=== PATIENT | male | born 1940 | race Caucasian/White ===

== ENCOUNTER 2018-01-08 08:02 | Day surgery (SDC) | payer OTHER, SELFPAY ==
[2018-01-08] VITALS (7 sets, daily range): BP systolic 94–168; BP diastolic 67–90; PULSE 39–54; RESP 15–16; TEMP 36–36.3; O2SAT 97–100; BMI 22.4
--- NOTE | 2018-01-08 | PATH_ITS ---
[facility] Accession Number: [id number] . 01 Material submitted: . ASCENDING COLON POLYP . 02 Diagnosis: Ascending Colon Polyp: Tubular adenoma. [facility] [place]10[place]2018 . 02 Electronically signed: . Geoff Noguera MD, PhD, Pathologist NPI- [id number] . 01 Gross description: . ASCENDING COLON POLYP: Received in formalin are multiple fragment(s) of coleman, soft tissue measuring 1.7 x 0.4 x 0.2 cm in aggregate submitted entirely in 1 cassette(s) /TRC /TRC . 02 Pathologist provided ICD-10: D12.2 . 02 CPT . 844403 Performed at: 01 [facility] [address] [facility], [place], [place] [id number] MD Paul Cheung MD Phone: [phone] Performed at: 02 [facility] [address] [place], [place] [id number] MD Howard Quezada MD Phone: [phone]
--- NOTE | 2018-01-08 08:50 | PM.HP.1 ---
History of Present Illness Chief complaint: [id number] Narrative: The patient is a 69-year-old male who was seen in October 2017 at our office for preoperative evaluation prior to colon cancer screening. The patient has history of atrial fibrillation currently on warfarin and a prior colonoscopy in 2007 which was unrevealing. The patient denies any GI symptoms. His father has history of colon cancer diagnosed in his late 70s or early 80s. Exam Vital Signs (past 8 hours): Vital Signs - 8 hr 01/08/ 08:22 Temperature 96.8 F L Pulse Rate 54 L Respiratory Rate 15 Blood Pressure 168/90 H Pulse Oximetry 100 Pulse Oximetry 100 Oxygen Delivery Method Room Air Narrative Exam Narrative: General: Patient is well developed, not in apparent distress Cardiovascular: Irregularly irregular rhythm, normal rate, no murmurs, rubs, or gallops; no evidence of edema; no palpable abdominal aortic aneurysm Gastrointestinal: Normoactive bowel sounds, soft, nontender, nondistended, no rebound tenderness, no hepatosplenomegaly, no evidence of hernia Assessment & Plan Plan: Assessment/Plan Narrative: 69-year-old male with history of atrial fibrillation on warfarin who is here for screening colonoscopy. Warfarin has been held 5 days prior to this procedure. Regarding the procedure(s), the risks and potential complications, benefits, and alternatives (including not doing the procedure) were discussed with the patient. The risks include but are not limited to bleeding, infection, perforation which may require surgical intervention, missed lesions, and adverse reactions to sedative medicines. After a question and answer period, the patient agreed to proceed with the procedure(s).
[2018-01-08] MEDS: SODIUM CHLORIDE 0.9% 1,000 ML 70 ML IV (08:51)
--- NOTE | 2018-01-08 08:53 | P.HP_ITS ---
History of Present Illness Chief complaint: [id number] Narrative: The patient is a 69-year-old male who was seen in October 2017 at our office for preoperative evaluation prior to colon cancer screening. The patient has history of atrial fibrillation currently on warfarin and a prior colonoscopy in 2007 which was unrevealing. The patient denies any GI symptoms. His father has history of colon cancer diagnosed in his late 70s or early 80s. Exam Vital Signs (past 8 hours): Vital Signs - 8 hr 3 01/08/ 08:22 Temperature 96.8 F L Pulse Rate 54 L Respiratory Rate 15 Blood Pressure 168/90 H Pulse Oximetry 100 Pulse Oximetry 100 Oxygen Delivery Method Room Air Narrative Exam Narrative: General: Patient is well developed, not in apparent distress Cardiovascular: Irregularly irregular rhythm, normal rate, no murmurs, rubs, or gallops; no evidence of edema; no palpable abdominal aortic aneurysm Gastrointestinal: Normoactive bowel sounds, soft, nontender, nondistended, no rebound tenderness, no hepatosplenomegaly, no evidence of hernia Assessment & Plan Plan: Assessment/Plan Narrative: 69-year-old male with history of atrial fibrillation on warfarin who is here for screening colonoscopy. Warfarin has been held 5 days prior to this procedure. Regarding the procedure(s), the risks and potential complications, benefits, and alternatives (including not doing the procedure) were discussed with the patient. The risks include but are not limited to bleeding, infection, perforation which may require surgical intervention, missed lesions, and adverse reactions to sedative medicines. After a question and answer period, the patient agreed to proceed with the procedure(s).
[2018-01-08] MEDS: fentaNYL 250 MCG/5 ML INJ IV (10:05)
[2018-01-08] MEDS: MIDAZOLAM 5 MG/5 ML VIAL IV (10:06)
--- NOTE | 2018-01-08 10:57 | P.DS_ITS ---
History of Present Illness Chief complaint: [id number] Narrative: The patient is a 69-year-old male who was seen in October 2017 at our office for preoperative evaluation prior to colon cancer screening. The patient has history of atrial fibrillation currently on warfarin and a prior colonoscopy in 2007 which was unrevealing. The patient denies any GI symptoms. His father has history of colon cancer diagnosed in his late 70s or early 80s. Discharge Providers Primary care physician: David Wyatt MD Discharge provider: Dwayne Lewis MD Exam Vital Signs (past 8 hours): Vital Signs - 8 hr 3 01/08/18 08:22 01/08/18 10:15 01/08/18 10:20 Temperature 96.8 F L 97.4 F L Pulse Rate 54 L 40 L 41 L Respiratory Rate 15 15 16 Blood Pressure 168/90 H 103/71 94/67 Pulse Oximetry 100 97 98 3 01/08/18 10:25 01/08/18 10:40 Temperature Pulse Rate 40 L 39 L Respiratory Rate 16 16 Blood Pressure 100/73 121/74 H Pulse Oximetry 97 98 Pulse Oximetry 98 Oxygen Delivery Method Room Air Narrative Exam Narrative: General: Patient is well developed, not in apparent distress Cardiovascular: Irregularly irregular rhythm, bradycardic, no murmurs, rubs, or gallops; no evidence of edema; no palpable abdominal aortic aneurysm Gastrointestinal: Normoactive bowel sounds, soft, nontender, nondistended, no rebound tenderness, no hepatosplenomegaly, no evidence of hernia Discharge Plan Discharge Plan Patient Disposition: Home, Self-Care Discharge comment: Restart warfarin today Remove IV prior to discharge Discharge to home once criteria are met (positive flatus, stable vital signs, no abdominal pain, tolerating p.o.) Discharge Med Rec/Prescriptions Discharge Orders: Discharge (Order); Ordered 01/08/18 Ordered By: Dwayne Lewis Visit Report/Discharge Packet Stand Alone Forms: Surgery Discharge Discharge Data Primary Care Provider: David Wyatt V Attending Provider: Dwayne Lewis
--- NOTE | 2018-01-08 11:00 | PM.OP.ENDO ---
Operative Date/Time/Diagnoses - Date of procedure: 01/08/18 Procedure Notes Procedure in detail: Surgeon: Dwayne Lewis MD Procedure: Colonoscopy with polypectomy Preoperative diagnosis: Colon cancer screening Postoperative diagnosis: Ascending colon polyp status post polypectomy, grade 1 internal hemorrhoids Medications: Conscious sedation using 4 mg IV of Midazolam and 50 mcg IV of Fentanyl Preanesthesia Assessment An H and P was performed/updated and the Px?s ASA class is 2. The procedure was discussed in detail with the patient. The potential risks and complications including infection, bleeding, missed lesions, perforation, need for surgery in case of perforation, prolonged hospital stay, and were explained. A brief question and answer period was allotted and once all questions were answered, informed consent was obtained. The patient was brought back to the procedure room and placed on standard monitoring. The patient?s vital signs were monitored continuously throughout the entire procedure. Prior to starting, a timeout was performed to confirm the patient?s identity, allergies, medications, and procedure. Procedure in detail The patient was placed in left lateral decubitus position and once adequate sedation was obtained a GAVIN was performed. The digital rectal exam did not reveal any palpable lesions. The tip of the colonoscope was placed in the anal canal and advanced without difficulty all the way to the cecum which was identified by the appendiceal orifice and ileocecal valve. Careful examination of all plasencia of the colon was performed with irrigation of any residual stool. In the ascending colon there is note of a 12 mm sessile polyp. This polyp was removed in its entirety by means of a hot snare with no evidence of any residual bleeding and retrieval was successful. Careful examination of the remainder of the colon revealed no further polyps. Retroflexion was performed in the rectum which revealed grade 1 internal hemorrhoids. The procedure was then terminated The patient tolerated the procedure well and will be brought back to the recovery area to be discharged once criteria are met. The prep was judged to be good/excellent and adequate to identify polyps less than 5 mm. The withdrawal time was 9 min. The total procedure time from initial sedation was 18 min. Complications There were no complications and estimated blood loss was minimal. Recommendations: Resume previous diet Restart warfarin today Continue outPx medications Follow up pathology results Repeat colonoscopy in 3 years can be considered depending on patient's clinical health status at that time An emergency contact number was given to the patient for any complications related to the procedure
== END 2018-01-08 11:45 | disposition home or self-care (01) ==
PROVIDERS: PCP Internal Medicine; Visit Provider Internal Medicine Gastroenterology
PROC: 0DJD8ZZ Inspection of Lower Intestinal Tract, Via Natural or Artificial Opening Endoscopic (ICD-10-PCS; CPT 45378; principal; 2018-01-08 09:30)
DX: Z12.11 Encounter for screening for malignant neoplasm of colon (principal); K64.0 First degree hemorrhoids; I48.91 Unspecified atrial fibrillation; Z79.01 Long term (current) use of anticoagulants; D12.2 Benign neoplasm of ascending colon
CPT/HCPCS: 45385; J2250; J3010

== ENCOUNTER → 2018-03-10 15:09 | Outpatient (CLI) | payer OTHER, SELFPAY ==
--- NOTE | 2018-03-10 15:13 | DI.RAD.S_ITS ---
PROCEDURE: XR LUMBAR SPINE MIN 4V INDICATIONS: LOW BACK PAIN TECHNIQUE: 5 views of the lumbar spine acquired. COMPARISON: [facility], CT, CHEST/ABD/PEL WITH CONTRAST, 07/04/2015, 10:31. FINDINGS: Bones: 5 nonrib-bearing vertebrae are present. Chronic appearing anterior wedge compression deformity involving L3 and L4 vertebral bodies are again seen, unchanged from previous CT study dated 07/04/15. No evidence of acute compression fracture or traumatic spondylolisthesis. Degenerative endplate changes and bilateral facet arthrosis throughout lumbar spine is seen. Soft tissues: Overlying bowel gas pattern is normal. No suspicious soft tissue calcifications. Flexion/extension: There is mildly decreased range of motion, with preserved normal alignment. IMPRESSION: Chronic appearing anterior wedge compression deformity at L3 and L4 levels unchanged from prior study. No acute compression fracture or traumatic spondylolisthesis. Degenerative disc disease throughout lumbar spine. Dictated by: Francisco Candelaria M.D. on 03/10/2018 at 15:58 Approved by: Francisco Candelaria M.D. on 03/10/2018 at 16:07
== END ==
PROVIDERS: PCP Internal Medicine; Visit Provider Internal Medicine
DX: M51.36 Other intervertebral disc degeneration, lumbar region (principal); M54.5 Low back pain
CPT/HCPCS: 72110

== ENCOUNTER 2018-11-22 07:43 | Emergency (ER) | payer OTHER, SELFPAY ==
[2018-11-22 07:45] VITALS: BP 148/100; PULSE 79; RESP 13; TEMP 36.2; O2SAT 98
--- NOTE | 2018-11-22 08:08 | ED_ITS ---
HPI - Male Genitourinary General Chief complaint: Urogenital-Male Stated complaint: States ural lift 2days ago; hard time urinating Time Seen by Provider: 11/22/18 07:55 Source: patient Mode of arrival: ambulatory Limitations: no limitations History of Present Illness HPI Narrative: Patient is a 78-year-old male who had a prostate lift 2 days ago. He has not been able to urinate well really since yesterday. He was sent home with straight catheters. He tried to do a straight catheter yesterday but he just got peer blood out. He since has been dribbling but he has any urinal now is a small amount of dark urine not gross blood. He has abdominal pain. No fever MD Complaint: other Duration: constant Review of Systems Review of Systems GENERAL: Denies chills,fever HEENT: Denies throat pain RESPIRATORY: Denies dyspnea, cough, wheezing CARDIOVASCULAR: Denies chest pain, palpitations : See HPI GASTROINTESTINAL: Denies nausea, vomiting MUSCULOSKELETAL: Denies extremity pain, injury SKIN: No rash, no laceration, no pruritus NEUROLOGIC: Denies weakness, dizziness, headache, numbness 8 point review of systems is negative except for those stated above and HPI PENDING SALE TO [facility] Medical History (Updated 11/22/18 @ 08:36 by Margie Pugh DO) Pulmonary embolism (Acute) Exam Initial Vital Signs Initial Vital Signs: Vital Signs Temperature 97.2 F L 11/22/18 07:45 Pulse Rate 79 11/22/18 07:45 Respiratory Rate 13 11/22/18 07:45 Blood Pressure 148/100 H 11/22/18 07:45 Pulse Oximetry 98 11/22/18 07:45 GENERAL: Alert pleasant elderly male appears in discomfort CARDIOVASCULAR: peripheral pulses in tact, cap refill <2 sec RESPIRATORY: No respiratory distress, speaks in full sentences without difficulty ABDOMEN: Soft, painful suprapubic area mild distension no guarding or rebound EXTREMITIES: Normal range of motion, no clubbing or edema. Neurovascularly intact NEUROLOGICAL: Cranial nerves II through XII grossly intact. Normal gait and speech. SKIN: Warm, dry, no petechiae, no rashes or lesions. Course Orders Ordered: ED Orders 11/22/18 08:10 UA Complete [Urinalysis and Microscopic] Stat Vital Signs - 8 hr 11/22/18 07:45 Temperature 97.2 F L Pulse Rate 79 Respiratory Rate 13 Blood Pressure 148/100 H Pulse Oximetry 98 MDM - Male Genitourinary Lab Data Lab Results 11/22/18 Range/Units 08:10 Urine Color Yellow Urine Appearance Slightly cloudy Urine pH 5.0 (4.5-8.0) Ur Specific [place] 1.020 (1.000-1.035) Urine Protein Negative (Negative) Urine Glucose (UA) Negative (Negative) g/dL Urine Ketones Negative (NEGATIVE) Urine Occult Blood 3+ H (Negative) Urine Nitrate Negative (Negative) Urine Bilirubin Negative (NEGATIVE) Urine Urobilinogen 0.2 (0.2) E.U./dL Ur Leukocyte Esterase Negative (NEGATIVE) Urine RBC 30-100/hpf H (0-5/HPF) Urine WBC 0-1/hpf (0-5/HPF) Ur Squamous Epith Cells 0-1 /hpf (0-5/HPF) Urine Bacteria None seen (None) Ur Culture Indicated? Cult not indicated MDM Narrative Medical decision making narrative: Orlando catheter was placed. About 400 cc of urine return. Not grossly bloody although nursing states that initially when catheter was placed it was gross blood however is once in bladder it was slightly darkened urine. At this time no sign of infection. Recommend he follow up with his urologist in [place] Discharge Plan Departure Patient Disposition: Home Clinical Impression: Acute retention of urine Discharge Date/Time: 11/22/18 09:05 Interventions: ED Discharge Assessment Last Done: 11/22/18 09:04 Instructions: How to Care for Your Orlando Catheter -- Male Activity Restrictions/Additional Instructions: *You have been diagnosed with urinary retention *What to do: Keep Orlando catheter in place. Be sure it is draining clear urine not gross bloody urine *Continue to take medications as directed *Follow up with your primary care provider in 2-3 days, call your urologist on Saturday morning be sure to tell them have a Orlando catheter in place *Return to ER if you should have increased abdominal pain gross blood in ability to see through the tube or any new, worsening or concerning symptoms Referrals: David Wyatt MD [Primary Care Provider] -
[2018-11-22 08:24] LABS: Bacteria Urine None Seen
[2018-11-22 08:25] LABS: Bilirubin Urine UA NEGATIVE (NEGATIVE); Color Urine UA YELLOW; Glucose Urine UA NEGATIVE (Negative); Ketones Urine UA NEGATIVE (NEGATIVE); Leukocyte Esterase Urine UA NEGATIVE (NEGATIVE); Nitrite Urine UA NEGATIVE (Negative); Occult Blood Urine UA 3+ (Negative); Protein Urine UA NEGATIVE (Negative); Urobilinogen Urine UA 0.2 E.U./dL (0.2)
[2018-11-22 08:27] LABS: Appearance Urine UA Slightly Cloudy
[2018-11-22 08:31] LABS: Culture Indicated Urine Cult Not Indicated; RBC Urine 30-100/HPF (0-5/HPF); Squamous Epithelial Cell Urine 0-1 /HPF (0-5/HPF); WBC Urine 0-1/HPF (0-5/HPF)
--- NOTE | 2018-11-22 09:07 | PC.NURSE ---
instructions on leg bag given seems to understand / will call if questions.
== END 2018-11-22 09:05 | disposition home or self-care (01) ==
PROVIDERS: Emergency Provider Emergency Medicine; PCP Internal Medicine
DX: R33.8 Other retention of urine (principal)
CPT/HCPCS: 51701; 51798; 81001; 99283

== ENCOUNTER → 2019-01-07 09:12 | Outpatient (CLI) | payer OTHER, SELFPAY ==
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
--- NOTE | 2019-01-07 | DI.MRI.S_ITS ---
PROCEDURE: MR LUMBAR SPINE WO CON INDICATIONS: LUMBAR SPINE PAIN TECHNIQUE: Noncontrast sagittal T1 spin echo and T2 fast echo, coronal T2, sagittal STIR, axial T1 and T2 fast spin echo through the lumbar spine. COMPARISON: [facility] [place], [place], XR LUMBAR SPINE WITH OLBIQUES PLUS FLEXION EXTENSION, 12/26/2018, 14:08. FINDINGS: Image quality: Excellent. Alignment and Curvature: 5 lumbar type vertebral bodies are present by plain film. There is mild diffuse rightward curvature of the lumbar spine. Bone Marrow: Marrow is of normal overall signal. No acute vertebral body compression fractures. Moderate chronic appearing wedging of L3 and L4. Moderate reactive signal within the endplates adjacent to the L5-S1 intervertebral disc. Mild reactive signal within the endplates adjacent to the L1-L2, L2-L3, L3-L4, and L4-L5 intervertebral discs. Spinal Cord: Conus medullaris terminates at the L2-L3 disc space level. Visualized cord demonstrates normal signal and size. Paraspinous Soft Tissues: No paravertebral masses. Small bilateral renal cysts are present. L1-L2: Mild disc desiccation. Mild diffuse disc bulge. Mild facet and ligament flavum hypertrophy. Mild canal stenosis. No foraminal stenosis. L2-L3: A moderate disc height loss and desiccation. Mild diffuse disc bulge with small superimposed right far lateral protrusion. Mild bilateral facet and ligamentum flavum hypertrophy. Mild canal stenosis. Mild right foraminal stenosis. No left foraminal stenosis. L3-L4: Moderate disc height loss and desiccation. Mild diffuse disc bulge. Mild facet and ligamentum flavum hypertrophy. Mild canal stenosis. Mild bilateral foraminal stenosis. L4-L5: Severe disc height loss and desiccation. Mild diffuse disc bulge/osteophyte. Mild facet hypertrophy bilaterally. Mild canal stenosis. Moderate right and mild left foraminal stenosis. L5-S1: Mild disc height loss and desiccation. Mild diffuse disc bulge. Mild bilateral facet hypertrophy. Mild canal stenosis. Mild bilateral foraminal stenosis. IMPRESSION: 1. Multilevel degenerative disc and facet disease, as well as ligamentum flavum hypertrophy and epidural lipomatosis. 2. Mild multilevel canal stenoses. 3. Multilevel foraminal stenoses, worst on the right at L4-L5 where there is moderate foraminal stenosis. 4. Chronic L2 and L3 compression fractures. No evidence of acute fracture. Dictated by: Miguel Angel Lawrence M.D. on 01/07/2019 at 10:17 Approved by: Miguel Angel Lawrence M.D. on 01/07/2019 at 10:27
== END ==
PROVIDERS: PCP Internal Medicine; Visit Provider Physical Medicine & Rehabilitation
DX: M54.5 Low back pain (principal); M51.36 Other intervertebral disc degeneration, lumbar region; M51.37 Other intervertebral disc degeneration, lumbosacral region; M48.061 Spinal stenosis, lumbar region without neurogenic claudication; M48.07 Spinal stenosis, lumbosacral region; M48.56XA Collapsed vertebra, not elsewhere classified, lumbar region, initial encounter for fracture; E88.2 Lipomatosis, not elsewhere classified
CPT/HCPCS: 72148; 72195

== ENCOUNTER 2019-01-30 14:35 | Inpatient (IN) | payer OTHER, SELFPAY ==
[2019-01-30] VITALS (7 sets, daily range): BP systolic 110–132; BP diastolic 57–84; PULSE 48–61; RESP 12–20; TEMP 36.2–36.6; O2SAT 92–98; BMI 24.6
--- NOTE | 2019-01-30 14:33 | ED.FALL ---
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 dose reduction, the following was used: automated exposure control. COMPARISON: [facility], CT, CHEST/ABD/PEL WITH CONTRAST, 07/04/2015, 10:31. [facility], MR, MR LUMBAR SPINE WO CON, 01/07/2019, 9:40. FINDINGS: Image quality: Excellent. Bones: There is stable and normal bony alignment of the lumbar spine with stable appearance of chronic anterior compression deformities of L3 and L4. Moderate multilevel lumbar spondylitic changes as before. No suspicious osseous lesions. Soft tissues: No retroperitoneal masses or hematomas. Scattered atherosclerotic calcifications in the visualized distal thoracic aorta and abdominal aorta with borderline aneurysmal dilatation of the infrarenal abdominal aorta measuring approximately 3.0 cm in diameter. There is also mild ectasia of the common iliac arteries. No periaortic stranding or fluid. Stable appearance of multiple bilateral renal hypodensities, likely representing cysts. IMPRESSION: 1. CT lumbar spine without acute fracture or dislocation. 2. Stable appearance of chronic anterior compression deformities of L3 and L4. 3. Stable appearance of multilevel lumbar spondylosis. 4. 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 Recommend continued clinical and imaging surveillance. 5. 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 Dictated by: Ajay Hampton M.D. on 01/30/2019 at 16:12 Approved by: Ajay Hampton M.D. on 01/30/2019 at 16:20 ECG Data Attestation: I personally reviewed and interpreted this ECG as follows: (Sinus bradycardia, rate 51, left axis deviation) <Kierra Bergeron DO - Last Filed: 01/31/19 07:29> Lab Data Lab Results 01/30/19 01/30/19 01/30/19 Range/Units 16:06 16:06 16:06 WBC 11.3 H (4.5-11.0) X10^3/uL RBC 4.40 L (4.5-5.9) X10^6/uL Hgb 13.9 (13.5-17.5) g/dL Hct 42.1 (41-53) % MCV 95.6 (80-100) fL MCH 31.5 (26-34) PG MCHC 33.0 (30-36) % RDW 13.5 (11.6-14.8) % Plt Count 184 (150-400) X10^3/uL Neut % (Auto) 83.2 H (50-75) % Lymph % (Auto) 10.9 L (25-40) % Douglas % (Auto) 5.4 (3-14) % Eos % (Auto) 0.2 L (2-4) % Baso % (Auto) 0.3 (0-2) % Neut # (Auto) 9400 H (7090-7030) /uL Lymph # (Auto) 1200 (4242-6038) /uL Douglas # (Auto) 600 (0-900) /uL Eos # (Auto) 0 (0-450) /uL Baso # (Auto) 0 (0-100) /uL PT 30.8 H (10.1-12.7) SECONDS INR 2.6 H (0.9-1.3) APTT 32 (26.4-36.2) SECONDS Sodium 140 (137-145) mmol/L Potassium 5.2 H (3.4-5.1) mmol/L Chloride 107 (98-107) mmol/L Carbon Dioxide 23 (22-32) mmol/L BUN 32 H (9-20) mg/dL Creatinine 1.00 (0.66-1.25) mg/dL Estimated GFR > 60.0 (>60) mL/min BUN/Creatinine Ratio 32.0 H (6-22) Glucose 131 H (80-110) mg/dL Calcium 8.9 (8.4-10.2) mg/dL Total Bilirubin 0.9 (0.2-1.3) mg/dL AST 33 (17-59) IU/L ALT 46 (21-72) IU/L Alkaline Phosphatase 77 (38-126) U/L Total Protein 6.4 (6.3-8.2) g/dL Albumin 3.9 (3.5-5.0) g/dL Globulin 2.5 (1.7-4.1) g/dL Albumin/Globulin Ratio 1.6 (1.0-2.8) Blood Type Antibody Screen 01/30/19 01/31/19 01/31/19 Range/Units 16:06 04:54 04:54 WBC 11.8 H (4.5-11.0) X10^3/uL RBC 3.76 L (4.5-5.9) X10^6/uL Hgb 11.9 L (13.5-17.5) g/dL Hct 36.1 L (41-53) % MCV 95.8 (80-100) fL MCH 31.7 (26-34) PG MCHC 33.1 (30-36) % RDW 13.4 (11.6-14.8) % Plt Count 155 (150-400) X10^3/uL Neut % (Auto) 81.6 H (50-75) % Lymph % (Auto) 11.2 L (25-40) % Douglas % (Auto) 7.1 (3-14) % Eos % (Auto) 0.0 L (2-4) % Baso % (Auto) 0.1 (0-2) % Neut # (Auto) 9700 H (5758-6275) /uL Lymph # (Auto) 1300 (7776-7169) /uL Douglas # (Auto) 800 (0-900) /uL Eos # (Auto) 0 (0-450) /uL Baso # (Auto) 0 (0-100) /uL PT 18.5 H D (10.1-12.7) SECONDS INR 1.6 H (0.9-1.3) APTT (26.4-36.2) SECONDS Sodium (137-145) mmol/L Potassium (3.4-5.1) mmol/L Chloride (98-107) mmol/L Carbon Dioxide (22-32) mmol/L BUN (9-20) mg/dL Creatinine (0.66-1.25) mg/dL Estimated GFR (>60) mL/min BUN/Creatinine Ratio (6-22) Glucose (80-110) mg/dL Calcium (8.4-10.2) mg/dL Total Bilirubin (0.2-1.3) mg/dL AST (17-59) IU/L ALT (21-72) IU/L Alkaline Phosphatase (38-126) U/L Total Protein (6.3-8.2) g/dL Albumin (3.5-5.0) g/dL Globulin (1.7-4.1) g/dL Albumin/Globulin Ratio (1.0-2.8) Blood Type O Positive Antibody Screen Negative 01/31/19 Range/Units 04:54 WBC (4.5-11.0) X10^3/uL RBC (4.5-5.9) X10^6/uL Hgb (13.5-17.5) g/dL Hct (41-53) % MCV (80-100) fL MCH (26-34) PG MCHC (30-36) % RDW (11.6-14.8) % Plt Count (150-400) X10^3/uL Neut % (Auto) (50-75) % Lymph % (Auto) (25-40) % Douglas % (Auto) (3-14) % Eos % (Auto) (2-4) % Baso % (Auto) (0-2) % Neut # (Auto) (9970-5926) /uL Lymph # (Auto) (0608-1752) /uL Douglas # (Auto) (0-900) /uL Eos # (Auto) (0-450) /uL Baso # (Auto) (0-100) /uL PT (10.1-12.7) SECONDS INR (0.9-1.3) APTT (26.4-36.2) SECONDS Sodium 139 (137-145) mmol/L Potassium 4.8 (3.4-5.1) mmol/L Chloride 105 (98-107) mmol/L Carbon Dioxide 28 (22-32) mmol/L BUN 29 H (9-20) mg/dL Creatinine 0.90 (0.66-1.25) mg/dL Estimated GFR > 60.0 (>60) mL/min BUN/Creatinine Ratio 32.2 H (6-22) Glucose 141 H (80-110) mg/dL Calcium 8.7 (8.4-10.2) mg/dL Total Bilirubin (0.2-1.3) mg/dL AST (17-59) IU/L ALT (21-72) IU/L Alkaline Phosphatase (38-126) U/L Total Protein (6.3-8.2) g/dL Albumin (3.5-5.0) g/dL Globulin (1.7-4.1) g/dL Albumin/Globulin Ratio (1.0-2.8) Blood Type Antibody Screen Discharge Plan Departure Patient Disposition: Admitted As Inpatient Clinical Impression: Closed femur fracture Qualifiers: Encounter type: initial encounter Femur location: shaft Fracture morphology: comminuted Fracture alignment: displaced Laterality: left Qualified Code(s): S72.352A - Displaced comminuted fracture of shaft of left femur, initial encounter for closed fracture Discharge Date/Time: 01/30/19 17:55 Interventions: ED Discharge Assessment Last Done: 01/30/19 17:44 Admit Date/Time: 01/30/19 17:02 Admit Provider: Princess Lindo <Kierra Bergeron DO - Last Filed: 01/31/19 07:29> Cosign ED Attending Cosignature Attestation: I was immediately available in the department for consultation. This documentation has been reviewed and I agree with assessment and plan. Supervised by Kierra Bergeron DO
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
[2019-01-30] MEDS: HYDROMORPHONE 1 MG INJ 0.5 MG IV ×2 (14:51→15:23)
--- NOTE | 2019-01-30 15:04 | ED_ITS ---
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 dose reduction, the following was used: automated exposure control. COMPARISON: [facility], CT, CHEST/ABD/PEL WITH CONTRAST, 07/04/2015, 10:31. [facility], MR, MR LUMBAR SPINE WO CON, 01/07/2019, 9:40. FINDINGS: Image quality: Excellent. Bones: There is stable and normal bony alignment of the lumbar spine with stable appearance of chronic anterior compression deformities of L3 and L4. Moderate multilevel lumbar spondylitic changes as before. No suspicious osseous lesions. Soft tissues: No retroperitoneal masses or hematomas. Scattered atherosclerotic calcifications in the visualized distal thoracic aorta and abdominal aorta with borderline aneurysmal dilatation of the infrarenal abdominal aorta measuring approximately 3.0 cm in diameter. There is also mild ectasia of the common iliac arteries. No periaortic stranding or fluid. Stable appearance of multiple bilateral renal hypodensities, likely representing cysts. IMPRESSION: 1. CT lumbar spine without acute fracture or dislocation. 2. Stable appearance of chronic anterior compression deformities of L3 and L4. 3. Stable appearance of multilevel lumbar spondylosis. 4. 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 Recommend continued clinical and imaging surveillance. 5. 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 Dictated by: Ajay Hampton M.D. on 01/30/2019 at 16:12 Approved by: Ajay Hampton M.D. on 01/30/2019 at 16:20 ECG Data Attestation: I personally reviewed and interpreted this ECG as follows: (Sinus bradycardia, rate 51, left axis deviation) <Kierra Bergeron DO - Last Filed: 01/31/19 07:29> Lab Data Lab Results 01/30/19 01/30/19 01/30/19 Range/Units 16:06 16:06 16:06 WBC 11.3 H (4.5-11.0) X10^3/uL RBC 4.40 L (4.5-5.9) X10^6/uL Hgb 13.9 (13.5-17.5) g/dL Hct 42.1 (41-53) % MCV 95.6 (80-100) fL MCH 31.5 (26-34) PG MCHC 33.0 (30-36) % RDW 13.5 (11.6-14.8) % Plt Count 184 (150-400) X10^3/uL Neut % (Auto) 83.2 H (50-75) % Lymph % (Auto) 10.9 L (25-40) % [place] % (Auto) 5.4 (3-14) % Eos % (Auto) 0.2 L (2-4) % Baso % (Auto) 0.3 (0-2) % Neut # (Auto) 9400 H (6397-8442) /uL Lymph # (Auto) 1200 (3130-9760) /uL [place] # (Auto) 600 (0-900) /uL Eos # (Auto) 0 (0-450) /uL Baso # (Auto) 0 (0-100) /uL PT 30.8 H (10.1-12.7) SECONDS INR 2.6 H (0.9-1.3) APTT 32 (26.4-36.2) SECONDS Sodium 140 (137-145) mmol/L Potassium 5.2 H (3.4-5.1) mmol/L Chloride 107 (98-107) mmol/L Carbon Dioxide 23 (22-32) mmol/L BUN 32 H (9-20) mg/dL Creatinine 1.00 (0.66-1.25) mg/dL Estimated GFR > 60.0 (>60) mL/min BUN/Creatinine Ratio 32.0 H (6-22) Glucose 131 H (80-110) mg/dL Calcium 8.9 (8.4-10.2) mg/dL Total Bilirubin 0.9 (0.2-1.3) mg/dL AST 33 (17-59) IU/L ALT 46 (21-72) IU/L Alkaline Phosphatase 77 (38-126) U/L Total Protein 6.4 (6.3-8.2) g/dL Albumin 3.9 (3.5-5.0) g/dL Globulin 2.5 (1.7-4.1) g/dL Albumin/Globulin Ratio 1.6 (1.0-2.8) Blood Type Antibody Screen 01/30/19 01/31/19 01/31/19 Range/Units 16:06 04:54 04:54 WBC 11.8 H (4.5-11.0) X10^3/uL RBC 3.76 L (4.5-5.9) X10^6/uL Hgb 11.9 L (13.5-17.5) g/dL Hct 36.1 L (41-53) % MCV 95.8 (80-100) fL MCH 31.7 (26-34) PG MCHC 33.1 (30-36) % RDW 13.4 (11.6-14.8) % Plt Count 155 (150-400) X10^3/uL Neut % (Auto) 81.6 H (50-75) % Lymph % (Auto) 11.2 L (25-40) % [place] % (Auto) 7.1 (3-14) % Eos % (Auto) 0.0 L (2-4) % Baso % (Auto) 0.1 (0-2) % Neut # (Auto) 9700 H (7439-9926) /uL Lymph # (Auto) 1300 (5168-2494) /uL [place] # (Auto) 800 (0-900) /uL Eos # (Auto) 0 (0-450) /uL Baso # (Auto) 0 (0-100) /uL PT 18.5 H D (10.1-12.7) SECONDS INR 1.6 H (0.9-1.3) APTT (26.4-36.2) SECONDS Sodium (137-145) mmol/L Potassium (3.4-5.1) mmol/L Chloride (98-107) mmol/L Carbon Dioxide (22-32) mmol/L BUN (9-20) mg/dL Creatinine (0.66-1.25) mg/dL Estimated GFR (>60) mL/min BUN/Creatinine Ratio (6-22) Glucose (80-110) mg/dL Calcium (8.4-10.2) mg/dL Total Bilirubin (0.2-1.3) mg/dL AST (17-59) IU/L ALT (21-72) IU/L Alkaline Phosphatase (38-126) U/L Total Protein (6.3-8.2) g/dL Albumin (3.5-5.0) g/dL Globulin (1.7-4.1) g/dL Albumin/Globulin Ratio (1.0-2.8) Blood Type O Positive Antibody Screen Negative 01/31/19 Range/Units 04:54 WBC (4.5-11.0) X10^3/uL RBC (4.5-5.9) X10^6/uL Hgb (13.5-17.5) g/dL Hct (41-53) % MCV (80-100) fL MCH (26-34) PG MCHC (30-36) % RDW (11.6-14.8) % Plt Count (150-400) X10^3/uL Neut % (Auto) (50-75) % Lymph % (Auto) (25-40) % [place] % (Auto) (3-14) % Eos % (Auto) (2-4) % Baso % (Auto) (0-2) % Neut # (Auto) (2555-3767) /uL Lymph # (Auto) (6383-6884) /uL [place] # (Auto) (0-900) /uL Eos # (Auto) (0-450) /uL Baso # (Auto) (0-100) /uL PT (10.1-12.7) SECONDS INR (0.9-1.3) APTT (26.4-36.2) SECONDS Sodium 139 (137-145) mmol/L Potassium 4.8 (3.4-5.1) mmol/L Chloride 105 (98-107) mmol/L Carbon Dioxide 28 (22-32) mmol/L BUN 29 H (9-20) mg/dL Creatinine 0.90 (0.66-1.25) mg/dL Estimated GFR > 60.0 (>60) mL/min BUN/Creatinine Ratio 32.2 H (6-22) Glucose 141 H (80-110) mg/dL Calcium 8.7 (8.4-10.2) mg/dL Total Bilirubin (0.2-1.3) mg/dL AST (17-59) IU/L ALT (21-72) IU/L Alkaline Phosphatase (38-126) U/L Total Protein (6.3-8.2) g/dL Albumin (3.5-5.0) g/dL Globulin (1.7-4.1) g/dL Albumin/Globulin Ratio (1.0-2.8) Blood Type Antibody Screen Discharge Plan Departure Patient Disposition: Admitted As Inpatient Clinical Impression: Closed femur fracture Qualifiers: Encounter type: initial encounter Femur location: shaft Fracture morphology: comminuted Fracture alignment: displaced Laterality: left Qualified Code(s): S72.352A - Displaced comminuted fracture of shaft of left femur, initial encounter for closed fracture Discharge Date/Time: 01/30/19 17:55 Interventions: ED Discharge Assessment Last Done: 01/30/19 17:44 Admit Date/Time: 01/30/19 17:02 Admit Provider: Princess Lindo <Kierra Bergeron DO - Last Filed: 01/31/19 07:29> Cosign ED Attending Cosignature Attestation: I was immediately available in the department for consultation. This documentation has been reviewed and I agree with assessment and plan. Supervised by Kierra Bergeron DO
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
[2019-01-30] MEDS: HYDROMORPHONE 1 MG INJ IV (15:33)
--- NOTE | 2019-01-30 15:45 | PC.NURSE ---
Traction placed on LLE by ACP and RN educator, x3 RN. pt states improved pain greatly after placement.
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
--- NOTE | 2019-01-30 16:11 | PC.NURSE ---
CT scan of head, neck, pelvis with c-collar and cspine precautions as well as hare traction in place.
[2019-01-30 16:14] LABS: Add Manual Diff / Slide Review NO; Basophils Absolute Auto 0 /uL (0-100); Basophils Percent Auto 0.3 % (0-2); Eosinophils Absolute Auto 0 /uL (0-450); Eosinophils Percent Auto 0.2 % (2-4); Hematocrit 42.1 % (41-53); Hemoglobin 13.9 g/dL (13.5-17.5); Lymphocytes Absolute Auto 1200 /uL (1100-4500); Lymphocytes Percent Auto 10.9 % (25-40); Mean Corpuscular Hemoglobin 31.5 PG (26-34); Mean Corpuscular Volume 95.6 fL (80-100); Monocytes Absolute Auto 600 /uL (0-900); Monocytes Percent Auto 5.4 % (3-14); Neutrophils Absolute Auto 9400 /uL (1500-7000); Neutrophils Percent Auto 83.2 % (50-75); Platelet Count 184 X10^3/uL (150-400); Red Cell Distribution Width 13.5 % (11.6-14.8); White Blood Cell Count 11.3 X10^3/uL (4.5-11.0)
[2019-01-30 16:20] LABS: INR 2.6 (0.9-1.3); Prothrombin Time 30.8 SECONDS (10.1-12.7)
[2019-01-30 16:23] LABS: PTT Partial Thromboplastin Tim 32 SECONDS (26.4-36.2)
[2019-01-30 16:25] LABS: Alanine Aminotransferase 46 IU/L (21-72); Albumin 3.9 g/dL (3.5-5.0); Albumin Globulin Ratio 1.6 (1.0-2.8); Alkaline Phosphatase 77 U/L (38-126); Aspartate Aminotransferase 33 IU/L (17-59); Bilirubin Total 0.9 mg/dL (0.2-1.3); Blood Urea Nitrogen 32 mg/dL (9-20); Calcium 8.9 mg/dL (8.4-10.2); Carbon Dioxide 23 mmol/L (22-32); Chloride 107 mmol/L (98-107); Estimated Glomerular Filt Rate > 60.0 mL/min (>60); Globulin 2.5 g/dL (1.7-4.1); Glucose 131 mg/dL (80-110); HEMOLYSIS < 15 (0-50); Potassium 5.2 mmol/L (3.4-5.1); Sodium 140 mmol/L (137-145); Total Protein 6.4 g/dL (6.3-8.2)
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
[2019-01-30] MEDS: HYDROMORPHONE 0.5 MG INJ IV (18:14)
[2019-01-30] MEDS: SODIUM CHLORIDE 0.9% 1,000 ML 100 ML IV (18:15)
[2019-01-30] MEDS: PHYTONADIONE (VIT K1) 5 MG in DEXTROSE 5 % IN WATER 50 ML 101 ML IV (19:49)
[2019-01-30] MEDS: TAMSULOSIN 0.4 MG CAPSULE PO (20:49)
[2019-01-30] MEDS: FISH OIL 1,000 MG CAPSULE 1000 MG PO (20:49)
[2019-01-30] MEDS: HYDROCODONE/ACET 5/325 TABLET 1 TAB PO (20:49)
[2019-01-30] MEDS: ATORVASTATIN 20 MG TABLET 40 MG PO (20:50)
--- NOTE | 2019-01-30 21:43 | RT ---
PT PLACED ON HOSPITAL BIFLEX PER DOCTOR'S ORDER. PT'S HOME CPAP IS NOT HERE. LARGE, FULL-FACE MASK APPEARS TO HAVE A GOOD FIT. O2 SAT ON RA NOTED AT 98%.
--- NOTE | 2019-01-30 22:22 | PC.NURSE ---
Evening Shift Note- Patient arrived to room via stretcher at 1755 from ER. Slider board used to transfer to bed. Admission questions done, home medications reviewed, and physical assessment done.Oriented patient to bed and bed controls, room, bathroom, lights, menu, phone, and call pereira/TV remote. Patient alert and oriented and able to make needs known to staff. Patient pleasent, calm, and cooperative with care. Safety measures in place. call pereira and phone within reach. will continue to monitor.
[2019-01-31] VITALS (16 sets, daily range): BP systolic 97–139; BP diastolic 58–77; PULSE 45–73; RESP 13–18; TEMP 36–36.9; O2SAT 95–99
--- NOTE | 2019-01-31 | DI.RAD.S_ITS ---
PROCEDURE: XR HIP W PEL IF DONE LT 2V INDICATIONS: Femur Roger LT TECHNIQUE: 4 views of the hip were acquired. COMPARISON: [facility], CR, XR FEMUR LT MIN 2V, 01/30/2019, 14:59. [facility], CR, XR PELVIS 1-2V, 01/30/2019, 14:59. FINDINGS: 4 intraoperative fluoroscopic views demonstrate open reduction and internal fixation of the previously described intertrochanteric proximal femoral fracture. There is improved alignment status post placement of an intramedullary roger and a proximal telescoping screw. There is a distal fixation screw demonstrated. IMPRESSION: 1. Intraoperative fluoroscopic images demonstrate improved alignment status post ORIF of left intertrochanteric fracture. Dictated by: Paul Chatman M.D. on 01/31/2019 at 15:06 Approved by: Paul Chatman M.D. on 01/31/2019 at 15:07
--- NOTE | 2019-01-31 05:08 | PC.NURSE ---
patient missed urinal had a wet towel 50 mlin urinal and some on emeka
[2019-01-31 05:09] LABS: Add Manual Diff / Slide Review NO; Basophils Absolute Auto 0 /uL (0-100); Basophils Percent Auto 0.1 % (0-2); Eosinophils Absolute Auto 0 /uL (0-450); Hematocrit 36.1 % (41-53); Hemoglobin 11.9 g/dL (13.5-17.5); Lymphocytes Absolute Auto 1300 /uL (1100-4500); Lymphocytes Percent Auto 11.2 % (25-40); Mean Corpuscular HGB Conc 33.1 % (30-36); Mean Corpuscular Hemoglobin 31.7 PG (26-34); Mean Corpuscular Volume 95.8 fL (80-100); Monocytes Absolute Auto 800 /uL (0-900); Monocytes Percent Auto 7.1 % (3-14); Neutrophils Absolute Auto 9700 /uL (1500-7000); Neutrophils Percent Auto 81.6 % (50-75); Platelet Count 155 X10^3/uL (150-400); Red Blood Cell Count 3.76 X10^6/uL (4.5-5.9); Red Cell Distribution Width 13.4 % (11.6-14.8); White Blood Cell Count 11.8 X10^3/uL (4.5-11.0)
[2019-01-31 05:12] LABS: INR 1.6 (0.9-1.3); Prothrombin Time 18.5 SECONDS (10.1-12.7)
[2019-01-31 05:16] LABS: BUN Creatinine Ratio 32.2 (6-22); Blood Urea Nitrogen 29 mg/dL (9-20); Calcium 8.7 mg/dL (8.4-10.2); Carbon Dioxide 28 mmol/L (22-32); Chloride 105 mmol/L (98-107); Estimated Glomerular Filt Rate > 60.0 mL/min (>60); Glucose 141 mg/dL (80-110); HEMOLYSIS < 15 (0-50); Potassium 4.8 mmol/L (3.4-5.1); Sodium 139 mmol/L (137-145)
[2019-01-31] MEDS: SODIUM CHLORIDE 0.9% 1,000 ML 100 ML IV (05:27)
--- NOTE | 2019-01-31 05:38 | PC.NURSE ---
Pt is A and O x 4, VSS. Pt + CMS of L foot and LE. Thigh is edematous and warm. Pt has declined pain medication for noc shift, stating it only hurts when I move it. Pt able to use a urinal in bed, voiding > 44 mLs/hr as he missed the urinal x 1 and soaked the pad underneath him. Urine is clear and dark yellow, encouraged fluids. Pt was on RA all noc (did not use CPAP) and O2 sat > the 96% all shift. HR regular and slightly adriano.
[2019-01-31] MEDS: PHYTONADIONE (VIT K1) 10 MG/ML AMP 5 MG IM (07:44)
--- NOTE | 2019-01-31 08:50 | P.PN_ITS ---
Subjective Date Patient Seen: 01/31/19 Time Patient Seen: 08:50 Interval history: He is seen today to follow-up the left hip fracture, atrial fibrillation, Coumadin anticoagulation, depression, BPH and hyperlipidemia. He is doing very well, only experiencing pain when he moves. His hemoglobin is stable at 11 0.9. The INR is 1.6 so he will be given an additional vitamin K dose. He is pending surgery later this morning. The glucose is 141 with a normal BMP. Exam Vital Signs (past 8 hours): - 01/31/19 03:00 01/31/19 07:37 01/31/19 07:55 Temperature 97.9 F 97.6 F Pulse Rate 58 L 73 Respiratory Rate 16 16 Blood Pressure 131/58 L 139/76 Pulse Oximetry 99 97 97 Oxygen Delivery Method Room Air Oxygen Flow Rate 0 Narrative Exam Narrative: He is alert and oriented x3, in no apparent distress. Heart is irregularly bradycardic without murmur. Lungs are clear to auscultation bilaterally There is no ankle edema The left upper hip angulation is less prominent, with less swelling than last night. There is a strong dorsalis pedal pulse in the left foot. Objective Labs Result Diagrams: 01/31/19 04:54 01/31/19 04:54 Labs: Laboratory Results - last 24 hr 01/30/19 01/30/19 01/30/19 16:06 16:06 16:06 WBC 11.3 H RBC 4.40 L Hgb 13.9 Hct 42.1 MCV 95.6 MCH 31.5 MCHC 33.0 RDW 13.5 Plt Count 184 Neut % (Auto) 83.2 H Lymph % (Auto) 10.9 L [place] % (Auto) 5.4 Eos % (Auto) 0.2 L Baso % (Auto) 0.3 Neut # (Auto) 9400 H Lymph # (Auto) 1200 [place] # (Auto) 600 Eos # (Auto) 0 Baso # (Auto) 0 PT 30.8 H INR 2.6 H APTT 32 Sodium 140 Potassium 5.2 H Chloride 107 Carbon Dioxide 23 BUN 32 H Creatinine 1.00 Estimated GFR > 60.0 BUN/Creatinine Ratio 32.0 H Glucose 131 H Calcium 8.9 Total Bilirubin 0.9 AST 33 ALT 46 Alkaline Phosphatase 77 Total Protein 6.4 Albumin 3.9 Globulin 2.5 Albumin/Globulin Ratio 1.6 Blood Type Antibody Screen 01/30/19 01/31/19 01/31/19 16:06 04:54 04:54 WBC 11.8 H RBC 3.76 L Hgb 11.9 L Hct 36.1 L MCV 95.8 MCH 31.7 MCHC 33.1 RDW 13.4 Plt Count 155 Neut % (Auto) 81.6 H Lymph % (Auto) 11.2 L [place] % (Auto) 7.1 Eos % (Auto) 0.0 L Baso % (Auto) 0.1 Neut # (Auto) 9700 H Lymph # (Auto) 1300 [place] # (Auto) 800 Eos # (Auto) 0 Baso # (Auto) 0 PT 18.5 H D INR 1.6 H APTT Sodium Potassium Chloride Carbon Dioxide BUN Creatinine Estimated GFR BUN/Creatinine Ratio Glucose Calcium Total Bilirubin AST ALT Alkaline Phosphatase Total Protein Albumin Globulin Albumin/Globulin Ratio Blood Type O Positive Antibody Screen Negative 01/31/19 04:54 WBC RBC Hgb Hct MCV MCH MCHC RDW Plt Count Neut % (Auto) Lymph % (Auto) [place] % (Auto) Eos % (Auto) Baso % (Auto) Neut # (Auto) Lymph # (Auto) [place] # (Auto) Eos # (Auto) Baso # (Auto) PT INR APTT Sodium 139 Potassium 4.8 Chloride 105 Carbon Dioxide 28 BUN 29 H Creatinine 0.90 Estimated GFR > 60.0 BUN/Creatinine Ratio 32.2 H Glucose 141 H Calcium 8.7 Total Bilirubin AST ALT Alkaline Phosphatase Total Protein Albumin Globulin Albumin/Globulin Ratio Blood Type Antibody Screen Assessment & Plan Assessment & Plan narrative: Left femur/hip fracture -Orthopedic surgical repair today - Dr. Rg -oral Vicodin as needed. IV Dilaudid prn. -He denies any syncope or loss of consciousness before the fall. Atrial fibrillation -holding Coumadin and give second dose of IM Vitamin K today. -No rate control needed -continue telemetry Coumadin anticoagulation -reverse with vitamin K and resume postoperative when okay Benign prostatic hypertrophy -the Flomax was stopped due to recent falls. Hyperlipidemia -continue atorvastatin Bilateral arm abrasions -no signs on exam of fracture or malfunction of his joints. -continue wound care dressing changes. Depression -Continue Duloxetine Quality VTE Deep Vein Thrombosis/Pulmonary Embolism Present on Admission: No
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
[2019-01-31] MEDS: LACTATED RINGERS 1,000 ML 42 ML IV (11:00)
--- NOTE | 2019-01-31 11:09 | PC.NURSE ---
Day shift: Pt off unit for surgery at approx 1100. Family aware and will be back around 1300 today.
--- NOTE | 2019-01-31 11:22 | PM.PREOP ---
Pre-operative Note Interval Note History & Physical reviewed/Exam performed by Physician: Yes Changes to H&P: No
[2019-01-31] MEDS: CEFAZOLIN 2 GM/100 ML FROZ.PIGGY IV ×2 (11:25→18:44)
--- NOTE | 2019-01-31 12:20 | SUR.OPER ---
Head on pillow. Supine on fracture table with operative leg secured in traction. Other leg secured in padded stirrup with gel pad and tape. Arms across chest, secured with sheet and tape.
[2019-01-31] MEDS: BUPIVACAINE 0.5% W/ EPI (PF) VIAL 30 ML INJ (12:59)
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
--- NOTE | 2019-01-31 14:02 | PC.NURSE ---
Day shift: Pt back on unit at approx 1345 from PACU. Left hip dressing is CDI. Mcnulty patent and draining clear yellow to gravity. THERAPIST RADIATION said she emptied 275ml from mcnulty bag. Pt had spinal so cont O2 monitor until 0200 tomorrow. Denies any pain or nausea. CMS ok but not 100% yet. PPP. Pt can move toes. Family in room for support. Pt has already been admitted so is familiar with call light. Call light in reach. IV fluids per SEP.
[2019-01-31] MEDS: LACTATED RINGERS 1,000 ML 125 ML IV (14:55)
[2019-01-31] MEDS: OXYCODONE/ACETAMINOPHEN 5/325 TABLET 1 TAB PO ×2 (17:07→21:14)
[2019-01-31] MEDS: DOCUSATE 100 MG CAPSULE PO (21:16)
--- NOTE | 2019-01-31 22:34 | PC.NURSE ---
VSS, afebrile, CMS intact and palpable pulses, BTs present; pain well controlled w/5 mg Percocet, no nausea no emesis. report to noc RN.
[2019-02-01] MEDS: OXYCODONE/ACETAMINOPHEN 5/325 TABLET 1 TAB PO ×3 (02:26→22:18)
[2019-02-01] MEDS: CEFAZOLIN 2 GM/100 ML FROZ.PIGGY IV (02:27)
[2019-02-01 03:00] VITALS: BP 110/56; PULSE 58; RESP 16; TEMP 36.8; O2SAT 97
[2019-02-01 05:34] LABS: Hematocrit 30.2 % (41-53); Hemoglobin 10.2 g/dL (13.5-17.5); Mean Corpuscular HGB Conc 33.6 % (30-36); Mean Corpuscular Volume 95.4 fL (80-100); Platelet Count 121 X10^3/uL (150-400); Red Blood Cell Count 3.17 X10^6/uL (4.5-5.9); Red Cell Distribution Width 13.4 % (11.6-14.8); White Blood Cell Count 10.5 X10^3/uL (4.5-11.0)
[2019-02-01 07:30] VITALS: BP 113/66; PULSE 65; RESP 16; TEMP 36.4; O2SAT 98
[2019-02-01 07:34] VITALS: O2SAT 98
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
--- NOTE | 2019-02-01 09:19 | CM.DPC ---
Addendum entered by Guerline Erickson LPN 02/01/19 15:25: Note now the PT eval of today by PT : this reflects pt stated desire to go home but also notes pt is a 2 person assist. Her recommendation was home with assist and HH or OUPT PT. OT was not available today. Will anticipate that more will be known tomorrow as the PT and OT continues. DCP team will follow: will want to make sure that it a plan is made for home the is capable of assisting pt and it does not appear that she was here during pt's PT session with [facility] today. Original Note: DCP: continued: EMR reviewed and note that pt did have surgery to repair fractured hip as planned. PT is ordered. OT order is now obtained. Will be following to assist with rehab options. Plan to discuss in Team Rounds. If pt does need snf rehab (probable) he is well poised with his Medicare for same.
[2019-02-01] MEDS: WARFARIN 2.5 MG TABLET PO (09:26)
[2019-02-01] MEDS: DOCUSATE 100 MG CAPSULE PO ×2 (09:26→22:19)
[2019-02-01] MEDS: ONDANSETRON 4 MG ODT PO (09:26)
--- NOTE | 2019-02-01 10:16 | PC.NURSE ---
Day shift: Per phone convo w/ Dr Ifrah Orlando taken out.
[2019-02-01 11:00] VITALS: BP 97/62; PULSE 58; RESP 16; TEMP 36.5; O2SAT 99
--- NOTE | 2019-02-01 11:13 | PT.IIE ---
Current Diagnoses Displaced intertrochanteric fracture of right femur, initial encounter for closed fracture (01/30/19) Surgery Performed Operation Date: 01/31/19 09:30 Actual Procedures p ORIF Femur Fracture synthes TFN(Left) - Andrzej Rg MD Surgical History (Last Reviewed 01/30/19 @ 17:03 by Princess Lindo MD) Status post recent transurethral resection of prostate (Resolved) Status post left partial knee replacement (Resolved) Status post circumferential ablation of pulmonary vein (Resolved) Medical History (Last Reviewed 01/30/19 @ 17:03 by Princess Lindo MD) Lumbar compression fracture (Chronic) Pulmonary nodule (Chronic) Peripheral neuropathy (Chronic) Hypothyroidism (Chronic) BPH (benign prostatic hyperplasia) (Chronic) Orthostatic hypotension (Chronic) Hyperlipidemia (Chronic) HTN (hypertension) (Chronic) Episodic atrial fibrillation (Chronic) Physical Therapy Inpatient Evaluation/Re-Eval M1 PT/OT-IP Prior Functional Status Start: 02/01/19 10:53 Freq: NEEDED Status: Active Protocol: Document 02/01/19 10:53 [facility] (Rec: 02/01/19 11:13 [facility] [id number]) Medical Review Prior Functional Status Medical History Reviewed Yes Diet/Fluid Consistency Regular Communication WNL Mobility and Gait Indep Activities of Daily Living and IADL's Indep Prior Functional Level (Other details) very physically active, bike riding Social History Household Members spouse Living Arrangements House Number of Floors (Floors) Two Floors Number of Stairs To Enter/Railing? 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 PT-IP Current Condition Start: 02/01/19 10:53 Freq: NEEDED Status: Active Protocol: Document 02/01/19 10:53 [facility] (Rec: 02/01/19 11:13 [facility] [id number]) Physical Therapy Current Condition Current Condition Evaluation Date 02/01/19 Treatment Diagnosis weakness post-op ORIF Onset Date 01/31/19 Precautions Other Precautions WBAT left LE Weight Bearing Status Weight Bearing Status Weight Bear as Tolerated M3 PT-IP Subjective Start: 02/01/19 10:53 Freq: NEEDED Status: Active Protocol: Document 02/01/19 10:53 [facility] (Rec: 02/01/19 11:13 [facility] [id number]) Subjective Physical Therapy Visit Type Type Initial Evaluation Visit Start Time 10:15 Visit Stop Time 10:45 Total Visit Minutes 30 Number of BRANCH ADMINISTRATOR Visits 0 Physical Therapy Visit Comments Patient Goals Return home Therapy Pain Assessment Pain When Pain Assessed At Rest Location Left Hip Intensity 6 Scale Used Numeric (1 - 10) Description With Movement Pain Behaviors Facial Grimacing Wincing Pain Management Techniques Apply Cold Elevation Re-positioning Timing of Activity with Medications M4 PT-IP Mobility and Gait Start: 02/01/19 10:53 Freq: NEEDED Status: Active Protocol: Document 02/01/19 10:53 [facility] (Rec: 02/01/19 11:13 [facility] [id number]) PT-Bed Mobility Assessment Supine to Sit Supine to Sit Moderate Assistance Head of Bed Elevated Scooting Scooting to Edge of Bed Moderate Assistance PT-Transfer Assessment Sit to and From Stand Sit to and from Stand Moderate Assistance Equipment Transfer Assistive Device Gait Belt Front Wheeled Walker Orthotic/Prosthetic Devices or Brace: No Transfers Transfer Destination Bed Transfer Technique Stand Pivot Transfer Ability Level of Assist Moderate Assistance Comments Mobility Comments left quad weakness Gait Assessment Gait Gait Assistance Required: Moderate Assistance Distance (Feet) 2 Able to Maintain Weight Bearing Status Yes During Gait Assistive Devices Assistive Device Gait Belt Gait Deviations General Gait Pattern Antalgic Factors Limiting Gait Function Factors Limiting Gait Function Decreased Strength Pain Comments Gait Comments difficulty with movement of left LE Stair Climbing Assessment Comments Stair Climbing Comments deferred due to pain and weakness PT-Balance Assessment Sitting Balance and Reactions Static Sitting Balance Ability Good Standing Balance and Reactions Static Standing Balance Ability Good M5 PT-IP Objective Assessments Start: 02/01/19 10:53 Freq: NEEDED Status: Active Protocol: Document 02/01/19 10:53 [facility] (Rec: 02/01/19 11:13 [facility] [id number]) Orientation Orientation/Cognition Level of Alertness Alert Language Function Ability No Deficits Noted Safety Awareness Understands Safety Issues Memory Description No Deficits Noted Gross Range of Motion Upper Extremity ROM Assessment Within Functional Limits Lower Extremity ROM Assessment Left Impaired Impairments mod limitation due to pain s/p ORIF Strength Upper Extremity Strength Assessment Within Functional Limits Lower Extremity Strength Assessment Left Impaired Comments Strength Comments unable to perform heelslide or hip abd/add without mod assist Sensation Assessment Sensation Gross Sensation Right LE Impaired Sensation Description Paresthesia Numbness Muscle Tone Muscle Tone Location Left Lower Extremity Type of Tone Hypotonicity Comments Muscle Tone Comments decreased muscle tone left quads, decreased ability to perform quad set. M6 PT-IP Treatment Start: 02/01/19 10:53 Freq: NEEDED Status: Active Protocol: Document 02/01/19 10:53 [facility] (Rec: 02/01/19 11:13 [facility] [id number]) Physical Therapy Treatment Exercises Exercises Ankle Pumps Gluteal Sets Quad Sets Education Education Provided Weight Bearing Status Other Treatments Other Treatment Performed Discussion of need for railing at stairs from garage to house. M7 PT-IP Assessment and Plan Start: 02/01/19 10:53 Freq: NEEDED Status: Active Protocol: Document 02/01/19 10:53 [facility] (Rec: 02/01/19 11:13 [facility] [id number]) PT Summary Assessment and Plan Potential Rehabilitation Potential Good Status of Condition at Evaluation Evolving Summary Impairments Pain ROM Strength Sensation Bed Mobility Transfers Gait Assessment Summary Patient with moderate deficits in functional mobility as well as left LE strength s/p left ORIF. Will benefit from skilled inpatient physical therapy to help him to improve his mobility and strength to allow him to return safely home with the assist of his to complete his recovery from his hip fracture. Feel he will need PT following his discharge, either home health or outpatient PT depending on how he progresses in the next 24 hrs. Goals Bed Mobility Goal Minimal Assistance Transfer Goal Standby Assistance Gait Goal Standby Assistance Gait Distance 75 Days to Meet Goals 2 Frequency of Treatment Frequency Of Treatment Twice a Day Treatment Plan Physical Therapy Treatment Plan Bed Mobility Training Transfer Training Gait Training Therapeutic Exercise Hot or Cold Pack Neuromuscular Re-ed Recommendations To Nursing Amount of Assist Needed 2 Person Assist Discharge Recommendations PT Discharge Recommendations Home with Assistance Home Health Outpatient PT Other Discharge Recommendations Have railing installed at stairs from garage to house KIZZY Equipment Needed for Home Before FWW Discharge
[2019-02-01 15:43] VITALS: BP 103/56; PULSE 79; RESP 18; TEMP 36.4; O2SAT 97
--- NOTE | 2019-02-01 16:19 | PT.IPTN ---
Current Diagnoses Displaced intertrochanteric fracture of right femur, initial encounter for closed fracture (01/30/19) Surgery Performed Operation Date: 01/31/19 09:30 Actual Procedures p ORIF Femur Fracture synthes TFN(Left) - Andrzej Rg MD Physical Therapy Treatment Note M2 PT-IP Current Condition Start: 02/01/19 10:53 Freq: NEEDED Status: Active Protocol: Document 02/01/19 10:53 SAK (Rec: 02/01/19 11:13 SAK [id number]) Physical Therapy Current Condition Current Condition Evaluation Date 02/01/19 Treatment Diagnosis weakness post-op ORIF Onset Date 01/31/19 Precautions Other Precautions WBAT left LE Weight Bearing Status Weight Bearing Status Weight Bear as Tolerated M3 PT-IP Subjective Start: 02/01/19 10:53 Freq: NEEDED Status: Active Protocol: Document 02/01/19 11:50 SAK (Rec: 02/01/19 16:19 SAK [id number]) Subjective Physical Therapy Visit Type Type Treatment Note Visit Start Time 11:50 Visit Stop Time 12:05 Total Visit Minutes 15 Number of MACHINE CLOTH TRIMMER Visits 0 Physical Therapy Visit Comments Patient Goals Return home M4 PT-IP Mobility and Gait Start: 02/01/19 10:53 Freq: NEEDED Status: Active Protocol: Document 02/01/19 10:53 SAK (Rec: 02/01/19 11:13 SAK [id number]) PT-Bed Mobility Assessment Supine to Sit Supine to Sit Moderate Assistance Head of Bed Elevated Scooting Scooting to Edge of Bed Moderate Assistance PT-Transfer Assessment Sit to and From Stand Sit to and from Stand Moderate Assistance Equipment Transfer Assistive Device Gait Belt Front Wheeled Walker Orthotic/Prosthetic Devices or Brace: No Transfers Transfer Destination Bed Transfer Technique Stand Pivot Transfer Ability Level of Assist Moderate Assistance Comments Mobility Comments left quad weakness Gait Assessment Gait Gait Assistance Required: Moderate Assistance Distance (Feet) 2 Able to Maintain Weight Bearing Status Yes During Gait Assistive Devices Assistive Device Gait Belt Gait Deviations General Gait Pattern Antalgic Factors Limiting Gait Function Factors Limiting Gait Function Decreased Strength Pain Comments Gait Comments difficulty with movement of left LE Stair Climbing Assessment Comments Stair Climbing Comments deferred due to pain and weakness PT-Balance Assessment Sitting Balance and Reactions Static Sitting Balance Ability Good Standing Balance and Reactions Static Standing Balance Ability Good M5 PT-IP Objective Assessments Start: 02/01/19 10:53 Freq: NEEDED Status: Active Protocol: Document 02/01/19 10:53 SAK (Rec: 02/01/19 11:13 SAK [id number]) Orientation Orientation/Cognition Level of Alertness Alert Language Function Ability No Deficits Noted Safety Awareness Understands Safety Issues Memory Description No Deficits Noted Gross Range of Motion Upper Extremity ROM Assessment Within Functional Limits Lower Extremity ROM Assessment Left Impaired Impairments mod limitation due to pain s/p ORIF Strength Upper Extremity Strength Assessment Within Functional Limits Lower Extremity Strength Assessment Left Impaired Comments Strength Comments unable to perform heelslide or hip abd/add without mod assist Sensation Assessment Sensation Gross Sensation Right LE Impaired Sensation Description Paresthesia Numbness Muscle Tone Muscle Tone Location Left Lower Extremity Type of Tone Hypotonicity Comments Muscle Tone Comments decreased muscle tone left quads, decreased ability to perform quad set. M6 PT-IP Treatment Start: 02/01/19 10:53 Freq: NEEDED Status: Active Protocol: Document 02/01/19 11:50 SAK (Rec: 02/01/19 16:19 SAK [id number]) Physical Therapy Treatment Other Treatments Other Treatment Performed Transfer from chair back to bed; mod assist sit to stand, min assist with gait 3 ft chair to bed with verbal cues for sequencing and safety. Mod assist for left LE for sit to supine. Patient settled in bed with LE's elevated, tray table and call light in place. M7 PT-IP Assessment and Plan Start: 02/01/19 10:53 Freq: NEEDED Status: Active Protocol: Document 02/01/19 11:50 SAK (Rec: 02/01/19 16:19 SAK [id number]) PT Summary Assessment and Plan Summary Assessment Summary Patient quad control and LE movement demonstrating some improvement but still weak. Goals Bed Mobility Goal Minimal Assistance Transfer Goal Standby Assistance Gait Goal Standby Assistance Gait Distance 75 Days to Meet Goals 2
--- NOTE | 2019-02-01 16:23 | PT.IPTN ---
Current Diagnoses Displaced intertrochanteric fracture of right femur, initial encounter for closed fracture (01/30/19) Surgery Performed Operation Date: 01/31/19 09:30 Actual Procedures p ORIF Femur Fracture synthes TFN(Left) - Andrzej Rg MD Physical Therapy Treatment Note M2 PT-IP Current Condition Start: 02/01/19 10:53 Freq: NEEDED Status: Active Protocol: Document 02/01/19 10:53 SAK (Rec: 02/01/19 11:13 [facility] [id number]) Physical Therapy Current Condition Current Condition Evaluation Date 02/01/19 Treatment Diagnosis weakness post-op ORIF Onset Date 01/31/19 Precautions Other Precautions WBAT left LE Weight Bearing Status Weight Bearing Status Weight Bear as Tolerated M3 PT-IP Subjective Start: 02/01/19 10:53 Freq: NEEDED Status: Active Protocol: Document 02/01/19 14:30 SAK (Rec: 02/01/19 16:23 SAK [id number]) Subjective Physical Therapy Visit Type Type Treatment Note Visit Start Time 14:30 Visit Stop Time 14:45 Total Visit Minutes 15 Number of CAMPGROUND ATTENDANT Visits 0 Physical Therapy Visit Comments Patient Comments Fatigued but willing to do LE ex in bed. Patient Goals To return home. Therapy Pain Assessment Pain When Pain Assessed During Mobility M4 PT-IP Mobility and Gait Start: 02/01/19 10:53 Freq: NEEDED Status: Active Protocol: Document 02/01/19 10:53 SAK (Rec: 02/01/19 11:13 SAK [id number]) PT-Bed Mobility Assessment Supine to Sit Supine to Sit Moderate Assistance Head of Bed Elevated Scooting Scooting to Edge of Bed Moderate Assistance PT-Transfer Assessment Sit to and From Stand Sit to and from Stand Moderate Assistance Equipment Transfer Assistive Device Gait Belt Front Wheeled Walker Orthotic/Prosthetic Devices or Brace: No Transfers Transfer Destination Bed Transfer Technique Stand Pivot Transfer Ability Level of Assist Moderate Assistance Comments Mobility Comments left quad weakness Gait Assessment Gait Gait Assistance Required: Moderate Assistance Distance (Feet) 2 Able to Maintain Weight Bearing Status Yes During Gait Assistive Devices Assistive Device Gait Belt Gait Deviations General Gait Pattern Antalgic Factors Limiting Gait Function Factors Limiting Gait Function Decreased Strength Pain Comments Gait Comments difficulty with movement of left LE Stair Climbing Assessment Comments Stair Climbing Comments deferred due to pain and weakness PT-Balance Assessment Sitting Balance and Reactions Static Sitting Balance Ability Good Standing Balance and Reactions Static Standing Balance Ability Good M5 PT-IP Objective Assessments Start: 02/01/19 10:53 Freq: NEEDED Status: Active Protocol: Document 02/01/19 10:53 [facility] (Rec: 02/01/19 11:13 [facility] [id number]) Orientation Orientation/Cognition Level of Alertness Alert Language Function Ability No Deficits Noted Safety Awareness Understands Safety Issues Memory Description No Deficits Noted Gross Range of Motion Upper Extremity ROM Assessment Within Functional Limits Lower Extremity ROM Assessment Left Impaired Impairments mod limitation due to pain s/p ORIF Strength Upper Extremity Strength Assessment Within Functional Limits Lower Extremity Strength Assessment Left Impaired Comments Strength Comments unable to perform heelslide or hip abd/add without mod assist Sensation Assessment Sensation Gross Sensation Right LE Impaired Sensation Description Paresthesia Numbness Muscle Tone Muscle Tone Location Left Lower Extremity Type of Tone Hypotonicity Comments Muscle Tone Comments decreased muscle tone left quads, decreased ability to perform quad set. M6 PT-IP Treatment Start: 02/01/19 10:53 Freq: NEEDED Status: Active Protocol: Document 02/01/19 14:30 [facility] (Rec: 02/01/19 16:23 [facility] [id number]) Physical Therapy Treatment Exercises Exercises Ankle Pumps Gluteal Sets Quad Sets Heel Slides Supine Hip Abduction Short Arc Quads M7 PT-IP Assessment and Plan Start: 02/01/19 10:53 Freq: NEEDED Status: Active Protocol: Document 02/01/19 14:30 [facility] (Rec: 02/01/19 16:23 [facility] [id number]) PT Summary Assessment and Plan Summary Assessment Summary Patient able to perform independent SAQ, needs mod assist for heelslide and hip abduction. Gait very limited today, will need to progress tomorrow. Goals Bed Mobility Goal Minimal Assistance Transfer Goal Standby Assistance Gait Goal Standby Assistance Gait Distance 75 Days to Meet Goals 2 Treatment Plan Physical Therapy Treatment Plan Bed Mobility Training Transfer Training Gait Training Therapeutic Exercise Hot or Cold Pack Neuromuscular Re-ed Discharge Recommendations PT Discharge Recommendations Home with Assistance Home Health Outpatient PT Other Discharge Recommendations Have railing installed at stairs from garage to house KIZZ[facility] Equipment Needed for Home Before FWW Discharge
[2019-02-01 19:33] VITALS: BP 100/59; PULSE 82; RESP 16; TEMP 36.6; O2SAT 95
[2019-02-02] VITALS (9 sets, daily range): BP systolic 93–153; BP diastolic 48–115; PULSE 55–76; RESP 16–20; TEMP 36.3–36.6; O2SAT 91–100
[2019-02-02] MEDS: OXYCODONE/ACETAMINOPHEN 5/325 TABLET 1 TAB PO (03:31)
[2019-02-02] MEDS: HYDROMORPHONE 0.5 MG INJ IV (03:37)
--- NOTE | 2019-02-02 04:22 | PC.NURSE ---
Pt attempted to use BSC for BM this shift. He rated his pain 9/10 using FWW. Gave him one Percocet and then 0.5 mg IVP Dilaudid which was helpful. Pt rated his pain 8/10 after medication and with movement. Encouraged patient to pre medicate prior to ambulation and medicate more frequently while his pain levels are this high.
--- NOTE | 2019-02-02 08:38 | PM.PNPO.1 ---
Subjective Date Patient Seen: 02/02/19 Time Patient Seen: 08:38 Interval history: Hospital day 4, postop day 2 following left intertrochanteric fracture ORIF by Dr. Rg. He is weight-bearing as tolerated to the left leg. He states increased pain with any leg movement or weight-bearing. Does well when resting still in bed. He has worked with physical therapy and does need continued his cyst. Patient would like to go home. He does have some steps at home. Patient also has amenable to SNF if needed for further care before going home. He states he has tried to have a bowel movement and not able to go. Exam Vital Signs (past 8 hours): - 02/02/19 01:00 02/02/19 04:01 02/02/19 07:42 Temperature 97.4 F L 97.8 F Pulse Rate 76 60 67 Respiratory Rate 16 18 Blood Pressure 95/48 L 153/115 H Pulse Oximetry 95 91 95 02/02/19 07:57 Temperature 97.8 F Pulse Rate 66 Respiratory Rate 18 Blood Pressure 117/70 Pulse Oximetry 94 Oxygen Delivery Method Room Air Oxygen Flow Rate 0 Narrative Exam Narrative: Alert, oriented no acute distress resting in bed. Legs. Dressing to left lateral thigh area is dry without drainage or inflammation. No calf pain or swelling. Pulses symmetrical. Objective Labs Result Diagrams: 02/01/19 05:14 01/31/19 04:54 Assessment & Plan Post-op Postoperative Procedures Operation Date: 01/31/19 09:30 Actual Procedures Side Surgeon p ORIF Femur Fracture synthes TFN Left Andrzej Rg MD Plan: Patient will work with PT/OT more today. Will add senna and MiraLax to help with bowels. Will also add oxycodone 5 mg as an alternative to 10 mg as needed. Anticipate possible discharge home tomorrow versus SNF depending on how he progresses. office workforce planner will talk with patient. Quality VTE Deep Vein Thrombosis/Pulmonary Embolism Present on Admission: No
--- NOTE | 2019-02-02 08:41 | P.PN_ITS ---
Subjective Date Patient Seen: 02/02/19 Time Patient Seen: 08:38 Interval history: Hospital day 4, postop day 2 following left intertrochanteric fracture ORIF by Dr. Rg. He is weight-bearing as tolerated to the left leg. He states increased pain with any leg movement or weight-bearing. Does well when resting still in bed. He has worked with physical therapy and does need continued his cyst. Patient would like to go home. He does have some steps at home. Patient also has amenable to SNF if needed for further care before going home. He states he has tried to have a bowel movement and not able to go. Exam Vital Signs (past 8 hours): - 02/02/19 01:00 02/02/19 04:01 02/02/19 07:42 Temperature 97.4 F L 97.8 F Pulse Rate 76 60 67 Respiratory Rate 16 18 Blood Pressure 95/48 L 153/115 H Pulse Oximetry 95 91 95 02/02/19 07:57 Temperature 97.8 F Pulse Rate 66 Respiratory Rate 18 Blood Pressure 117/70 Pulse Oximetry 94 Oxygen Delivery Method Room Air Oxygen Flow Rate 0 Narrative Exam Narrative: Alert, oriented no acute distress resting in bed. Legs. Dressi ng to left lateral thigh area is dry without drainage or inflammation. No calf pain or swelling. Pulses symmetrical. Objective Labs Result Diagrams: 02/01/19 05:14 01/31/19 04:54 Assessment & Plan Post-op Postoperative Procedures Operation Date: 01/31/19 09:30 Actual Procedures Side Surgeon p ORIF Femur Fracture synthes TFN Left Andrzej Rg MD Plan: Patient will work with PT/OT more today. Will add senna and MiraLax to help with bowels. Will also add oxycodone 5 mg as an alternative to 10 mg as needed. Anticipate possible discharge home tomorrow versus SNF depending on how he progresses. operations planner will talk with patient. Quality VTE Deep Vein Thrombosis/Pulmonary Embolism Present on Admission: No
[2019-02-02] MEDS: SENNOSIDES 8.6 MG TABLET PO ×2 (09:13→20:12)
[2019-02-02] MEDS: POLYETHYLENE GLYCOL 3350 17 GM POWD.PACK PO (09:13)
[2019-02-02] MEDS: DOCUSATE 100 MG CAPSULE PO ×2 (09:13→20:13)
[2019-02-02] MEDS: OXYCODONE IR 10 MG TABLET PO (09:18)
--- NOTE | 2019-02-02 10:55 | PT.IPTN ---
Current Diagnoses Displaced intertrochanteric fracture of right femur, initial encounter for closed fracture (01/30/19) Surgery Performed Operation Date: 01/31/19 09:30 Actual Procedures p ORIF Femur Fracture synthes TFN(Left) - Andrzej Rg MD Physical Therapy Treatment Note M2 PT-IP Current Condition Start: 02/01/19 10:53 Freq: NEEDED Status: Active Protocol: Document 02/01/19 10:53 SAK (Rec: 02/01/19 11:13 SAK [id number]) Physical Therapy Current Condition Current Condition Evaluation Date 02/01/19 Treatment Diagnosis weakness post-op ORIF Onset Date 01/31/19 Precautions Other Precautions WBAT left LE Weight Bearing Status Weight Bearing Status Weight Bear as Tolerated M3 PT-IP Subjective Start: 02/01/19 10:53 Freq: NEEDED Status: Active Protocol: Document 02/02/19 10:00 [facility] (Rec: 02/02/19 10:53 [facility] [id number]) Subjective Physical Therapy Visit Type Type Treatment Note Visit Start Time 10:05 Visit Stop Time 10:40 Total Visit Minutes 35 Notes Co-treated with OT Number of FRONT DESK WORKER Visits 1 Physical Therapy Visit Comments Patient Comments Pt willing to participate in therapy. Pt and stated they were willing to go to SNF rehab before returning home if needed. Therapy Pain Assessment Pain When Pain Assessed During Mobility Pain Present Pain Present Pain Reported Location Left Hip Intensity 8 Pain Behaviors Calling Out Facial Grimacing Guarding Moaning Wincing Pain Management Techniques Modification of Treatment Timing of Activity with Medications M4 PT-IP Mobility and Gait Start: 02/01/19 10:53 Freq: NEEDED Status: Active Protocol: Document 02/02/19 10:00 [facility] (Rec: 02/02/19 10:53 [facility] [id number]) PT-Bed Mobility Assessment Supine to Sit Supine to Sit Moderate Assistance Head of Bed Elevated Scooting Scooting to Edge of Bed Moderate Assistance PT-Transfer Assessment Sit to and From Stand Sit to and from Stand Minimal Assistance 2 Person Assistance Use of Upper Extremities Equipment Transfer Assistive Device Gait Belt Front Wheeled Walker Orthotic/Prosthetic Devices or Brace: No Transfers Transfer Destination Chair Transfer Technique Stand Pivot Transfer Ability Level of Assist Maximum Assistance 2 Person Assistance Use of Upper Extremities Comments Mobility Comments left quad weakness, unable to advance LLE. Gait Assessment Comments Gait Comments Unable at this time. Stair Climbing Assessment Comments Stair Climbing Comments unable M5 PT-IP Objective Assessments Start: 02/01/19 10:53 Freq: NEEDED Status: Active Protocol: Document 02/01/19 10:53 SAK (Rec: 02/01/19 11:13 SAK [id number]) Orientation Orientation/Cognition Level of Alertness Alert Language Function Ability No Deficits Noted Safety Awareness Understands Safety Issues Memory Description No Deficits Noted Gross Range of Motion Upper Extremity ROM Assessment Within Functional Limits Lower Extremity ROM Assessment Left Impaired Impairments mod limitation due to pain s/p ORIF Strength Upper Extremity Strength Assessment Within Functional Limits Lower Extremity Strength Assessment Left Impaired Comments Strength Comments unable to perform heelslide or hip abd/add without mod assist Sensation Assessment Sensation Gross Sensation Right LE Impaired Sensation Description Paresthesia Numbness Muscle Tone Muscle Tone Location Left Lower Extremity Type of Tone Hypotonicity Comments Muscle Tone Comments decreased muscle tone left quads, decreased ability to perform quad set. M6 PT-IP Treatment Start: 02/01/19 10:53 Freq: NEEDED Status: Active Protocol: Document 02/02/19 10:00 [facility] (Rec: 02/02/19 10:53 [facility] [id number]) Physical Therapy Treatment Exercises Exercises Quad Sets Heel Slides Supine Hip Abduction M7 PT-IP Assessment and Plan Start: 02/01/19 10:53 Freq: NEEDED Status: Active Protocol: Document 02/02/19 10:00 [facility] (Rec: 02/02/19 10:53 [facility] [id number]) PT Summary Assessment and Plan Summary Assessment Summary Pt felt dizzy upon sitting on EOB BP in sitting, 105/66. Pt required Min A and cues to stand, pt c/o dizziness BP in standing 93/53, pt was transferred to chair Max A x2 performing stand pivot with max verbal and assist advancing LLE. BP in sitting after transfer 127/101. Pt will require SNF rehab before returning home as will not be able to assist pt at this level of function. Pt also has 19 steps once in the house. Goals Bed Mobility Goal Minimal Assistance Transfer Goal Standby Assistance Gait Goal Standby Assistance Gait Distance 75 Days to Meet Goals 2 Frequency of Treatment Frequency Of Treatment Twice a Day Treatment Plan Physical Therapy Treatment Plan Bed Mobility Training Transfer Training Gait Training Therapeutic Exercise Hot or Cold Pack Neuromuscular Re-ed Recommendations To Nursing Amount of Assist Needed PT/OT Assist Only Discharge Recommendations PT Discharge Recommendations SNF Rehab
--- NOTE | 2019-02-02 11:12 | PC.NURSE ---
Addendum entered by Selma Reyes R.N. 02/02/19 14:10: PAIN - seated chair, states comfortable now when not mobilizing, does feel a little woozy, discussed medications, timing with pt and phys therapy, PT will be back around 1530 - 1400, will not admin now and will coordinate when ready to ret bed. Original Note: AM NOTE - pt is alert, states pain 3 on scale 0/10 when not moving, hr irreg 68, has mult abraisons and healing bruises, allevyn l elbow with shadow drainage within margins, bulky dsg l hip cdi, superficial abraison l posterior shoulder open air, pt had been up bsc during night w/incr pain, discussed medications with pt and Flori this am and given 10mg oxycodone with breakfast prior to mobilization with phys therapy, later PT and OT in and pt up to dangle position bp 105/66, when stood 93/53, pt has incr pain and difficulty with any wt bear or moving his lle, pain incr to 8 on scale 0/10, did trsf to chair w/bp improv 120's, discussed constipation and laxatives and added miralax to prune juice this am and senna tab.
--- NOTE | 2019-02-02 11:50 | CM.DPC ---
DCP Cont: Discussed patient with physical therapy team, as well as hospitalist, Dr. Huggins. Patient may need jail, for he has stairs in his home. Called [facility] this morning, spoke to Irma in for [facility], who is his case repairer. Asked for P.t. notes. Faxed all notes available with exeption of todays, for not yet available. Confirmed with Irma at [facility], that the two available facilities are [facility], as well as [facility], according to his plan. Discussed with patient and spouse, Sophia. Brought in Medicare Choice List, letting her know which facilities are contracted with [facility]. She stated that she would do some research on these facilities. Stated that she has been to [facility] before, visiting someone, and stated, it looked clean. She will be looking at [facility]. Spoke to Mayra in admissions, who stated that they do have availabilities, and would review. Also, spoke with Carol at [facility], and she stated that they may also have openings, and asked for clinical information to be sent for review. Went ahead and sent information to [facility] as well. P: Will sent updated P.T. notes to [facility], and will follow up at the end of the day regarding authorization. Cinda Banuelos RN/[facility]
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
--- NOTE | 2019-02-02 15:34 | OT.IP.EVAL ---
Current Diagnoses Displaced intertrochanteric fracture of right femur, initial encounter for closed fracture (01/30/19) Surgery Performed Operation Date: 01/31/19 09:30 Actual Procedures p ORIF Femur Fracture synthes TFN(Left) - Andrzej Rg MD Past Medical History (Last Reviewed 01/30/19 @ 17:03 by Princess Lindo MD) Lumbar compression fracture (Chronic) Pulmonary nodule (Chronic) Peripheral neuropathy (Chronic) Hypothyroidism (Chronic) BPH (benign prostatic hyperplasia) (Chronic) Orthostatic hypotension (Chronic) Hyperlipidemia (Chronic) HTN (hypertension) (Chronic) Episodic atrial fibrillation (Chronic) Surgical History (Last Reviewed 01/30/19 @ 17:03 by Princess Lindo MD) Status post recent transurethral resection of prostate (Resolved) Status post left partial knee replacement (Resolved) Status post circumferential ablation of pulmonary vein (Resolved) Occupational Therapy Inpatient Evaluation/Re-Eval M1 PT/OT-IP Prior Functional Status Start: 02/02/19 15:17 Freq: NEEDED Status: Active Protocol: Document 02/02/19 15:17 [facility] (Rec: 02/02/19 15:34 [facility] [id number]) Medical Review Prior Functional Status Medical History Reviewed Yes Diet/Fluid Consistency Regular Communication WNL Mobility and Gait Indep Activities of Daily Living and IADL's Indep Prior Functional Level (Other details) very physically active, bike riding Social History Household Members spouse Living Arrangements House Number of Floors (Floors) Two Floors Number of Stairs To Enter/Railing? 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 OT-IP Current Condition Start: 02/02/19 15:17 Freq: Status: Active Protocol: Document 02/02/19 15:17 [facility] (Rec: 02/02/19 15:34 [facility] [id number]) Occupational Therapy Current Condition Current Condition Evaluation Date 02/02/19 Treatment Diagnosis R ORIF, weakness Diagnosis Onset Date 01/30/19 Weight Bearing Status Weight Bearing Status Weight Bear as Tolerated M3 OT- IP Subjective and Pain Start: 02/02/19 15:17 Freq: Status: Active Protocol: Document 02/02/19 15:17 [facility] (Rec: 02/02/19 15:34 [facility] [id number]) OT- Subjective Occupational Therapy Visit Type Type Initial Evaluation Visit Start Time 10:00 Visit Stop Time 10:55 Total Visit Minutes 55 Occupational Therapy Visit Comments Patient Comments Pt agreeable to get up. Patient/Caregiver Goals Pt and now open to going to skilled rehab, as pt needing extensive assist today for mobility and ADl needs. OT Pain Assessment Pain When Pain Assessed During Mobility Pain Present Pain Present Pain Reported Location Left Hip Intensity 8 Scale Used Numeric (1 - 10) M4 OT- IP ADL's Start: 02/02/19 15:17 Freq: Status: Active Protocol: Document 02/02/19 15:17 [facility] (Rec: 02/02/19 15:34 [facility] [id number]) OT ADL-Grooming General Evaluation Grooming Ability Independent Areas Needing Assistance Retrieving/Set-up of Grooming Items Comments OT Grooming Comments Independent after set-up while sitting in the recliner. OT ADL-Oral Care General Eval Oral Care Ability Independent OT ADL-Dressing General Eval Lower Body Dressing Ability Maximum Assistance Areas Needing Assistance Socks Comments OT Dressing Comments Pt only able to assist to lift up his left foot and needing assist to hold right foot up in order to minh right sock. OT ADL-Toileting General Evaluation Toileting Ability Maximum Assistance Areas Needing Assistance Manage Clothing Perform Perineal Hygiene Devices Toileting Assistive Devices Urinal Comments OT Toileting Comments MAX A X 2 to stand with FWW while LACQUER SPRAY BOOTH OPERATOR held urinal in place . OT ADL-Bathing Bathing Type Bathing Type Sponge Bath General Evaluation Bathing Ability Maximal Assistance Areas Needing Assistance Retrieving/Setting Up Items Wash/Dry Back Wash/Dry Perineal Area Wash/Dry Lower Extremities Comments OT Bathing Comments Sponge bathing while in the recliner and MAX A X 1 with FWW while LAC[employer] SPRAY BOOTH OPERATOR assisted to wash his back side. M5 OT- IP IADL's Start: 02/02/19 15:17 Freq: Status: Active Protocol: Document 02/02/19 15:17 [facility] (Rec: 02/02/19 15:34 [facility] [id number]) OT-Instrumental Activities of Daily Living Home Safety Awareness Home Safety Comments Pt states was completely independent with all IADL needs prior. M6 OT- IP Functional Cognition Start: 02/02/19 15:17 Freq: Status: Active Protocol: Document 02/02/19 15:17 [facility] (Rec: 02/02/19 15:34 [facility] [id number]) Cognitive Factors Limiting Selfcare Function Cognitive Ability Level of Alertness Alert Patient Orientation Name Place Situation Attention Span Ability Capable of Focused Attention Capable of Sustained Attention Ability to Follow Commands Able to Follow Multi-Step Commands Memory Description No Deficits Noted Cognitive Comments Cognitive Assessment Comments During this OT session pt appears not to have any cognitive deficits to further assess. OT- Vision and Hearing OT- Hearing Assessment OT- Hearing Assessment WFL M7 OT- IP Mobility and Balance Start: 02/02/19 15:17 Freq: Status: Active Protocol: Document 02/02/19 15:17 [facility] (Rec: 02/02/19 15:34 [facility] [id number]) OT- Bed Mobility Assessment Supine to Sit Supine to Sit Assist Moderate Assistance Scooting Scooting to Edge of Bed Moderate Assistance 1 Person Assistance Scooting Up and Down in Bed Moderate Assistance 1 Person Assistance OT-Transfer Assessment Sit to and From Stand Sit to and from Stand Minimal Assistance Maximum Assistance 1 Person Assistance 2 Person Assistance Transfers Transfer Ability Maximum Assistance 2 Person Assistance Technique Transfer Destination Bed Chair Transfer Technique Stand Step Pivot Devices Transfer Assistive Devices Gait Belt Front Wheeled Walker Comments Mobility Comments MODA to help move RLE to the edge of the bed and to help scoot forwards to the edge of the bed. Pt has an adjustable bed at home. Pt needing GETACHEW x 2 from high surface to stand with FWW. MAXA x 1 from recliner to stand. Pt having difficulty to move RLE , even with use of BUE on FWW to help unweight RLE to move. At times, therapist having to assist to help with RLE placement, to slide forwards before sitting down. Pt needing MODAx2 to MAXA x 1 help lower to recliner. OT- Gait Assessment Comments Gait Ability Comments Only able to transfer at this time. OT- Balance Assessment Sitting Balance and Reactions Static Sitting Balance Ability Normal Dynamic Sitting Balance Ability Good Standing Balance and Reactions Static Standing Balance Ability Poor Dynamic Standing Balance Ability Poor M8 OT- IP Objective Assessments Start: 02/02/19 15:17 Freq: Status: Active Protocol: Document 02/02/19 15:17 [facility] (Rec: 02/02/19 15:34 [facility] [id number]) OT Gross Range of Motion Upper Extremity Range of Motion Assessment Within Functional Limits OT Strength Upper Extremity Strength Assessment Within Functional Limits OT- Coordination Assessment Upper Extremity Finger to Nose Test Within Functional Limits OT-Muscle Tone Assessment Muscle Tone WNL Yes OT Sensation Assessment Edema Edema Absent M9 OT- IP Assessment and Plan Start: 02/02/19 15:17 Freq: Status: Active Protocol: Document 02/02/19 15:17 [facility] (Rec: 02/02/19 15:34 [facility] [id number]) OT Summary Assessment and Plan Potential Rehabilitation Potential Good Analytic Complexity at Evaluation Low Summary OT Impairments Pain Strength Balance Functional Mobility Grooming Dressing Toileting Bathing Toilet Transfers Shower Transfers Progress Towards Goals Slow Progress due to Pain Slow Progress due to Medical Issues Slow Progress due to Activity Tolerance Assessment Summary Pt low complexity and main barriers are steps, pain, decreased ability to more RLE and now needing 2 person assist for ADl and IADl needs. Pt only able to tolerate transfer at this time and therefore would benefit from skilled rehab prior to going home as currently requiring to great of care for to handle. Goals Grooming Goal Standby Assistance Dressing Goal Minimal Assistance Toileting Goal Minimal Assistance Bathing Goal Moderate Assistance Toilet Transfer Goal Minimal Assistance Shower Transfer Goal Minimal Assistance Patient/Caregiver Education Goal Caregiver Independent Assisting Patient Days to Meet Goals 7 Frequency of Treatment Frequency Of Treatment Once a Day Treatment Plan OT Treatment Plan ADL Training Functional Mobility Patient/Family Education Discharge Planning Other Treatment Recommendations and Next Transfer to [facility] [place] with FWW MODA Treatment Focus X1, LB AED training Discharge Recommendations OT Discharge Recommendations SNF Rehab Home Equipment Needs Tub bench/shower chair,FWW
--- NOTE | 2019-02-02 16:04 | PT.IPTN ---
Current Diagnoses Displaced intertrochanteric fracture of right femur, initial encounter for closed fracture (01/30/19) Surgery Performed Operation Date: 01/31/19 09:30 Actual Procedures p ORIF Femur Fracture synthes TFN(Left) - Andrzej Rg MD Physical Therapy Treatment Note M2 PT-IP Current Condition Start: 02/01/19 10:53 Freq: NEEDED Status: Active Protocol: Document 02/01/19 10:53 [facility] (Rec: 02/01/19 11:13 [facility] [id number]) Physical Therapy Current Condition Current Condition Evaluation Date 02/01/19 Treatment Diagnosis weakness post-op ORIF Onset Date 01/31/19 Precautions Other Precautions WBAT left LE Weight Bearing Status Weight Bearing Status Weight Bear as Tolerated M3 PT-IP Subjective Start: 02/01/19 10:53 Freq: NEEDED Status: Active Protocol: Document 02/02/19 15:58 [facility] (Rec: 02/02/19 16:04 [facility] [id number]) Subjective Physical Therapy Visit Type Type Patient Refusal Notes Pt has had no pain meds and wants to remain in the chair until he has meds. M4 PT-IP Mobility and Gait Start: 02/01/19 10:53 Freq: NEEDED Status: Active Protocol: Document 02/02/19 10:00 [facility] (Rec: 02/02/19 10:53 [facility] [id number]) PT-Bed Mobility Assessment Supine to Sit Supine to Sit Moderate Assistance Head of Bed Elevated Scooting Scooting to Edge of Bed Moderate Assistance PT-Transfer Assessment Sit to and From Stand Sit to and from Stand Minimal Assistance 2 Person Assistance Use of Upper Extremities Equipment Transfer Assistive Device Gait Belt Front Wheeled Walker Orthotic/Prosthetic Devices or Brace: No Transfers Transfer Destination Chair Transfer Technique Stand Pivot Transfer Ability Level of Assist Maximum Assistance 2 Person Assistance Use of Upper Extremities Comments Mobility Comments left quad weakness, unable to advance LLE. Gait Assessment Comments Gait Comments Unable at this time. Stair Climbing Assessment Comments Stair Climbing Comments unable M5 PT-IP Objective Assessments Start: 02/01/19 10:53 Freq: NEEDED Status: Active Protocol: Document 02/01/19 10:53 [facility] (Rec: 02/01/19 11:13 [facility] [id number]) Orientation Orientation/Cognition Level of Alertness Alert Language Function Ability No Deficits Noted Safety Awareness Understands Safety Issues Memory Description No Deficits Noted Gross Range of Motion Upper Extremity ROM Assessment Within Functional Limits Lower Extremity ROM Assessment Left Impaired Impairments mod limitation due to pain s/p ORIF Strength Upper Extremity Strength Assessment Within Functional Limits Lower Extremity Strength Assessment Left Impaired Comments Strength Comments unable to perform heelslide or hip abd/add without mod assist Sensation Assessment Sensation Gross Sensation Right LE Impaired Sensation Description Paresthesia Numbness Muscle Tone Muscle Tone Location Left Lower Extremity Type of Tone Hypotonicity Comments Muscle Tone Comments decreased muscle tone left quads, decreased ability to perform quad set. M6 PT-IP Treatment Start: 02/01/19 10:53 Freq: NEEDED Status: Active Protocol: Document 02/02/19 10:00 [facility] (Rec: 02/02/19 10:53 [facility] [id number]) Physical Therapy Treatment Exercises Exercises Quad Sets Heel Slides Supine Hip Abduction M7 PT-IP Assessment and Plan Start: 02/01/19 10:53 Freq: NEEDED Status: Active Protocol: Document 02/02/19 10:00 [facility] (Rec: 02/02/19 10:53 [facility] [id number]) PT Summary Assessment and Plan Summary Assessment Summary Pt felt dizzy upon sitting on EOB BP in sitting, 105/66. Pt required Min A and cues to stand, pt c/o dizziness BP in standing 93/53, pt was transferred to chair Max A x2 performing stand pivot with max verbal and assist advancing LLE. BP in sitting after transfer 127/101. Pt will require SNF rehab before returning home as will not be able to assist pt at this level of function. Pt also has 19 steps once in the house. Goals Bed Mobility Goal Minimal Assistance Transfer Goal Standby Assistance Gait Goal Standby Assistance Gait Distance 75 Days to Meet Goals 2 Frequency of Treatment Frequency Of Treatment Twice a Day Treatment Plan Physical Therapy Treatment Plan Bed Mobility Training Transfer Training Gait Training Therapeutic Exercise Hot or Cold Pack Neuromuscular Re-ed Recommendations To Nursing Amount of Assist Needed PT/OT Assist Only Discharge Recommendations PT Discharge Recommendations SNF Rehab
[2019-02-02] MEDS: OXYCODONE IR 5 MG TABLET PO (18:36)
[2019-02-02] MEDS: SODIUM CHLORIDE 0.9% 1,000 ML 100 ML IV (20:12)
[2019-02-02] MEDS: WARFARIN 5 MG TABLET PO (20:12)
[2019-02-02] MEDS: ATORVASTATIN 20 MG TABLET 40 MG PO (20:13)
[2019-02-02] MEDS: MAGNESIUM HYDROXIDE 30 ML UDC PO (20:13)
[2019-02-03 00:05] VITALS: BP 123/68; PULSE 71; RESP 18; TEMP 36.9; O2SAT 96
[2019-02-03 05:26] LABS: INR 1.1 (0.9-1.3); Prothrombin Time 12.2 SECONDS (10.1-12.7)
[2019-02-03 05:31] LABS: Alanine Aminotransferase 22 IU/L (21-72); Albumin 3.1 g/dL (3.5-5.0); Albumin Globulin Ratio 1.2 (1.0-2.8); Alkaline Phosphatase 54 U/L (38-126); Aspartate Aminotransferase 22 IU/L (17-59); BUN Creatinine Ratio 23.8 (6-22); Blood Urea Nitrogen 19 mg/dL (9-20); Calcium 8.7 mg/dL (8.4-10.2); Carbon Dioxide 31 mmol/L (22-32); Chloride 101 mmol/L (98-107); Estimated Glomerular Filt Rate > 60.0 mL/min (>60); Globulin 2.6 g/dL (1.7-4.1); Glucose 108 mg/dL (80-110); HEMOLYSIS < 15 (0-50); Magnesium 1.9 mg/dL (1.6-2.3); Potassium 4.2 mmol/L (3.4-5.1); Sodium 137 mmol/L (137-145); Total Protein 5.7 g/dL (6.3-8.2)
[2019-02-03 05:36] LABS: Add Manual Diff / Slide Review NO; Basophils Absolute Auto 0 /uL (0-100); Basophils Percent Auto 0.2 % (0-2); Eosinophils Absolute Auto 100 /uL (0-450); Eosinophils Percent Auto 1.1 % (2-4); Hematocrit 28.8 % (41-53); Hemoglobin 9.6 g/dL (13.5-17.5); Lymphocytes Absolute Auto 1300 /uL (1100-4500); Lymphocytes Percent Auto 18.2 % (25-40); Mean Corpuscular HGB Conc 33.4 % (30-36); Monocytes Absolute Auto 600 /uL (0-900); Monocytes Percent Auto 8.2 % (3-14); Neutrophils Absolute Auto 5100 /uL (1500-7000); Neutrophils Percent Auto 72.3 % (50-75); Platelet Count 142 X10^3/uL (150-400); Red Cell Distribution Width 13.1 % (11.6-14.8)
[2019-02-03 05:45] VITALS: BP 130/67; PULSE 55; RESP 18; TEMP 36.7; O2SAT 96
[2019-02-03 08:00] VITALS: BP 138/63; PULSE 78; RESP 16; TEMP 36.9; O2SAT 94
[2019-02-03] MEDS: MULTIVITAMIN 1 TABLET 1 TAB PO (08:45)
[2019-02-03] MEDS: CALCIUM CARB/VIT D3 500/200 TABLET 1 EACH PO (08:45)
[2019-02-03] MEDS: POLYETHYLENE GLYCOL 3350 17 GM POWD.PACK PO (08:45)
[2019-02-03] MEDS: SENNOSIDES 8.6 MG TABLET PO (08:45)
[2019-02-03] MEDS: DOCUSATE 100 MG CAPSULE PO (08:45)
[2019-02-03] MEDS: OXYCODONE IR 5 MG TABLET PO (08:49)
--- NOTE | 2019-02-03 10:03 | PM.PNPO.1 ---
Subjective Date Patient Seen: 02/03/19 Time Patient Seen: 07:55 Interval history: POD #3 s/p left femur open reduction internal fixation with cephalomedullary device with Dr. Rg. Patient's pain is well controlled today. He is weight-bearing as tolerated to the left leg. He has worked with physical therapy Exam Vital Signs (past 8 hours): - 02/03/19 05:45 02/03/19 08:00 Temperature 98.0 F 98.4 F Pulse Rate 55 L 78 Respiratory Rate 18 16 Blood Pressure 130/67 138/63 Pulse Oximetry 96 94 Oxygen Delivery Method Room Air Oxygen Flow Rate 0 Narrative Exam Narrative: Patients left leg dressing in place. Calves are soft, compressible, and nontender bilaterally. SILT throughout BLEs. Pulses symmetrical. Objective Labs Result Diagrams: 02/03/19 05:09 02/03/19 05:09 Labs: Laboratory Results - last 24 hr 02/03/19 02/03/19 02/03/19 05:09 05:09 05:09 WBC 7.0 RBC 3.00 L Hgb 9.6 L Hct 28.8 L MCV 96.0 MCH 32.0 MCHC 33.4 RDW 13.1 Plt Count 142 L Neut % (Auto) 72.3 Lymph % (Auto) 18.2 L [place] % (Auto) 8.2 Eos % (Auto) 1.1 L Baso % (Auto) 0.2 Neut # (Auto) 5100 Lymph # (Auto) 1300 [place] # (Auto) 600 Eos # (Auto) 100 Baso # (Auto) 0 PT 12.2 D INR 1.1 Sodium 137 Potassium 4.2 Chloride 101 Carbon Dioxide 31 BUN 19 Creatinine 0.80 Estimated GFR > 60.0 BUN/Creatinine Ratio 23.8 H Glucose 108 Calcium 8.7 Magnesium 1.9 Total Bilirubin 1.0 AST 22 ALT 22 Alkaline Phosphatase 54 Total Protein 5.7 L Albumin 3.1 L Globulin 2.6 Albumin/Globulin Ratio 1.2 Assessment & Plan Post-op (1) Closed femur fracture: Postoperative Procedures Operation Date: 01/31/19 09:30 Actual Procedures Side Surgeon p ORIF Femur Fracture synthes TFN Left Andrzej Rg MD Patient will continue to work with PT/OT more today. Anticipate possible to SNF today depending on how he progresses. Quality VTE Deep Vein Thrombosis/Pulmonary Embolism Present on Admission: No
--- NOTE | 2019-02-03 10:05 | CM.DPC ---
DCP Cont: Patient is to be discharged today. 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 Updated patient, family and nurse, Joesph. Spoke to Carol at [facility], they will pick him up, pending orders. As soon as received, will fax PASSR, med list, and discharge summary to [facility]. P: Patient is to be discharged to [facility] today. Cinda Banuelos RN/Fish Dressing Machine Feeder
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
[2019-02-03] MEDS: BISACODYL 10 MG SUPP PR (11:00)
--- NOTE | 2019-02-03 12:23 | OT.IP.TRT ---
Current Diagnoses Displaced intertrochanteric fracture of right femur, initial encounter for closed fracture (01/30/19) Surgery Performed Operation Date: 01/31/19 09:30 Actual Procedures p ORIF Femur Fracture synthes TFN(Left) - Andrzej Rg MD Occupational Therapy Treatment Note M2 OT-IP Current Condition Start: 02/02/19 15:17 Freq: Status: Active Protocol: Document 02/02/19 15:17 [facility] (Rec: 02/02/19 15:34 [facility] [id number]) Occupational Therapy Current Condition Current Condition Evaluation Date 02/02/19 Treatment Diagnosis R ORIF, weakness Diagnosis Onset Date 01/30/19 Weight Bearing Status Weight Bearing Status Weight Bear as Tolerated M3 OT- IP Subjective and Pain Start: 02/02/19 15:17 Freq: Status: Active Protocol: Document 02/03/19 12:13 [facility] (Rec: 02/03/19 12:22 [facility] [id number]) OT- Subjective Occupational Therapy Visit Type Type Treatment Note Visit Start Time 11:05 Visit Stop Time 12:00 Total Visit Minutes 55 Occupational Therapy Visit Comments Patient Comments Pt wanting to use the BSC and agreeable to get washed up and dressed. OT Pain Assessment Pain When Pain Assessed During Mobility Pain Present Pain Present Pain Reported Location Left Hip Intensity 6 Scale Used Numeric (1 - 10) Management Techniques Re-positioning M4 OT- IP ADL's Start: 02/02/19 15:17 Freq: Status: Active Protocol: Document 02/03/19 12:13 [facility] (Rec: 02/03/19 12:22 [facility] [id number]) OT ADL-Grooming General Evaluation Grooming Ability Standby Assistance Areas Needing Assistance Retrieving/Set-up of Grooming Items OT ADL-Oral Care General Eval Oral Care Ability Independent OT ADL-Dressing General Eval Lower Body Dressing Ability Maximum Assistance Areas Needing Assistance Underpants/Brief Pants/Shorts Socks Comments OT Dressing Comments Education to minh RLE first , pt needing assist to thread right foot into brief and pants. MAX A to stand with FWW and another person to assist to pull up clothing over his hips. OT ADL-Toileting General Evaluation Toileting Ability Maximum Assistance Areas Needing Assistance Manage Clothing Perform Perineal Hygiene Devices Toileting Assistive Devices Commode Comments OT Toileting Comments MAX A x1 while pt leaning forwards with BUE in the BSC while aid able to help with hygiene and then MAXA x2 to stand to FWW so BSC could be switched out with recliner. OT ADL-Bathing Bathing Type Bathing Type Sponge Bath General Evaluation Bathing Ability Maximal Assistance Areas Needing Assistance Retrieving/Setting Up Items Wash/Dry Back Wash/Dry Perineal Area Wash/Dry Lower Extremities Comments OT Bathing Comments MAXA for sponge bating in BSC. M5 OT- IP IADL's Start: 02/02/19 15:17 Freq: Status: Active Protocol: Document 02/02/19 15:17 [facility] (Rec: 02/02/19 15:34 [facility] [id number]) OT-Instrumental Activities of Daily Living Home Safety Awareness Home Safety Comments Pt states was completely independent with all IADL needs. M6 OT- IP Functional Cognition Start: 02/02/19 15:17 Freq: Status: Active Protocol: Document 02/03/19 12:13 [facility] (Rec: 02/03/19 12:22 [facility] [id number]) Cognitive Factors Limiting Selfcare Function Cognitive Comments Cognitive Assessment Comments No deficits noted. M7 OT- IP Mobility and Balance Start: 02/02/19 15:17 Freq: Status: Active Protocol: Document 02/03/19 12:13 [facility] (Rec: 02/03/19 12:22 [facility] [id number]) OT- Bed Mobility Assessment Scooting Scooting to Edge of Bed Moderate Assistance 1 Person Assistance Scooting Up and Down in Bed Moderate Assistance 1 Person Assistance OT-Transfer Assessment Sit to and From Stand Sit to and from Stand Moderate Assistance 2 Person Assistance Transfers Transfer Ability Moderate Assistance 2 Person Assistance Technique Transfer Destination Bed Bedside Commode Chair Transfer Technique Stand Step Pivot Devices Transfer Assistive Devices Gait Belt Front Wheeled Walker Comments Mobility Comments Pt able to intiate to move RLE while transferring with FWW and MODA x 2, pt mainly able to move LLE side to side to help get to the recliner. Pt urgency to use BSC therefore stood pt up with FWW MODAX2 and while aid switched out to BSC. OT- Balance Assessment Sitting Balance and Reactions Static Sitting Balance Ability Normal Dynamic Sitting Balance Ability Good Standing Balance and Reactions Static Standing Balance Ability Poor Dynamic Standing Balance Ability Poor M8 OT- IP Objective Assessments Start: 02/02/19 15:17 Freq: Status: Active Protocol: Document 02/02/19 15:17 [facility] (Rec: 02/02/19 15:34 [facility] [id number]) OT Gross Range of Motion Upper Extremity Range of Motion Assessment Within Functional Limits OT Strength Upper Extremity Strength Assessment Within Functional Limits OT- Coordination Assessment Upper Extremity Finger to Nose Test Within Functional Limits OT-Muscle Tone Assessment Muscle Tone WNL Yes OT Sensation Assessment Edema Edema Absent M9 OT- IP Assessment and Plan Start: 02/02/19 15:17 Freq: Status: Active Protocol: Document 02/03/19 12:22 [facility] (Rec: 02/03/19 12:23 [facility] [id number]) OT Summary Assessment and Plan Potential Rehabilitation Potential Good Analytic Complexity at Evaluation Low Summary Progress Towards Goals Progressing Toward Goals Assessment Summary Pt being discharged to skilled rehab today and very motivated to get better. Discharge Recommendations OT Discharge Recommendations SNF Rehab Home Equipment Needs Tub bench/shower chair,FWW
--- NOTE | 2019-02-03 12:36 | PT.IPTN ---
Current Diagnoses Displaced intertrochanteric fracture of right femur, initial encounter for closed fracture (01/30/19) Surgery Performed Operation Date: 01/31/19 09:30 Actual Procedures p ORIF Femur Fracture synthes TFN(Left) - Andrzej Rg MD Physical Therapy Treatment Note M2 PT-IP Current Condition Start: 02/01/19 10:53 Freq: NEEDED Status: Active Protocol: Document 02/01/19 10:53 [facility] (Rec: 02/01/19 11:13 [facility]AK [id number]) Physical Therapy Current Condition Current Condition Evaluation Date 02/01/19 Treatment Diagnosis weakness post-op ORIF Onset Date 01/31/19 Precautions Other Precautions WBAT left LE Weight Bearing Status Weight Bearing Status Weight Bear as Tolerated M3 PT-IP Subjective Start: 02/01/19 10:53 Freq: NEEDED Status: Active Protocol: Document 02/03/19 11:00 [facility] (Rec: 02/03/19 12:36 [facility] [id number]) Subjective Physical Therapy Visit Type Type Treatment Note Visit Start Time 11:00 Visit Stop Time 11:40 Total Visit Minutes 40 Notes Co-treated with OT Number of [employer]URAL [employer]THROPOLOG[employer] PROFESSOR Visits 2 Physical Therapy Visit Comments Patient Comments Pt agreeable to do therapy. Pt needing to use BSC. Therapy Pain Assessment Pain When Pain Assessed During Mobility Pain Present Pain Present Pain Reported Location Left Hip Intensity 6 Pain Behaviors Facial Grimacing Guarding Pain Management Techniques Modification of Treatment Timing of Activity with Medications M4 PT-IP Mobility and Gait Start: 02/01/19 10:53 Freq: NEEDED Status: Active Protocol: Document 02/03/19 11:00 [facility] (Rec: 02/03/19 12:36 [facility] [id number]) PT-Bed Mobility Assessment Supine to Sit Supine to Sit Minimal Assistance Head of Bed Elevated Bedrails Scooting Scooting to Edge of Bed Moderate Assistance PT-Transfer Assessment Sit to and From Stand Sit to and from Stand Moderate Assistance 2 Person Assistance Use of Upper Extremities Equipment Transfer Assistive Device Gait Belt Front Wheeled Walker Orthotic/Prosthetic Devices or Brace: No Transfers Transfer Destination Chair Bedside Commode Transfer Technique Stand Step Pivot Transfer Ability Level of Assist Moderate Assistance 2 Person Assistance Use of Upper Extremities Comments Mobility Comments Pt improved with supine to sit needing Min A of LLE then Mod A with use of draw sheet to scoot to EOB. Pt with improvement with transfer and was able to advance LLE during step pivot transfer. Gait Assessment Comments Gait Comments Unable at this time. Stair Climbing Assessment Comments Stair Climbing Comments unable M5 PT-IP Objective Assessments Start: 02/01/19 10:53 Freq: NEEDED Status: Active Protocol: Document 02/01/19 10:53 [facility] (Rec: 02/01/19 11:13 SAK [id number]) Orientation Orientation/Cognition Level of Alertness Alert Language Function Ability No Deficits Noted Safety Awareness Understands Safety Issues Memory Description No Deficits Noted Gross Range of Motion Upper Extremity ROM Assessment Within Functional Limits Lower Extremity ROM Assessment Left Impaired Impairments mod limitation due to pain s/p ORIF Strength Upper Extremity Strength Assessment Within Functional Limits Lower Extremity Strength Assessment Left Impaired Comments Strength Comments unable to perform heelslide or hip abd/add without mod assist Sensation Assessment Sensation Gross Sensation Right LE Impaired Sensation Description Paresthesia Numbness Muscle Tone Muscle Tone Location Left Lower Extremity Type of Tone Hypotonicity Comments Muscle Tone Comments decreased muscle tone left quads, decreased ability to perform quad set. M6 PT-IP Treatment Start: 02/01/19 10:53 Freq: NEEDED Status: Active Protocol: Document 02/03/19 11:00 [facility] (Rec: 02/03/19 12:36 [facility] [id number]) Physical Therapy Treatment Exercises Exercises Ankle Pumps Gluteal Sets Quad Sets Heel Slides Supine Hip Abduction M7 PT-IP Assessment and Plan Start: 02/01/19 10:53 Freq: NEEDED Status: Active Protocol: Document 02/03/19 11:00 [facility] (Rec: 02/03/19 12:36 [facility] [id number]) PT Summary Assessment and Plan Summary Assessment Summary Pt improving with supine to sit but continues to need assist scooting to EOB. Pt was able to advance LLE while using RLE shuffle to pivot towards chair. Pt does not bear weight through LLE due to fear of pain. Pt required Mod A to stand<>sit in/out of chair and BSC. Goals Bed Mobility Goal Minimal Assistance Transfer Goal Standby Assistance Gait Goal Standby Assistance Gait Distance 75 Days to Meet Goals 2 Frequency of Treatment Frequency Of Treatment Twice a Day Treatment Plan Physical Therapy Treatment Plan Bed Mobility Training Transfer Training Gait Training Therapeutic Exercise Hot or Cold Pack Neuromuscular Re-ed Recommendations To Nursing Amount of Assist Needed 2 Person Assist Discharge Recommendations PT Discharge Recommendations SNF Rehab
--- NOTE | 2019-02-03 13:20 | PC.NURSE ---
Day shift: Pt left unit at approx 1315. Going to [facility] in [place]. Family aware and will fallow his there. Pt has all personal belongings and MD scrips. Paperwork is in [facility] packet. Pt did have BM today. MD orders to Hold Flomax for now. Will tell this to SNF in report.
== END 2019-02-03 13:25 | DRG 481 ==
LOC: ED 14:48 → AC 17:03
PROVIDERS: Internal Medicine; Orthopaedic Surgery Orthopaedic Surgery of the Spine; Admitting Provider Family Medicine; Emergency Provider Internal Medicine; PCP Internal Medicine; Visit Provider Family Medicine
PROC: 0QS706Z Reposition Left Upper Femur with Intramedullary Internal Fixation Device, Open Approach (ICD-10-PCS; principal; 2019-01-31 09:30)
DX: S72.142A Displaced intertrochanteric fracture of left femur, initial encounter for closed fracture (principal); D62 Acute posthemorrhagic anemia; Z79.01 Long term (current) use of anticoagulants; I48.0 Paroxysmal atrial fibrillation; V17.0XXA Pedal cycle driver injured in collision with fixed or stationary object in nontraffic accident, initial encounter; Y92.410 Unspecified street and highway as the place of occurrence of the external cause; N40.0 Benign prostatic hyperplasia without lower urinary tract symptoms; E78.5 Hyperlipidemia, unspecified; F32.9 Major depressive disorder, single episode, unspecified; S40.812A Abrasion of left upper arm, initial encounter; S40.811A Abrasion of right upper arm, initial encounter
CPT/HCPCS: 36415; 70450; 71045; 72125; 72131; 72170; 72192; 73502; 73552; 76000; 80048; 80053; 83735; 85025; 85027; 85610; 85730; 86850; 86900; 86901; 93005; 94660; 94760; 94762; 96374; 96376; 97110; 97162; 97165; 97530; 97535; 99284; 99285; A9270; J0690; J1170; J2250; J2274; J2704; J3010; J3430

== ENCOUNTER → 2019-05-12 13:01 | Outpatient (CLI) | payer OTHER, SELFPAY ==
[2019-01-30 18:10] VITALS: BMI 24.6
--- NOTE | 2019-05-12 | DI.RAD.S_ITS ---
PROCEDURE: XR LUMBAR SPINE 2-3V INDICATIONS: LOW BACK PAIN TECHNIQUE: 2 views of the lumbar spine were acquired. COMPARISON: [facility], CR, XR LUMBAR SPINE WITH OLBIQUES PLUS FLEXION EXTENSION, 12/26/2018, 14:08. [facility], CR, XR LUMBAR SPINE MIN 4V, 03/10/2018, 14:56. FINDINGS: Bones: L3 compression fracture without definite height loss progression since 12/26/18. There is also mild L4 compression fracture also unchanged. Dextro curvature of the lumbar spine. Multilevel spondylosis and diffuse facet arthropathy, grossly unchanged Soft tissues: Overlying bowel gas pattern is normal. No suspicious soft tissue calcifications. Scattered vascular calcifications seen in the aorta. IMPRESSION: Unchanged examination since 12/26/18. Redemonstration of L3 and L4 compression fractures. Dictated by: Miko Lou M.D. on 05/12/2019 at 17:07 Approved by: Miko Lou M.D. on 05/12/2019 at 17:09
== END ==
PROVIDERS: PCP Internal Medicine; Visit Provider Internal Medicine
DX: M54.5 Low back pain (principal); M48.56XA Collapsed vertebra, not elsewhere classified, lumbar region, initial encounter for fracture
CPT/HCPCS: 72100

== ENCOUNTER → 2019-09-16 11:40 | Outpatient (CLI) | payer OTHER, SELFPAY ==
[2019-01-30 18:10] VITALS: BMI 24.6
--- NOTE | 2019-09-16 | DI.MRI.S_ITS ---
PROCEDURE: MR LUMBAR SPINE WO CON INDICATIONS: Low back pain TECHNIQUE: Noncontrast sagittal T1 spin echo and T2 fast echo, sagittal STIR, axial T1 and T2 fast spin echo through the lumbar spine. In cases with scoliosis, additional coronal T2 fast spin echo may be performed. COMPARISON: [facility], MR, MR LUMBAR SPINE WO CON, 01/07/2019, 9:40. FINDINGS: Image quality: Excellent. Alignment and Curvature: Minimal rightward curvature. Bone Marrow: Marrow is of normal overall signal. No acute vertebral body compression fractures. Unchanged chronic compressions of L3 and L4. Spinal Cord: Conus medullaris terminates at the inferior aspect of L2 level. Visualized cord demonstrates normal signal and size. Paraspinous Soft Tissues: No paravertebral masses. T12-L1: No canal stenosis or foraminal stenosis. L1-L2: Unchanged. Mild disc bulge. Mild facet hypertrophy. Mild canal stenosis. No foraminal stenosis. L2-L3: Unchanged. Moderate disc loss. Mild disc bulge. Facet and ligament hypertrophy. Mild canal stenosis. Mild left foraminal stenosis. L3-L4: Unchanged. Mild disc height loss. Diffuse disc bulge. Facet and ligament hypertrophy. Mild to moderate canal stenosis. Mild bilateral foraminal stenosis. L4-L5: Severe disc height loss. Diffuse posterior disc bulge osteophyte. Facet and ligament hypertrophy. Mild canal stenosis. Mild right and moderate left foraminal narrowing. L5-S1: Mild disc bulge. Facet and ligament hypertrophy. Mild canal stenosis. Mild bilateral foraminal stenosis. IMPRESSION: 1. No significant interval change. 2. Multilevel canal stenosis as described above. Stenosis is mild to moderate at L3-4 and mild at the other lumbar levels. 3. Chronic L3 and L4 compressions. No acute compression fractures Dictated by: Xander Aragon M.D. on 09/16/2019 at 12:56 Approved by: Xander Aragon M.D. on 09/16/2019 at 13:07
== END ==
PROVIDERS: PCP Internal Medicine; Referring Provider Internal Medicine; Visit Provider Internal Medicine
DX: M51.26 Other intervertebral disc displacement, lumbar region (principal); M51.27 Other intervertebral disc displacement, lumbosacral region; M48.061 Spinal stenosis, lumbar region without neurogenic claudication; M48.07 Spinal stenosis, lumbosacral region
CPT/HCPCS: 72148

== ENCOUNTER 2020-06-07 05:33 | Observation (INO) | payer OTHER, SELFPAY ==
[2019-01-30 18:10] VITALS: BMI 24.6
[2020-06-07] VITALS (18 sets, daily range): BP systolic 108–188; BP diastolic 71–110; PULSE 45–67; RESP 14–24; TEMP 36.1–36.6; O2SAT 96–100; BMI 22.5
--- NOTE | 2020-06-07 05:50 | ED_ITS ---
HPI - General Adult General Chief complaint: Dizziness Stated complaint: dizzy when he got up Time Seen by Provider: 06/07/20 05:38 Source: patient Mode of arrival: Ambulatory Limitations: no limitations History of Present Illness HPI narrative: Patient is an 80-year-old male. History of atrial fibrillation. Also has had a history of a stroke. Is on Coumadin. Here for evaluation dizziness. Patient states that he woke up this morning to to use the restroom when he became dizzy. Does not specifically described as a room spinning sensation. He did not fall. He states he had to crawl back to his bed. He s tated that he had use a cane which she had in his home because of when he is feeling. The time of his presentation here he reports that he is feeling better than what he did when he woke up however not completely back to normal. Denies any other associated symptoms. Had no residual symptoms from his prior stroke. Related Data Home Medications Medication Instructions Recorded Confirmed Calcium with Vitamin D 1 tab PO DAILY 01/30/19 01/30/19 Magnesium Cr 2,000 mg PO DAILY 01/30/19 01/30/19 acetaminophen 1,000 mg PO Q12H PRN 01/30/19 01/30/19 atorvastatin 40 mg PO QPM 01/30/19 01/30/19 cetirizine 10 mg PO DAILY 01/30/19 01/30/19 multivitamin 1 tab PO DAILY 01/30/19 01/30/19 omega 2-oyc-kgl-fish oil [Fish Oil] 1 cap PO BID 01/30/19 01/30/19 warfarin [Jantoven] 2.5 mg PO SUTUWETHFRSA 01/30/19 01/30/19 warfarin [Jantoven] 5 mg PO MO 01/30/19 01/30/19 Previous Rx's Medication Instructions Recorded docusate sodium [DOK] 100 mg PO BID #60 cap 02/03/19 oxycodone 5 - 7.5 mg PO .[id number] PRN #20 tab 02/03/19 polyethylene glycol 3350 17 gm PO DAILY #1 pkg 02/03/19 sennosides [senna] 8.6 mg PO DAILY #30 tab 02/03/19 Allergies Allergy/AdvReac Type Severity Reaction Status Date / Time amiodarone Allergy Verified 01/30/19 18:18 Review of Systems Constitutional Constitutional: Denies chills, Denies fatigue, Denies fever(s), Denies headache(s) and Denies weakness Eyes Eyes: Denies change in vision ENT Ears, Nose, Mouth, and Throat: Denies vertigo, Reports dizziness, Denies headache(s), Reports disequilibrium and Denies tinnitus Cardiovascular Cardiovascular: Denies chest pain, Denies syncope and Denies rapid heart rate Respiratory Respiratory: Denies cough Gastrointestinal Gastrointestinal: Denies abdominal pain, Denies change in bowel habits, Denies nausea and Denies vomiting Genitourinary Genitourinary: Denies dysuria Genitourinary: Denies dysuria Musculoskeletal Musculoskeletal: Denies arthralgias, Denies myalgias and Denies tingling Integumentary/Breasts Skin/Breast: Denies lesions and Denies rash Neurologic Neurologic: Denies abnormal speech, Denies confusion, Denies vertigo, Reports dizziness, Denies syncope, Denies headache(s), Reports lack of coordination, D enies localized weakness, Denies tingling, Reports disequilibrium and Denies weakness Psychiatric Psychiatric: Denies confusion Endocrine Endocrine: Denies fatigue Hematologic/Lymphatic Comments: On Coumadin Allergic/Immunologic Allergic/Immunologic: Denies urticaria Patient History Medical History (Updated 06/07/20 @ 07:01 by Andi Clark DO) BPH (benign prostatic hyperplasia) Episodic atrial fibrillation HTN (hypertension) Hyperlipidemia Hypothyroidism Lumbar compression fracture Orthostatic hypotension Peripheral neuropathy Pulmonary nodule Surgical History Status post circumferential ablation of pulmonary vein Status post left partial knee replacement Status post recent transurethral resection of prostate Social History household members: spouse Smoking Status: Never smoker Smoking Status: Never smoker alcohol intake frequency: holidays/special occasions only Substance Use Type: does not use Exam Initial Vital Signs Initial Vital Signs: Vital Signs Temperature 97.5 F L 06/07/20 05:33 Pulse Rate 52 L 06/07/20 05:33 Respiratory Rate 16 06/07/20 05:33 Blood Pressure 188/86 H 06/07/20 05:33 Pulse Oximetry 97 06/07/20 05:33 Const General: cooperative, healthy appearing and comfortable Limitations: mental status not altered [facility] Head: normal to inspection and normocephalic Eyes Pupils: PERRL EOM: EOM intact bilaterally Resp Effort & Inspection: normal respiratory effort Auscultation: clear to auscultation bilaterally Cardio Rate: bradycardic Rhythm: regular rhythm GI Inspection: non-distended Palpation: soft and No tender Skin Lesions: no lesions Rashes: no rashes Neuro General: patient alert, patient awake and patient oriented x3 Cranial Nerves: CN's II-XI intact bilaterally Cognition: normal cognition Speech: speech normal Gait: ataxic Motor: muscle tone normal throughout Sensory Exam: no sensory deficits noted Coordination: [id number]-dl-atbm test normal Extrem General: normal to inspection and capillary refill normal Psych Appearance: grossly normal and well kempt Scores GCS Martin coma scale eye opening: Spontaneous [place] coma scale verbal response: Orientated [place] coma scale motor response: Obey commands Martin coma scale total score: 15 NIH Stroke Scale Level of Conciousness: Alert, keenly responsive Ask month/age: Answers both questions correctly. Open/close eyes, close hand: Performs both tasks correctly Best gaze horizontal: Normal Visual mcpherson: No visual loss Facial palsy: Normal symetrical movement Left arm drift: No drift for full 10 sec Right arm drift: No drift for full 10 sec Left leg drift: No drift for full 5 sec Right leg drift: No drift for full 5 sec Limb ataxia: Absent Sensory on face/arms/legs: Normal, no sensory loss Best language: No aphasia, normal Dysarthria: Normal Extinction or inattention: No abnormality Total NIH Stroke scale score: 0 Course Orders Ordered: ED Orders 06/07/20 05:45 EKG-12 Lead Stat 06/07/20 06:00 CT head/brain wo con Stat Complete Blood Count AUTO DIFF Stat Comprehensive Metabolic Panel Stat Lipase Stat Prothrombin Time INR Stat Troponin & CK Cardiac Panel Stat Meclizine HCl (Meclizine Hcl 12.5 Mg Tablet) 25 mg PO Q6HR PRN PRN Reason: Vertigo Ondansetron HCl (Ondansetron 4 Mg Odt) 4 mg SL Q4HR PRN PRN Reason: Nausea Discontinued Medications Meclizine HCl (Meclizine Hcl 12.5 Mg Tablet) 25 mg PO NOW ONE Stop: 06/07/20 06:02 Last Admin: 06/07/20 06:07 Dose: 25 mg Documented by: ANJANA Vital Signs Vital signs: Vital Signs - 8 hr 06/07/20 05:33 Temperature 97.5 F L Pulse Rate 52 L Respiratory Rate 16 Blood Pressure 188/86 H Pulse Oximetry 97 Medical Decision Making Medical Records Medical records reviewed: Yes I reviewed the patient's medical records. Lab Data Lab results reviewed: Yes I reviewed the patient's lab results. Result diagrams: 06/07/20 06:00 06/07/20 06:00 Labs: Lab Results 06/07/20 06/07/20 06/07/20 Range/Units 06:00 06:00 06:00 WBC 4.8 (4.5-11.0) X10^3/uL RBC 4.71 (4.5-5.9) X10^6/uL Hgb 14.8 (13.5-17.5) g/dL Hct 45.4 (41-53) % MCV 96.4 (80-100) fL MCH 31.4 (26-34) PG MCHC 32.6 (30-36) % RDW 13.8 (11.6-14.8) % Plt Count 165 (150-400) X10^3/uL Neut % (Auto) 41.9 L (50-75) % Lymph % (Auto) 44.0 H (25-40) % [place] % (Auto) 10.0 (3-14) % Eos % (Auto) 3.4 (2-4) % Baso % (Auto) 0.7 (0-2) % Neut # (Auto) 2000 (3383-1643) /uL Lymph # (Auto) 2100 (7749-1993) /uL [place] # (Auto) 500 (0-900) /uL Eos # (Auto) 200 (0-450) /uL Baso # (Auto) 0 (0-100) /uL PT 23.6 H (10.1-12.7) SECONDS INR 2.1 H (0.9-1.3) Sodium 140 (137-145) mmol/L Potassium 4.2 (3.4-5.1) mmol/L Chloride 108 H (98-107) mmol/L Carbon Dioxide 29 (22-32) mmol/L BUN 34 H (9-20) mg/dL Creatinine 0.98 (0.66-1.25) mg/dL Estimated GFR > 60.0 (>60) mL/min BUN/Creatinine Ratio 34.7 H (6-22) Glucose 88 (80-110) mg/dL Calcium 9.6 (8.4-10.2) mg/dL Total Bilirubin 0.8 (0.2-1.3) mg/dL AST 32 (17-59) IU/L ALT 29 (<50) IU/L Alkaline Phosphatase 81 (38-126) U/L Total Creatine Kinase 97 (55-170) U/L CK-MB (CK-2) TNP CK-MB (CK-2) Rel Index TNP Troponin I < 0.012 (0.01-0.034) ng/mL Total Protein 7.0 (6.3-8.2) g/dL Albumin 4.2 (3.5-5.0) g/dL Globulin 2.8 (1.7-4.1) g/dL Albumin/Globulin Ratio 1.5 (1.0-2.8) Lipase 48 (23-300) U/L Imaging Data CT scan - head: Radiologist's Impression: No acute intracranial abnormality ECG Data Attestation: I personally reviewed and interpreted this ECG as follows: Prior ECG tracings: not available for review Interpretation: Sinus bradycardia Ventricular rate of 52 Frequent PACs LVH No ST T wave changes MDM Narrative Medical decision making narrative: Patient is dizziness that he describes his non vertigo. It is not reproducible on my exam with a [place]-Hallpike maneuver. Upon standing patient does seem to have quite a bit of difficulty with balance. Seems to fall back to the right into the back. His NIH score is 0. His head CT is unremarkable. He does have a history of atrial fibrillation. Is not currently in atrial fibrillation however somewhat bradycardic with frequent PACs. He reported that his INR couple days ago was 1.7. It is 2.1 today. Given his history of atrial fibrillation the fact that he has been subtherapeutic there is increased concerned about CVA. Patient not a candidate for tPA given his current medical condition and the fact that he is on Coumadin. I feel patient does need admitted to the hospital for further evaluation of potential posterior stroke. Discussed the case with SHELBY navarrete the night hospitalist who will admit for further evaluation and treatment. Discussed the admission with the patient. He expressed understanding and agreement. Discharge Plan Departure Patient Disposition: Admitted as Observation Clinical Impression: Ataxia, Hypertension, Dizziness Admit Date/Time: 06/07/20 06:53 Admit Provider: Alexy Navarrete
--- NOTE | 2020-06-07 06:00 | DI.CT.S_ITS ---
PROCEDURE: CT HEAD/BRAIN WO CON INDICATIONS: Dizziness TECHNIQUE: Noncontrast 4.5 mm thick angled axial sections acquired from the foramen magnum to the vertex, with coronal and sagittal reformats. For radiation dose reduction, the following was used: automated exposure control, adjustment of mA and/or kV according to patient size. COMPARISON: [facility], MR, MR BRAIN WITHOUT CONTRAST, 02/05/2020, 18:21. [facility], CT, CT ANGIO HEAD AND NECK, 02/05/2020, 10:13. [facility], CT, CT HEAD TPA, 02/05/2020, 9:07. FINDINGS: Image quality: Excellent. CSF spaces: Basal cisterns are patent. No extra-axial fluid collections. The ventricles are symmetric in size and shape. Brain: No intracranial bleeds or masses. There is cerebral volume loss for age, with resultant ventricular and sulcal prominence. There are periventricular and deep white matter chronic small vessel ischemic changes. There is intracranial internal carotid artery and vertebral artery atherosclerosis. Skull and face: Calvarium and visualized facial bones appear intact, without suspicious lesions. Sinuses: Visualized sinuses and mastoids are clear. IMPRESSION: No acute intracranial disease process. Dictated by: Alida Ann MD, PhD on 06/07/2020 at 7:19 Approved by: Alida Ann MD, PhD on 06/07/2020 at 7:21
[2020-06-07] MEDS: MECLIZINE HCL 12.5 MG TABLET 25 MG PO (06:07)
[2020-06-07 06:13] LABS: Add Manual Diff / Slide Review NO; Basophils Absolute Auto 0 /uL (0-100); Basophils Percent Auto 0.7 % (0-2); Eosinophils Absolute Auto 200 /uL (0-450); Eosinophils Percent Auto 3.4 % (2-4); Hematocrit 45.4 % (41-53); Hemoglobin 14.8 g/dL (13.5-17.5); Lymphocytes Absolute Auto 2100 /uL (1100-4500); Mean Corpuscular HGB Conc 32.6 % (30-36); Mean Corpuscular Hemoglobin 31.4 PG (26-34); Mean Corpuscular Volume 96.4 fL (80-100); Monocytes Absolute Auto 500 /uL (0-900); Neutrophils Absolute Auto 2000 /uL (1500-7000); Neutrophils Percent Auto 41.9 % (50-75); Platelet Count 165 X10^3/uL (150-400); Red Blood Cell Count 4.71 X10^6/uL (4.5-5.9); Red Cell Distribution Width 13.8 % (11.6-14.8); White Blood Cell Count 4.8 X10^3/uL (4.5-11.0)
[2020-06-07 06:16] LABS: HEMOLYSIS < 15 (0-50); INR 2.1 (0.9-1.3); Prothrombin Time 23.6 SECONDS (10.1-12.7)
[2020-06-07 06:21] LABS: Alanine Aminotransferase 29 IU/L (<50); Albumin 4.2 g/dL (3.5-5.0); Albumin Globulin Ratio 1.5 (1.0-2.8); Alkaline Phosphatase 81 U/L (38-126); Aspartate Aminotransferase 32 IU/L (17-59); BUN Creatinine Ratio 34.7 (6-22); Bilirubin Total 0.8 mg/dL (0.2-1.3); Blood Urea Nitrogen 34 mg/dL (9-20); Calcium 9.6 mg/dL (8.4-10.2); Carbon Dioxide 29 mmol/L (22-32); Chloride 108 mmol/L (98-107); Creatine Kinase 97 U/L (55-170); Estimated Glomerular Filt Rate > 60.0 mL/min (>60); Globulin 2.8 g/dL (1.7-4.1); Glucose 88 mg/dL (80-110); Lipase 48 U/L (23-300); Potassium 4.2 mmol/L (3.4-5.1); Sodium 140 mmol/L (137-145)
[2020-06-07 06:35] LABS: Troponin I < 0.012 ng/mL (0.01-0.034)
--- NOTE | 2020-06-07 07:26 | DI.MRI.S_ITS ---
PROCEDURE: MR STROKE Pre- and post-contrast brain MRI, non-contrast brain MR angiogram, pre- and postcontrast neck MR angiogram INDICATIONS: dizziness, afib, eval for posterior CVA TECHNIQUE: Brain: Noncontrast axial T1 spin echo, axial T2 fast spin echo, sagittal and axial FLAIR, coronal T2 fast spin echo, axial gradient echo, axial diffusion and ADC through the brain. After the administration of contrast, axial 3D VIBE of the cranial vasculature and brain. Brain MRA: Non-contrast 3-D time of flight MR angiogram, with multiple mutwipj-yfzswavlr-ytpfdocuxk (MIP) reformats performed. Neck MRA: Axial and sagittal TruFISP through the neck. Coronal dynamic MR angiogram during administration of contrast in the arterial and venous phases, with 3-dimenstional gfgvmxs-lxvbpmbqg-cscgsyvhxb (MIP) reformats constructed from subtraction images. COMPARISON: [facility], MR, MR STROKE PROTOCOL, 12/16/2018, 11:49. [facility], MR, MR BRAIN WITHOUT CONTRAST, 02/05/2020, 18:21. [facility], CT, CT HEAD TPA, 02/05/2020, 9:07. [facility], CT, CT HEAD/BRAIN WO CON, 06/07/2020, 6:05. FINDINGS: Image quality: Excellent. BRAIN: CSF spaces: Ventricles are normal in size and shape. Basal cisterns are patent. No extra-axial fluid collections. Brain: No intracranial mass effects. A focus of hemosiderin deposition is again seen involving the left superior parietal region. Monte-white matter interface is normal. Diffusion weighted images show no acute ischemic insults. Brain parenchymal volume loss is seen. Chronic small vessel ischemic changes are seen. Brainstem appears normal. Normal intravascular flow voids are present. No abnormal intracranial enhancement. Skull and face: Calvarial marrow signal is normal. Orbits appear normal. Note is made of bilateral lens replacements. Sinuses: Sinuses and mastoids are clear. BRAIN MR ANGIOGRAM: Anterior circulation: Intracranial internal carotid arteries are normal in size and enhancement. The flow within the paired anterior cerebral arteries is normal and symmetric. The flow within the middle cerebral arteries is normal and symmetric. The anterior communicating artery is seen. No stenoses, occlusions, or aneurysms. Posterior circulation: There is focal narrowing of the distal most right V4 segment, which is not significantly changed compared to the prior study dated 12/16/2018. The left V4 segment is unremarkable. There is a normal appearing basilar artery. There is a prominent left posterior communicating artery seen, with an accompanying diminutive left P1 segment. This is attributed to a type origin of the left posterior cerebral artery, which is considered to be a normal developmental variant of typically no clinical consequence. The flow within the posterior cerebral arteries is normal and symmetric. No stenoses, occlusions, or aneurysms. NECK MR ANGIOGRAM: Carotids: Great vessels demonstrate a conventional anatomy as they arise from the aortic arch. The origins of the common carotid arteries appear patent. The calibers and courses of both common carotid arteries are normal. The bifurcation regions appear normal bilaterally. The internal carotid arteries demonstrate normal course and caliber. Posterior circulation: There is a greater than 50% stenosis seen involving the origin of the right vertebral artery. The origin of the left vertebral artery is normal. More superior portions of both vertebral arteries demonstrate normal course and caliber. Miscellaneous: Subclavian arteries appear patent. Pre-contrast images through the neck show no soft tissue abnormalities. IMPRESSION: BRAIN MRI: No findings of acute or subacute infarction can be seen, including within the posterior fossa. Note is made of age-appropriate brain parenchymal volume loss and chronic small vessel ischemic changes. Stable hemosiderin deposition seen involving the left parietal region. BRAIN MR ANGIOGRAM: There is focal narrowing of the distal right V4 segment. NECK MR ANGIOGRAM: Greater than 50% stenosis seen involving the right vertebral artery origin. No carotid stenosis. Dictated by: Kalen Gardner M.D. on 06/07/2020 at 9:04 Approved by: Kalen Gardner M.D. on 06/07/2020 at 9:10
[2020-06-07 07:36] LABS: COVID19 -Nasal RAPID Negative (Negative)
--- NOTE | 2020-06-07 08:07 | PC.NURSE ---
Day shift: Pt on AC unit at approx 0805 from ED. He is A&Ox3. Spouse in room for support. States he is feeling better. Will be getting an MRI in the next 30 minutes. Oriented to room and call light. Agrees to not get OOB w/o help from staff.
--- NOTE | 2020-06-07 08:26 | PC.NURSE ---
Day shift: Pt off unit for MRI at approx 0815.
--- NOTE | 2020-06-07 09:44 | PC.NURSE ---
Day shift: Pt back on AC unit at approx 0930.
--- NOTE | 2020-06-07 11:10 | P.HP_ITS ---
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 Patient states that he noticed some imbalance and discoordination starting approximately 4 days ago but had generally been walking okay. This morning he got up to use the restroom but felt extremely uncoordinated and like he was going to fall. He denies any symptoms while resting, it is slightly worse when sitting and turning his head to the left more so than the right, but severe when standing causing him the inability to walk.He denies any nausea or sensation of dizziness, lightheadedness, diaphoresis, chest pain, palpitations. He denies any recent fevers, chills, neck pain. He had an MRI in January which did show a small stroke at [facility]. He had been off of warfarin up until his stroke, and he was restarted on it in January. He notes that his INR was 1.7 last week and his dose was increased slightly. He states his heart rate has been slow for years. In the emergency room, patient was hypertensive with a systolic blood pressure in the 180s, but slightly bradycardic as well. Initial laboratory evaluation showed an unremarkable CBC, INR of 2.1 indicating adequate anticoagulation on warfarin, and unremarkable chemistries. His troponin was negative. EKG showed a sinus bradycardia with a left-sided fascicular block and frequent PVCs. Head CT was negative. MRI was performed before arrival to the floor and was negative for acute CVA and was similar in appearance to MRI from [facility] in 01/2020. Patient had positive orthostatics, with SBP going from 147>146>108 but no change in HR (47-51). Patient admitted for further evaluation of orthostatic hypotension, PT. Patient History Medical History (Updated 06/07/20 @ 07:01 by Andi Clark DO) BPH (benign prostatic hyperplasia) Episodic atrial fibrillation HTN (hypertension) Hyperlipidemia Hypothyroidism Lumbar compression fracture Orthostatic hypotension Peripheral neuropathy Pulmonary nodule Surgical History Status post circumferential ablation of pulmonary vein Status post left partial knee replacement Status post recent transurethral resection of prostate Family & Social History Social History: household members spouse Safety & Behavioral: Feels Safe in Current Yes Environment Been Physically Hurt or No Threatened By a Person Tobacco & Substance use: Smoking Status Never smoker alcohol intake frequency holiday/special occasion Substance Use Type does not use Meds Home Medications and Allergies Home Medications Medication Instructions Recorded Confirmed Type Calcium with Vitamin D 1 tab PO DAILY 01/30/19 06/07/20 History Magnesium Cr 2,000 mg PO DAILY 01/30/19 06/07/20 History acetaminophen 1,000 mg PO Q12H PRN 01/30/19 06/07/20 History atorvastatin 40 mg PO QPM 01/30/19 06/07/20 History cetirizine 10 mg PO DAILY 01/30/19 06/07/20 History multivitamin 1 tab PO DAILY 01/30/19 06/07/20 History omega [id number]-fish oil [Fish Oil] 1 cap PO BID 01/30/19 06/07/20 History warfarin [Jantoven] 2.5 mg PO DAILY 01/30/19 06/07/20 History tamsulosin [Flomax] 0.4 mg PO DAILY 06/07/20 06/07/20 History Allergies Allergy/AdvReac Type Severity Reaction Status Date / Time amiodarone Allergy Verified 01/30/19 18:18 Review of Systems Review of Systems Narrative: All other systems reviewed with the patient and are negative unless o therwise stated. Exam Vital Signs (past 8 hours): - 06/07/20 05:33 06/07/20 05:50 06/07/20 06:00 Temperature 97.5 F L Pulse Rate 52 L 55 L 59 L Respiratory Rate 16 24 24 Blood Pressure 188/86 H Pulse Oximetry 97 99 97 06/07/20 06:01 06/07/20 06:30 06/07/20 06:31 Temperature Pulse Rate 60 54 L 58 L Respiratory Rate 14 19 20 Blood Pressure 147/104 H 164/74 H Pulse Oximetry 99 98 98 06/07/20 07:00 06/07/20 07:35 Temperature Pulse Rate 54 L 59 L Respiratory Rate 21 15 Blood Pressure 160/85 H 181/86 H Pulse Oximetry 96 99 Oxygen Delivery Method Room Air Narrative Exam Narrative: GENERAL APPEARANCE: Well developed, well nourished, in no acute distress. SKIN: Inspection of the skin reveals no rashes, ulcerations or petechiae. HEENT: Normocephalic atraumatic, extraocular muscles are intact, oropharynx is clear and mucous membranes are moist, neck is supple without adenopathy NECK: Supple and symmetric. There was no thyroid enlargement, and no tenderness, or masses were felt. CHEST: Normal AP diameter and normal contour without any kyphoscoliosis. LUNGS: Auscultation of the lungs revealed no wheezes, rhonchi, or rales. CARDIOVASCULAR: bradycardic rate, regular rhythm without any murmurs, gallops, rubs. Peripheral pulses were 2+ and symmetric. ABDOMEN: Soft and nontender with normal bowel sounds. No ascites was noted. MUSCULOSKELETAL: There was no tenderness or effusions noted. Muscle strength and tone were normal. EXTREMITIES: No cyanosis, clubbing or edema. NEUROLOGIC: Alert and oriented x 3. Normal affect. No dysmetria bilaterall. Heel to mckeon normal. Slight dizziness when turning head to left when sitting, mild horizontal nystagmus. Unstable with standing, immediately falling backwards when asked to close his eyes. Strength is +5/5 in the Upper Extremities and Lower Extremities Bilaterally. Sensation to touch was normal. Objective ECG Impression: Sinus bradycardia with frequent PVCs and a left anterior fascicular block. Imaging MRI - head: Radiologist's impression: BRAIN MRI: No findings of acute or subacute infarction can be seen, including within the posterior fossa. Note is made of age-appropriate brain parenchymal volume loss and chronic small vessel ischemic changes. Stable hemosiderin deposition seen involving the left parietal region. BRAIN MR ANGIOGRAM: There is focal narrowing of the distal right V4 segment. NECK MR ANGIOGRAM: Greater than 50% stenosis seen involving the right vertebral artery origin. No carotid stenosis. Labs Result Diagrams: 06/07/20 06:00 06/07/20 06:00 Labs: Laboratory Results - last 24 hr 06/07/20 06/07/20 06/07/20 06:00 06:00 06:00 WBC 4.8 RBC 4.71 Hgb 14.8 Hct 45.4 MCV 96.4 MCH 31.4 MCHC 32.6 RDW 13.8 Plt Count 165 Neut % (Auto) 41.9 L Lymph % (Auto) 44.0 H Roane % (Auto) 10.0 Eos % (Auto) 3.4 Baso % (Auto) 0.7 Neut # (Auto) 2000 Lymph # (Auto) 2100 Roane # (Auto) 500 Eos # (Auto) 200 Baso # (Auto) 0 PT 23.6 H INR 2.1 H Sodium 140 Potassium 4.2 Chloride 108 H Carbon Dioxide 29 BUN 34 H Creatinine 0.98 Estimated GFR > 60.0 BUN/Creatinine Ratio 34.7 H Glucose 88 Calcium 9.6 Total Bilirubin 0.8 AST 32 ALT 29 Alkaline Phosphatase 81 Total Creatine Kinase 97 CK-MB (CK-2) TNP CK-MB (CK-2) Rel Index TNP Troponin I < 0.012 Total Protein 7.0 Albumin 4.2 Globulin 2.8 Albumin/Globulin Ratio 1.5 Lipase 48 COVID-19 PCR 06/07/20 07:00 WBC RBC Hgb Hct MCV MCH MCHC RDW Plt Count Neut % (Auto) Lymph % (Auto) Roane % (Auto) Eos % (Auto) Baso % (Auto) Neut # (Auto) Lymph # (Auto) Roane # (Auto) Eos # (Auto) Baso # (Auto) PT INR Sodium Potassium Chloride Carbon Dioxide BUN Creatinine Estimated GFR BUN/Creatinine Ratio Glucose Calcium Total Bilirubin AST ALT Alkaline Phosphatase Total Creatine Kinase CK-MB (CK-2) CK-MB (CK-2) Rel Index Troponin I Total Protein Albumin Globulin Albumin/Globulin Ratio Lipase COVID-19 PCR Negative Assessment & Plan Assessment & Plan narrative: Wicho Cao Is an 80-year-old male with a past medical history of paroxysmal atrial fibrillation status post ablations, 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 MRI was negative for acute CVA but orthostatics were positive. He is very unsteady when he walks. Will continue physical therapy and attempt to medically manage his orthostatic hypotension. 1. orthostatic hypotension, acute, present on admission - d/c flomax and cetirizime, give 1L bolus - ? symptomatic bradycardia, consider cardiology consultation if persistent. Further differential for his symptoms includes a L sided BPPV given exam findings. - MRI and CT negative for acute posterior circulation CVA. - continue telemetry - troponin negative, no ischemic factors on EKG other than ? new LAFB, further no chest pain. Will repeat troponin at 8 hours to r/o unlikely ACS. - PT/OT evaluation. 2. paroxysmal atrial fibrillation, present on admission - bradycardic rate on tele as low as the 40s. Chronic per patient. Appears to go in and out of afib on the monitor currently. - continue tele and warfarin. 3. history of recent CVA - continue lipitor, warfarin. 4. HTN, chronic 5. BPH Code: Full as discussed with the patient. Surrogate decision maker he states is his . Diet; Heart healthy Dispo: admit under observation pending above evaluation. COVID-19 COVID-19 status: Negative
[2020-06-07] MEDS: SODIUM CHLORIDE 0.9% 1,000 ML 500 ML IV (12:36)
--- NOTE | 2020-06-07 13:00 | PT.IIE ---
Surgical History (Last Reviewed 01/30/19 @ 17:03 by Princess Lindo MD) Status post circumferential ablation of pulmonary vein Status post left partial knee replacement Status post recent transurethral resection of prostate Medical History (Last Reviewed 06/07/20 @ 06:05 by Andi Clark DO) BPH (benign prostatic hyperplasia) Episodic atrial fibrillation HTN (hypertension) Hyperlipidemia Hypothyroidism Lumbar compression fracture Orthostatic hypotension Peripheral neuropathy Pulmonary nodule Physical Therapy Inpatient Evaluation/Re-Eval M1 PT/OT-IP Prior Functional Status Start: 06/07/20 14:45 Freq: NEEDED Status: Active Protocol: Document 06/07/20 13:00 AB (Rec: 06/07/20 15:15 [email or web address]) Medical Review Prior Functional Status Medical History Reviewed Yes Communication able to make needs known Mobility and Gait pt stated that he is independent with all mobilities and ambulation without AD. stated that he has been very active doing his exercises at home. Social History Household Members spouse Living Arrangements House Number of Floors (Floors) 3 or More Floors Number of Stairs To Enter/Railing? 2 steps to enter the house from the garage with R rail ascending has 5 steps to main level of the house with L rail from the garage area has 8 more steps from the main living area to bedroom level with R rail ascending Home Environment High Toilet,Walk in Shower Home Equipment Straight Cane,Grab Bars In Shower Additional Social History Comment pt has an adjustable bed at home M2 PT-IP Current Condition Start: 06/07/20 14:45 Freq: NEEDED Status: Active Protocol: Document 06/07/20 13:00 AB (Rec: 06/07/20 15:15 [email or web address]) Physical Therapy Current Condition Current Condition Evaluation Date 06/07/20 Treatment Diagnosis dizziness; a-fib; difficulty in walking Onset Date 06/07/20 Precautions Other Precautions falls M3 PT-IP Subjective Start: 06/07/20 14:45 Freq: NEEDED Status: Active Protocol: Document 06/07/20 13:00 AB (Rec: 06/07/20 15:15 [email or web address]) Subjective Physical Therapy Visit Type Type Initial Evaluation Visit Start Time 13:00 Visit Stop Time 13:48 Total Visit Minutes 48 Number of CHILD CAREGIVER Visits 0 Physical Therapy Visit Comments Patient Comments pt is agreeable to do PT M4 PT-IP Mobility and Gait Start: 06/07/20 14:45 Freq: NEEDED Status: Active Protocol: Document 06/07/20 13:00 AB (Rec: 06/07/20 15:15 AB [email or web address]) PT-Bed Mobility Assessment Supine to Sit Supine to Sit Standby Assistance Sit to Supine Sit to Supine Standby Assistance Scooting Scooting to Edge of Bed Standby Assistance PT-Transfer Assessment Sit to and From Stand Sit to and from Stand Contact Guard Assistance,1 Person Assistance,Use of Upper Extremities Equipment Transfer Assistive Device Gait Belt,Front Wheeled Walker Orthotic/Prosthetic Devices or Brace: No Transfers Transfer Destination Chair,Toilet Transfer Technique ambulated using FWW Transfer Ability Level of Assist Contact Guard Assistance,1 Person Assistance,Use of Upper Extremities Comments Mobility Comments pt stated that he is feeling oozy/lightheaded when he gets more but not dizzy. BP monitored. BP supine: 129/47. IN : 70 completed supine to sit SBA. able to sit on EOB SBA. c/o light headedness. BP checked: 130/51. IN 50 Pt was able to sit on EOB for ~ 2 more mins and still c/o light headedness . BP checked again: 159/103. IN 48 checked again to confirm: 161/104 IN 55. pt stated that he has to use the toilet and completed sit to stand cGA and ambulated towards the toilet using FWW CGA. pt was able to maintain standing using FWW for support while using the toilet. stated that he feels fine. ambulated out of the toilet using FWW CGA towards the sink and was able to maintain standing CGA while completing hand washing. pt agreed to sit up on chair. positioned on chair and BP after ambulation: 156/100 IN 56. call light and table placed within reach. informed nurse regarding BP. IN varies from 46-78 bpm throughout PT session. Gait Assessment Gait Gait Assistance Required: Contact Guard Assist Distance (Feet) 20 Able to Maintain Weight Bearing Status Yes During Gait Assistive Devices Assistive Device Gait Belt,Front Wheeled Walker Orthotic/Prosthetic Devices or Brace: No Gait Deviations General Gait Pattern Flexed Trunk Factors Limiting Gait Function Factors Limiting Gait Function Decreased Activity Tolerance PT-Balance Assessment Sitting Balance and Reactions Static Sitting Balance Ability Good Dynamic Sitting Balance Ability Good Standing Balance and Reactions Static Standing Balance Ability Good Dynamic Standing Balance Ability Fair Device Used FWW M5 PT-IP Objective Assessments Start: 06/07/20 14:45 Freq: NEEDED Status: Active Protocol: Document 06/07/20 13:00 AB (Rec: 06/07/20 15:15 AB [email or web address]) Orientation Orientation/Cognition Level of Alertness Alert Orientation Name,Age,Birthday,Month,Date, Year,Day of Week,Place, Situation Language Function Ability No Deficits Noted Safety Awareness Understands Safety Issues Memory Description No Deficits Noted Gross Range of Motion Lower Extremity ROM Assessment Within Functional Limits Strength Lower Extremity Strength Assessment Within Functional Limits Coordination Assessment Gross Coordination Gross Coordination WNL Sensation Assessment Sensation Gross Sensation WNL Muscle Tone Muscle Tone WNL Yes M6 PT-IP Treatment Start: 06/07/20 14:45 Freq: NEEDED Status: Active Protocol: Document 06/07/20 13:00 AB (Rec: 06/07/20 15:15 AB [email or web address]) Physical Therapy Treatment Education Education Provided Safety M7 PT-IP Assessment and Plan Start: 06/07/20 14:45 Freq: NEEDED Status: Active Protocol: Document 06/07/20 13:00 AB (Rec: 06/07/20 15:15 AB [email or web address]) PT Summary Assessment and Plan Potential Rehabilitation Potential Good Status of Condition at Evaluation Evolving Summary Impairments Pain,ROM,Strength,Balance,Bed Mobility,Transfers,Gait, Activity Tolerance Assessment Summary pt requiring CGA for mobility using FWW for safety. pt with c/o lightheadedness with sitting and standing . presents with high BP but IN varies from low 46 to 78 bpm. pt plans to go home with spouse to assist him. will continue to assess progress. will conduct stair climbing training prior to d/c. Goals Bed Mobility Goal Independent Transfer Goal Independent,Front Wheeled Walker Gait Goal Independent,Front Wheel Walker Gait Distance 200 Other Goals ambulation without AD/SPC 250 ft SBA up/down 8 steps R rail; 5 steps L rail SBA Days to Meet Goals 5 Frequency of Treatment Frequency Of Treatment Once a Day Treatment Plan Physical Therapy Treatment Plan Bed Mobility Training,Transfer Training,Gait Training, Therapeutic Exercise,Balance Retraining,Discharge Planning, Neuromuscular Re-ed, Coordination Retraining Recommendations To Nursing Amount of Assist Needed 1 Person Assist Discharge Recommendations PT Discharge Recommendations Home with Assistance Equipment Needed for Home Before FWW if not safe with SPC/ Discharge without AD Transportation Needs at Discharge Private Vehicle
--- NOTE | 2020-06-07 13:33 | PC.NURSE ---
Day shift: BP 161/101 when Pt OOB w/ PT at approx 1300. Dr Schulte informed. No c/o chest pain, ROMO, or discomfort. Will continue to monitor. Pt is on Tele.
--- NOTE | 2020-06-07 14:56 | OT.IP.EVAL ---
Past Medical History (Last Reviewed 06/07/20 @ 06:05 by Andi Clark DO) BPH (benign prostatic hyperplasia) Episodic atrial fibrillation HTN (hypertension) Hyperlipidemia Hypothyroidism Lumbar compression fracture Orthostatic hypotension Peripheral neuropathy Pulmonary nodule Surgical History (Last Reviewed 01/30/19 @ 17:03 by Princess Lindo MD) Status post circumferential ablation of pulmonary vein Status post left partial knee replacement Status post recent transurethral resection of prostate Occupational Therapy Inpatient Evaluation/Re-Eval M1 PT/OT-IP Prior Functional Status Start: 06/07/20 14:45 Freq: NEEDED Status: Active Protocol: Document 06/07/20 18:03 CGR (Rec: 06/07/20 18:11 CGR [email or web address]) Medical Review Prior Functional Status Medical History Reviewed Yes Communication able to make needs known Mobility and Gait pt stated that he is independent with all mobilities and ambulation without AD. stated that he has been very active doing his exercises at home. Activities of Daily Living and IADL's Pt was Ind for all ADLs. Social History Household Members spouse Living Arrangements House Number of Floors (Floors) 3 or More Floors Number of Stairs To Enter/Railing? 2 steps to enter the house from the garage with R rail ascending has 5 steps to main level of the house with L rail from the garage area has 8 more steps from the main living area to bedroom level with R rail ascending Home Environment High Toilet,Walk in Shower Home Equipment Straight Cane,Bedside Commode, Grab Bars In Shower Employment Status Retired Additional Social History Comment pt has an adjustable bed at home M2 OT-IP Current Condition Start: 06/07/20 18:03 Freq: Status: Active Protocol: Document 06/07/20 18:03 CGR (Rec: 06/07/20 18:11 CGR [email or web address]) Occupational Therapy Current Condition Current Condition Evaluation Date 06/07/20 Treatment Diagnosis Orthostatic Diagnosis Onset Date 06/07/20 M3 OT- IP Subjective and Pain Start: 06/07/20 18:03 Freq: Status: Active Protocol: Document 06/07/20 18:03 CGR (Rec: 06/07/20 18:11 CGR [email or web address]) OT- Subjective Occupational Therapy Visit Type Type Initial Evaluation Visit Start Time 14:10 Visit Stop Time 14:56 Total Visit Minutes 46 Notes Pt's present throughout OT Pain Assessment Pain When Pain Assessed At Rest Pain Present Pain Present Denied Pain M4 OT- IP ADL's Start: 06/07/20 18:03 Freq: Status: Active Protocol: Document 06/07/20 18:03 CGR (Rec: 06/07/20 18:11 CGR [email or web address]) OT [id number] Comments OT Self-Feeding Comments Not meal time OT ADL-Grooming General Evaluation Grooming Ability Independent OT ADL-Oral Care General Eval Oral Care Ability Independent OT ADL-Dressing General Eval Upper Body Dressing Ability Independent Lower Body Dressing Ability Independent Areas Needing Assistance Socks OT ADL-Toileting General Evaluation Toileting Ability Independent Comments OT Toileting Comments standing for urination OT ADL-Bathing Comments OT Bathing Comments Not performed M5 OT- IP IADL's Start: 06/07/20 18:03 Freq: Status: Active Protocol: Document 06/07/20 18:03 CGR (Rec: 06/07/20 18:11 CGR [email or web address]) OT-Instrumental Activities of Daily Living Deficits IADL Deficits Identified No Deficits Home Safety Awareness Awareness of Need for Assistance at Home Good Awareness Ability to Problem Solve Emergency Able to Problem Solve Situations Medication Management Medication Management No Deficits Identified Money Management Money Management No Deficits Identified Meal Preparation Meal Preparation No Deficits Identified Audio Installer Audio Installer No Deficits Identified Driving Driving Comments Pt understands he shouldn't drive if feeling dizzy M6 OT- IP Functional Cognition Start: 06/07/20 18:03 Freq: Status: Active Protocol: Document 06/07/20 18:03 CGR (Rec: 06/07/20 18:11 CGR [email or web address]) Cognitive Factors Limiting Selfcare Function Cognitive Ability Level of Alertness Alert Patient Orientation Name,Age,Birthday,Month,Date, Year,Day of Week,Place, Situation Attention Span Ability Capable of Focused Attention, Capable of Sustained Attention Ability to Follow Commands Able to Follow Multi-Step Commands Memory Description No Deficits Noted Safety Awareness No Deficits Noted Problem Solving Ability No deficits Noted OT- Vision and Hearing OT- Hearing Assessment OT- Hearing Assessment Hearing Impaired,Use of Hearing Aids OT- Vision Assessment Visual Acuity WFL Visual Attentiveness WFL Occular Pursuits WFL Visual Convergence WFL M7 OT- IP Mobility and Balance Start: 06/07/20 18:03 Freq: Status: Active Protocol: Document 06/07/20 18:03 CGR (Rec: 06/07/20 18:11 CGR [email or web address]) OT-Transfer Assessment Sit to and From Stand Sit to and from Stand Independent Transfers Transfer Ability Contact Guard Assistance Technique Transfer Destination Chair,Toilet Transfer Technique Stand Step Pivot Devices Transfer Assistive Devices Gait Belt OT- Gait Assessment Gait Gait Assistance Required: Contact Guard Assist Assistive Devices Assistive Device Gait Belt OT- Balance Assessment Sitting Balance and Reactions Static Sitting Balance Ability Normal Dynamic Sitting Balance Ability Good M8 OT- IP Objective Assessments Start: 06/07/20 18:03 Freq: Status: Active Protocol: Document 06/07/20 18:03 CGR (Rec: 06/07/20 18:11 CGR [email or web address]) OT Gross Range of Motion Upper Extremity Range of Motion Assessment Within Functional Limits OT Strength Upper Extremity Strength Assessment Within Functional Limits Comments Strength Comments grossly 5/5 OT- Coordination Assessment Upper Extremity Finger to Nose Test Within Functional Limits Finger Tapping Test Within Functional Limits OT-Muscle Tone Assessment Muscle Tone WNL Yes OT Sensation Assessment Edema Edema Absent M9 OT- IP Assessment and Plan Start: 06/07/20 18:03 Freq: Status: Active Protocol: Document 06/07/20 18:03 CGR (Rec: 06/07/20 18:11 CGR [email or web address]) OT Summary Assessment and Plan Potential Rehabilitation Potential Excellent Analytic Complexity at Evaluation Low Summary OT Impairments Balance,Functional Mobility Progress Towards Goals Goals Met Assessment Summary Pt presents as a low complexity evalution s/p admit for dizziness. BP indicates orthostatic hypotention. Pt educated on orthostatic hypotension, and home safety. Pt is at his baseline for ADLs but presents with some deficits to functional mobility. Will defer functional mobility to P.T. and discharge from OT services . No further OT needs at this time. Frequency of Treatment Frequency Of Treatment Discharge Discharge Recommendations Other Discharge Recommendations Defer to P.T. Transportation Needs at Discharge Private Vehicle
[2020-06-07 15:09] LABS: Troponin I < 0.012 ng/mL (0.01-0.034)
[2020-06-07] MEDS: WARFARIN 5 MG TABLET 2.5 MG PO (16:53)
[2020-06-07] MEDS: ATORVASTATIN 20 MG TABLET 40 MG PO (16:53)
[2020-06-07] MEDS: FISH OIL 1,000 MG CAPSULE 1000 MG PO (20:38)
[2020-06-07] MEDS: SODIUM CHLORIDE 0.9% FLUSH 10 ML IV (21:00)
[2020-06-07 21:01] LABS: Magnesium 1.9 mg/dL (1.6-2.3)
--- NOTE | 2020-06-08 02:16 | PC.NURSE ---
Patient seen/assessed at 0117. Is alert and oriented. Denies dizziness when in bed but reports still lightheaded when getting up but much better than on admit. Denies any sense of vertigo. Breath sounds CTA with RA sat of 97%. HR irregular sounding and telemetry reading was SA; does have heart rate in 40's which he states is normal for him. Denies SOB, chest pain or tightness at present time. Denies nausea. BT present. Voiding per urinal; denies dysuria or frequency but states he has chronic urgency related to BPH. Is able to move himself in bed. Resistant to use of alarm so verbalized he would sit on edge of bed prior to standing and if any dizziness occurs he will call for assistance. Also verbalized he will only be standing at side of bed to urinate and will not attempt to walk in room without calling for assistance. Reports he sometimes uses a walker for distance; gait not assessed at this time. Denies pain. Fall risk score is moderate. SCD's not ordered.
[2020-06-08 04:35] VITALS: O2SAT 96
[2020-06-08 04:45] VITALS: BP 139/89; PULSE 89; RESP 16; TEMP 36.5; O2SAT 99
[2020-06-08 06:17] LABS: Add Manual Diff / Slide Review NO; Basophils Absolute Auto 0 /uL (0-100); Basophils Percent Auto 0.7 % (0-2); Eosinophils Absolute Auto 100 /uL (0-450); Eosinophils Percent Auto 2.6 % (2-4); Hematocrit 46.1 % (41-53); Lymphocytes Absolute Auto 2000 /uL (1100-4500); Mean Corpuscular HGB Conc 32.5 % (30-36); Mean Corpuscular Hemoglobin 31.3 PG (26-34); Mean Corpuscular Volume 96.4 fL (80-100); Monocytes Absolute Auto 500 /uL (0-900); Monocytes Percent Auto 9.2 % (3-14); Neutrophils Absolute Auto 2500 /uL (1500-7000); Neutrophils Percent Auto 48.5 % (50-75); Platelet Count 164 X10^3/uL (150-400); Red Blood Cell Count 4.78 X10^6/uL (4.5-5.9); Red Cell Distribution Width 13.8 % (11.6-14.8); White Blood Cell Count 5.1 X10^3/uL (4.5-11.0)
[2020-06-08 06:20] LABS: INR 2.1 (0.9-1.3); Prothrombin Time 23.6 SECONDS (10.1-12.7)
[2020-06-08 06:30] LABS: Blood Urea Nitrogen 25 mg/dL (9-20); Calcium 9.4 mg/dL (8.4-10.2); Carbon Dioxide 30 mmol/L (22-32); Chloride 106 mmol/L (98-107); Estimated Glomerular Filt Rate > 60.0 mL/min (>60); Glucose 89 mg/dL (80-110); HEMOLYSIS < 15 (0-50); Potassium 4.3 mmol/L (3.4-5.1); Sodium 141 mmol/L (137-145)
[2020-06-08 06:59] LABS: TSH w/ Reflex to FT4 5.84 uIU/mL (0.47-4.68)
[2020-06-08 07:28] LABS: Free T4, Direct Thyroxine 1.12 ng/dL (0.78-2.19)
[2020-06-08 07:40] VITALS: O2SAT 98
[2020-06-08] MEDS: MULTIVITAMIN 1 TABLET 1 TAB PO (08:47)
[2020-06-08] MEDS: FISH OIL 1,000 MG CAPSULE 1000 MG PO (08:47)
[2020-06-08 09:30] VITALS: BP 129/62; PULSE 50; RESP 18; TEMP 36.1; O2SAT 97
--- NOTE | 2020-06-08 09:42 | PM.DS.1 ---
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 Patient states that he noticed some imbalance and discoordination starting approximately 4 days ago but had generally been walking okay. This morning he got up to use the restroom but felt extremely uncoordinated and like he was going to fall. He denies any symptoms while resting, it is slightly worse when sitting and turning his head to the left more so than the right, but severe when standing causing him the inability to walk.He denies any nausea or sensation of dizziness, lightheadedness, diaphoresis, chest pain, palpitations. He denies any recent fevers, chills, neck pain. He had an MRI in January which did show a small stroke at [facility]. He had been off of warfarin up until his stroke, and he was restarted on it in January. He notes that his INR was 1.7 last week and his dose was increased slightly. He states his heart rate has been slow for years. In the emergency room, patient was hypertensive with a systolic blood pressure in the 180s, but slightly bradycardic as well. Initial laboratory evaluation showed an unremarkable CBC, INR of 2.1 indicating adequate anticoagulation on warfarin, and unremarkable chemistries. His troponin was negative. EKG showed a sinus bradycardia with a left-sided fascicular block and frequent PVCs. Head CT was negative. MRI was performed before arrival to the floor and was negative for acute CVA and was similar in appearance to MRI from [facility] in 01/2020. Patient had positive orthostatics, with SBP going from 147>146>108 but no change in HR (47-51). Patient admitted for further evaluation of orthostatic hypotension, PT. Discharge Providers Provider Date of admission: 06/07/20 06:53 Discharge Date: 06/08/20 Primary care physician: David Wyatt MD Consults: 06/07/20 11:08 Consult to Physical Therapy Evaluate & Treat Comment: Physician Instructions: Evaluate and Treat 06/07/20 11:09 Consult to Occupational Therapy Evaluate & Treat Comment: Physician Instructions: Evaluate and treat Discharge provider: Alexy Schulte DO Summary Hospital Course Discharge Diagnosis: 1. orthostatic hypotension, acute, present on admission 2. paroxysmal atrial fibrillation, present on admission 3. history of recent CVA 4. HTN, chronic 5. BPH, chronic Hospital Course: Wicho Cao Is an 80-year-old male with a past medical history of paroxysmal atrial fibrillation status post ablations, recent CVA with no residual deficits from January of this year, hypertension, hyperlipidemia, and BPH who presented with onset of dizziness over the past couple days but worsened The morning of admission. MRI was negative for acute CVA. Orthostatics were positive On admission but improved fairly quickly after a 1 L bolus. His symptoms slowly improved, although he was still slightly unsteady with physical therapy but stable with a walker and cleared for discharge home. Etiology is not entirely clear given negative MRI, but further differential includes BPPV although there is no further evidence on exam for this on the day of discharge. Cardiac etiologies are seemingly unlikely given patient has a prior history of bradycardia and there were no significant arrhythmia is other than slow atrial fibrillation and sinus bradycardia on telemetry. I do recommend discontinuing his Flomax as this may cause orthostatic hypotension, and this medication was held while he was here. Patient was discharged home with plan for PCP follow-up if symptoms continue. Exam Vital Signs (past 8 hours): - 06/08/20 04:35 06/08/20 04:45 Temperature 97.7 F Pulse Rate 89 Respiratory Rate 16 Blood Pressure 139/89 Pulse Oximetry 96 99 Oxygen Delivery Method Room Air Oxygen Flow Rate 0 Narrative Exam Narrative: GENERAL APPEARANCE: Well developed, well nourished, in no acute distress. SKIN: Inspection of the skin reveals no rashes, ulcerations or petechiae. HEENT: Normocephalic atraumatic, extraocular muscles are intact, oropharynx is clear and mucous membranes are moist, neck is supple without adenopathy NECK: Supple and symmetric. There was no thyroid enlargement, and no tenderness, or masses were felt. CHEST: Normal AP diameter and normal contour without any kyphoscoliosis. LUNGS: Auscultation of the lungs revealed no wheezes, rhonchi, or rales. CARDIOVASCULAR: bradycardic rate, regular rhythm without any murmurs, gallops, rubs. Peripheral pulses were 2+ and symmetric. ABDOMEN: Soft and nontender with normal bowel sounds. No ascites was noted. MUSCULOSKELETAL: There was no tenderness or effusions noted. Muscle strength and tone were normal. EXTREMITIES: No cyanosis, clubbing or edema. NEUROLOGIC: Alert and oriented x 3. Normal affect. No dysmetria bilaterally. Improved stability today. Strength is +5/5 in the Upper Extremities and Lower Extremities Bilaterally. Sensation to touch was normal. Objective Labs Result Diagrams: 06/08/20 05:39 06/08/20 05:39 Labs: Laboratory Results - last 24 hr 06/07/20 06/07/20 06/08/20 14:40 14:40 05:39 WBC 5.1 RBC 4.78 Hgb 15.0 Hct 46.1 MCV 96.4 MCH 31.3 MCHC 32.5 RDW 13.8 Plt Count 164 Neut % (Auto) 48.5 L Lymph % (Auto) 39.0 [place] % (Auto) 9.2 Eos % (Auto) 2.6 Baso % (Auto) 0.7 Neut # (Auto) 2500 Lymph # (Auto) 2000 [place] # (Auto) 500 Eos # (Auto) 100 Baso # (Auto) 0 PT INR Sodium Potassium Chloride Carbon Dioxide BUN Creatinine Estimated GFR BUN/Creatinine Ratio Glucose Calcium Magnesium 1.9 Troponin I < 0.012 TSH Free T4 06/08/20 06/08/20 06/08/20 05:39 05:39 05:39 WBC RBC Hgb Hct MCV MCH MCHC RDW Plt Count Neut % (Auto) Lymph % (Auto) [place] % (Auto) Eos % (Auto) Baso % (Auto) Neut # (Auto) Lymph # (Auto) [place] # (Auto) Eos # (Auto) Baso # (Auto) PT 23.6 H INR 2.1 H Sodium 141 Potassium 4.3 Chloride 106 Carbon Dioxide 30 BUN 25 H Creatinine 0.96 Estimated GFR > 60.0 BUN/Creatinine Ratio 26.0 H Glucose 89 Calcium 9.4 Magnesium 2.0 Troponin I TSH 5.84 H Free T4 1.12 Discharge Plan Discharge Plan Patient Disposition: Home Provider Discharge Comment: You were admitted to the hospital with imbalance. You improved with a fluid bolus. MRI was negative for a stroke. Please follow up with your primary care provider. Discharge orders & Medications Prescriptions: New meclizine 12.5 mg Tablet 12.5 mg PO Q6HR PRN (Reason: Vertigo) 30 Days Qty: 30 RF: 0 Continued atorvastatin 40 mg Tablet 40 mg PO QPM RF: 0 acetaminophen 500 mg Tablet 1,000 mg PO Q12H PRN (Reason: pain) RF: 0 Calcium with Vitamin D 1 tab PO DAILY RF: 0 multivitamin Tablet 1 tab PO DAILY RF: 0 cetirizine 10 mg Tablet 10 mg PO DAILY RF: 0 warfarin [Jantoven] 5 mg Tablet 2.5 mg PO DAILY RF: 0 omega 5-rzn-hei-fish oil [Fish Oil] 1,000 mg (120 mg-180 mg) Capsule 1 cap PO BID RF: 0 Magnesium Cr 2,000 mg 2,000 mg PO DAILY RF: 0 Discontinued tamsulosin [Flomax] 0.4 mg Capsule 0.4 mg PO DAILY RF: 0 Follow up/Referrals: David Wyatt MD [Primary Care Provider] - Diet/Activity/Treatments Diet: Diet as Tolerated Activity: As tolerated Visit Report/Discharge Packet Instructions: How to Prevent Falls, DI for Dizziness-Nonvertigo Discharge Data Primary Care Provider: David Wyatt V Attending Provider: Alexy Navarrete VTE Deep Vein Thrombosis/Pulmonary Embolism Present on Admission: No
--- NOTE | 2020-06-08 10:00 | PT.IPTN ---
Physical Therapy Treatment Note M2 PT-IP Current Condition Start: 06/07/20 14:45 Freq: NEEDED Status: Active Protocol: Document 06/07/20 13:00 AB (Rec: 06/07/20 15:15 AB [email or web address]) Physical Therapy Current Condition Current Condition Evaluation Date 06/07/20 Treatment Diagnosis dizziness; a-fib; difficulty in walking Onset Date 06/07/20 Precautions Other Precautions falls M3 PT-IP Subjective Start: 06/07/20 14:45 Freq: NEEDED Status: Active Protocol: Document 06/08/20 10:00 AB (Rec: 06/08/20 11:58 AB [email or web address]) Subjective Physical Therapy Visit Type Type Treatment Note Visit Start Time 10:00 Visit Stop Time 10:40 Total Visit Minutes 40 Number of MEDICAL GENETICIST Visits 0 Physical Therapy Visit Comments Patient Comments pt is agreeable to do PT; stated that he is feeling better today M4 PT-IP Mobility and Gait Start: 06/07/20 14:45 Freq: NEEDED Status: Active Protocol: Document 06/08/20 10:00 AB (Rec: 06/08/20 11:58 AB [email or web address]) PT-Bed Mobility Assessment Supine to Sit Supine to Sit Independent Sit to Supine Sit to Supine Independent PT-Transfer Assessment Sit to and From Stand Sit to and from Stand Standby Assistance Equipment Transfer Assistive Device None,Gait Belt Orthotic/Prosthetic Devices or Brace: No Comments Mobility Comments BP monitored. BP in supine with HOB elevted: 124/80. pt completed supine to sit mod I. BP checked: 130/83. pt with c/o slight lightheadedness but stated that he is still feeling ok. BP checked again after 2 min: 137/62. completed sit to stand SBA and was able to maintain standing SBA to CGA. BP checked: 110/ 61 and after ~ 2 min of standin/90. pt without any complaints and agreed to ambulate in room and completed without AD CGA to min A and cues for safety. pt with unsteady gait and pt can be impulsive. educated pt on safety. agreed to use his hiking pole for stability and completed ambulation in the hallway using hiking pole ~ 75 ft requiring SBA to CGA. pt completed up/down steps using L rail initially and hiking pole SBA to CGA and then again with use of R rail and hiking pole SBA to CGA. pt educated on safety; slow down and to activate LE for steadiness in every step. pt agreed. pt ambulated back to his room. BP checked again after ambulation: 153/111. pt rested. informed spouse on recommendation of using hiking pole for ambulation and to f/ u with PCP and professor of chemistry. BP checked again: 158/67. pt lay back in bed. call light and table placed within reach. informed nurse regarding BP. CA varies from 53-64 bpm during tx session. Gait Assessment Gait Gait Assistance Required: Standby Assistance,Contact Guard Assist Distance (Feet) 75 Able to Maintain Weight Bearing Status Yes During Gait Assistive Devices Assistive Device Gait Belt,Straight Cane Orthotic/Prosthetic Devices or Brace: No Gait Deviations General Gait Pattern Antalgic,Decreased Stride Length,Decreased Feet Clearance Factors Limiting Gait Function Factors Limiting Gait Function Decreased Strength,Poor Balance,Poor Safety Awareness Comments Gait Comments pt used hiking pole. pls refer to mobility section for details Stair Climbing Assessment Evaluation Level of Assist On Stairs Standby Assistance,Contact Guard Assistance,1 Person Assistance Devices Stair Climbing Assistive Devices Straight Cane,Left Railing, Right Railing Technique/Endurance Stair Climbing Direction Ascend and Descend Stair Climbing Technique Step Over Step Number of Steps Climbed 3 Stair Climbing Set # Repetitions (reps) 2 M5 PT-IP Objective Assessments Start: 06/07/20 14:45 Freq: NEEDED Status: Active Protocol: Document 06/07/20 13:00 AB (Rec: 06/07/20 15:15 AB [email or web address]) Orientation Orientation/Cognition Level of Alertness Alert Orientation Name,Age,Birthday,Month,Date, Year,Day of Week,Place, Situation Language Function Ability No Deficits Noted Safety Awareness Understands Safety Issues Memory Description No Deficits Noted Gross Range of Motion Lower Extremity ROM Assessment Within Functional Limits Strength Lower Extremity Strength Assessment Within Functional Limits Coordination Assessment Gross Coordination Gross Coordination WNL Sensation Assessment Sensation Gross Sensation WNL Muscle Tone Muscle Tone WNL Yes M6 PT-IP Treatment Start: 06/07/20 14:45 Freq: NEEDED Status: Active Protocol: Document 06/08/20 10:00 AB (Rec: 06/08/20 11:58 AB [email or web address]) Physical Therapy Treatment Education Education Provided Safety M7 PT-IP Assessment and Plan Start: 06/07/20 14:45 Freq: NEEDED Status: Active Protocol: Document 06/08/20 10:00 AB (Rec: 06/08/20 11:58 AB [id number]) PT Summary Assessment and Plan Potential Rehabilitation Potential Good Summary Impairments Pain,ROM,Strength,Balance, Coordination,Sensation,Tone, Cognition,Bed Mobility, Transfers,Gait,Activity Tolerance Progress Towards Goals Slow Progress due to Medical Issues,Slow Progress due to Activity Tolerance Assessment Summary pt requiring SBA to CGA with mobility and recommending use of hiking pole for ambulation at this time. spouse will be able to assist pt at home. pt will also benefit from outpt PT for balance and increase activity tolerance. Goals Bed Mobility Goal Independent Transfer Goal Independent,Front Wheeled Walker Gait Goal Independent,Front Wheel Walker Gait Distance 200 Other Goals ambulation without AD/SPC 250 ft SBA up/down 8 steps R rail; 5 steps L rail SBA Days to Meet Goals 5 Frequency of Treatment Frequency Of Treatment Once a Day Treatment Plan Physical Therapy Treatment Plan Bed Mobility Training,Transfer Training,Gait Training, Therapeutic Exercise,Balance Retraining,Discharge Planning, Neuromuscular Re-ed, Coordination Retraining Recommendations To Nursing Amount of Assist Needed 1 Person Assist Discharge Recommendations PT Discharge Recommendations Home with Assistance Transportation Needs at Discharge Private Vehicle
--- NOTE | 2020-06-08 11:14 | CM.DANOTE ---
Patient is an 80 year old male who was admitted on 06/07/20 for Dizziness. Pt has [facility] for insurance and his PCP is Dr. tulio Wyatt. EMR was reviewed. Per MD, pt with a recent CVA in January 2020 this year and has had no residual effects but having similar symptoms. CT and MRI were negative for CVA. Per PT/OT, pt resides at home with spouse and is independent with ADL's at baseline and active and does not use equipment to ambulate and recommending home with spouse assist and will complete stairs with pt today. Per MD, pt is medically stable to d/c home today and pt is agreeable. SW met briefly bedside and pt confirms he is agreeable with home and has no d/c concerns at this time and spouse can transport home. Pt denies any hx of SNF and confirms spouse is his DPOA. Plan: Patient to d/c home today via spouse POV and no SW needs at this time. SAMMY Felix Discharge Planning/Care Management Advanced directive, confirm from FAMILY Start: 06/07/20 11:35 Freq: Q24H Status: Active Protocol: Document 06/07/20 11:57 YAD (Rec: 06/07/20 11:57 YAD [id number]) Advance Directive, confirm on record Time 11:57 Person contacted patient Copy received No CM Discharge Assessment Start: 06/08/20 11:10 Freq: Status: Active Protocol: Document 06/08/20 11:10 BF (Rec: 06/08/20 11:14 BF [id number]) Discharge Planning Assessment Assigned Polisher Sand SAMMY Becker DPOA/Assigned Designee Name spouse Melissa Contact Information [phone] Advance Directives? Yes History Provided By Patient,Medical Record Has Patient been admitted in last 30 No days? Prior Living Arrangements House Household Members spouse Type of transporation used prior to Drives own vehicle admit Independent with ADL's Yes Is patient alert and oriented? Yes Caregiver for Another No Patient/Family Preference OP PT Therapy Barriers to Discharge No Discharge Plan Home Community Services Physical Therapy Transportation Arrangement Spouse available to provide transport Referrals Initiated None needed Whiteboard Updated in Patient Room with Yes name and ext. # of Polisher Sand Review Status In Process Please Provide Date Initial DC 06/08/20 Assessment Was Performed Next Review Type Continued Stay Review
--- NOTE | 2020-06-08 13:50 | PC.NURSE ---
Discharge: Feels ready to d/c home today. Dizziness is gone, not dizzy when up. MD here and gave d/c instructions. Family here at time of teaching. he will follow up with pcp as outpt. Reviewed d/c packet, rx has been esent. Questions answered. Pt d/c home via auto with family.
== END 2020-06-08 13:10 | disposition home or self-care (01) ==
LOC: ED 05:39 → AC 06:54
PROVIDERS: Internal Medicine; Admitting Provider Nurse Practitioner Adult Health; Emergency Provider Emergency Medicine; PCP Internal Medicine; Referring Provider Emergency Medicine; Visit Provider Nurse Practitioner Adult Health
DX: I95.1 Orthostatic hypotension (principal); R42 Dizziness and giddiness; Z86.73 Personal history of transient ischemic attack (TIA), and cerebral infarction without residual deficits; I48.0 Paroxysmal atrial fibrillation; N40.0 Benign prostatic hyperplasia without lower urinary tract symptoms; E78.5 Hyperlipidemia, unspecified; I10 Essential (primary) hypertension; Z79.01 Long term (current) use of anticoagulants; Z11.59 Encounter for screening for other viral diseases
CPT/HCPCS: 36415; 70450; 70548; 70553; 80048; 80053; 82550; 83690; 83735; 84439; 84443; 84484; 85025; 85610; 87635; 93005; 97116; 97162; 97165; 97530; 97535; 99284; G0378; A9270

== ENCOUNTER → 2020-07-13 14:35 | Outpatient (CLI) | payer OTHER, SELFPAY ==
[2020-06-07 11:03] VITALS: BMI 22.5
--- NOTE | 2020-07-13 | DI.RAD.S_ITS ---
PROCEDURE: XR FOOT LT MIN 3V INDICATIONS: LEFT FOOT PAIN TECHNIQUE: 3 views of the foot were acquired. COMPARISON: None. FINDINGS: Bones: No fractures or dislocations. No suspicious bony lesions. Soft tissues: No tibiotalar joint effusion. Achilles tendon appears normal. IMPRESSION: No acute radiographic findings. If there is continued pain, followup exam or additional imaging such as MRI or CT could be performed for further assessment. Dictated by: Shy Bermudez M.D. on 07/13/2020 at 16:05 Approved by: Shy Bermudez M.D. on 07/13/2020 at 16:08
== END ==
PROVIDERS: PCP Internal Medicine; Referring Provider Internal Medicine; Visit Provider Internal Medicine
DX: M79.672 Pain in left foot (principal)
CPT/HCPCS: 73630

== ENCOUNTER → 2020-10-03 13:11 | Outpatient (CLI) | payer OTHER, SELFPAY ==
[2020-06-07 11:03] VITALS: BMI 22.5
[2020-10-03 15:16] LABS: COVID19 -Nasal RAPID Negative (Negative)
== END ==
PROVIDERS: PCP Internal Medicine; Visit Provider Physician Assistant
DX: Z20.822 Contact with and (suspected) exposure to COVID-19 (principal)
CPT/HCPCS: 87635

== ENCOUNTER → 2020-10-04 09:34 | Outpatient (CLI) | payer OTHER, SELFPAY ==
[2020-06-07 11:03] VITALS: BMI 22.5
--- NOTE | 2020-10-06 14:36 | DI.NM.S_ITS ---
DATE OF SERVICE: PROCEDURE: Exercise perfusion study. DATE OF STUDY: 10/04/2020. INDICATIONS: Dilated cardiomyopathy, paroxysmal atrial flutter, ventricular tachycardia. RADIOPHARMACEUTICAL: 25.8 millicurie technetium-99m Myoview IV was injected at stress and 12.5 millicurie technetium-99m Myoview IV was injected at rest. CARDIAC STRESS: The patient underwent exercise perfusion study under the supervision of an attending staff. The patient walked on [place] protocol for 4 minutes 10 seconds, achieved 83 percent of target heart rate and normal blood pressure response. The patient's baseline blood pressure was 138/82 and peak blood pressure 150/88. Peak heart rate reported to be 115 beats per minute. Baseline EKG revealed sinus rhythm with mild sinus bradycardia and intermittent isolated PVCs with QRS complexes in the inferior leads with possibility of inferior wall myocardial infarction. During exercise, the patient continues to have frequent PVCs. However, no ventricular tachycardia seen. The patient did not have any chest pain. The patient achieved JOSE of +25%, 7 METS of workload. RAW DATA: Revealed increased subdiaphragmatic activity. GATED STUDY: Resting LV ejection fraction of 47% and stress LV ejection fraction 51% with mild global hypokinesis. Resting end-diastolic volume 193 mL, suggestive of dilated LV. TID ratio 0.95, which is within normal limits. Lung/heart ratio 0.35, which is within normal limits. MYOCARDIAL PERFUSION SCAN: Stress supine and resting supine images revealed a small to moderate size, mildly decreased perfusion of inferior wall extending into the basal inferolateral wall and inferior apex which got resolved during prone images suggestive of diaphragmatic tissue attenuation artifact. No convincing ischemia or infarction pattern seen. CONCLUSION: I will call this study likely a normal myocardial perfusion study with evidence of diaphragmatic tissue attenuation artifact which got improved during prone images. The patient has a dilated left ventricle. Resting end- diastolic volume 193 mL. Resting left ventricular ejection fraction 47% and stress left ventricular ejection fraction 51% with global hypokinesis. Baseline frequent PVCs which persisted during stress without any ventricular tachycardia. Diminished exercise tolerance. Target heart rate achieved 83% with normal blood pressure response. Wicho Cao - AMPARO/trice/bari doc#: [id number]/job#: [id number] dd: 10/04/2020 17:22:00 dt: 10/04/2020 18:37:00 DICTATING MD/COPIES TO: Alen Almeida MD COPIES MNE: UDAY;
== END ==
PROVIDERS: PCP Internal Medicine; Referring Provider Specialist; Visit Provider Specialist
DX: I47.2 Ventricular tachycardia (principal); I42.0 Dilated cardiomyopathy; I48.92 Unspecified atrial flutter
CPT/HCPCS: 78452; 93017; A9502

== ENCOUNTER → 2021-03-22 15:48 | Outpatient (CLI) | payer OTHER, SELFPAY ==
[2020-06-07 11:03] VITALS: BMI 22.5
--- NOTE | 2021-03-22 15:50 | DI.ECHO.S_ITS ---
[facility]---------+ [facility] +---------+ : : [address] : : : : [id number] : : : : Phone: [phone]+ Echocardiogram Report + + :Name: KALANI MENSAH Study Date: 03/22/2021 Height: 72 in : :[facility] ReadingLocation: Weight: 167 lb : : Gender: Male BSA: 2.0 m2 : :: 1940 Age: 81 yrs BP: 125/79 mmHg: :Reason For Study: CARDIOMYOPATHY : :Ordering Physician: Luis Fernando RUIZformed By: Tracee Vallejo : :Referring: EDGAR RUIZ : + + Interpretation Summary Left ventricular size is at the upper limits of normal. The ejection fraction is estimated to be 40-45%. There is mild to moderate global hypokinesis of the left ventricle. Patient is in A. fib with controlled ventricular rate. LV EF has decreased from the previous study. The IVC is of normal diameter and collapses greater than 50% with a sniff. This suggests a low right atrial pressure of 3 mm Hg. Procedure: A two-dimensional transthoracic echocardiogram with color flow and Doppler was performed in limited views only to assess ejection fraction and wall motion.. The study quality was technically adequate. Comparison is made with the echocardiogram of 02/05/2020. The patient was in atrial fibrillation with heart rates between 54-65 bpm during the exam. Left Ventricle: Left ventricular size is at the upper limits of normal. A false chord is noted (normal variant). The ejection fraction is estimated to be 40-45%. There is mild to moderate global hypokinesis of the left ventricle. Diastolic function could not be accurately assessed due to atrial fibrillation. Right Ventricle: Borderline right ventricular enlargement. The right ventricular systolic function is normal. Atria: The left atrium is mildly dilated. The right atrium is severely dilated. Great Vessels: The IVC is of normal diameter and collapses greater than 50% with a sniff. This suggests a low right atrial pressure of 3 mm Hg. Pericardium/ Pleura There is no pericardial effusion. There is no pleural effusion. MMode/2D Measurements & Calculations LVIDd: 5.6 cm LA A2 area: 21.8 cm2 LVIDs: 3.7 cm LA A4 area: 24.2 cm2 FS: 33.9 % LA length (vol): 5.5 cm IVSd: 1.00 cm LA vol: 81.2 ml LVPWd: 0.84 cm LA vol index: 41.2 ml/m2 LV baker. diameter/BSA (cm/m^2): 2.8 LV sys. diameter/BSA (cm/m^2): 1.9 RA long axis: 6.4 cm RVD1 (basal): 4.1 cm RA area: 27.8 cm2 TAPSE: 1.7 cm RA vol: 102.6 ml RA : 52.0 ml/m2 IVC diam: 1.7 cm Reading Physician:06:46 PM
== END ==
PROVIDERS: PCP Internal Medicine; Referring Provider Internal Medicine Cardiovascular Disease; Visit Provider Internal Medicine Cardiovascular Disease
DX: I42.8 Other cardiomyopathies (principal)
CPT/HCPCS: 93307

== ENCOUNTER → 2021-11-02 14:37 | Outpatient (CLI) | payer OTHER, SELFPAY ==
[2020-06-07 11:03] VITALS: BMI 22.5
--- NOTE | 2021-11-02 14:41 | DI.ECHO.S_ITS ---
[facility] +---------+ : : [address] : [address] : : : : [id number] : : : : Phone: [phone]+ Echocardiogram Report + + :Name: KALANI MENSAH Study Date: 11/02/2021 Height: 72 in : :[facility] ReadingLocation: Weight: 170 lb : : Gender: Male BSA: 2.0 m2 : :: 1940 Age: 81 yrs BP: 152/107 mmHg: :Reason For Study: Cardiomyopathy, Dilated : :Ordering Physician: Ata : :Gamaliel Zheng Performed By: Tima Albarran : :Referring: ATA ZHENG : + + Interpretation Summary Left ventricular systolic function is moderately reduced with an estimated ejection fraction of 30 to 35% with moderate global hypokinesis and a significant dyssynchronous contraction pattern but no focal wall motion abnormality. Left ventricular contractility appears less dynamic compared to the previous exam. There continues to be borderline left ventricular enlargement that remains unchanged and normal wall thickness. Diastolic function cannot be adequately assessed. The right ventricle appears normal in size with borderline reduced systolic function but unchanged from the previous study. Right ventricular systolic pressure is estimated at 61 mmHg with a CVP of 3 mmHg. This was unable to be assessed on the previous echocardiogram. Left atrial size is normal while right atrial size is mildly enlarged but both are smaller compared to the previous study. There is mild mitral and mild to moderate tricuspid regurgitation, both likely more prominent compared to the study from 2017. There is mild aortic valve sclerosis without stenosis and mild aortic regurgitation that appears unchanged. The ascending aorta is mildly enlarged. Procedure: A two-dimensional transthoracic echocardiogram with color flow and Doppler was performed. The study quality was technically adequate. Comparison is made with the echocardiogram of 03/22/2021. Left Ventricle: The left ventricle is borderline dilated. This is unchanged compared to the previous study. The estimated left ventricular end diastolic volume is 108 ml. There is normal left ventricular wall thickness. Left ventricular systolic function is moderately reduced. The ejection fraction is estimated to be 30-35%. There is moderate global hypokinesis of the left ventricle. There is a moderate dyssynchronous contraction pattern due to the paced rhythm. This is less dynamic compared to the previous study. Diastolic function could not be accurately assessed due to unobtainable data. Right Ventricle: The right ventricle is normal size. There is a pacemaker lead in the right ventricle. Right ventricular systolic function is borderline reduced. This is unchanged compared to the previous study. Atria: The left atrial size is normal. Both atria have significantly decreased in size since the prior echo exam. The right atrium is mildly dilated. The interatrial septum grossly appears intact with no obvious evidence for an atrial septal defect. Mitral Valve: The mitral valve leaflets appear mildly thickened, but open well. There is a flat closure plane of the the mitral valve leaflets. There is mild mitral regurgitation. Aortic Valve: The aortic valve is trileaflet. There is mild aortic valve sclerosis. The aortic valve is mildly calcified. The aortic valve opens well. There is mild aortic regurgitation. Tricuspid Valve: The tricuspid valve is normal in structure and function. There is mild to moderate tricuspid regurgitation. The right ventricular systolic pressure is estimated to be at least 61 mmHg based on an estimated right atrial pressure of 3 mm Hg. Pulmonic Valve: The pulmonic valve is normal in structure and function. There is trace pulmonic regurgitation. Great Vessels: The aortic root is normal size. The ascending aorta is mildly enlarged. The IVC is of normal diameter and collapses greater than 50% with a sniff. This suggests a low right atrial pressure of 3 mm Hg. Pericardium/ Pleura There is no pericardial effusion. There is no pleural effusion. MMode/2D Measurements & Calculations LVIDd: 5.5 cm LVOT diam: 2.3 cm LVIDs: 4.7 cm Ao root diam: 3.5 cm FS: 14.9 % asc Aorta Diam: 4.0 cm IVSd: 1.1 cm LVPWd: 1.1 cm LV baker. diameter/BSA (cm/m^2): 2.8 LV sys. diameter/BSA (cm/m^2): 2.4 LA dimension: 3.4 cm RA long axis: 6.2 cm LA A2 area: 17.8 cm2 RA area: 23.1 cm2 LA A4 area: 20.0 cm2 RA vol: 73.3 ml LA length (vol): 5.5 cm RA : 36.8 ml/m2 LA vol: 55.1 ml LA vol index: 27.7 ml/m2 LVLs ap4: 8.2 cm LVLd ap2: 7.9 cm LVLs ap2: 7.5 cm TAPSE_phl: 1.9 cm Doppler Measurements & Calculations Ao V2 max: 142.0 cm/sec LVOT Max Chintan: 77.7 cm/sec Ao V2 mean: 97.8 cm/sec LV V1 max P.4 mmHg Ao max P.0 mmHg LV V1 VTI: 15.7 cm Ao mean P.0 mmHg URBAN(I,D): 2.2 cm2 Ao V2 VTI: 29.4 cm URBAN(V,D): 2.3 cm2 sev ratio: 0.53 RUBAN indexed to BSA (cm^2/m^2): 1.1 TR max chintan: 382.0 cm/sec SV(LVOT): 65.2 ml TR max P.4 mmHg AV VR_phl: 0.55 URBAN(VTI)/BSA_phl: 1.1 Reading Physician:10:25 AM
[2021-11-02 18:50] LABS: Add Manual Diff / Slide Review NO; Basophils Absolute Auto 0 /uL (0-100); Basophils Percent Auto 0.7 % (0-2); Eosinophils Absolute Auto 200 /uL (0-450); Hematocrit 43.4 % (41-53); Hemoglobin 14.7 g/dL (13.5-17.5); Lymphocytes Absolute Auto 1300 /uL (1100-4500); Lymphocytes Percent Auto 22.2 % (25-40); Mean Corpuscular HGB Conc 33.9 % (30-36); Mean Corpuscular Hemoglobin 31.7 PG (26-34); Mean Corpuscular Volume 93.7 fL (80-100); Monocytes Absolute Auto 500 /uL (0-900); Monocytes Percent Auto 8.1 % (3-14); Neutrophils Absolute Auto 3700 /uL (1500-7000); Platelet Count 186 X10^3/uL (150-400); Red Blood Cell Count 4.63 X10^6/uL (4.5-5.9); Red Cell Distribution Width 13.3 % (11.6-14.8); White Blood Cell Count 5.7 X10^3/uL (4.5-11.0)
[2021-11-02 18:55] LABS: Magnesium 2.1 mg/dL (1.6-2.3)
[2021-11-02 18:57] LABS: Alanine Aminotransferase 28 IU/L (<50); Albumin 4.2 g/dL (3.5-5.0); Albumin Globulin Ratio 1.6 (1.0-2.8); Alkaline Phosphatase 94 U/L (38-126); Aspartate Aminotransferase 32 IU/L (17-59); BUN Creatinine Ratio 32.7 (6-22); Bilirubin Total 0.8 mg/dL (0.2-1.3); Blood Urea Nitrogen 35 mg/dL (9-20); Calcium 9.1 mg/dL (8.4-10.2); Carbon Dioxide 28 mmol/L (22-32); Chloride 105 mmol/L (98-107); Cholesterol 141 mg/dL (140-199); Estimated Glomerular Filt Rate > 60 mL/min (>60); Globulin 2.7 g/dL (1.7-4.1); Glucose 85 mg/dL (80-110); HDL Cholesterol 60 mg/dL (40-60); HEMOLYSIS < 15 (0-50); LDL Cholesterol Calculated 49 mg/dL (<100); Potassium 5.1 mmol/L (3.4-5.1); Sodium 139 mmol/L (137-145); Total Protein 6.9 g/dL (6.3-8.2); Triglycerides 161 mg/dL (35-150)
[2021-11-02 19:25] LABS: TSH w/ Reflex to FT4 2.95 uIU/mL (0.47-4.68)
[2021-11-04 17:07] LABS: Cholesterol, Total 148 mg/dL (100-199); HDL-Cholesterol 56 mg/dL (>39); HDL-Particle (Total) 31.5 umol/L (>=30.5); LDL Particle 809 nmol/L (<1000); LDL Size 20.9 nm (>20.5); LDL-Cholsterol 64 mg/dL (0-99); LP-IR Score <25 (<=45); Small LDL- Particle 253 nmol/L (<=527); Triglycerides 169 mg/dL (0-149)
== END ==
PROVIDERS: PCP Internal Medicine; Referring Provider Specialist; Visit Provider Specialist
DX: I65.23 Occlusion and stenosis of bilateral carotid arteries; I42.9 Cardiomyopathy, unspecified; I48.0 Paroxysmal atrial fibrillation; E78.2 Mixed hyperlipidemia; I77.89 Other specified disorders of arteries and arterioles
CPT/HCPCS: 36415; 80053; 80061; 83704; 83735; 84443; 85025; 93306

== ENCOUNTER → 2021-11-21 13:06 | Outpatient (CLI) | payer OTHER, SELFPAY ==
[2020-06-07 11:03] VITALS: BMI 22.5
--- NOTE | 2021-11-21 13:08 | DI.RAD.S_ITS ---
PROCEDURE: XR KNEE LT 3V INDICATIONS: Knee pain TECHNIQUE: 3 views of the knee were acquired. COMPARISON: None. FINDINGS: Bones: Lateral compartment arthroplasty without evidence of perihardware lucency. No fractures or dislocations. No suspicious bony lesions. Medial and patellofemoral compartment osteophytosis. Soft tissues: Small joint effusion. No suspicious soft tissue calcifications. IMPRESSION: Small joint effusion. Dictated by: Nirav Lim M.D. on 11/21/2021 at 14:52 Approved by: Nirav Lim M.D. on 11/21/2021 at 14:53
--- NOTE | 2021-11-21 13:08 | DI.RAD.S_ITS ---
PROCEDURE: XR HIP W PEL IF DONE LT 2V INDICATIONS: Hip pain TECHNIQUE: AP pelvis with lateral view(s) of the left hip(s). COMPARISON: [facility], , XR HIP W PEL IF DONE LT 2V, 01/31/2019, 12:42. FINDINGS: Bones: No fractures or dislocations. Pelvic ring appears intact. No suspicious bony lesions. ORIF of the left femoral neck and shaft has been performed. Hardware is intact. Moderate right hip joint space narrowing and periarticular osteophyte formation. Soft tissues: The visualized bowel gas pattern is normal. No suspicious soft tissue calcifications. IMPRESSION: 1. Postsurgical sequelae. 2. Right hip osteoarthritis. Dictated by: Miguel Angel Lawrence M.D. on 11/21/2021 at 15:23 Approved by: Miguel Angel Lawrence M.D. on 11/21/2021 at 15:24
--- NOTE | 2021-11-21 13:08 | DI.RAD.S_ITS ---
PROCEDURE: XR LUMBAR SPINE 2-3V INDICATIONS: Low back pain TECHNIQUE: 2 views of the lumbar spine were acquired. COMPARISON: [facility], CT, CT LUMBAR SPINE WO CON, 01/30/2019, 15:10. [facility], CR, XR LUMBAR SPINE WITH OLBIQUES PLUS FLEXION EXTENSION, 12/26/2018, 14:08. [facility], CR, XR LUMBAR SPINE 2-3V, 05/12/2019, 13:08. FINDINGS: Bones: 5 [id number] vertebrae are present. There is normal bony alignment. Moderate vertebral body compression fracture of L3 mild compression fracture of L4. Compared to the spine radiograph dated 05/12/2019, there is no significant change. No suspicious bony lesions. Osteopenia. Soft tissues: Overlying bowel gas pattern is normal. There are moderate atherosclerotic calcifications. IMPRESSION: 1. Moderate L3 and mild L4 compression fractures, stable since 05/12/2019. 2. Osteopenia. 3. Atherosclerosis. Dictated by: Jaylin Frost M.D. on 11/21/2021 at 17:16 Approved by: Jaylin Frost M.D. on 11/21/2021 at 17:32
== END ==
PROVIDERS: PCP Internal Medicine; Referring Provider Internal Medicine; Visit Provider Internal Medicine
DX: M85.88 Other specified disorders of bone density and structure, other site (principal); M25.462 Effusion, left knee; M48.56XS Collapsed vertebra, not elsewhere classified, lumbar region, sequela of fracture; M54.50 Low back pain, unspecified; M16.11 Unilateral primary osteoarthritis, right hip; M25.562 Pain in left knee; M25.559 Pain in unspecified hip; I70.90 Unspecified atherosclerosis; G89.29 Other chronic pain
CPT/HCPCS: 72100; 73502; 73562

== ENCOUNTER → 2022-02-02 07:51 | Outpatient (CLI) | payer OTHER, SELFPAY ==
[2020-06-07 11:03] VITALS: BMI 22.5
[2022-02-02 09:44] LABS: Blood Urea Nitrogen 30 mg/dL (9-20); Calcium 9.3 mg/dL (8.4-10.2); Carbon Dioxide 29 mmol/L (22-32); Chloride 107 mmol/L (98-107); Estimated Glomerular Filt Rate > 60 mL/min (>60); Glucose 96 mg/dL (80-110); HEMOLYSIS < 15 (0-50); Magnesium 2.1 mg/dL (1.6-2.3); Potassium 4.7 mmol/L (3.4-5.1); Sodium 141 mmol/L (137-145)
== END ==
PROVIDERS: PCP Internal Medicine; Referring Provider Specialist; Visit Provider Specialist
DX: I48.0 Paroxysmal atrial fibrillation (principal); I11.0 Hypertensive heart disease with heart failure; I50.22 Chronic systolic (congestive) heart failure
CPT/HCPCS: 36415; 80048; 83735

== ENCOUNTER → 2022-04-06 11:22 | Outpatient (CLI) | payer OTHER, SELFPAY ==
[2020-06-07 11:03] VITALS: BMI 22.5
--- NOTE | 2022-04-06 11:24 | DI.CT.S_ITS ---
PROCEDURE: CT CHEST WO CON INDICATIONS: pulmonary nodule seen on [address] CT TECHNIQUE: Noncontrast 2.0-2.5 mm thick sections acquired from the pulmonary apices to the posterior costophrenic angles. 7 mm thick axial MIP and 5 mm coronal and sagittal reformats were then acquired. A low radiation dose technique was utilized. COMPARISON: [facility], CR, XR CHEST 2 VIEWS, 05/05/2021, 16:14. [facility], CT, CT CHEST ABDOMEN PELVIS WITH CONTRAST, 05/01/2018, 18:10. FINDINGS: Image quality: Diagnostic, given the low radiation dose technique. Mild respiratory motion. Lungs and pleura: Mild emphysematous change. Right upper lobe nodular opacity or pulmonary nodule measuring 2.2 x 1.3 cm, (3/116). Left upper lobe curvilinear opacity or pulmonary nodule measuring 1 x 0.9 cm, (3/208). These are not seen on the CT from 2018. Airways are clear. No pleural effusion. No pneumothorax. Mediastinum: Left pacemaker with right atrial and right ventricular leads. Moderate coronary artery calcifications. Heart size is normal. No pericardial effusion. No mediastinal adenopathy by size criteria. Ascending aorta measures 3.9 cm, (4/21). Esophagus is normal in caliber. No hiatal hernia. Bones and chest wall: No suspicious bony lesions. No vertebral body compression fractures. No axillary or supraclavicular adenopathy by size criteria. Thyroid gland is unremarkable. Abdomen: Visualized upper abdomen solid organs and bowel loops appear normal in the absence of contrast. IMPRESSION: 1. Right upper lobe nodular opacity measuring mean diameter 1.8 cm. 2. Left upper lobe curvilinear nodular opacity measuring 1 cm. 3. Mild emphysematous change. 4. 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 Consider PET/CT for further evaluation. Recommend CT chest in 3 months. Fleischner Society criteria for SOLID lung nodule followup. Nodule size (mm)Low-risk patientHigh-risk patient<6 (single or multiple)No routine followup.Optional CT at 12 months. 6-8 (single or multiple)CT at 6-12 months, then optional CT at 18-24 mo.CT at 6-12 months, then CT at 18-24 months. >8 (single)CT at 3 months, PET-CT, or biopsy. Same as for low-risk pts. >8 (multiple)CT at 3-6 months, then optional CT at 18-24 mo.CT at 3-6 months, then CT at 18-24 months. Fleischner Society criteria for SUB-SOLID lung nodule followup. Solitary pure ground-glass nodules<6 mm (ground glass or part solid)No followup needed. 6 mm or larger (ground glass)CT at 6-12 months to confirm persistence, then CT every 2 years until 5 years.6 mm or larger (part solid)CT at 3-6 months to confirm persistence, then annual CT until 5 years if unchanged and solid component remains <6 mm. Multiple sub-solid nodules<6 mmCT at 3-6 months, then CT consider at 2 & 4 years for high risk patients. [address] at 3-6 months. Subsequent management based on most suspicious lesions. Recommendations do not apply to lung cancer screening, patients with immunosuppression, or patients with known primary cancer. Dictated by: Rodrigue Lainez M.D. on 04/06/2022 at 14:03 Approved by: Rodrigue Lainez M.D. on 04/06/2022 at 14:20
== END ==
PROVIDERS: PCP Internal Medicine; Referring Provider Internal Medicine; Visit Provider Internal Medicine
DX: R91.1 Solitary pulmonary nodule (principal); G47.33 Obstructive sleep apnea (adult) (pediatric); G47.01 Insomnia due to medical condition; Z68.23 Body mass index [BMI] 23.0-23.9, adult
CPT/HCPCS: 71250; 99213

== ENCOUNTER → 2022-09-21 11:29 | Outpatient (CLI) | payer OTHER, SELFPAY ==
[2020-06-07 11:03] VITALS: BMI 22.5
[2022-09-21 12:32] LABS: Hematocrit 42.9 % (41-53); Hemoglobin 14.3 g/dL (13.5-17.5); Mean Corpuscular HGB Conc 33.4 % (30-36); Mean Corpuscular Hemoglobin 31.4 PG (26-34); Mean Corpuscular Volume 93.8 fL (80-100); Platelet Count 163 X10^3/uL (150-400); Red Blood Cell Count 4.57 X10^6/uL (4.5-5.9); Red Cell Distribution Width 13.5 % (11.6-14.8); White Blood Cell Count 6.3 X10^3/uL (4.5-11.0)
[2022-09-21 12:49] LABS: C-Reactive Protein Quant 1.2 mg/dL (<1.0); Creatine Kinase 71 U/L (55-170)
[2022-09-21 12:53] LABS: Erythrocyte Sedimentation Rate 7 MM/HR (0-15)
== END ==
PROVIDERS: PCP Internal Medicine; Referring Provider Internal Medicine; Visit Provider Internal Medicine
DX: M35.3 Polymyalgia rheumatica (principal); M60.9 Myositis, unspecified
CPT/HCPCS: 36415; 82550; 85027; 85651; 86140

== ENCOUNTER → 2022-12-05 13:42 | Outpatient (CLI) | payer OTHER, SELFPAY ==
[2020-06-07 11:03] VITALS: BMI 22.5
--- NOTE | 2022-12-05 13:43 | DI.CT.S_ITS ---
PROCEDURE: CT CHEST WO CON INDICATIONS: followup pulmonary nodule TECHNIQUE: Noncontrast 2.0-2.5 mm thick sections acquired from the pulmonary apices to the posterior costophrenic angles. 7 mm thick axial MIP and 5 mm coronal and sagittal reformats were then acquired. A low radiation dose technique was utilized. COMPARISON: [facility], CT, CT CHEST WO CON, 04/06/2022, 11:36. FINDINGS: Image quality: Diagnostic, given the low radiation dose technique. Lungs and pleura: The right upper lobe subpleural nodularity measures 1.5 x 1.1 cm, previously 2.2 x 1.3 cm. Decrease nodularity of the pleural parenchymal band in the lingula, measuring 0.9 x 0.6 cm, previously 1.0 x 0.7 cm. Mediastinum: Heart size is normal. No pericardial effusion. No mediastinal adenopathy by size criteria. Thoracic aorta and central pulmonary arteries are normal in size. Esophagus is normal in caliber. No hiatal hernia. Three-vessel coronary calcifications. Intravenous leads within the right atrium and right ventricle. Bones and chest wall: No suspicious bony lesions. No vertebral body compression fractures. No axillary or supraclavicular adenopathy by size criteria. Thyroid gland is unremarkable . Abdomen: Visualized upper abdomen solid organs and bowel loops appear normal in the absence of contrast. IMPRESSION: Decreased size of the pulmonary nodules, consistent with a benign process. Fleischner Society criteria for SOLID lung nodule followup. Nodule size (mm)Low-risk patientHigh-risk patient<6 (single or multiple)No routine followup.Optional CT at 12 months. 6-8 (single or multiple)CT at 6-12 months, then optional CT at 18-24 mo.CT at 6-12 months, then CT at 18-24 months. >8 (single)CT at 3 months, PET-CT, or biopsy. Same as for low-risk pts. >8 (multiple)CT at 3-6 months, then optional CT at 18-24 mo.CT at 3-6 months, then CT at 18-24 months. Fleischner Society criteria for SUB-SOLID lung nodule followup. Solitary pure ground-glass nodules<6 mm (ground glass or part solid)No followup needed. 6 mm or larger (ground glass)CT at 6-12 months to confirm persistence, then CT every 2 years until 5 years.6 mm or larger (part solid)CT at 3-6 months to confirm persistence, then annual CT until 5 years if unchanged and solid component remains <6 mm. Multiple sub-solid nodules<6 mmCT at 3-6 months, then CT consider at 2 & 4 years for high risk patients. [address] at 3-6 months. Subsequent management based on most suspicious lesions. Recommendations do not apply to lung cancer screening, patients with immunosuppression, or patients with known primary cancer. Dictated by: Julio Delgado M.D. on 12/05/2022 at 14:30 Approved by: Julio Delgado M.D. on 12/05/2022 at 14:37
== END ==
PROVIDERS: PCP Internal Medicine; Referring Provider Internal Medicine; Visit Provider Internal Medicine
DX: R91.1 Solitary pulmonary nodule (principal)
CPT/HCPCS: 71250

== ENCOUNTER 2023-04-03 07:59 | Emergency (ER) | payer OTHER, SELFPAY ==
[2020-06-07 11:03] VITALS: BMI 22.5
[2023-04-03] VITALS (9 sets, daily range): BP systolic 144–189; BP diastolic 80–87; PULSE 57–62; RESP 16; TEMP 36.6; O2SAT 94–100; BMI 23.0
--- NOTE | 2023-04-03 09:36 | DI.CT.S_ITS ---
PROCEDURE: CT ABDOMEN PELVIS W CON INDICATIONS: IV contrast only/left lower quadrant pain TECHNIQUE: After the administration of oral and IV contrast, axial sections were acquired from the lung bases to the pubic symphysis. Coronal and sagittal reformats were performed. For radiation dose reduction, the following was used: automated exposure control, adjustment of mA and/or kV according to patient size. COMPARISON: None. FINDINGS: Image quality: Excellent. Lung bases: Clear lung bases. Heart: Pacemaker leads. Mildly enlarged heart. ABDOMEN: Liver: No enhancing mass. Gallbladder: Normal. Biliary ducts: Nondilated. Pancreas: Normal. Spleen: Normal. Adrenal Glands: Mild diffuse left adrenal thickening. No nodules. Kidneys and Ureters: Symmetric enhancement. No nephrolithiasis or hydronephrosis. No hydroureter. Numerous tiny bilateral cortical cysts. Stomach and Bowel: Moderate quantity of colonic stool diffusely. No pericolonic inflammation or diverticulitis. Normal appendix. Fluid-filled small-bowel loops of normal caliber. Peritoneum: No abnormal intraperitoneal fluid. No free air. Ventral Wall: No hernia. Abdominal Nodes: No retroperitoneal or mesenteric adenopathy by size criteria. Vessels: Aorta and inferior vena cava are normal in size. Tortuous aortic course. Moderate abdominal aortic atherosclerotic calcification. PELVIS: Pelvic Organs: Surgical clips in the pelvis. Possible prostatectomy. Bladder: Normal. No stones. Distal ureters are nondilated. Pelvic Nodes: No enlarged lymph nodes. Miscellaneous: No inguinal hernias are seen. Bones: Left hip arthroplasty. No unexpected fractures. Left-sided L3 compression fracture appears chronic. There is a slight angulation of the S3 vertebral body which is of uncertain chronicity, but unlikely to be acute due to lack of history or surrounding inflammation. IMPRESSION: 1. No acute intraperitoneal process. 2. Mildly increased stool burden. Dictated by: Daniela Helm M.D. on 04/03/2023 at 10:57 Approved by: Daniela Helm M.D. on 04/03/2023 at 11:12
--- NOTE | 2023-04-03 09:37 | ED.ABDPAIN ---
HPI - Abdominal Pain General Chief Complaint: Abdominal Pain Stated Complaint: bowel obstruction Time Seen by Provider: 04/03/23 09:28 Source: patient Mode of arrival: Ambulatory History of Present Illness HPI narrative: Patient states he is had problems with constipation for a long time. However he is had left lower quadrant pain since yesterday. He states he has oral/skin surgery this past summer, early February and had to change his diet due to chewing ability. This has caused him to be more constipated. He is required suppositories for bowel movements. Usually takes a suppository when he has the left lower quadrant pain and able have a bowel movement and it resolves. However yesterday he did have a bowel movement with suppository but the pain persisted. It does not radiate. No black or bloody stools. Patient is on Pradaxa for atrial fibrillation. He just saw his lumber checker March 28, 2023, 6 days ago and had a good checkup. No changes. Denies any chest pain or dyspnea. No urinary complaints. Patient complains of mild pain. No back pain. No groin pain Related Data Home Medications Medication Instructions Recorded Confirmed Magnesium Cr 2,000 mg PO DAILY 01/30/19 01/09/23 atorvastatin 40 mg tablet 40 mg PO QPM 01/30/19 01/09/23 cetirizine 10 mg tablet 10 mg PO DAILY 01/30/19 01/09/23 cholecalciferol (vitamin D3) 25 25 mcg PO DAILY 10/30/21 01/09/23 mcg (1,000 unit) capsule multivitamin 1 tab PO DAILY 10/30/21 01/09/23 dabigatran etexilate 150 mg 150 mg PO BID 01/05/22 01/09/23 capsule (Pradaxa) losartan 25 mg tablet 25 mg PO DAILY 01/05/22 01/09/23 furosemide 20 mg tablet 10 mg PO DAILY 04/04/22 01/09/23 carvedilol 12.5 mg tablet 12.5 mg PO DAILY 09/21/22 01/09/23 Previous Rx's Medication Instructions Recorded Parking Permit... #1 ea 04/04/22 tramadol 50 mg tablet 50 mg PO Q6H PRN pain #60 tabs 01/09/23 Allergies Allergy/AdvReac Type Severity Reaction Status Date / Time amiodarone Allergy Verified 04/03/23 08:44 Review of Systems Review of Systems Narrative: GENERAL: negative chills, fatigue, malaise, fever, sweats. HEENT: negative sinus pain, ear pain, sore throat RESPIRATORY: negative dyspnea, cough CARDIOVASCULAR: negative chest pain, palpitations GASTROINTESTINAL: negative nausea, vomiting, positive abdominal pain : negative dysuria, frequency, hematuria MUSCULOSKELETAL: negative muscle or bony pain SKIN: negative rash, skin lesions NEUROLOGIC: negative weakness, numbness Patient History Medical History Anemia (~1974) BPH w urinary obs/LUTS Chicken pox (~1948) Chronic anticoagulation Chronic low back pain without sciatica Coronary artery disease Essential hypertension Fractures (~2019) Hearing loss History of TIA (transient ischemic attack) (~2018) Idiopathic peripheral neuropathy Lumbar compression fracture Measles (~1952) Mixed hyperlipidemia Obstructive sleep apnea Orthostatic hypotension Paroxysmal atrial fibrillation Primary osteoarthritis involving multiple joints Pulmonary nodule Systolic CHF, chronic Venous (peripheral) insufficiency Surgical History Anesthesia Status post cardiac pacemaker procedure (~03/2021) Status post circumferential ablation of pulmonary vein Status post left partial knee replacement Status post recent transurethral resection of prostate Family History Father Kidney failure Mother Congestive heart failure Brother Stroke Sister Cancer Social History household members: spouse Smoking Status: Former smoker Smoking Status: Former smoker alcohol intake frequency: holidays/special occasions only Substance Use Type: does not use Exam Narrative Exam Narrative: GENERAL: in no distress, not toxic not dyspneic HEAD: Normocephalic. EYES: Pupils equal round ENT: Mucous membranes moist. NECK: Trachea midline. CARDIOVASCULAR: Regular rate and rhythm RESPIRATORY: Clear to auscultation. Breath sounds equal bilaterally. No wheezes, rales, or rhonchi. GASTROINTESTINAL: Abdomen soft, there is mild left lower quadrant tenderness. No pain out of proportion to exam. No CVA tenderness. Bowel sounds are present. EXTREMITIES: No gross deformities. BACK: No flank tenderness. NEURO: AOx4. SKIN: Warm and dry PSYCH: Not anxious, is cooperative Initial Vital Signs Initial Vital Signs: Vital Signs Temperature 97.8 F 04/03/23 08:32 Pulse Rate 62 04/03/23 08:32 Respiratory Rate 16 04/03/23 08:32 Blood Pressure 174/85 H 04/03/23 08:32 Pulse Oximetry 97 04/03/23 08:32 Oxygen Delivery Method Room Air 04/03/23 08:32 Course Orders Ordered: Discontinued Medications Sodium Chloride (Normal Saline 0.9%) 1,000 mls @ 1,000 mls/hr IV BOLUS ONE Stop: 04/03/23 10:35 Last Infusion: 04/03/23 11:25 Dose: 0 mls/hr Documented By: Admin: 04/03/23 10:28 Dose: 1,000 mls/hr Documented By: LEIF Ondansetron HCl (Ondansetron 4 Mg Odt) 4 mg PO NOW PRN PRN Reason: Nausea And Vomiting Ondansetron HCl (Ondansetron 4 Mg/2 Ml Inj) 4 mg IV NOW PRN PRN Reason: Nausea And Vomiting Vital Signs Vital signs: Vital Signs - 8 hr 04/03/23 08:32 04/03/23 09:17 04/03/23 09:30 Temperature 97.8 F Pulse Rate 62 60 62 Respiratory Rate 16 Blood Pressure 174/85 H Pulse Oximetry 97 98 100 Oxygen Delivery Method Room Air 04/03/23 09:47 04/03/23 09:47 04/03/23 10:00 Temperature Pulse Rate 61 60 Respiratory Rate Blood Pressure 173/86 H Pulse Oximetry 98 94 Oxygen Delivery Method 04/03/23 10:16 04/03/23 10:16 Temperature Pulse Rate 57 L Respiratory Rate Blood Pressure 189/87 H Pulse Oximetry 96 Oxygen Delivery Method MDM - Abdominal Pain Lab Data 04/03/23 09:35 04/03/23 09:35 Labs: Lab Results 04/03/23 04/03/23 Range/Units 09:35 09:35 WBC 5.9 (4.5-11.0) X10^3/uL RBC 4.31 L (4.5-5.9) X10^6/uL Hgb 13.7 (13.5-17.5) g/dL Hct 40.5 L (41-53) % MCV 94.1 (80-100) fL MCH 31.7 (26-34) PG MCHC 33.7 (30-36) % RDW 13.5 (11.6-14.8) % Plt Count 144 L (150-400) X10^3/uL Neut % (Auto) 62.1 (50-75) % Lymph % (Auto) 25.7 (25-40) % Toole % (Auto) 8.5 (3-14) % Eos % (Auto) 3.1 (2-4) % Baso % (Auto) 0.6 (0-2) % Neut # (Auto) 3600 (1420-6439) /uL Lymph # (Auto) 1500 (2664-9783) /uL Toole # (Auto) 500 (0-900) /uL Eos # (Auto) 200 (0-450) /uL Baso # (Auto) 0 (0-100) /uL Sodium 139 (137-145) mmol/L Potassium 4.7 (3.4-5.1) mmol/L Chloride 106 (98-107) mmol/L Carbon Dioxide 27 (22-32) mmol/L BUN 28 H (9-20) mg/dL Creatinine 1.05 (0.66-1.25) mg/dL Estimated GFR > 60 (>60) mL/min BUN/Creatinine Ratio 26.7 H (6-22) Glucose 89 (80-110) mg/dL Calcium 9.2 (8.4-10.2) mg/dL Total Bilirubin 0.8 (0.2-1.3) mg/dL AST 32 (17-59) IU/L ALT 26 (<50) IU/L Alkaline Phosphatase 73 (38-126) U/L Total Protein 6.5 (6.3-8.2) g/dL Albumin 3.8 (3.5-5.0) g/dL Globulin 2.7 (1.7-4.1) g/dL Albumin/Globulin Ratio 1.4 (1.0-2.8) Lipase 34 (23-300) U/L Point of care testing: Urine Dip Bedside Urine Glucose Negative Bedside Urine Bilirubin - Negative Bedside Urine Ketone - Negative Urine Specific Craig 1.020 Bedside Urine Occult Blood - Negative Bedside Urine pH 6.0 Bedside Urine Protein - Negative Bedside Urine Urobilinogen - Negative Bedside Urine Nitrite - Negative Bedside Urine Leukocytes - Negative Esterase Imaging Data CT scan - abdomen/pelvis: Radiologist's Impression: [address] [address] [address] Scan Report Signed Patient: Wicho Cao MR#: [id number] : 1940 Acct:[id number] Age/Sex: 83 / M Date of Service: 04/03/23 Loc: ED Accession Number: [id number] ?? Procedure: CT abdomen pelvis w con Ordering Provider: Sahil العراقي MD PROCEDURE:? CT ABDOMEN PELVIS W CON ? INDICATIONS:? IV contrast only/left lower quadrant pain ? TECHNIQUE:? After the administration of oral and IV contrast, axial sections were acquired from the lung bases to the pubic symphysis.? Coronal and sagittal reformats were performed.? For radiation dose reduction, the following was used:? automated exposure control, adjustment of mA and/or kV according to patient size. ? COMPARISON:? None. ? FINDINGS:? Image quality:? Excellent.? ? Lung bases:? Clear lung bases. Heart:? Pacemaker leads.? Mildly enlarged heart. ? ? ABDOMEN: Liver:? No enhancing mass. Gallbladder:? Normal. Biliary ducts:? Nondilated. Pancreas:? Normal. Spleen:? Normal. Adrenal Glands: Mild diffuse left adrenal thickening.? No nodules. Kidneys and Ureters: Symmetric enhancement.? No nephrolithiasis or hydronephrosis.? No hydroureter.? Numerous tiny bilateral cortical cysts. ? Stomach and Bowel:? Moderate quantity of colonic stool diffusely.? No pericolonic inflammation or diverticulitis.? Normal appendix.? Fluid-filled small-bowel loops of normal caliber. Peritoneum:? No abnormal intraperitoneal fluid.? No free air.? ? Ventral Wall: ? No hernia.? Abdominal Nodes:? No retroperitoneal or mesenteric adenopathy by size criteria.? Vessels:? Aorta and inferior vena cava are normal in size.? Tortuous aortic course.? Moderate abdominal aortic atherosclerotic calcification.? ? PELVIS: Pelvic Organs:? Surgical clips in the pelvis.? Possible prostatectomy. Bladder:? Normal.? No stones.? Distal ureters are nondilated. Pelvic Nodes: No enlarged lymph nodes.? Miscellaneous: No inguinal hernias are seen. ? ? ? Bones:? Left hip arthroplasty.? No unexpected fractures.? Left-sided L3 compression fracture appears chronic.? There is a slight angulation of the S3 vertebral body which is of uncertain chronicity, but unlikely to be acute due to lack of history or surrounding inflammation. ? ? IMPRESSION:? ? 1. No acute intraperitoneal process.? ? 2. Mildly increased stool burden.? ? ? Dictated by: Daniela Helm M.D. on 04/03/2023 at 10:57 ? ? Approved by: Daniela Helm M.D. on 04/03/2023 at 11:12 ? [facility] Narrative Medical decision making narrative: Patient states he is had problems with constipation for a long time. However he is had left lower quadrant pain since yesterday. He states he has oral/skin surgery this past summer, early February and had to change his diet due to chewing ability. This has caused him to be more constipated. He is required suppositories for bowel movements. Usually takes a suppository when he has the left lower quadrant pain and able have a bowel movement and it resolves. However yesterday he did have a bowel movement with suppository but the pain persisted. It does not radiate. No black or bloody stools. Patient is on Pradaxa for atrial fibrillation. He just saw his lumber checker March 28, 2023, 6 days ago and had a good checkup. No changes. Denies any chest pain or dyspnea. No urinary complaints. Patient complains of mild pain. No back pain. No groin pain After history and exam CBC CMP urinalysis CT abdomen pelvis normal saline, no CT or cardiac enzymes indicated this time. Patient has reproducible left lower quadrant tenderness [facility] CC: Left lower quadrant pain Complicating co-morbidities: Atrial fibrillation on Pradaxa Data collected from: Patient Medical records reviewed: Office cardiology visit March 28, [address] Rodriguez Differential considered: Includes but not limited to bowel obstruction colitis diverticulitis bowel perforation ischemic bowel Exam documented above, pertinent findings include: Mild left lower quadrant tenderness Lab Test results independently reviewed as above. Pertinent findings: WBC 5.9 hemoglobin 13.7 sodium 139 potassium 4.7 AST 32 ALT 26 Imaging studies independently reviewed: CT abdomen pelvis mild increased stool burden Treatments: Normal saline Re-evaluations: 11:24 a.m.. Reviewed results with patient. They are reassuring at this time. Patient dietary changes last month likely change to his bowel habits. No pain at time of discharge. Recommended magnesium citrate today to promote more bowel movement. He is on MiraLax at home. He desires discharge home Discussion: Appropriate for discharge home. Not toxic at discharge. Return precautions reviewed with patient. Exam and laboratory studies and imaging are reassuring. Patient's recent dietary changes likely interrupted his bowel habits which he usually has problems with before. Not toxic at discharge. Patient desires discharge home. Referral for General surgery/colonoscopy provided. Diagnosis: Slow transit constipation Discharge Plan Departure Patient Disposition: Home Clinical Impression: Slow transit constipation Instructions: DI for Constipation Activity Restrictions/Additional Instructions: Please see your family doctor next week for re-evaluation. You may need to schedule colonoscopy, please call provided general surgery Dr. Chamorro to schedule one. Continue home MiraLax. Please do try [id number] magnesium citrate today to promote more bowel movement. CT scan imaging today does show some constipation. Return if worse if any questions or concerns Prescriptions: No Action cholecalciferol (vitamin D3) 25 mcg (1,000 unit) capsule 25 mcg PO DAILY multivitamin Tablet 1 tab PO DAILY furosemide 20 mg tablet 10 mg PO DAILY (DME) Parking Permit... See Rx Instructions .Route .MEDSUPPLY Qty: 1 0RF Rx Instructions: As directed losartan 25 mg tablet 25 mg PO DAILY Pradaxa 150 mg capsule 150 mg PO BID carvedilol 12.5 mg tablet 12.5 mg PO DAILY tramadol 50 mg tablet 50 mg PO Q6H PRN (Reason: pain) Qty: 60 5RF atorvastatin 40 mg Tablet 40 mg PO QPM cetirizine 10 mg Tablet 10 mg PO DAILY Magnesium Cr 2,000 mg 2,000 mg PO DAILY Referrals: David Wyatt MD [Primary Care Provider] - James Chamorro MD [Physician] - Stand Alone Forms: Patient Portal/API
[2023-04-03 09:50] LABS: Add Manual Diff / Slide Review NO; Basophils Absolute Auto 0 /uL (0-100); Basophils Percent Auto 0.6 % (0-2); Eosinophils Absolute Auto 200 /uL (0-450); Eosinophils Percent Auto 3.1 % (2-4); Hematocrit 40.5 % (41-53); Hemoglobin 13.7 g/dL (13.5-17.5); Lymphocytes Absolute Auto 1500 /uL (1100-4500); Lymphocytes Percent Auto 25.7 % (25-40); Mean Corpuscular HGB Conc 33.7 % (30-36); Mean Corpuscular Hemoglobin 31.7 PG (26-34); Mean Corpuscular Volume 94.1 fL (80-100); Monocytes Absolute Auto 500 /uL (0-900); Monocytes Percent Auto 8.5 % (3-14); Neutrophils Absolute Auto 3600 /uL (1500-7000); Neutrophils Percent Auto 62.1 % (50-75); Platelet Count 144 X10^3/uL (150-400); Red Blood Cell Count 4.31 X10^6/uL (4.5-5.9); Red Cell Distribution Width 13.5 % (11.6-14.8); White Blood Cell Count 5.9 X10^3/uL (4.5-11.0)
[2023-04-03 10:01] LABS: Alanine Aminotransferase 26 IU/L (<50); Albumin 3.8 g/dL (3.5-5.0); Albumin Globulin Ratio 1.4 (1.0-2.8); Alkaline Phosphatase 73 U/L (38-126); Aspartate Aminotransferase 32 IU/L (17-59); BUN Creatinine Ratio 26.7 (6-22); Bilirubin Total 0.8 mg/dL (0.2-1.3); Blood Urea Nitrogen 28 mg/dL (9-20); Calcium 9.2 mg/dL (8.4-10.2); Carbon Dioxide 27 mmol/L (22-32); Chloride 106 mmol/L (98-107); Estimated Glomerular Filt Rate > 60 mL/min (>60); Globulin 2.7 g/dL (1.7-4.1); Glucose 89 mg/dL (80-110); HEMOLYSIS < 15 (0-50); Lipase 34 U/L (23-300); Potassium 4.7 mmol/L (3.4-5.1); Sodium 139 mmol/L (137-145); Total Protein 6.5 g/dL (6.3-8.2)
[2023-04-03] MEDS: SODIUM CHLORIDE 0.9% 1,000 ML 1000 ML IV (10:28)
== END 2023-04-03 11:33 | disposition home or self-care (01) ==
PROVIDERS: Emergency Provider Emergency Medicine; PCP Internal Medicine
DX: K59.01 Slow transit constipation (principal)
CPT/HCPCS: 36415; 74177; 80053; 81003; 83690; 85025; 99284; Q9967

== ENCOUNTER → 2024-04-20 10:46 | Outpatient (CLI) | payer OTHER, SELFPAY ==
[2024-04-02 09:39] VITALS: BMI 22.5
[2024-04-20 12:08] LABS: Hematocrit 42.8 % (41-53); Hemoglobin 14.3 g/dL (13.5-17.5); Mean Corpuscular HGB Conc 33.4 % (30-36); Mean Corpuscular Hemoglobin 31.1 PG (26-34); Mean Corpuscular Volume 93.3 fL (80-100); Platelet Count 208 X10^3/uL (150-400); Red Blood Cell Count 4.59 X10^6/uL (4.5-5.9); Red Cell Distribution Width 13.5 % (11.6-14.8); White Blood Cell Count 6.3 X10^3/uL (4.5-11.0)
[2024-04-20 12:54] LABS: Alanine Aminotransferase 17 IU/L (<50); Albumin Globulin Ratio 1.7 (1.0-2.8); Alkaline Phosphatase 72 U/L (38-126); Aspartate Aminotransferase 27 IU/L (17-59); BUN Creatinine Ratio 26.7 (6-22); Bilirubin Total 0.8 mg/dL (0.2-1.3); Blood Urea Nitrogen 31 mg/dL (9-20); Calcium 9.3 mg/dL (8.4-10.2); Carbon Dioxide 25 mmol/L (22-32); Cholesterol 129 mg/dL (140-199); Estimated Glomerular Filt Rate > 60 mL/min (>60); Globulin 2.4 g/dL (1.7-4.1); Glucose 94 mg/dL (80-110); HDL Cholesterol 52 mg/dL (40-60); LDL Cholesterol Calculated 60 mg/dL (<100); Potassium 4.8 mmol/L (3.4-5.1); Sodium 138 mmol/L (137-145); Total Protein 6.4 g/dL (6.3-8.2); Triglycerides 86 mg/dL (35-150)
[2024-04-20 12:59] LABS: Chloride 106 mmol/L (98-107); HEMOLYSIS 16 (0-50)
== END ==
PROVIDERS: PCP Internal Medicine; Referring Provider Internal Medicine; Visit Provider Internal Medicine
DX: I50.22 Chronic systolic (congestive) heart failure (principal); M48.062 Spinal stenosis, lumbar region with neurogenic claudication; E78.2 Mixed hyperlipidemia
CPT/HCPCS: 36415; 80053; 80061; 85027

== ENCOUNTER 2024-05-12 14:22 | Outpatient (CLI) | payer OTHER, SELFPAY ==
[2024-04-02 09:39] VITALS: BMI 22.5
[2024-05-12] VITALS (9 sets, daily range): BP systolic 137–168; BP diastolic 75–94; PULSE 58–63; RESP 13–19; TEMP 36.3; O2SAT 96–100
--- NOTE | 2024-05-12 15:00 | DI.RAD.S_ITS ---
PROCEDURE: PAIN L/S TRANSFORAM INJECT SELINA COMPARISON: None. INDICATIONS: Bilateral L4-5 transforaminal MATTHEW FINDINGS/IMPRESSION: Fluoroscopic guidance utilized for an epidural steroid injection. Dictated by: Julio Delgado M.D. on 05/12/2024 at 17:35 Approved by: Julio Delgado M.D. on 05/12/2024 at 17:37
[2024-05-12] MEDS: MIDAZOLAM 2 MG/2 ML VIAL 1 MG IV (15:52)
[2024-05-12] MEDS: DEXAMETHASONE 10 MG/ML VIAL 20 MG INJ (15:54)
[2024-05-12] MEDS: BETAMETHASONE 30 MG/5 ML MDV 12 MG INJ (15:55)
[2024-05-12] MEDS: BUPIVACAINE 0.25% (PF) VIAL 2 ML INJ (15:55)
[2024-05-12] MEDS: iopamidoL 15 ML VIAL 3 ML INJ (15:55)
--- NOTE | 2024-05-12 16:10 | PM.PROC.IR.1 ---
Date/Time/Diagnoses Date of procedure: 05/12/24 Time of procedure: 16:10 Pre-procedure diagnosis: 1. FORAMINAL STENOSIS WITH LE SYMPTOMS Procedure Notes Procedure: 1. FLUOROSCOPICALLY GUIDED CONTRAST CONTROLLED TRANSFORAMINAL EPIDURAL STEROID INJECTION - BILATERAL L4/5 TFESI Indications: Doris is referred by Dr. Wyatt for treatment of Foraminal Stenosis with bilateral LE Symptoms Physician: Rickey Herndon Total Fluoroscopy time (seconds): 14 Total sedation minutes: 14 Complications: none Procedure in detail & Post-procedure care: FINDINGS Foraminal Nerve Root Compression secondary to disc disease and facet hypertrophy DESCRIPTION OF PROCEDURE Following review of allergy and review of potential side effects and complications, including, but not necessarily limited to, infection, allergic reaction, local tissue breakdown, stroke, temporary or permanent nerve injury, paralysis, and possible , the patient indicated that the patient understood and agreed to proceed. An informed consent document was signed by the patient, witnessed by a nurse, and placed in the patient's chart. Additionally, other treatment options including medications, modalities, and physical therapy were reviewed with the patient. After review of previous anaesthesic history and IV conscious sedation the patient was deemed safe to proceed with today?s procedure with IV conscious sedation as ASA class II designation. Safety time-out was performed to confirm patient ID, procedure to be performed and site of procedure. IV sedation was accomplished with a combination of 1mg of Versed was administered by the RN after DO order, titrated to patient comfort during the course of the procedure while the patient remained responsive to all verbal commands In the prone position following sterile prep and drape of the lumbar region, the right L4/5 posterior neuroforamen was identified fluoroscopically. The skin was anesthetized via a 25-gauge 1.5-inch needle with 1% lidocaine solution. At this point, a 25-gauge 3.5-inch spinal needle was atraumatically introduced and advanced under fluoroscopic guidance through the posterior right L4/5 neuroforamen to approximately the anterior aspect of the canal. Depth was confirmed on lateral view. Following negative aspiration, injection of approximately 1.5cc of Isovue 200 under live fluoroscopy in the AP view confirmed excellent flow along the nerve root, into the epidural space without vascular or intrathecal uptake observed Radiological data, including multiple fluoroscopic views of the lumbosacral spine, reveal a spinal needle at the right L4/5 posterior neuroforamen. Subsequent views show flow of contrast material flowing superiorly and inferiorly along the nerve root confirming epidural flow. Subsequently, a test dose of 1.5cc of 1% lidocaine solution was administered and patient was observed for two minutes for signs or symptoms of complications, including abdominal pain, shortness of breath, bilateral upper or lower extremity weakness, nausea and vomiting, prior to steroid injection. At this point, a total of 2cc or 10mg of dexamethasone and 6mg betamethasone was injected without incident. Attention was then refocused to the left L4/5 level where the identical procedure was replicated. The procedure tolerated the procedure well without signs or symptoms of complications prior to transfer to the recovery area continued monitoring without incident. The patient was then transferred to the recovery area where they were observed for an appropriate time after the injection. The patient reported a VAS score of 7 prior to the procedure and a post-procedure VAS of 0. POST OP INSTRUCTIONS The patient was provided a Pain Log to continue to record their response to the target-specific procedure prior to follow-up visit with their referring physician. Additionally, specific post-injection care instructions and a contact number to our office were provided if concerns arise regarding possible complications associated with the procedure are suspected.
== END 2024-05-12 16:39 | disposition home or self-care (01) ==
LOC: RAD 14:22
PROVIDERS: PCP Internal Medicine; Referring Provider Physical Medicine & Rehabilitation; Visit Provider Physical Medicine & Rehabilitation
DX: M48.061 Spinal stenosis, lumbar region without neurogenic claudication (principal); M51.16 Intervertebral disc disorders with radiculopathy, lumbar region; M47.26 Other spondylosis with radiculopathy, lumbar region
CPT/HCPCS: 64483; 99152; J0702; J1100; J2250; J3490

== ENCOUNTER 2024-08-13 10:26 | Outpatient (CLI) | payer OTHER, SELFPAY ==
[2024-04-02 09:39] VITALS: BMI 22.5
[2024-08-13] VITALS (10 sets, daily range): BP systolic 124–163; BP diastolic 69–98; PULSE 59–80; RESP 12–21; TEMP 37.3; O2SAT 92–100
--- NOTE | 2024-08-13 10:27 | DI.RAD.S_ITS ---
PROCEDURE: PAIN L INTERLAMINAR/CAUDAL INJ INDICATIONS: L3/4 TL MATTHEW para left COMPARISON: None. FINDINGS/IMPRESSION: Fluoroscopic spot filming was performed to verify placement of spinal needles at the L3-4 level(s), as labeled on the films. Appropriate location(s) of the needle tip(s) was confirmed by injection of iodinated contrast. Dictated by: Julio Delgado M.D. on 08/13/2024 at 14:40 Approved by: Julio Delgado M.D. on 08/13/2024 at 14:40
[2024-08-13 11:42] LABS: Hematocrit 44.3 % (41-53); Hemoglobin 14.6 g/dL (13.5-17.5); Mean Corpuscular Hemoglobin 30.7 PG (26-34); Mean Corpuscular Volume 93.2 fL (80-100); Platelet Count 152 X10^3/uL (150-400); Red Blood Cell Count 4.76 X10^6/uL (4.5-5.9); Red Cell Distribution Width 13.6 % (11.6-14.8); White Blood Cell Count 8.7 X10^3/uL (4.5-11.0)
[2024-08-13] MEDS: MIDAZOLAM 2 MG/2 ML VIAL 1 MG IV (11:56)
[2024-08-13 11:59] LABS: Alanine Aminotransferase 19 IU/L (<50); Albumin 4.5 g/dL (3.5-5.0); Albumin Globulin Ratio 1.9 (1.0-2.8); Alkaline Phosphatase 67 U/L (38-126); Aspartate Aminotransferase 28 IU/L (17-59); BUN Creatinine Ratio 22.8 (6-22); Bilirubin Total 1.2 mg/dL (0.2-1.3); Blood Urea Nitrogen 29 mg/dL (9-20); Calcium 9.8 mg/dL (8.4-10.2); Carbon Dioxide 25 mmol/L (22-32); Chloride 108 mmol/L (98-107); Estimated Glomerular Filt Rate 55 mL/min (>60); Globulin 2.4 g/dL (1.7-4.1); Glucose 99 mg/dL (80-110); HEMOLYSIS < 15 (0-50); Sodium 141 mmol/L (137-145); Total Protein 6.9 g/dL (6.3-8.2)
[2024-08-13] MEDS: BETAMETHASONE 30 MG/5 ML MDV 12 MG INJ (12:02)
[2024-08-13] MEDS: iopamidoL 15 ML VIAL 3 ML INJ (12:02)
[2024-08-13] MEDS: DEXAMETHASONE 10 MG/ML VIAL INJ (12:03)
[2024-08-13] MEDS: BUPIVACAINE 0.25% (PF) VIAL 2 ML INJ (12:03)
--- NOTE | 2024-08-13 12:26 | P.PCN_ITS ---
Date/Time/Diagnoses Date of procedure: 08/13/24 Time of procedure: 12:33 Pre-procedure diagnosis: 1. HNP WITH RADICULAR FEATURES, 2. MULTILEVEL CENTRAL STENOSIS, Post-procedure diagnosis: same Procedure Notes Procedure: 1. FLUOROSCOPICALLY GUIDED CONTRAST CONTROLLED INTERLAMINAR EPIDURAL STEROID INJECTION - L3/4 Indications: Doris is referred by Dr. Wyatt for treatment of Bilateral Foraminal Stenosis L>R LE symptoms. Physician: Rickey Herndon Total Fluoroscopy time (seconds): 15 Total sedation minutes: 18 Complications: none Procedure in detail & Post-procedure care: FINDINGS Multilevel Central Spinal Stenosis with Nerve Root Compression DESCRIPTION OF PROCEDURE Fluoroscopically guided, contrast-controlled L3/4 translaminar epidural steroid injection. Following review of allergy and review of potential side effects and complications, including, but not necessarily limited to, infection, allergic reaction, local tissue breakdown, temporary as well as permanent nerve injury, paralysis, stroke and possible , the patient indicated that the patient understood and agreed to proceed. An informed consent document was signed by the patient, witnessed by a nurse, and placed in the patient's chart. Additionally, other treatment options including modalities, medications, and physical therapy were reviewed with the patient. After review of previous anaesthesic history and IV conscious sedation the patient was deemed safe to proceed with today?s procedure with IV conscious sedation as ASA class II designation. Safety time-out was performed to confirm p atient ID, procedure to be performed and site of procedure. IV sedation was accomplished with a combination of 2mg of Versed was administered by the RN after DO order, titrated to patient comfort during the course of the procedure while the patient remained responsive to all verbal commands. In the prone position, following sterile prep and drape of the lumbar region, the L3/4 translaminar space was identified fluoroscopically. The skin was anesthetized via a 25-gauge, 1.5-inch needle with 1% lidocaine solution. At this point, a 22-gauge short bevel spinal needle was atraumatically introduced and advanced under fluoroscopic guidance into the region of the L3/4 translaminar space. Depth was confirmed on lateral view. Radiological data, including multiple fluoroscopic views of the lumbar spine, reveal a spinal needle at the L3/4 translaminar space. Lateral views then show placement of the needle in the epidural space. Subsequent views show contrast material flowing superiorly and inferiorly in the epidural space. No vascular or intrathecal uptake is observed. At this point, using loss of resistance technique with saline and air, the epidural space was entered. This was confirmed following negative aspiration with injection of approximately 1.5 cc of Isovue 200, showing excellent epidural flow without vascular or intrathecal uptake. At this point, 1cc of 1% lidocaine solution combined with 2cc or 10mg of dexamethasone and 6mg of betamethasone was injected without incident. The patient tolerated the procedure well without signs or symptoms of complications prior to transfer to the recovery area continued monitoring without incident. The patient was then transferred to the recovery area where they were observed for an appropriate period of time after the injection. The patient reported a VAS score of 7 prior to the procedure and a post- procedure VAS of 1. POST OP INSTRUCTIONS The patient was provided a Pain Log to continue to record their response to the target-specific procedure prior to follow-up visit with their referring physician. Additionally, specific post-injection care instructions and a contact number to our office were provided if concerns arise regarding possible complications associated with the procedure are suspected.
== END 2024-08-13 12:41 | disposition home or self-care (01) ==
PROVIDERS: PCP Internal Medicine; Referring Provider Physical Medicine & Rehabilitation; Visit Provider Physical Medicine & Rehabilitation
DX: M51.16 Intervertebral disc disorders with radiculopathy, lumbar region (principal); M48.061 Spinal stenosis, lumbar region without neurogenic claudication; I50.22 Chronic systolic (congestive) heart failure
CPT/HCPCS: 62323; 80053; 84443; 85027; 99152; J0702; J1100; J2250; J3490

== ENCOUNTER 2024-08-28 13:20 | Emergency (ER) | payer OTHER, SELFPAY ==
[2024-04-02 09:39] VITALS: BMI 22.5
[2024-08-28] VITALS (27 sets, daily range): BP systolic 102–150; BP diastolic 58–88; PULSE 60–185; RESP 12–24; TEMP 36.6–37; O2SAT 92–100; BMI 23.3
--- NOTE | 2024-08-28 13:55 | EKG_ITS ---
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
--- NOTE | 2024-08-28 13:56 | ED_ITS ---
HPI - Neuro Symptoms/Deficit General Chief Complaint: Weakness Stated Complaint: sent by Dr. Wyatt Time Seen by Provider: 08/28/24 13:56 Source: patient, RN notes reviewed and old records reviewed Mode of arrival: Wheelchair Limitations: no limitations History of Present Illness HPI Narrative: 84-year-old male history of atrial flutter and atrial fibrillation with a multiple catheter ablation Pradaxa, dilated cardiomyopathy most recent echo reported to be 35-45% in 2023 with moderate global hypokinesia, dyslipidemia, hypertension, pulmonary hypertension with a obstructive sleep apnea uses CPAP, pacemaker, history of stroke, lung nodules, hypothyroidism patient presents with complaint of feeling generally weak and unwell. No fevers or chills, no cold cough or congestion. Denies any chest pain. Does feel little short of breath. Notes recent swelling was started on a diuretic about 2 weeks ago swelling has not improved. Denies any nausea or vomiting. No abdominal pain. Patient has had some constipation last bowel movement was several days ago. Has a regular flatus. Patient states he used to feel in his heart rate was fast but no longer does. Has not had any other recent medication changes. Patient's home medications include carvedilol, cetirizine, Pradaxa, magnesium, rosuvastatin and new diuretic they are unsure of the name. Reports allergy to amiodarone. Former smoker, occasional alcohol, no recreational drugs. Dr. Wyatt, is her primary care physician. Dr. Rodriguez is his court bailiff. On Anticoagulants: Yes Related Data Home Medications Medication Instructions Recorded Confirmed cetirizine 10 mg tablet 10 mg PO DAILY 01/30/19 08/28/24 cholecalciferol (vitamin D3) 25 25 mcg PO DAILY 10/30/21 08/28/24 mcg (1,000 unit) capsule rosuvastatin 40 mg tablet 40 mg PO DAILY 04/18/23 08/28/24 carvedilol 12.5 mg tablet 18.75 mg PO BID 04/20/24 08/28/24 Previous Rx's Medication Instructions Recorded Parking Permit... #1 ea 04/04/22 tramadol 50 mg tablet 50 mg PO BID PRN pain #42 tabs 07/08/24 dabigatran etexilate 150 mg 150 mg PO BID #180 caps 07/23/24 capsule (Pradaxa) furosemide 20 mg tablet 20 mg PO QAM #90 tabs 08/13/24 Allergies Allergy/AdvReac Type Severity Reaction Status Date / Time amiodarone Allergy Verified 08/28/24 14:34 Review of Systems Review of Systems ROS Unobtainable: All systems reviewed & are unremarkable except as noted in HPI and below Hematologic/Lymphatic On Anticoagulants: Yes Patient History Medical History Lumbar stenosis with neurogenic claudication Facet arthropathy, lumbar Compression fracture of L4 vertebra Compression fracture of L3 lumbar vertebra Actinic keratosis Primary osteoarthritis involving multiple joints Coronary artery disease Venous (peripheral) insufficiency Systolic CHF, chronic Obstructive sleep apnea Hearing loss Fractures (~2019) Measles (~1952) Chicken pox (~194) Anemia (~1974) Chronic anticoagulation History of TIA (transient ischemic attack) (~2018) Chronic low back pain without sciatica Idiopathic peripheral neuropathy BPH w urinary obs/LUTS Mixed hyperlipidemia Essential hypertension Paroxysmal atrial fibrillation Lumbar compression fracture Pulmonary nodule Orthostatic hypotension Surgical History Anesthesia Status post cardiac pacemaker procedure (~03/2021) Status post recent transurethral resection of prostate Status post left partial knee replacement Status post circumferential ablation of pulmonary vein Family History Father Kidney failure Mother Congestive heart failure Brother Stroke Sister Cancer Social History household members: spouse Smoking Status: Former smoker Smoking Status: Former smoker alcohol intake frequency: holidays/special occasions only Exam Narrative Exam Narrative: GENERAL: Alert and oriented x three, male in mild distress HEENT: Head normocephalic, atraumatic, EOMI, pupils reactive, face symmetric, moist mucous membranes, no facial droop NECK: Supple, full range of motion CARDIOVASCULAR: Tachycardic, regular rate and rhythm without murmurs, rubs or gallops. Mild JVD RESPIRATORY: Breath sounds equal bilaterally, no wheezes rales or rhonchi. No tachypnea or accessory muscle use. Patient's speaks in full sentences. ABDOMEN: Soft, nontender. Normoactive bowel sounds all 4 quadrants. No guarding or rebound, rigidity, no mass : No CVA tenderness EXTREMITIES: Normal range of motion, no clubbing or edema. Neurovascularly intact NEUROLOGICAL: Cranial nerves II through XII grossly intact. Moving all extremities SKIN: Warm, dry, no petechiae, no rashes or lesions. Initial Vital Signs Initial Vital Signs: Vital Signs Temperature 98 F 08/28/24 13:35 Pulse Rate 185 H 08/28/24 13:35 Respiratory Rate 20 08/28/24 13:35 Blood Pressure 139/65 08/28/24 13:35 Pulse Oximetry 100 08/28/24 13:35 Oxygen Delivery Method Room Air 08/28/24 13:35 Procedures Cardioversion Indication: Atrial fibrillation rapid ventricular response Stability: Stable Number of attempts (shocks): 1 Joules used: 120 Cardiac rhythm post-cardioversion: Atrial paced rhythm with premature complexes. Rate in the 60s Procedural Sedation Consent signed: Yes Time out performed: Yes Indication: cardioversion ASA Class: II Mallampati Airway Classification: Class III Time of Last PO Intake: 20:00 (08/27/2024, solids, H20 noon) IV Propofol dose (mg): 40 ED Sedation Level: Moderate (Concious) Patient Tolerated Procedure: Well Complications: hypoventilation Interventions: Airway repositioned Course Orders Ordered: ED Orders 08/28/24 13:55 Complete Blood Count AUTO DIFF Stat Comprehensive Metabolic Panel Stat Covid-19 + FLU A/B + RSV - PCR Stat Lipase Stat NT-proBNP (BNP-Adult 18+) Stat PTT Partial Thromboplastin Edwin Stat Prothrombin Time INR Stat Troponin & CK Cardiac Panel Stat 08/28/24 13:59 XR chest 1V Stat 08/28/24 15:33 EKG-12 Lead Stat EKG-12 Lead Stat 08/28/24 17:05 EKG-12 Lead Stat Sodium Chloride (Normal Saline 0.9%) 1,000 mls @ 1,000 mls/hr IV BOLUS PRN PRN Reason: Fluid replacement Last Infusion: 08/28/24 15:09 Dose: Infused Documented By: Admin: 08/28/24 14:07 Dose: 1,000 mls/hr Documented By: JAE Discontinued Medications Diltiazem HCl (Diltiazem 25 Mg/5 Ml Sdv) 10 mg IV NOW ONE Stop: 08/28/24 14:00 Last Admin: 08/28/24 14:08 Dose: 10 mg Documented By: JAE Diltiazem HCl (Diltiazem 25 Mg/5 Ml Sdv) 10 mg IV NOW ONE Stop: 08/28/24 15:08 Last Admin: 08/28/24 15:09 Dose: 10 mg Documented By: JAE Propofol (Propofol 200 Mg/20 Ml Vial) 80 mg 1 mg/kg (80 mg) IV NOW ONE Stop: 08/28/24 16:40 Last Admin: 08/28/24 17:03 Dose: 40 mg Documented By: JAE Vital Signs Vital signs: Vital Signs - 8 hr 08/28/24 13:35 08/28/24 13:47 08/28/24 13:48 Temperature 98 F 98.6 F Pulse Rate 185 H 122 H 184 H Respiratory Rate 20 20 Blood Pressure 139/65 124/81 Pulse Oximetry 100 97 97 Oxygen Delivery Method Room Air Room Air Oxygen Flow Rate 08/28/24 13:48 08/28/24 13:48 08/28/24 13:59 Temperature Pulse Rate 130 H Respiratory Rate Blood Pressure 124/81 111/69 Pulse Oximetry 97 Oxygen Delivery Method Oxygen Flow Rate 08/28/24 13:59 08/28/24 14:00 08/28/24 14:00 Temperature Pulse Rate 179 H 180 H Respiratory Rate 13 21 Blood Pressure 102/58 L Pulse Oximetry 97 96 Oxygen Delivery Method Oxygen Flow Rate 08/28/24 14:06 08/28/24 14:06 08/28/24 14:12 Temperature Pulse Rate 174 H Respiratory Rate 17 Blood Pressure 118/78 116/82 Pulse Oximetry 96 Oxygen Delivery Method Oxygen Flow Rate 08/28/24 14:12 08/28/24 14:30 08/28/24 14:30 Temperature Pulse Rate 102 H 101 H Respiratory Rate 20 13 Blood Pressure 121/76 Pulse Oximetry 95 95 Oxygen Delivery Method Oxygen Flow Rate 08/28/24 15:00 08/28/24 15:00 08/28/24 15:08 Temperature Pulse Rate 95 H 126 H Respiratory Rate 12 18 Blood Pressure 118/74 Pulse Oximetry 97 98 Oxygen Delivery Method Oxygen Flow Rate 08/28/24 15:08 08/28/24 15:09 08/28/24 15:13 Temperature Pulse Rate 150 H 150 H Respiratory Rate Blood Pressure 125/73 125/73 130/71 Pulse Oximetry Oxygen Delivery Method Oxygen Flow Rate 08/28/24 15:13 08/28/24 15:30 02/07/25 15:30 Temperature Pulse Rate 95 H 96 H Respiratory Rate 17 12 Blood Pressure 128/86 Pulse Oximetry 97 95 Oxygen Delivery Method Oxygen Flow Rate 08/28/24 15:56 08/28/24 15:56 08/28/24 16:00 Temperature Pulse Rate 144 H 115 H Respiratory Rate 18 16 Blood Pressure 129/75 Pulse Oximetry 92 97 Oxygen Delivery Method Oxygen Flow Rate 08/28/24 16:00 08/28/24 16:30 08/28/24 16:30 Temperature Pulse Rate 99 H Respiratory Rate 16 Blood Pressure 138/81 126/88 Pulse Oximetry 96 Oxygen Delivery Method Oxygen Flow Rate 08/28/24 16:46 08/28/24 16:46 08/28/24 16:46 Temperature Pulse Rate 60 127 H Respiratory Rate 16 16 Blood Pressure 138/81 Pulse Oximetry 98 Oxygen Delivery Method Oxygen Flow Rate 08/28/24 16:50 08/28/24 16:50 08/28/24 16:50 Temperature 98 F Pulse Rate 122 H 126 H Respiratory Rate 19 18 Blood Pressure 133/79 133/79 Pulse Oximetry 97 98 Oxygen Delivery Method Oxygen Flow Rate 0 08/28/24 16:55 08/28/24 16:55 08/28/24 16:55 Temperature Pulse Rate 75 64 Respiratory Rate 21 22 Blood Pressure 139/77 139/77 Pulse Oximetry 97 97 Oxygen Delivery Method Oxygen Flow Rate 0 08/28/24 17:00 08/28/24 17:00 08/28/24 17:00 Temperature Pulse Rate 60 62 Respiratory Rate 14 24 Blood Pressure 130/62 130/62 Pulse Oximetry 96 97 Oxygen Delivery Method Oxygen Flow Rate 0 08/28/24 17:05 08/28/24 17:05 08/28/24 17:05 Temperature Pulse Rate 60 70 Respiratory Rate 19 18 Blood Pressure 137/68 137/68 Pulse Oximetry 98 98 Oxygen Delivery Method Oxygen Flow Rate 0 08/28/24 17:10 08/28/24 17:10 08/28/24 17:10 Temperature Pulse Rate 60 60 Respiratory Rate 17 15 Blood Pressure 139/70 139/70 Pulse Oximetry 98 98 Oxygen Delivery Method Oxygen Flow Rate 0 08/28/24 17:15 08/28/24 17:15 08/28/24 17:15 Temperature Pulse Rate 60 60 Respiratory Rate 15 16 Blood Pressure 137/67 137/67 Pulse Oximetry 97 97 Oxygen Delivery Method Oxygen Flow Rate 0 08/28/24 17:20 08/28/24 17:20 08/28/24 17:20 Temperature Pulse Rate 61 60 Respiratory Rate 18 17 Blood Pressure 142/71 H 142/71 H Pulse Oximetry 97 99 Oxygen Delivery Method Oxygen Flow Rate 0 08/28/24 17:25 08/28/24 17:25 08/28/24 17:30 Temperature Pulse Rate 60 60 Respiratory Rate 15 21 Blood Pressure 150/74 H Pulse Oximetry 99 98 Oxygen Delivery Method Oxygen Flow Rate 08/28/24 17:30 08/28/24 17:35 08/28/24 17:35 Temperature Pulse Rate 60 Respiratory Rate 16 Blood Pressure 141/74 H 141/77 H Pulse Oximetry 98 Oxygen Delivery Method Oxygen Flow Rate MDM - Neuro Symptoms/Deficit Lab Data 08/28/24 13:55 08/28/24 13:55 Labs: Lab Results 08/28/24 Range/Units 13:55 WBC 9.5 (4.5-11.0) X10^3/uL RBC 4.84 (4.5-5.9) X10^6/uL Hgb 14.7 (13.5-17.5) g/dL Hct 44.8 (41-53) % MCV 92.6 (80-100) fL MCH 30.4 (26-34) PG MCHC 32.8 (30-36) % RDW 13.5 (11.6-14.8) % Plt Count 219 (150-400) X10^3/uL Neut % (Auto) 75.9 H (50-75) % Lymph % (Auto) 15.7 L (25-40) % [place] % (Auto) 7.2 (3-14) % Eos % (Auto) 0.8 L (2-4) % Baso % (Auto) 0.4 (0-2) % Neut # (Auto) 7200 H (0336-8675) /uL Lymph # (Auto) 1500 (9199-1297) /uL [place] # (Auto) 700 (0-900) /uL Eos # (Auto) 100 (0-450) /uL Baso # (Auto) 0 (0-100) /uL PT 13.0 H (9.4-12.5) SECONDS INR 1.1 (0.9-1.3) APTT 51 H (25.1-36.5) SECONDS Sodium 136 L (137-145) mmol/L Potassium 4.8 (3.4-5.1) mmol/L Chloride 104 (98-107) mmol/L Carbon Dioxide 23 (22-32) mmol/L BUN 36 H (9-20) mg/dL Creatinine 1.60 H (0.66-1.25) mg/dL Estimated GFR 42 L (>60) mL/min BUN/Creatinine Ratio 22.5 H (6-22) Glucose 124 H (80-110) mg/dL Calcium 9.2 (8.4-10.2) mg/dL Total Bilirubin 1.2 (0.2-1.3) mg/dL AST 37 (17-59) IU/L ALT 32 (<50) IU/L Alkaline Phosphatase 78 (38-126) U/L Total Creatine Kinase 57 (55-170) U/L Troponin I 0.024 (0.01-0.034) ng/mL NT-Pro-B Natriuret Pep 3240 H (<450) pg/mL Total Protein 7.2 (6.3-8.2) g/dL Albumin 4.2 (3.5-5.0) g/dL Globulin 3.0 (1.7-4.1) g/dL Albumin/Globulin Ratio 1.4 (1.0-2.8) Lipase 40 (23-300) U/L SARS-CoV-2 (PCR) Negative (Negative) Influenza A (RT-PCR) Flu a negative (NEGATIVE) Influenza B (RT-PCR) Flu b negative (NEGATIVE) RSV (PCR) Negative (Negative) Point of Care Testing Glucose POC 104 ECG Data Attestation: I personally reviewed and interpreted this ECG as follows: Prior ECG tracings: available for review Interpretation: Supraventricular tachycardia, incomplete right bundle, left anterior fascicular block, rate of 186 QRS of 104 QTC of 496 patient has prior EKG from 06/07/2020 which shows sinus bradycardia with PVCs. Repeat EKG shows AFib RVR rate of 103 [place] 98 QRS of 482, no acute ST elevation has some depression in V1 through V3.m 1 and aVL has inverted T-wave. EKG 3. As patient appears very regular unclear if there was P waves on his telemetry or not. EKG 4. Atrial paced rhythm premature complexes left axis deviation rate of 71 [place] 204 QRS 84 QTC of 465. MDM Narrative Medical decision making narrative: 84-year-old male with known cardiac history with known arrhythmias anticoagulated on Pradaxa presents with complaint of feeling weak heart rate is in the 180s pretty consistently in regular suspect might be having some underlying atrial flutter. Does have a known history with the an ejection fraction in 2023 35-40% and moderate global hypokinesis. Patient no longer feels when he was tachycardic. Patient follows with Cardiology with Dr. Rodriguez Labs labs show white count of 9.5 hemoglobin of 14 platelets of 219, INR is 1.1 sodium is 136 potassium 4.8 Mag is Creatinine is 1.6 was 1.27 on August 13 with a BUN of 36 glucose of 124 LFTs are otherwise negative troponin is 0.024 with a BNP of 3240. Priors for comparison. EKG shows supraventricular tachycardia, incomplete right bundle, left anterior fascicular. Bradycardic on priors. Repeat EKG does show atrial fibrillation after rates little bit slowed no flutter. Chest x-ray no acute change Patient given 10 mg of diltiazem with a 500 mL bolus of normal saline On re-evaluation patient had significant improvement in rate down into the 90s slowly trending upwards. Patient does feel improved afterwards. Discussed cardioversion patient's seems to be likely candidate we will touch base with his Cardiology as he is unsure if he has permanent versus paroxysmal atrial fibrillation. 1520 Dr. Almeida, A paced complex 04/09, device was checked fairly recently looks like he has a small amount of time that he was in atrial fibrillation but feels he would be appropriate if he was anticoagulated regularly for cardioversion. After further discussion patient is agreeable with cardioversion, patient has had prior had 1 that was unsuccessful but most has been successful. Patient tolerated fairly well has a little bit of apnea had jaw thrust for proximally minute with no hypoxia. Did not require any oxygen. Patient's rhythm heart rates been in the 60s which is much more his normal speed but appears to be intermittently paced. Discharge Plan Departure Patient Disposition: Home Clinical Impression: Atrial fibrillation with rapid ventricular response Activity Restrictions/Additional Instructions: You did have a cardioversion today you were in atrial fibrillation with rapid ventricular response. Continue your home medications but please call Cardiology to set up follow up they may adjust your medication as needed. I did speak with Dr. Almeida today from your cardiology team. Please return for recurrent symptoms, new chest pain, shortness of breath, lightheadedness or passing out, elevated heart rate, nausea or vomiting, new swelling of your extremities or other new or concerning changes. Prescriptions: No Action dabigatran etexilate [Pradaxa] 150 mg capsule 150 mg PO BID Qty: 180 3RF cholecalciferol (vitamin D3) 25 mcg (1,000 unit) capsule 25 mcg PO DAILY (DME) Parking Permit... See Rx Instructions .Route .MEDSUPPLY Qty: 1 0RF Rx Instructions: As directed furosemide 20 mg tablet 20 mg PO QAM Qty: 90 3RF rosuvastatin 40 mg tablet 40 mg PO DAILY carvedilol 12.5 mg tablet 18.75 mg PO BID Rx Instructions: must administer with a meal/food cetirizine 10 mg Tablet 10 mg PO DAILY tramadol 50 mg tablet 50 mg PO BID PRN (Reason: pain) Qty: 42 1RF Referrals: David Wyatt MD [Primary Care Provider] - Rickey Rodriguez MD [Physician] - Stand Alone Forms: Patient Portal/API/Survey
--- NOTE | 2024-08-28 13:59 | DI.RAD.S_ITS ---
PROCEDURE: XR CHEST 1V INDICATIONS: cardiac arrythmia TECHNIQUE: One view of the chest was acquired. COMPARISON: [facility], CR, XR CHEST 1V, 01/30/2019, 14:59. FINDINGS: Surgical changes and devices: Pacemaker. Lungs and pleura: Lungs are clear. No pleural effusions or pneumothorax. Mediastinum: Mediastinal contours appear normal. Heart size is mildly prominent. Bones and chest wall: No suspicious bony lesions. Overlying soft tissues appear unremarkable. IMPRESSION: No acute pulmonary process. Dictated by: Sosa Mcneill M.D. on 08/28/2024 at 14:41 Approved by: Sosa Mcneill M.D. on 08/28/2024 at 14:42
[2024-08-28 14:05] LABS: Add Manual Diff / Slide Review NO; Basophils Absolute Auto 0 /uL (0-100); Basophils Percent Auto 0.4 % (0-2); Eosinophils Absolute Auto 100 /uL (0-450); Eosinophils Percent Auto 0.8 % (2-4); Hematocrit 44.8 % (41-53); Hemoglobin 14.7 g/dL (13.5-17.5); Lymphocytes Absolute Auto 1500 /uL (1100-4500); Lymphocytes Percent Auto 15.7 % (25-40); Mean Corpuscular HGB Conc 32.8 % (30-36); Mean Corpuscular Hemoglobin 30.4 PG (26-34); Mean Corpuscular Volume 92.6 fL (80-100); Monocytes Absolute Auto 700 /uL (0-900); Monocytes Percent Auto 7.2 % (3-14); Neutrophils Absolute Auto 7200 /uL (1500-7000); Neutrophils Percent Auto 75.9 % (50-75); Platelet Count 219 X10^3/uL (150-400); Red Blood Cell Count 4.84 X10^6/uL (4.5-5.9); Red Cell Distribution Width 13.5 % (11.6-14.8); White Blood Cell Count 9.5 X10^3/uL (4.5-11.0)
[2024-08-28] MEDS: SODIUM CHLORIDE 0.9% 1,000 ML 1000 ML IV (14:07)
[2024-08-28] MEDS: dilTIAZem 25 MG/5 ML SDV 10 MG IV ×2 (14:08→15:09)
[2024-08-28 14:12] LABS: INR 1.1 (0.9-1.3)
--- NOTE | 2024-08-28 14:13 | EKG_ITS ---
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
[2024-08-28 14:14] LABS: PTT Partial Thromboplastin Tim 51 SECONDS (25.1-36.5)
[2024-08-28 14:17] LABS: Alanine Aminotransferase 32 IU/L (<50); Albumin 4.2 g/dL (3.5-5.0); Albumin Globulin Ratio 1.4 (1.0-2.8); Alkaline Phosphatase 78 U/L (38-126); Aspartate Aminotransferase 37 IU/L (17-59); BUN Creatinine Ratio 22.5 (6-22); Bilirubin Total 1.2 mg/dL (0.2-1.3); Blood Urea Nitrogen 36 mg/dL (9-20); Calcium 9.2 mg/dL (8.4-10.2); Carbon Dioxide 23 mmol/L (22-32); Chloride 104 mmol/L (98-107); Creatine Kinase 57 U/L (55-170); Estimated Glomerular Filt Rate 42 mL/min (>60); Glucose 124 mg/dL (80-110); HEMOLYSIS < 15 (0-50); Lipase 40 U/L (23-300); Potassium 4.8 mmol/L (3.4-5.1); Sodium 136 mmol/L (137-145); Total Protein 7.2 g/dL (6.3-8.2)
[2024-08-28 14:29] LABS: NT-proBNP (BNP-Adult 18+) 3240 pg/mL (<450); Troponin I 0.024 ng/mL (0.01-0.034)
[2024-08-28 15:00] LABS: COVID-19 CEPHEID 4-PLEX PCR Negative (Negative); Influenza A - CEPHEID Flu A NEGATIVE (NEGATIVE); Influenza B - CEPHEID Flu B NEGATIVE (NEGATIVE); Respiratory Syncytial Virus Negative (Negative)
--- NOTE | 2024-08-28 16:57 | EKG_ITS ---
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
[2024-08-28] MEDS: propofoL 200 MG/20 ML VIAL 80 MG IV (17:03)
--- NOTE | 2024-08-28 17:05 | EKG_ITS ---
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
--- NOTE | 2024-08-28 18:00 | PC.NURSE ---
Patient ambulated to bathroom with cane with steady gait and no assistance.
== END 2024-08-28 18:25 | disposition home or self-care (01) ==
PROVIDERS: Emergency Provider Emergency Medicine; PCP Internal Medicine
DX: I48.91 Unspecified atrial fibrillation (principal); I47.10 Supraventricular tachycardia, unspecified; I45.10 Unspecified right bundle-branch block; Z79.01 Long term (current) use of anticoagulants; Z86.73 Personal history of transient ischemic attack (TIA), and cerebral infarction without residual deficits; Z95.0 Presence of cardiac pacemaker; E78.5 Hyperlipidemia, unspecified; I10 Essential (primary) hypertension; Z87.891 Personal history of nicotine dependence
CPT/HCPCS: 0241U; 36415; 71045; 80053; 82550; 82962; 83690; 83880; 84484; 85025; 85610; 85730; 92960; 93005; 96361; 96374; 96376; 99152; 99153; 99285; J2704

== ENCOUNTER → 2024-09-07 09:02 | Outpatient (CLI) | payer OTHER, SELFPAY ==
[2024-04-02 09:39] VITALS: BMI 22.5
[2024-09-07 10:56] LABS: BUN Creatinine Ratio 24.6 (6-22); Blood Urea Nitrogen 43 mg/dL (9-20); Calcium 9.3 mg/dL (8.4-10.2); Carbon Dioxide 29 mmol/L (22-32); Chloride 100 mmol/L (98-107); Estimated Glomerular Filt Rate 38 mL/min (>60); Glucose 109 mg/dL (80-110); HEMOLYSIS 20 (0-50); Potassium 4.4 mmol/L (3.4-5.1); Sodium 138 mmol/L (137-145)
== END ==
PROVIDERS: PCP Internal Medicine; Referring Provider Internal Medicine; Visit Provider Internal Medicine
DX: I10 Essential (primary) hypertension (principal)
CPT/HCPCS: 36415; 80048

== ENCOUNTER → 2024-09-24 08:51 | Outpatient (CLI) | payer OTHER, SELFPAY ==
[2024-04-02 09:39] VITALS: BMI 22.5
[2024-09-24 10:15] LABS: BUN Creatinine Ratio 22.4 (6-22); Blood Urea Nitrogen 35 mg/dL (9-20); Calcium 9.4 mg/dL (8.4-10.2); Carbon Dioxide 26 mmol/L (22-32); Chloride 105 mmol/L (98-107); Estimated Glomerular Filt Rate 43 mL/min (>60); Glucose 105 mg/dL (80-110); HEMOLYSIS < 15 (0-50); Potassium 4.9 mmol/L (3.4-5.1); Sodium 140 mmol/L (137-145)
== END ==
LOC: LAB 08:52
PROVIDERS: PCP Internal Medicine; Referring Provider Internal Medicine; Visit Provider Internal Medicine
DX: I10 Essential (primary) hypertension (principal)
CPT/HCPCS: 36415; 80048

== ENCOUNTER 2024-12-25 15:19 | Observation (INO) | payer OTHER, SELFPAY ==
[2024-04-02 09:39] VITALS: BMI 22.5
[2024-12-25] VITALS (12 sets, daily range): BP systolic 121–155; BP diastolic 86–107; PULSE 93–132; RESP 13–22; TEMP 36.3–37.2; O2SAT 96–100; BMI 23.0; BMI 24.2
--- NOTE | 2024-12-25 15:38 | EKG_ITS ---
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
--- NOTE | 2024-12-25 15:38 | DI.RAD.S_ITS ---
PROCEDURE: XR CHEST 1V INDICATIONS: Chest Pain TECHNIQUE: One view of the chest was acquired. COMPARISON: [facility], CR, XR CHEST 1V, 08/28/2024, 14:08. FINDINGS: Surgical changes and devices: Left chest wall pacemaker leads are in the region of right atrium and right ventricle. Lungs and pleura: Small infiltrate/atelectasis at left lower lung field is seen. Right lung is clear. No pleural effusions or pneumothorax. Mediastinum: Mediastinal contours appear normal. Heart size is normal. Bones and chest wall: No suspicious bony lesions. Overlying soft tissues appear unremarkable. IMPRESSION: Small infiltrate versus atelectasis in left lung base more prominent compared to previous study. No pleural effusion or pneumothorax. Hyperinflation. Dictated by: Francisco Candelaria M.D. on 12/25/2024 at 16:28 Approved by: Francisco Candelaria M.D. on 12/25/2024 at 16:28
--- NOTE | 2024-12-25 15:41 | ED.ARRPALP ---
HPI - Arrhythmia/Palpitations General Chief Complaint: Arrhythmia/Palpitations Stated Complaint: fluttering since yesterday, weakness Time Seen by Provider: 12/25/24 15:40 Mode of arrival: Wheelchair History of Present Illness HPI narrative: 84-year-old history of paroxysmal atrial fibrillation and atrial flutter on pradaxa with multiple catheter abalation, status post dual chamber pacemaker, pulmonary hypertension, ascending aortic aneurysm, dilated cardiomyopathy, htn, hld, ejection fraction, around 35-40% per most recent cardiology appointment note from October 21, 2024 from cards MD Carrillo presents today for evaluation of atrial fibrillation, atrial flutter, as the patient states that for the past 1-2 days his heart rate has gone up to 150s and at rest it is around 90-100 which is not normal for him at this time associated with heart palpitations and shortness of breath at this time. He has also noticed gradually that his energy level isn't what it used to be and that he gets more short of breath more easily than before. He denies active chest pain at this time, fever, chills, or any radiating symptoms. Other than what is stated 14 point review of system is negative. Related Data Home Medications ?Medication ?Instructions ?Recorded ?Confirmed cetirizine 10 mg tablet 10 mg PO DAILY 01/30/19 10/26/24 cholecalciferol (vitamin D3) 25 25 mcg PO DAILY 10/30/21 10/26/24 mcg (1,000 unit) capsule rosuvastatin 40 mg tablet 40 mg PO DAILY 04/18/23 10/26/24 Previous Rx's ?Medication ?Instructions ?Recorded Parking Permit... #1 ea 04/04/22 dabigatran etexilate 150 mg 150 mg PO BID #180 caps 07/23/24 capsule (Pradaxa) carvedilol 12.5 mg tablet 12.5 mg PO BID #180 tabs 09/07/24 Allergies Allergy/AdvReac Type Severity Reaction Status Date / Time amiodarone Allergy Verified 10/26/24 10:54 furosemide AdvReac Severe Confusion Verified 10/26/24 10:54 Review of Systems Review of Systems ROS Unobtainable: All systems reviewed & are unremarkable except as noted in HPI and below Patient History Medical History Actinic keratosis Anemia (~1974) BPH w urinary obs/LUTS Chicken pox (~1948) Chronic anticoagulation Chronic low back pain without sciatica Compression fracture of L3 lumbar vertebra Compression fracture of L4 vertebra Coronary artery disease Deficient knowledge of open reduction and internal (ORIF) fixation of hip Essential hypertension Facet arthropathy, lumbar Fractures (~2019) GERD without esophagitis Hammertoe of left foot Hearing loss History of TIA (transient ischemic attack) (~2018) Idiopathic peripheral neuropathy Lumbar compression fracture Lumbar stenosis with neurogenic claudication Measles (~1952) Mixed hyperlipidemia Obstructive sleep apnea Orthostatic hypotension Paroxysmal atrial fibrillation Primary osteoarthritis involving multiple joints Pulmonary nodule Slow transit constipation Systolic CHF, chronic Venous (peripheral) insufficiency Surgical History Anesthesia Status post cardiac pacemaker procedure (~03/2021) Status post circumferential ablation of pulmonary vein Status post left partial knee replacement Status post recent transurethral resection of prostate Family History Father Kidney failure Mother Congestive heart failure Brother Stroke Sister Cancer Social History household members: spouse Smoking Status: Former smoker Smoking Status: Former smoker alcohol intake frequency: holidays/special occasions only Exam Narrative Exam Narrative: GENERAL: [84] year old patient appears stated age. Well-developed patient, in mild distress. HEAD: Atraumatic. Normocephalic. EYES: Pupils equal round and reactive. Extraocular motions intact. No scleral icterus. No injection or drainage. NECK: Trachea midline. Non tender CARDIOVASCULAR: Regular rate and rhythm without murmurs, gallops, or rubs. RESPIRATORY: Clear to auscultation. Breath sounds equal bilaterally. No wheezes, rales, or rhonchi. GASTROINTESTINAL: Abdomen soft, non-tender, nondistended. EXTREMITIES: No edema or joint tenderness. BACK: Nontender without deformity or crepitance. No flank tenderness. NEURO: AOx3. SKIN: No rash or erythema of visible areas Initial Vital Signs Initial Vital Signs: Vital Signs Temperature 98.9 F 12/25/24 15:26 Pulse Rate 99 H 12/25/24 15:26 Respiratory Rate 18 12/25/24 15:26 Blood Pressure 121/87 12/25/24 15:26 Pulse Oximetry 96 12/25/24 15:26 Oxygen Delivery Method Room Air 12/25/24 15:26 Course Orders Ordered: ED Orders 12/25/24 15:38 XR chest 1V Stat Complete Blood Count AUTO DIFF Stat Comprehensive Metabolic Panel Stat Lipase Stat NT-proBNP (BNP-Adult 18+) Stat PTT Partial Thromboplastin Edwin Stat Prothrombin Time INR Stat Troponin & CK Cardiac Panel Stat EKG-12 Lead Stat Discontinued Medications Aspirin (Aspirin 81 Mg Chew Tab) 324 mg PO NOW ONE Stop: 12/25/24 15:38 Vital Signs Vital signs: Vital Signs - 8 hr 12/25/24 15:26 Temperature 98.9 F Pulse Rate 99 H Respiratory Rate 18 Blood Pressure 121/87 Pulse Oximetry 96 Oxygen Delivery Method Room Air MDM - Arrhythmia/Palpitations Imaging Data Chest x-ray: Radiologist's Impresson: [address] [address] XRay Report Signed Patient: Wicho Cao MR#: [id number] : 1940 Acct:[id number] Age/Sex: 84 / M Date of Service: 12/25/24 Loc: ED Accession Number: [id number] Procedure: XR chest 1V Ordering Provider: Austin Giordano D.O. PROCEDURE: XR CHEST 1V INDICATIONS: Chest Pain TECHNIQUE: One view of the chest was acquired. COMPARISON: Located Within [facility], , XR CHEST 1V, 08/28/2024, 14:08. FINDINGS: Surgical changes and devices: Left chest wall pacemaker leads are in the region of right atrium and right ventricle. Lungs and pleura: Small infiltrate/atelectasis at left lower lung field is seen. Right lung is clear. No pleural effusions or pneumothorax. Mediastinum: Mediastinal contours appear normal. Heart size is normal. Bones and chest wall: No suspicious bony lesions. Overlying soft tissues appear unremarkable. IMPRESSION: Small infiltrate versus atelectasis in left lung base more prominent compared to previous study. No pleural effusion or pneumothorax. Hyperinflation. ECG Data Interpretation: Sinus Rhythm with occasional PVC LAD IRBBB HR 98 NJ 140 QRS 96 QT 380 Unchanged from 08/28/24 MDM Narrative Medical decision making narrative: All lab work, vital signs, nurse triage note, medication list, previous ER visits, and all imaging studies reviewed. Chest x-ray showed no acute process pacemaker interrogation shows normal function but has developed a flutter 2:1 since 5:00 a.m. that is new and longer on the strip since the previous interrogation per [facility] call. First set troponin is less than 0.012 and BNP is 4610. BUN 38 creatinine 1.41 Patient was given Lopressor 5 mg IV x1 here whereby initially on arrival and here in the ER heart rate is in the 90s but when he ambulates and had to urinate the heart rate went up to the 120s. Case discussed with Dr. Lee who has graciously accepted the patient for inpatient admission observation status. Differential diagnosis AFib, Aflutter, STEMI, NSTEMI, electrolyte derangement, pacemaker malfunction. Discharge Plan Departure Patient Disposition: Admitted as Observation Clinical Impression: Atrial flutter Qualifiers: Atrial flutter type: atypical Qualified Code(s): I48.4 - Atypical atrial flutter Admit Date/Time: 12/25/24 18:09 Admit Provider: Alphonse Lee
[2024-12-25] MEDS: ASPIRIN 81 MG CHEW TAB 324 MG PO (16:53)
[2024-12-25 17:16] LABS: Add Manual Diff / Slide Review NO; Basophils Absolute Auto 0 /uL (0-100); Basophils Percent Auto 0.7 % (0-2); Eosinophils Absolute Auto 100 /uL (0-450); Eosinophils Percent Auto 2.1 % (2-4); Hemoglobin 13.8 g/dL (13.5-17.5); Lymphocytes Absolute Auto 1800 /uL (1100-4500); Lymphocytes Percent Auto 28.3 % (25-40); Mean Corpuscular HGB Conc 32.9 % (30-36); Mean Corpuscular Hemoglobin 30.6 PG (26-34); Monocytes Absolute Auto 600 /uL (0-900); Monocytes Percent Auto 9.2 % (3-14); Neutrophils Absolute Auto 3800 /uL (1500-7000); Neutrophils Percent Auto 59.7 % (50-75); Platelet Count 168 X10^3/uL (150-400); Red Blood Cell Count 4.51 X10^6/uL (4.5-5.9); Red Cell Distribution Width 13.9 % (11.6-14.8); White Blood Cell Count 6.3 X10^3/uL (4.5-11.0)
[2024-12-25 17:22] LABS: INR 1.2 (0.9-1.3); Prothrombin Time 13.8 SECONDS (9.4-12.5)
[2024-12-25 17:25] LABS: PTT Partial Thromboplastin Tim 59 SECONDS (25.1-36.5)
[2024-12-25 17:29] LABS: Alanine Aminotransferase 18 IU/L (<50); Albumin 3.8 g/dL (3.5-5.0); Albumin Globulin Ratio 1.5 (1.0-2.8); Alkaline Phosphatase 64 U/L (38-126); Aspartate Aminotransferase 27 IU/L (17-59); Bilirubin Total 0.9 mg/dL (0.2-1.3); Blood Urea Nitrogen 38 mg/dL (9-20); Carbon Dioxide 25 mmol/L (22-32); Chloride 104 mmol/L (98-107); Creatine Kinase 82 U/L (55-170); Estimated Glomerular Filt Rate 49 mL/min (>60); Globulin 2.6 g/dL (1.7-4.1); Glucose 95 mg/dL (70-99); HEMOLYSIS < 15 (0-50); Lipase 48 U/L (23-300); Potassium 5.1 mmol/L (3.4-5.1); Sodium 138 mmol/L (137-145); Total Protein 6.4 g/dL (6.3-8.2)
[2024-12-25 17:40] LABS: NT-proBNP (BNP-Adult 18+) 4610 pg/mL (<450); Troponin I < 0.012 ng/mL (0.01-0.034)
[2024-12-25] MEDS: METOPROLOL TARTRATE 5 MG/5 ML INJ IV (17:50)
[2024-12-25 18:06] LABS: Thyroid Stimulating Hormone 2.77 uIU/mL (0.47-4.68)
--- NOTE | 2024-12-25 18:27 | PM.HP.1 ---
History of Present Illness History of Present Illness Date Patient Seen: 12/25/24 Time Patient Seen: 18:27 Chief complaint: fluttering since yesterday, weakness Narrative: The patient was an 84-year-old male with a history of PAF, multiple ablations, multiple cardioversions, and a pacemaker. He presents with weakness and dyspnea with exertion as well as tachycardia for a day and a half. He was followed by Dr. Rodriguez and Dr. Tirado of [facility]. He denies any chest pain at rest or with exertion. He was had some increased edema recently and does wear compression stockings. His right leg is more swollen than the left. He was on chronic dabigatran. In the ED he was in a flutter fib rhythm with a rate of 80-90, this would increase to 130 with exertion. A pacemaker interrogation indicated possible a flutter with a 2-1 block. His last ablation was many years ago in his last cardioversion was likely at least a half year ago. [facility] Medical History Deficient knowledge of open reduction and internal (ORIF) fixation of hip GERD without esophagitis Hammertoe of left foot Slow transit constipation Lumbar stenosis with neurogenic claudication Facet arthropathy, lumbar Compression fracture of L4 vertebra Compression fracture of L3 lumbar vertebra Actinic keratosis Primary osteoarthritis involving multiple joints Coronary artery disease Venous (peripheral) insufficiency Systolic CHF, chronic Obstructive sleep apnea Hearing loss Fractures (~2019) Measles (~1953) Chicken pox (~1949) Anemia (~1975) Chronic anticoagulation History of TIA (transient ischemic attack) (~2018) Chronic low back pain without sciatica Idiopathic peripheral neuropathy BPH w urinary obs/LUTS Mixed hyperlipidemia Essential hypertension Paroxysmal atrial fibrillation Lumbar compression fracture Pulmonary nodule Orthostatic hypotension Surgical History Anesthesia Status post cardiac pacemaker procedure (~03/2021) Status post recent transurethral resection of prostate Status post left partial knee replacement Status post circumferential ablation of pulmonary vein Family History Father Kidney failure Mother Congestive heart failure Brother Stroke Sister Cancer Social History household members: spouse Smoking Status: Former smoker Meds Home Medications and Allergies Home Medications ?Medication ?Instructions ?Recorded ?Confirmed ?Type cetirizine 10 mg tablet 10 mg PO DAILY 01/30/19 10/26/24 History cholecalciferol (vitamin D3) 25 25 mcg PO DAILY 10/30/21 10/26/24 History mcg (1,000 unit) capsule Parking Permit... #1 ea 04/04/22 10/26/24 Rx rosuvastatin 40 mg tablet 40 mg PO DAILY 04/18/23 10/26/24 History dabigatran etexilate 150 mg 150 mg PO BID #180 caps 07/23/24 10/26/24 Rx capsule (Pradaxa) carvedilol 12.5 mg tablet 12.5 mg PO BID #180 tabs 09/07/24 10/26/24 Rx Allergies Allergy/AdvReac Type Severity Reaction Status Date / Time amiodarone Allergy Verified 10/26/24 10:54 furosemide AdvReac Severe Confusion Verified 10/26/24 10:54 Review of Systems Review of Systems Narrative: All else reviewed and otherwise unremarkable except as noted in the history and physical. Exam Vital Signs (past 8 hours): - 12/25/24 15:26 12/25/24 16:30 12/25/24 16:57 Temperature 98.9 F 98.5 F Pulse Rate 99 H 95 H 96 H Respiratory Rate 18 18 18 Blood Pressure 121/87 126/91 H Pulse Oximetry 96 98 98 Oxygen Delivery Method Room Air 12/25/24 17:00 12/25/24 17:00 12/25/24 17:30 Temperature Pulse Rate 95 H 95 H Respiratory Rate 19 22 Blood Pressure 128/91 H Pulse Oximetry 98 98 Oxygen Delivery Method 12/25/24 17:30 Temperature Pulse Rate Respiratory Rate Blood Pressure 133/96 H Pulse Oximetry Oxygen Delivery Method Oxygen Delivery Method Room Air Narrative Exam Narrative: NAD, alert and oriented, fluent speech, calm. Normocephalic skull, EOMI, anicteric sclera, symmetric pupils. Oropharynx unremarkable, no droop. Neck supple, midline trachea, no adenopathy. Lungs clear, normal rate and effort. Heart regular, no murmur gallop or rub. Abdomen is soft, non distended and non tender. Extremities are free of edema. Skin is free of rash or lesions. Joints are not swollen or deformed. Judgment appears to be normal. Objective ECG Impression: Intervals [place] Rate: 98 P: 39 [place]: 140 QRS: -63 QRSD: 96 T: 50 QT: 380 QTc: 485 Interpretive Statements Sinus rhythm with occasional premature ventricular complexes Left axis deviation Incomplete right bundle branch block Prolonged QT Imaging Chest x-ray: Radiologist's impression: Small infiltrate versus atelectasis in left lung base more prominent compared to previous study. No pleural effusion or pneumothorax. Hyperinflation. Labs 12/25/24 17:00 12/25/24 17:00 Labs: Laboratory Results - last 24 hr 12/25/24 17:00 WBC 6.3 RBC 4.51 Hgb 13.8 Hct 42.0 MCV 93.0 MCH 30.6 MCHC 32.9 RDW 13.9 Plt Count 168 Neut % (Auto) 59.7 Lymph % (Auto) 28.3 [place] % (Auto) 9.2 Eos % (Auto) 2.1 Baso % (Auto) 0.7 Neut # (Auto) 3800 Lymph # (Auto) 1800 [place] # (Auto) 600 Eos # (Auto) 100 Baso # (Auto) 0 PT 13.8 H INR 1.2 APTT 59 H Sodium 138 Potassium 5.1 Chloride 104 Carbon Dioxide 25 BUN 38 H Creatinine 1.41 H Estimated GFR 49 L BUN/Creatinine Ratio 27.0 H Glucose 95 Calcium 9.0 Total Bilirubin 0.9 AST 27 ALT 18 Alkaline Phosphatase 64 Total Creatine Kinase 82 Troponin I < 0.012 NT-Pro-B Natriuret Pep 4610 H Total Protein 6.4 Albumin 3.8 Globulin 2.6 Albumin/Globulin Ratio 1.5 Lipase 48 TSH 2.77 Assessment & Plan Assessment & Plan narrative: 1. PAF with RVR, present on admission and active. Plan: -increased chronic carvedilol from 6.125-12.5 b.i.d., metoprolol IV as needed for rate control. Continue dabigatran. -communicate with Cardiology tomorrow about his plan for next week outpatient. Anticipate discharge tomorrow if he was rate controlled. Chronic stable medical problems: Anemia TIA Hypertension GERD Idiopathic neuropathy NAIDA Pulmonary nodule Anticipate 1 midnight in the hospital, supports observation status. Full resuscitation, is proxy decision maker. He is and lives in [place]. Time-Based Coding :: 35 min spent with patient and on the chart (including review of chart, obtaining history, exam, reviewing outside data, placing orders, documenting exam and treatment plan, and counseling patient) on 12/25/2024. Quality MIPS - Admit I confirm the patient?s Advance Care Plan is present, Code status is documented, Surrogate decision maker is in patient?s record [If Yes, STOP here]: Yes MIPS - Meds 'Current medications' to include all prescriptions, [id number] products, herbals, cannabis/cannabidiol products, and vitamin/mineral/dietary (nutritional) supplements. I have utilized all available resources to obtain, update, or review the patient?s current medications. [If Yes, STOP here]: Yes
[2024-12-25] MEDS: DABIGATRAN 75 MG CAPSULE 150 MG PO (20:26)
[2024-12-25] MEDS: carvediloL 12.5 MG TABLET PO (20:27)
[2024-12-26] VITALS (7 sets, daily range): BP systolic 117–145; BP diastolic 82–110; PULSE 73–99; RESP 17–20; TEMP 35.9–36.6; O2SAT 96–99
[2024-12-26] MEDS: carvediloL 12.5 MG TABLET 25 MG PO (09:07)
[2024-12-26] MEDS: CHOLECALCIFEROL (VITAMIN D3) 1,000 UNIT TABLET 1000 UNIT PO (09:07)
[2024-12-26] MEDS: ATORVASTATIN 20 MG TABLET 80 MG PO (09:07)
[2024-12-26] MEDS: DABIGATRAN 75 MG CAPSULE 150 MG PO (09:07)
[2024-12-26] MEDS: LORATADINE 10 MG TABLET PO (09:07)
--- NOTE | 2024-12-26 11:00 | PM.PN.1 ---
Subjective Subjective Interval history: S: Overall, improved. Less tachycardia with movement. He was moved fairly minimally though. No dyspnea or chest pain. Exam Vital Signs (past 8 hours): - 12/26/24 04:00 12/26/24 08:00 12/26/24 08:53 Temperature 96.7 F L 97.5 F L Pulse Rate 97 H 99 H Respiratory Rate 18 17 Blood Pressure 145/108 H 141/110 H 140/96 H Pulse Oximetry 98 97 Oxygen Flow Rate 0 0 12/26/24 09:07 Temperature Pulse Rate 81 Respiratory Rate Blood Pressure 140/96 H Pulse Oximetry Oxygen Flow Rate Oxygen Delivery Method Room Air Oxygen Flow Rate 0 Narrative Exam Narrative: NAD, alert and oriented. Fluent speech. Lungs are clear, normal rate and effort. Heart is irregular, no murmur gallop or rub. Abdomen is soft, non distended. Extremities are free of edema. Objective Labs 12/25/24 17:00 12/25/24 17:00 Labs: Laboratory Results - last 24 hr 12/25/24 17:00 WBC 6.3 RBC 4.51 Hgb 13.8 Hct 42.0 MCV 93.0 MCH 30.6 MCHC 32.9 RDW 13.9 Plt Count 168 Neut % (Auto) 59.7 Lymph % (Auto) 28.3 [place] % (Auto) 9.2 Eos % (Auto) 2.1 Baso % (Auto) 0.7 Neut # (Auto) 3800 Lymph # (Auto) 1800 [place] # (Auto) 600 Eos # (Auto) 100 Baso # (Auto) 0 PT 13.8 H INR 1.2 APTT 59 H Sodium 138 Potassium 5.1 Chloride 104 Carbon Dioxide 25 BUN 38 H Creatinine 1.41 H Estimated GFR 49 L BUN/Creatinine Ratio 27.0 H Glucose 95 Calcium 9.0 Total Bilirubin 0.9 AST 27 ALT 18 Alkaline Phosphatase 64 Total Creatine Kinase 82 Troponin I < 0.012 NT-Pro-B Natriuret Pep 4610 H Total Protein 6.4 Albumin 3.8 Globulin 2.6 Albumin/Globulin Ratio 1.5 Lipase 48 TSH 2.77 PFSH Medical History Deficient knowledge of open reduction and internal (ORIF) fixation of hip GERD without esophagitis Hammertoe of left foot Slow transit constipation Lumbar stenosis with neurogenic claudication Facet arthropathy, lumbar Compression fracture of L4 vertebra Compression fracture of L3 lumbar vertebra Actinic keratosis Primary osteoarthritis involving multiple joints Coronary artery disease Venous (peripheral) insufficiency Systolic CHF, chronic Obstructive sleep apnea Hearing loss Fractures (~2019) Measles (~1953) Chicken pox (~1949) Anemia (~1975) Chronic anticoagulation History of TIA (transient ischemic attack) (~2018) Chronic low back pain without sciatica Idiopathic peripheral neuropathy BPH w urinary obs/LUTS Mixed hyperlipidemia Essential hypertension Paroxysmal atrial fibrillation Lumbar compression fracture Pulmonary nodule Orthostatic hypotension Surgical History Anesthesia Status post cardiac pacemaker procedure (~03/2021) Status post recent transurethral resection of prostate Status post left partial knee replacement Status post circumferential ablation of pulmonary vein Family History Father Kidney failure Mother Congestive heart failure Brother Stroke Sister Cancer Social History household members: spouse Smoking Status: Former smoker Assessment & Plan Assessment & Plan narrative: 1. PAF with RVR, present on admission and active. Plan: -increased carvedilol to 25 b.i.d. for rate control. Continue dabigatran. -communicate with Cardiology today. -PT and monitor HR to see if rate control is improved. Chronic stable medical problems: Anemia TIA Hypertension GERD Idiopathic neuropathy NAIDA Pulmonary nodule Full resuscitation, is proxy decision maker. He is and lives in [place]. Time-Based Coding :: [TOTAL MINUTES] spent with patient and on the chart (including review of chart, obtaining history, exam, reviewing outside data, placing orders, documenting exam and treatment plan, and counseling patient) on [DATE].
--- NOTE | 2024-12-26 13:20 | PT.IIE ---
Surgical History (Last Reviewed 12/25/24 @ 18:28 by Alphonse Lee MD) Anesthesia Status post cardiac pacemaker procedure (~03/2021) Status post circumferential ablation of pulmonary vein Status post left partial knee replacement Status post recent transurethral resection of prostate Medical History (Last Reviewed 12/25/24 @ 18:28 by Alphonse Lee MD) Actinic keratosis Anemia (~1974) BPH w urinary obs/LUTS Chicken pox (~194) Chronic anticoagulation Chronic low back pain without sciatica Compression fracture of L3 lumbar vertebra Compression fracture of L4 vertebra Coronary artery disease Deficient knowledge of open reduction and internal (ORIF) fixation of hip Essential hypertension Facet arthropathy, lumbar Fractures (~2019) GERD without esophagitis Hammertoe of left foot Hearing loss History of TIA (transient ischemic attack) (~2018) Idiopathic peripheral neuropathy Lumbar compression fracture Lumbar stenosis with neurogenic claudication Measles (~1952) Mixed hyperlipidemia Obstructive sleep apnea Orthostatic hypotension Paroxysmal atrial fibrillation Primary osteoarthritis involving multiple joints Pulmonary nodule Slow transit constipation Systolic CHF, chronic Venous (peripheral) insufficiency Physical Therapy Inpatient Evaluation/Re-Eval M1 PT/OT-IP Prior Functional Status Start: 12/26/24 15:40 Freq: NEEDED Status: Active Protocol: Document 12/26/24 13:20 AB (Rec: 12/26/24 15:59 AB Desktop) Medical Review Prior Functional Status Medical History Yes Reviewed Communication able to make needs known Mobility and Gait pt stated that he was modified independent with all mobilities and ambulation using a SPC but occasionally walks without AD; pt stated that he is very active and has been working out for 30 years Social History Household Members spouse Living Arrangements House Number of Floors ( Two Floors Floors) Number of Stairs To has 2 steps R rail to enter the house Enter/Railing? has 4 steps L rail + 9 steps R rail to get to living room area from the bedroom Home Environment High Toilet,Walk in Shower Home Equipment Front Wheel Walker,Four Wheel Walker,Straight Cane, Shower Seat without Backrest,Hand Held Shower,Grab Bars In Shower Additional Social pt has an adjustable bed History Comment M2 PT-IP Current Condition Start: 12/26/24 15:40 Freq: NEEDED Status: Active Protocol: Document 12/26/24 13:20 AB (Rec: 12/26/24 15:59 AB Desktop) Physical Therapy Current Condition Current Condition Evaluation Date 12/26/24 Treatment Diagnosis A-fib; generalized weakness Onset Date 12/25/24 M3 PT-IP Subjective Start: 12/26/24 15:40 Freq: NEEDED Status: Active Protocol: Document 12/26/24 13:20 AB (Rec: 12/26/24 15:59 AB Desktop) Subjective Physical Therapy Visit Type Type Initial Evaluation Visit Start Time 13:20 Visit Stop Time 14:15 Number of OFFICE AUTOMATION CLERK Visits 0 Physical Therapy Visit Comments Patient Comments agreeable to do PT M4 PT-IP Mobility and Gait Start: 12/26/24 15:40 Freq: NEEDED Status: Active Protocol: Document 12/26/24 13:20 AB (Rec: 12/26/24 15:59 AB Desktop) PT-Bed Mobility Assessment Supine to Sit Supine to Sit Standby Assistance PT-Transfer Assessment Sit to and From Stand Sit to and from Contact Guard Assistance,1 Person Assistance,2 Person Stand Assistance Equipment Transfer Assistive None,Gait Belt,Front Wheeled Walker Device Orthotic/Prosthetic No Devices or Brace: Transfers Transfer Destination Chair Transfer Technique ambulated Transfer Ability Level of Assist Contact Guard Assistance,1 Person Assistance,Use of Upper Extremities Comments Mobility Comments pt in bed and agreed to do PT. obtained PLOf and home set up. BP: 120/93, O2 sat: 98% and PA: 96. pt completed supine to sit SBA. able to sit on EOB SBA. c/o slight dizziness. BP checked: 133/102 PA: 96%. pt sat on EOB for a few minutes. BP rechecked: 130/97 PA 95-96%. sit to stand CGA and pt ambulated in room without AD min A and cues. presents with unsteady guarded antalgic gait. pt sat on the chair. BP checked 115/89. pt rested again. sit to stand from chair cGA and ambulated in the hallway using FWW ~ 125 ft CGA and cues. pt completed up/down steps: using B rails SBA, using 1 rail CGA pt completed 3 sets. pt ambulated back to his room using FWW CGA. pt sat on the chair. BP checked: 130/105. PA: 56-98 O2 sat 100. nurse aware of BP and PA. positioned pt on the chair. call light and table placed within reach. informed pt regarding use of FWW at this time for safety. pt understood. Gait Assessment Gait Gait Assistance Contact Guard Assist,Minimum Assistance Required: Distance (Feet) 125 Able to Maintain Yes Weight Bearing Status During Gait Assistive Devices Assistive Device None,Gait Belt,Front Wheeled Walker Orthotic/Prosthetic No Devices or Brace: Gait Deviations General Gait Pattern Antalgic,Decreased Stride Length,Decreased Feet Clearance Factors Limiting Gait Function Factors Limiting Decreased Activity Tolerance,Decreased Strength,Poor Gait Function Balance,Poor Safety Awareness Stair Climbing Assessment Evaluation Level of Assist On Standby Assistance,Contact Guard Assistance Stairs Devices Stair Climbing Left Railing,Right Railing Assistive Devices Technique/Endurance Stair Climbing Ascend and Descend Direction Stair Climbing Step Over Step Technique Number of Steps 3 Climbed Query Text: Stair Climbing Set # 3 Repetitions (reps) PT-Balance Assessment Sitting Balance and Reactions Static Sitting Normal Balance Ability Dynamic Sitting Normal Balance Ability Standing Balance and Reactions Static Standing Good Balance Ability Dynamic Standing Fair Balance Ability Device Used FWW M5 PT-IP Objective Assessments Start: 12/26/24 15:40 Freq: NEEDED Status: Active Protocol: Document 12/26/24 13:20 AB (Rec: 12/26/24 15:59 AB Desktop) Orientation Orientation/Cognition Level of Alertness Alert Orientation Name,Place,Situation Language Function No Deficits Noted Ability Safety Awareness Decreased Safety Awareness Memory Description No Deficits Noted Gross Range of Motion Lower Extremity ROM Assessment Within Functional Limits Strength Lower Extremity Strength Assessment Within Functional Limits Coordination Assessment Gross Coordination Gross Coordination WNL Muscle Tone Muscle Tone WNL Yes M6 PT-IP Treatment Start: 12/26/24 15:40 Freq: NEEDED Status: Active Protocol: Document 12/26/24 13:20 AB (Rec: 12/26/24 15:59 AB Desktop) Physical Therapy Treatment Education Education Provided Safety M7 PT-IP Assessment and Plan Start: 12/26/24 15:40 Freq: NEEDED Status: Active Protocol: Document 12/26/24 13:20 AB (Rec: 12/26/24 15:59 AB Desktop) PT Summary Assessment and Plan Potential Rehabilitation Fair Potential Status of Condition Evolving at Evaluation Summary Impairments Pain,ROM,Strength,Balance,Coordination,Sensation,Tone, Cognition,Bed Mobility,Transfers,Gait,Activity Tolerance Assessment Summary pt is an 84 y/o M who is admitted for a-fib/a-flutter. pt requiring CGA for ambulation using FWW. BP increases to 130-133/102-105 with mobility and PA: 56- 96 with activity. pt lives with spouse and plans to go home with spouse to assist. pt will benefit from outpt PT. Goals Bed Mobility Goal Independent Transfer Goal Independent,Cane,Front Wheeled Walker Gait Goal Independent,Cane,Front Wheel Walker Gait Distance 200 Other Goals up/down 4 steps L rail + 9 steps R rail mod I Days to Meet Goals 5 Frequency of Treatment Frequency Of Once a Day Treatment Treatment Plan Physical Therapy Bed Mobility Training,Transfer Training,Gait Training, Treatment Plan Therapeutic Exercise,Balance Retraining,Post Op Education,Discharge Planning,Hot or Cold Pack, Neuromuscular Re-ed,Coordination Retraining,Manual Therapy Precautions Other Precautions BP; HR Recommendations To Nursing Amount of Assist 1 Person Assist Needed Discharge Recommendations PT Discharge Home with Assistance,Outpatient PT Recommendations Transportation Needs Private Vehicle at Discharge - PT assist 1
--- NOTE | 2024-12-26 14:20 | CM.DANOTE ---
Initial DCP Assessment Note Pt is a 84 yo male, resident of [place], arrives with afib w/RVR, weakness, admitted OBS for monitoring. PCP: Dr Yoselin Lee: Jose Antonio GUEVARA Reviewed chart, pt discussed in multidisciplinary rounds this morning. SWETA 12/27. PT pending. Patient lives independently with sp in [place], supportive daughter at bedside today. No barriers identified at this time to patient's safe discharge home w/family to assist; close outpatient f/u recommended, once medically cleared. CM team will plan to follow clinical course closely in case any DC needs or concerns arise. SAMMY Amor Discharge Planning/Care Management CM Discharge Assessment Start: 12/25/24 18:26 Freq: Status: Active Protocol: Document 12/26/24 14:18 LINSEY (Rec: 12/26/24 14:19 LINSEY [id number]) Discharge Planning Assessment Assigned Discharge SAMMY Beck House Painting Instructor DPOA/Assigned Melissa Cao, spouse Designee Name Contact Information [phone] Advance Directives? Yes Advance Directives No on File History Provided By Patient,Medical Record Prior Living House Arrangements Household Members spouse Type of Drives own vehicle transporation used prior to admit Independent with ADL Yes 's Is patient alert and Yes oriented? DME Already Rented / Cane Owned Comment Spouse available to assist as needed. Barriers to No Discharge Discharge Plan Home Transportation Spouse available to provide transport Arrangement Referrals Initiated None needed
--- NOTE | 2024-12-26 15:56 | P.DS_ITS ---
History of Present Illness History of Present Illness Chief complaint: fluttering since yesterday, weakness Narrative: The patient was an 84-year-old male with a history of PAF, multiple ablations, multiple cardioversions, and a pacemaker. He presents with weakness and dyspnea with exertion as well as tachycardia for a day and a half. He was followed by Dr. Rodriguez and Dr. Tirado of [facility]. He denies any chest pain at rest or with exertion. He was had some increased edema recently and does wear compression stockings. His right leg is more swollen than the left. He was on chronic dabigatran. In the ED he was in a flutter fib rhythm with a rate of 80- 90, this would increase to 130 with exertion. A pacemaker interrogation indicated possible a flutter with a 2-1 block. His last ablation was many years ago in his last cardioversion was likely at least a half year ago. Discharge Providers Provider Date of admission: 12/25/24 18:09 Discharge Date: 12/26/24 Primary care physician: David Wyatt MD Consults: 12/26/24 08:58 Consult to Physical Therapy Evaluate & Treat Comment: Physician Instructions: Evaluate and Treat Discharge provider: Alphonse Lee MD Summary Hospital Course Discharge Diagnosis: 1. PAF with RVR, present on admission and improved. Chronic stable medical problems: Anemia TIA Hypertension GERD Idiopathic neuropathy NAIDA Pulmonary nodule Hospital Course: His Coreg was increased to 25 b.i.d. with good rate control. He has a pacemaker with capture at 60 per. The patient was stable for discharge. He was discussed with Dr. Tirado who will interrogate his pacemaker remotely and if he is still in fibrillation and Saturday we will schedule him for a cardioversion at [facility] next week. Status at Discharge Cognitive/behavioral status at discharge: oriented Functional status at discharge: independent ambulation Overall status at discharge: patient is back to baseline Time Spent with Patient Time spent: Greater than 30 minutes Exam Vital Signs (past 8 hours): - 12/26/24 08:00 12/26/24 08:53 12/26/24 09:07 Temperature 97.5 F L Pulse Rate 99 H 81 Respiratory Rate 17 Blood Pressure 141/110 H 140/96 H 140/96 H Pulse Oximetry 97 Oxygen Flow Rate 0 12/26/24 12:00 Temperature 97.8 F Pulse Rate 96 H Respiratory Rate 17 Blood Pressure 117/82 Pulse Oximetry 99 Oxygen Flow Rate 0 Oxygen Delivery Method Room Air Oxygen Flow Rate 0 Narrative Exam Narrative: NAD, alert and oriented. Fluent speech. Lungs are clear, normal rate and effort. Heart is irregular, no murmur gallop or rub. Abdomen is soft, non distended. Extremities are free of edema. Objective ECG Impression: Sinus rhythm with occasional premature ventricular complexes Left axis deviation Incomplete right bundle branch block Prolonged QT Imaging Chest x-ray: Radiologist's impression: Small infiltrate versus atelectasis in left lung base more prominent compared to previous study. No pleural effusion or pneumothorax. Hyperinflation. Labs 12/25/24 17:00 12/25/24 17:00 Labs: Laboratory Results - last 24 hr 12/25/24 17:00 WBC 6.3 RBC 4.51 Hgb 13.8 Hct 42.0 MCV 93.0 MCH 30.6 MCHC 32.9 RDW 13.9 Plt Count 168 Neut % (Auto) 59.7 Lymph % (Auto) 28.3 [place] % (Auto) 9.2 Eos % (Auto) 2.1 Baso % (Auto) 0.7 Neut # (Auto) 3800 Lymph # (Auto) 1800 [place] # (Auto) 600 Eos # (Auto) 100 Baso # (Auto) 0 PT 13.8 H INR 1.2 APTT 59 H Sodium 138 Potassium 5.1 Chloride 104 Carbon Dioxide 25 BUN 38 H Creatinine 1.41 H Estimated GFR 49 L BUN/Creatinine Ratio 27.0 H Glucose 95 Calcium 9.0 Total Bilirubin 0.9 AST 27 ALT 18 Alkaline Phosphatase 64 Total Creatine Kinase 82 Troponin I < 0.012 NT-Pro-B Natriuret Pep 4610 H Total Protein 6.4 Albumin 3.8 Globulin 2.6 Albumin/Globulin Ratio 1.5 Lipase 48 TSH 2.77 PFSH Medical History Deficient knowledge of open reduction and internal (ORIF) fixation of hip GERD without esophagitis Hammertoe of left foot Slow transit constipation Lumbar stenosis with neurogenic claudication Facet arthropathy, lumbar Compression fracture of L4 vertebra Compression fracture of L3 lumbar vertebra Actinic keratosis Primary osteoarthritis involving multiple joints Coronary artery disease Venous (peripheral) insufficiency Systolic CHF, chronic Obstructive sleep apnea Hearing loss Fractures (~2019) Measles (~195) Chicken pox (~1949) Anemia (~1975) Chronic anticoagulation History of TIA (transient ischemic attack) (~2019) Chronic low back pain without sciatica Idiopathic peripheral neuropathy BPH w urinary obs/LUTS Mixed hyperlipidemia Essential hypertension Paroxysmal atrial fibrillation Lumbar compression fracture Pulmonary nodule Orthostatic hypotension Surgical History Anesthesia Status post cardiac pacemaker procedure (~03/2021) Status post recent transurethral resection of prostate Status post left partial knee replacement Status post circumferential ablation of pulmonary vein Family History Father Kidney failure Mother Congestive heart failure Brother Stroke Sister Cancer Social History household members: spouse Smoking Status: Former smoker Discharge Assessment & Plan Assessment and Plan Assessment: 1. PAF with RVR, present on admission and improved. Plan of Treatment: Discharge home on higher dose of Coreg, 25 b.i.d.. Spoke with his group contract analyst, Dr. Tirado. He will interrogate the pacemaker on Saturday, if still in fibrillation he was scheduled for cardioversion at [facility]. Discharge Plan Discharge Plan Patient Disposition: Home Provider Discharge Comment: Stable for discharge home, spoke with his group contract analyst. They will arrange for cardioversion next week if he still in AFib on Saturday. They will remotely interrogated his pacemaker. Discharge orders & Medications Prescriptions: New carvedilol 12.5 mg Tablet 25 mg PO BID Qty: 30 2RF Continued dabigatran etexilate [Pradaxa] 150 mg capsule 150 mg PO BID Qty: 180 3RF cholecalciferol (vitamin D3) 25 mcg (1,000 unit) capsule 25 mcg PO DAILY (DME) Parking Permit... See Rx Instructions .Route .MEDSUPPLY Qty: 1 0RF Rx Instructions: As directed rosuvastatin 40 mg tablet 40 mg PO DAILY cetirizine 10 mg Tablet 10 mg PO DAILY Discontinued carvedilol 12.5 mg tablet 10 mg PO BID Rx Instructions: must administer with a meal/food Follow up/Referrals: Daivd Wyatt MD [Primary Care Provider, Internal Medicine] Diet/Activity/Treatments Diet: Regular Visit Report/Discharge Packet Instructions: DI for Atrial Fibrillation Stand Alone Forms: Patient Portal/API Discharge Data Primary Care Provider: David Wyatt V Attending Provider: Alphonse Lee Admit Date/Time: 12/25/24 18:09
== END 2024-12-26 17:30 | disposition home or self-care (01) ==
LOC: ED 15:40 → AC 18:10
PROVIDERS: Admitting Provider Hospitalist; Emergency Provider Family Medicine; Family Provider Internal Medicine; PCP Internal Medicine; Referring Provider Family Medicine; Visit Provider Hospitalist
DX: I48.0 Paroxysmal atrial fibrillation (principal); R53.1 Weakness; I10 Essential (primary) hypertension; G47.33 Obstructive sleep apnea (adult) (pediatric); G60.9 Hereditary and idiopathic neuropathy, unspecified; K21.9 Gastro-esophageal reflux disease without esophagitis; R91.1 Solitary pulmonary nodule; D64.9 Anemia, unspecified; Z86.73 Personal history of transient ischemic attack (TIA), and cerebral infarction without residual deficits; Z79.01 Long term (current) use of anticoagulants; Z95.0 Presence of cardiac pacemaker; Z87.891 Personal history of nicotine dependence
CPT/HCPCS: 36415; 71045; 80053; 82550; 83690; 83880; 84443; 84484; 85025; 85610; 85730; 93005; 96374; 97116; 97162; 97530; 99284; G0378

== ENCOUNTER → 2025-01-28 11:05 | Outpatient (CLI) | payer OTHER, SELFPAY ==
[2024-04-02 09:39] VITALS: BMI 22.5
[2024-12-25 20:44] VITALS: BMI 24.2
== END ==
PROVIDERS: Family Provider Internal Medicine; PCP Internal Medicine; Referring Provider Physical Medicine & Rehabilitation; Visit Provider Physical Medicine & Rehabilitation
DX: I25.10 Atherosclerotic heart disease of native coronary artery without angina pectoris (principal); I48.4 Atypical atrial flutter; N40.1 Benign prostatic hyperplasia with lower urinary tract symptoms; Z68.24 Body mass index [BMI] 24.0-24.9, adult; N18.32 Chronic kidney disease, stage 3b; I50.22 Chronic systolic (congestive) heart failure; K21.9 Gastro-esophageal reflux disease without esophagitis; Z79.01 Long term (current) use of anticoagulants; M54.50 Low back pain, unspecified; E78.5 Hyperlipidemia, unspecified; G47.33 Obstructive sleep apnea (adult) (pediatric); I95.1 Orthostatic hypotension; G89.29 Other chronic pain; M20.42 Other hammer toe(s) (acquired), left foot; N13.8 Other obstructive and reflux uropathy; Z55.8 Other problems related to education and literacy; M79.605 Pain in left leg; M79.604 Pain in right leg; I48.0 Paroxysmal atrial fibrillation; Z86.73 Personal history of transient ischemic attack (TIA), and cerebral infarction without residual deficits; M15.9 Polyosteoarthritis, unspecified; Z95.0 Presence of cardiac pacemaker; R91.1 Solitary pulmonary nodule; M48.062 Spinal stenosis, lumbar region with neurogenic claudication; I87.2 Venous insufficiency (chronic) (peripheral)
CPT/HCPCS: 95886; 95910

== ENCOUNTER → 2025-02-10 10:55 | Outpatient (CLI) | payer OTHER, SELFPAY ==
[2024-12-25 20:44] VITALS: BMI 24.2
[2025-02-10 12:13] LABS: Blood Urea Nitrogen 41 mg/dL (9-20); Calcium 9.7 mg/dL (8.4-10.2); Carbon Dioxide 27 mmol/L (22-32); Chloride 107 mmol/L (98-107); Estimated Glomerular Filt Rate 50 mL/min (>60); Glucose 104 mg/dL (70-99); HEMOLYSIS < 15 (0-50); Potassium 5.0 mmol/L (3.4-5.1); Sodium 142 mmol/L (137-145)
== END ==
PROVIDERS: Family Provider Internal Medicine; PCP Internal Medicine; Referring Provider Internal Medicine; Visit Provider Internal Medicine
DX: N18.32 Chronic kidney disease, stage 3b (principal)
CPT/HCPCS: 36415; 80048

== ENCOUNTER 2025-03-30 07:02 | Outpatient (CLI) | payer OTHER, SELFPAY ==
[2024-12-25 20:44] VITALS: BMI 24.2
[2025-03-30] VITALS (8 sets, daily range): BP systolic 116–163; BP diastolic 72–92; PULSE 60–140; RESP 14–107; TEMP 36.8; O2SAT 60–100
[2025-03-30] MEDS: MIDAZOLAM 2 MG/2 ML VIAL IV (08:39)
[2025-03-30] MEDS: BETAMETHASONE 30 MG/5 ML MDV 12 MG INJ (08:43)
[2025-03-30] MEDS: LIDOCAINE 1% 20 ML 5 ML INJ (08:45)
--- NOTE | 2025-03-30 08:59 | PM.PROC.IR.1 ---
Date/Time/Diagnoses Date of procedure: 03/30/25 Time of procedure: 08:59 Pre-procedure diagnosis: 1. FORAMINAL STENOSIS WITH LE SYMPTOMS Post-procedure diagnosis: same Procedure Notes Procedure: 1. FLUOROSCOPICALLY GUIDED CONTRAST CONTROLLED TRANSFORAMINAL EPIDURAL STEROID INJECTION - BILATERAL L5/S1 TFESI Indications: Doris is referred by Dr. Wyatt for treatment of Foraminal Stenosis with bilateral LE Symptoms Physician: Rickey Herndon Total Fluoroscopy time (seconds): 16 Total sedation minutes: 16 Complications: none Procedure in detail & Post-procedure care: FINDINGS Foraminal Nerve Root Compression secondary to disc disease and facet hypertrophy DESCRIPTION OF PROCEDURE Following review of allergy and review of potential side effects and complications, including, but not necessarily limited to, infection, allergic reaction, local tissue breakdown, stroke, temporary or permanent nerve injury, paralysis, and possible , the patient indicated that the patient understood and agreed to proceed. An informed consent document was signed by the patient, witnessed by a nurse, and placed in the patient's chart. Additionally, other treatment options including medications, modalities, and physical therapy were reviewed with the patient. After review of previous anaesthesic history and IV conscious sedation the patient was deemed safe to proceed with today?s procedure with IV conscious sedation as ASA class II designation. Safety time-out was performed to confirm patient ID, procedure to be performed and site of procedure. IV sedation was accomplished with a combination of 2mg of Versed was administered by the RN after DO order, titrated to patient comfort during the course of the procedure while the patient remained responsive to all verbal commands In the prone position following sterile prep and drape of the lumbar region, the right L5/S1 posterior neuroforamen was identified fluoroscopically. The skin was anesthetized via a 25-gauge 1.5-inch needle with 1% lidocaine solution. At this point, a 25-gauge 3.5-inch spinal needle was atraumatically introduced and advanced under fluoroscopic guidance through the posterior right L5/S1 neuroforamen to approximately the anterior aspect of the canal. Depth was confirmed on lateral view. Following negative aspiration, injection of approximately 1.5cc of Isovue 200 under live fluoroscopy in the AP view confirmed excellent flow along the nerve root, into the epidural space without vascular or intrathecal uptake observed Radiological data, including multiple fluoroscopic views of the lumbosacral spine, reveal a spinal needle at the right L5/S1 posterior neuroforamen. Subsequent views show flow of contrast material flowing superiorly and inferiorly along the nerve root confirming epidural flow. Subsequently, a test dose of 1.5cc of 1% lidocaine solution was administered and patient was observed for two minutes for signs or symptoms of complications, including abdominal pain, shortness of breath, bilateral upper or lower extremity weakness, nausea and vomiting, prior to steroid injection. At this point, a total of 2cc or 10mg of dexamethasone and 6mg betamethasone was injected without incident. Attention was then refocused to the left L5/S1 level where the identical procedure was replicated. The procedure tolerated the procedure well without signs or symptoms of complications prior to transfer to the recovery area continued monitoring without incident. The patient was then transferred to the recovery area where they were observed for an appropriate time after the injection. The patient reported a VAS score of 7 prior to the procedure and a post-procedure VAS of 0. POST OP INSTRUCTIONS The patient was provided a Pain Log to continue to record their response to the target-specific procedure prior to follow-up visit with their referring physician. Additionally, specific post-injection care instructions and a contact number to our office were provided if concerns arise regarding possible complications associated with the procedure are suspected.
== END 2025-03-30 09:15 | disposition home or self-care (01) ==
PROVIDERS: PCP Internal Medicine; Referring Provider Internal Medicine; Visit Provider Physical Medicine & Rehabilitation
DX: M48.07 Spinal stenosis, lumbosacral region (principal); M51.17 Intervertebral disc disorders with radiculopathy, lumbosacral region; M47.27 Other spondylosis with radiculopathy, lumbosacral region
CPT/HCPCS: 64483; 99152; J0702; J1100; J2250

== ENCOUNTER → 2025-04-26 10:35 | Outpatient (CLI) | payer OTHER, SELFPAY ==
[2024-12-25 20:44] VITALS: BMI 24.2
[2025-04-26 11:48] LABS: Hematocrit 44.2 % (41-53); Hemoglobin 14.6 g/dL (13.5-17.5); Mean Corpuscular HGB Conc 33.0 % (30-36); Mean Corpuscular Hemoglobin 30.2 PG (26-34); Mean Corpuscular Volume 91.5 fL (80-100); Platelet Count 178 X10^3/uL (150-400)
[2025-04-26 12:04] LABS: Alanine Aminotransferase 15 IU/L (<50); Albumin 4.3 g/dL (3.5-5.0); Albumin Globulin Ratio 1.7 (1.0-2.8); Alkaline Phosphatase 84 U/L (38-126); Blood Urea Nitrogen 30 mg/dL (9-20); Calcium 9.6 mg/dL (8.4-10.2); Carbon Dioxide 24 mmol/L (22-32); Chloride 109 mmol/L (98-107); Cholesterol 219 mg/dL (140-199); Estimated Glomerular Filt Rate 50 mL/min (>60); Globulin 2.6 g/dL (1.7-4.1); Glucose 101 mg/dL (70-99); HDL Cholesterol 79 mg/dL (40-60); HEMOLYSIS < 15 (0-50); Sodium 141 mmol/L (137-145); Total Protein 6.9 g/dL (6.3-8.2); Triglycerides 88 mg/dL (35-150)
[2025-04-26 12:06] LABS: Potassium 5.4 mmol/L (3.4-5.1)
[2025-04-28 07:09] LABS: Calcium 9.7 mg/dL (8.6-10.2); Parathyroid Hormone, Intact 86 pg/mL (15-65)
== END ==
PROVIDERS: PCP Internal Medicine; Referring Provider Internal Medicine; Visit Provider Internal Medicine
DX: N18.32 Chronic kidney disease, stage 3b (principal); I50.22 Chronic systolic (congestive) heart failure; I48.0 Paroxysmal atrial fibrillation
CPT/HCPCS: 36415; 80053; 80061; 82310; 83970; 85027

== ENCOUNTER 2025-05-25 08:39 | Inpatient (IN) | payer OTHER, SELFPAY ==
[2024-12-25 20:44] VITALS: BMI 24.2
[2025-05-25] VITALS (10 sets, daily range): BP systolic 134–198; BP diastolic 92–125; PULSE 60–81; RESP 16–18; TEMP 35.9–36.5; O2SAT 95–99; BMI 24.0
--- NOTE | 2025-05-25 08:52 | DI.CT.S_ITS ---
PROCEDURE: CT ANGIO HEAD AND NECK
--- NOTE | 2025-05-25 08:52 | DI.CT.S_ITS ---
PROCEDURE: CT HEAD/BRAIN WO CON
--- NOTE | 2025-05-25 08:53 | ED_ITS ---
HPI - Neuro Symptoms/Deficit
--- NOTE | 2025-05-25 08:53 | ED.NEUROSD ---
HPI - Neuro Symptoms/Deficit General Chief Complaint: Neuro Symptoms/Deficit Stated Complaint: ROMO, dizziness, aphasia, gait instability Time Seen by Provider: 05/25/25 08:40 Source: patient, EMS, RN notes reviewed and old records reviewed Mode of arrival: EMS Limitations: no limitations History of Present Illness HPI Narrative: 85-year-old male history of atrial fibrillation on Pradaxa, hypertension, dyslipidemia, CHF with prior cardiac ablation presents with complaint of difficulty recognizing objects and gait instability patient states he does not really appreciate it he notes little bit of trouble with his speech but his noticed this morning when he got up. Last known normal is around 9:00 p.m. EMS states fast was negative. Glucose was normal patient was hypertensive in the field but no other vital sign changes. They note that has been or difficulty ambulating to the EMS gurney. Patient states he has a headache earlier but not currently he denies any sudden vision changes, he does not appreciate any numbness tingling or weakness. Patient denies any weakness. No chest pain or shortness of breath. No double vision. No nausea or vomiting. No GI or urinary symptoms. No incontinence. Patient does not appreciate any weakness in his extremities or difficulty with movement. He states he might be having some speech changes. Has a reported allergy to amiodarone. Former smoker, no alcohol, no recreational drugs. Dr. Wyatt is his primary care physician. Related Data Home Medications ?Medication ?Instructions ?Recorded ?Confirmed cetirizine 10 mg tablet 10 mg PO DAILY 01/30/19 05/25/25 cholecalciferol (vitamin D3) 25 25 mcg PO 3XW 10/30/21 05/25/25 mcg (1,000 unit) capsule carvedilol 25 mg tablet 25 mg PO BID 12/28/24 05/25/25 ipratropium bromide 21 mcg (0.03 2 spray intranasal BID 04/14/25 05/25/25 %) nasal spray gabapentin 300 mg capsule 300 mg PO 2XD 05/25/25 05/25/25 Previous Rx's ?Medication ?Instructions ?Recorded Parking Permit... #1 ea 04/04/22 celecoxib 100 mg capsule 100 mg PO BID #180 caps 01/28/25 omeprazole 20 mg capsule,delayed 20 mg PO DAILY #90 caps 01/28/25 release empagliflozin 10 mg tablet 10 mg PO DAILY #90 tabs 02/17/25 (Jardiance) dabigatran etexilate 150 mg 150 mg PO BID #180 caps 03/08/25 capsule (Pradaxa) rosuvastatin 40 mg tablet 40 mg PO DAILY #90 tabs 04/20/25 Allergies Allergy/AdvReac Type Severity Reaction Status Date / Time amiodarone Allergy Verified 05/03/25 08:12 Review of Systems Review of Systems ROS Unobtainable: All systems reviewed & are unremarkable except as noted in HPI and below Patient History Medical History Risk for falls Chronic kidney disease, stage 3b Deficient knowledge of open reduction and internal (ORIF) fixation of hip GERD without esophagitis Hammertoe of left foot Slow transit constipation Lumbar stenosis with neurogenic claudication Facet arthropathy, lumbar Compression fracture of L4 vertebra Compression fracture of L3 lumbar vertebra Actinic keratosis Primary osteoarthritis involving multiple joints Coronary artery disease Venous (peripheral) insufficiency Systolic CHF, chronic Obstructive sleep apnea Hearing loss Fractures (~2019) Measles (~1952) Chicken pox (~194) Anemia (~1974) Chronic anticoagulation History of TIA (transient ischemic attack) (~2018) Chronic low back pain without sciatica Idiopathic peripheral neuropathy BPH w urinary obs/LUTS Mixed hyperlipidemia Essential hypertension Paroxysmal atrial fibrillation Lumbar compression fracture Pulmonary nodule Orthostatic hypotension Surgical History Anesthesia Status post cardiac pacemaker procedure (~03/2021) Status post recent transurethral resection of prostate Status post left partial knee replacement Status post circumferential ablation of pulmonary vein Family History Father Kidney failure Mother Congestive heart failure Brother Stroke Sister Cancer Social History (Updated 05/25/25 @ 15:39 by Gloria Medina) marital status: household members: spouse pets and animals: Yes Smoking Status: Former smoker Tobacco: How many years used: 4 alcohol intake: former substance use type: does not use alcohol intake frequency: holidays/special occasions only Exam Narrative Exam Narrative: GEN: well nourished, well appearing male, alert and oriented x 3, patient appears to be in mild distress. HEENT: Atraumatic, pupils are equal round reactive to light, extraocular movements are intact, nares are clear, there is no conjunctival pallor. Throat is clear without any exudates, erythema, tonsillar enlargement or uvular deviation, no facial droop HEART: Regular rate and rhythm without murmur, clicks, rubs. No carotid bruits, pulses are equal in upper and lower extremities LUNGS:Lungs clear to auscultation, no wheezes, rales, crackles, chest moves symmetrically ABD:bowel sounds normal, soft, non-tender, no guarding, rebound, rigidity, no masses noted, no hepatosplenomegaly :No CVA tenderness MSCL: Non-tender, no muscle atrophy, muscles strength 5/5 upper and lower extremities, full range of motion NEURO:CN 2-12 intact, sensation normal, reflexes 2/4 upper and lower extremities. finger nose finger test normal, heel mckeon test difficult patient had trouble with commands. No dysarthria but patient has a aphasia when he attempts to describe the pictures and seen in the [facility] exam he has no difficulty with sentences. Initial Vital Signs Initial Vital Signs: Vital Signs Temperature 97.7 F 05/25/25 08:54 Pulse Rate 66 05/25/25 08:54 Respiratory Rate 17 05/25/25 08:54 Blood Pressure 188/94 H 05/25/25 08:54 Pulse Oximetry 95 05/25/25 08:54 Oxygen Delivery Method Room Air 05/25/25 08:54 Scores NIH Stroke Scale Level of Conciousness: Alert, keenly responsive Ask month/age: Answers both questions correctly. Open/close eyes, close hand: Performs both tasks correctly Best gaze horizontal: Normal Visual mcpherson: No visual loss Facial palsy: Normal symetrical movement Left arm drift: No drift for full 10 sec Right arm drift: No drift for full 10 sec Left leg drift: No drift for full 5 sec Right leg drift: No drift for full 5 sec Limb ataxia: Present in two limbs (legs, had difficulty with commands) Sensory on face/arms/legs: Normal, no sensory loss Best language: Mild to moderate, slurs some words Dysarthria: Normal Extinction or inattention: No abnormality Total NIH Stroke scale score: 3 Course Orders Ordered: ED Orders 05/25/25 08:30 Complete Blood Count AUTO DIFF Stat Comprehensive Metabolic Panel Stat Ethanol (ETOH) Stat PTT Partial Thromboplastin Edwin Stat Prothrombin Time INR Stat Troponin & CK Cardiac Panel Stat 05/25/25 08:52 CT angio head and neck Stat CT head/brain wo con Stat EKG-12 Lead Stat 05/25/25 10:20 Urinalysis and Microscopic Stat Urine Drug Screen, Rapid Stat Apixaban (Apixaban 5 Mg Tablet) 5 mg PO BID [facility] Atorvastatin Calcium (Atorvastatin 20 Mg Tablet) 80 mg PO DAILY [facility] Carvedilol (Carvedilol 12.5 Mg Tablet) 12.5 mg PO BID [facility] Celecoxib (Celecoxib 100 Mg Capsule) 100 mg PO BID [facility] Gabapentin (Gabapentin 300 Mg Capsule) 300 mg PO BID [facility] Ipratropium [place] (Ipratropium 0.06% Nasal 15 Ml) 1 spray NASAL BID [facility] Loratadine (Loratadine 10 Mg Tablet) 10 mg PO DAILY [facility] Naloxone HCl (Naloxone 0.4 Mg/Ml Vial) 0.2 mg IV Q2MIN PRN PRN Reason: Opiate Reversal Non-Formulary Medication (Empagliflozin [Jardiance]) 10 mg PO DAILY [facility] Ondansetron HCl (Ondansetron 4 Mg/2 Ml Inj) 4 mg IV Q8HR PRN PRN Reason: Nausea And Vomiting Vitamin D (Cholecalciferol (Vitamin D3) 1,000 Unit Tablet) 1,000 unit PO MoWeFr@0900 [facility] Discontinued Medications Aspirin (Aspirin 81 Mg Chew Tab) 324 mg PO NOW ONE Stop: 05/25/25 10:04 Last Admin: 05/25/25 10:11 Dose: 324 mg Documented By: MOISES Vital Signs Vital signs: Vital Signs - 8 hr 05/25/25 08:54 05/25/25 09:34 05/25/25 10:00 Temperature 97.7 F Pulse Rate 66 68 Respiratory Rate 17 Blood Pressure 188/94 H 183/94 H Pulse Oximetry 95 98 Oxygen Delivery Method Room Air 05/25/25 10:00 05/25/25 10:23 05/25/25 10:23 Temperature Pulse Rate 68 71 Respiratory Rate Blood Pressure 181/125 H Pulse Oximetry 97 95 Oxygen Delivery Method 05/25/25 10:30 05/25/25 10:30 Temperature Pulse Rate 68 Respiratory Rate Blood Pressure 187/92 H Pulse Oximetry 98 Oxygen Delivery Method MDM - Neuro Symptoms/Deficit Lab Data 05/25/25 08:30 05/25/25 08:30 Labs: Lab Results 05/25/25 05/25/25 05/25/25 Range/Units 08:30 10:20 10:20 WBC 8.2 (4.5-11.0) X10^3/uL RBC 4.85 (4.5-5.9) X10^6/uL Hgb 14.7 (13.5-17.5) g/dL Hct 44.0 (41-53) % MCV 90.8 (80-100) fL MCH 30.2 (26-34) PG MCHC 33.3 (30-36) % RDW 13.9 (11.6-14.8) % Plt Count 182 (150-400) X10^3/uL Neut % (Auto) 66.6 (50-75) % Lymph % (Auto) 22.9 L (25-40) % [place] % (Auto) 8.7 (3-14) % Eos % (Auto) 1.4 L (2-4) % Baso % (Auto) 0.4 (0-2) % Neut # (Auto) 5400 (3932-2922) /uL Lymph # (Auto) 1900 (5458-5424) /uL [place] # (Auto) 700 (0-900) /uL Eos # (Auto) 100 (0-450) /uL Baso # (Auto) 0 (0-100) /uL PT 11.5 (9.4-12.5) SECONDS INR 1.0 (0.9-1.3) APTT 31 (25.1-36.5) SECONDS Sodium 138 (137-145) mmol/L Potassium 4.2 (3.4-5.1) mmol/L Chloride 106 (98-107) mmol/L Carbon Dioxide 23 (22-32) mmol/L BUN 35 H (9-20) mg/dL Creatinine 1.28 H (0.66-1.25) mg/dL Estimated GFR 55 L (>60) mL/min BUN/Creatinine Ratio 27.3 H (6-22) Glucose 120 H (70-99) mg/dL Calcium 9.4 (8.4-10.2) mg/dL Total Bilirubin 0.9 (0.2-1.3) mg/dL AST 25 (17-59) IU/L ALT 14 (<50) IU/L Alkaline Phosphatase 81 (38-126) U/L Total Creatine Kinase 55 (55-170) U/L Troponin I 0.017 (0.01-0.034) ng/mL Total Protein 7.3 (6.3-8.2) g/dL Albumin 4.3 (3.5-5.0) g/dL Globulin 3.0 (1.7-4.1) g/dL Albumin/Globulin Ratio 1.4 (1.0-2.8) Urine Color Yellow Urine Appearance Clear Urine pH 5.5 Normal (4.5-8.0) Ur Specific [place] 1.015 (1.000-1.035) Urine Protein Negative (Negative) Urine Glucose (UA) 2+ H (Negative) g/dL Urine Ketones Negative (NEGATIVE) Urine Occult Blood Negative (Negative) Urine Nitrate Negative (Negative) Urine Bilirubin Negative (NEGATIVE) Urine Urobilinogen 0.2 (0.2) E.U./dL Ur Leukocyte Esterase Negative (NEGATIVE) Urine RBC 0-1/hpf D (0-5/HPF) Urine WBC 0-1/hpf (0-5/HPF) Ur Squamous Epith Cells 1-5 /hpf (0-5/HPF) Urine Bacteria None seen (None) Ur Culture Indicated? Cult not indicated Vol Urine Centrifuged 10ml (spun) U Opiates 300ng/mL cut Negative (Negative) Ur Oxycodone Screen Negative (Negative) Urine Methadone Screen Negative (Negative) Ur Barbiturates Screen Negative (Negative) U Tricyclic Antidepress Negative (Negative) Ur Phencyclidine Scrn Negative (Negative) Ur Amphetamines Screen Negative (Negative) U Methamphetamines Scrn Negative (Negative) Ur MDMA Scrn (Ecstasy) Negative (Negative) U Benzodiazepines Scrn Negative (Negative) Urine Cocaine Screen Negative (Negative) U Marijuana (THC) Screen Negative (Negative) Urine Specific [place] Normal (Normal) Ethyl Alcohol < 10 (<10) mg/dL Ur Creatinine Normal (Normal) MDM Narrative Medical decision making narrative: Labs labs show white count, hemoglobin and platelets, coags are negative, creatinine is 1.28 was 1.38 and April of 2025, BUN 35 electrolytes are appropriate glucose is 120 LFTs are negative troponin 0.017. ETOH is negative EKG atrial paced rhythm with prolonged AV conduction left axis deviation rate of 62 GA 1-24 QRS of 102 QTC of 475. No acute ST changes appreciated from 12/25/2024. Urine Head CT shows no acute intracranial pathology CT head and neck angio no significant intracranial arterial abnormality no significant rebound or the arteries of the neck questionable filling defect personal included left pulmonary artery versus partial inner fact partially seen inferior margin of the exam feel the flu is a clinical concern for PE recommend CT pulmonary angiogram for further evaluation. Patient's NIH is 3, 1 for aphasia but just with the pictures he is able to read sentences. Had difficulty with heel-mckeon with the seemed to be more an issue with following commands he had good movement otherwise. Patient is outside the window for tPA he is on Pradaxa. On exam patient does not appear to have had a stroke he has significant difficulty with identifying objects. Did not ambulate him in the department but noticed some gait instability suspect he did have a stroke. Patient received aspirin 325 mg in the department Spoke with Dr. Lindo, hospitalist who accepts for inpatient for suspected stroke. Stroke Core Measures Exclusion Criteria TPA in CVA: Symptom Onset >3 or 4.5 Hours Discharge Plan Departure Patient Disposition: Admitted As Inpatient Clinical Impression: Acute CVA (cerebrovascular accident), Atrial fibrillation Admit Date/Time: 05/25/25 10:40 Admit Provider: Princess Lindo
[2025-05-25 08:59] LABS: INR 1.0 (0.9-1.3); Prothrombin Time 11.5 SECONDS (9.4-12.5)
[2025-05-25 09:01] LABS: Add Manual Diff / Slide Review NO; Hematocrit 44.0 % (41-53); Hemoglobin 14.7 g/dL (13.5-17.5); Lymphocytes Absolute Auto 1900 /uL (1100-4500); Mean Corpuscular HGB Conc 33.3 % (30-36); Mean Corpuscular Hemoglobin 30.2 PG (26-34); Mean Corpuscular Volume 90.8 fL (80-100); Platelet Count 182 X10^3/uL (150-400)
[2025-05-25 09:02] LABS: PTT Partial Thromboplastin Tim 31 SECONDS (25.1-36.5)
[2025-05-25 09:09] LABS: Alanine Aminotransferase 14 IU/L (<50); Albumin 4.3 g/dL (3.5-5.0); Albumin Globulin Ratio 1.4 (1.0-2.8); Alkaline Phosphatase 81 U/L (38-126); Blood Urea Nitrogen 35 mg/dL (9-20); Calcium 9.4 mg/dL (8.4-10.2); Carbon Dioxide 23 mmol/L (22-32); Chloride 106 mmol/L (98-107); Creatine Kinase 55 U/L (55-170); Estimated Glomerular Filt Rate 55 mL/min (>60); Ethanol (ETOH) < 10 mg/dL (<10); Globulin 3.0 g/dL (1.7-4.1); Glucose 120 mg/dL (70-99); HEMOLYSIS < 15 (0-50); Potassium 4.2 mmol/L (3.4-5.1); Sodium 138 mmol/L (137-145); Total Protein 7.3 g/dL (6.3-8.2)
[2025-05-25 09:20] LABS: Troponin I 0.017 ng/mL (0.01-0.034)
--- NOTE | 2025-05-25 09:26 | EKG_ITS ---
[facility]
[2025-05-25] MEDS: ASPIRIN 81 MG CHEW TAB 324 MG PO (10:11)
[2025-05-25 10:41] LABS: Appearance Urine UA CLEAR; Bilirubin Urine UA NEGATIVE (NEGATIVE); Color Urine UA YELLOW; Glucose Urine UA 2+ g/dL (Negative); Ketones Urine UA NEGATIVE (NEGATIVE); Leukocyte Esterase Urine UA NEGATIVE (NEGATIVE); Nitrite Urine UA NEGATIVE (Negative); Occult Blood Urine UA NEGATIVE (Negative); Protein Urine UA NEGATIVE (Negative); Specific Gravity Urine UA 1.015 (1.000-1.035); Urobilinogen Urine UA 0.2 E.U./dL (0.2); pH Urine UA 5.5 (4.5-8.0)
[2025-05-25 10:57] LABS: UR Morphine/Opiate cutoff 300 Negative (Negative); Ur Specific Gravity Normal (Normal); Urine MDMA Negative (Negative); Urine Methamphetamines Negative (Negative); Urine Tetrahydrocannabinol Negative (Negative); Urine Tricyclic Antidepressant Negative (Negative)
[2025-05-25 11:08] LABS: Culture Indicated Urine Cult Not Indicated
--- NOTE | 2025-05-25 15:38 | P.HP_ITS ---
History of Present Illness
--- NOTE | 2025-05-25 15:38 | PM.HP.1 ---
History of Present Illness History of Present Illness Date Patient Seen: 05/25/25 Time Patient Seen: 15:38 Chief complaint: ROMO, dizziness, aphasia, gait instability Narrative: HISTORY & PHYSICAL EXAM NOTE ? Chief Complaint: Headache and cognitive difficulties beginning this morning. ? History of Present Illness: 85-year-old right-handed male with history of atrial fibrillation on Pradaxa, hypertension, dyslipidemia, CHF with prior cardiac ablation presents awoke this morning with a left frontal headache and difficulty responding to certain words. He described losing some cognitive abilities and experiencing visual disturbance where monocular vision was intact but binocular vision caused him to not see. He was able to dress himself and ambulate with his usual cane. No new weakness or numbness. His reports he was at baseline at 3 AM, speaking normally. No chest pain, dyspnea, or recent illness. Dr. Wyatt is his primary care physician. ? ED Course (Dr. Bergeorn): Labs labs show white count, hemoglobin and platelets, coags are negative, creatinine is 1.28 was 1.38 and April of 2025, BUN 35 electrolytes are appropriate glucose is 120 LFTs are negative troponin 0.017. ETOH is negative EKG atrial paced rhythm with prolonged AV conduction left axis deviation rate of 62 NC 1-24 QRS of 102 QTC of 475. No acute ST changes appreciated from 12/25/2024. Urine Head CT shows no acute intracranial pathology CT head and neck angio no significant intracranial arterial abnormality no significant rebound or the arteries of the neck questionable filling defect personal included left pulmonary artery versus partial inner fact partially seen inferior margin of the exam feel the flu is a clinical concern for PE recommend CT pulmonary angiogram for further evaluation. ? Patient's NIH is 3, 1 for aphasia but just with the pictures he is able to read sentences. Had difficulty with heel-mckeon with the seemed to be more an issue with following commands he had good movement otherwise. Patient is outside the window for tPA he is on Pradaxa. ? On exam patient does not appear to have had a stroke he has significant difficulty with identifying objects. Did not ambulate him in the department but noticed some gait instability suspect he did have a stroke. Save received aspirin 325 mg in the department ? Past Medical History: Risk for falls Chronic kidney disease, stage 3b Deficient knowledge of open reduction and internal (ORIF) fixation of hip GERD without esophagitis Hammertoe of left foot Slow transit constipation Lumbar stenosis with neurogenic claudication Facet arthropathy, lumbar Compression fracture of L4 vertebra Compression fracture of L3 lumbar vertebra Actinic keratosis Primary osteoarthritis involving multiple joints Coronary artery disease Venous (peripheral) insufficiency Systolic CHF, chronic Obstructive sleep apnea Hearing loss Fractures ~2019 Measles ~1953 Chicken pox ~1949 Anemia ~1975 Chronic anticoagulation History of TIA (transient ischemic attack) ~2018 Chronic low back pain without sciatica Idiopathic peripheral neuropathy BPH w urinary obs/LUTS Mixed hyperlipidemia Essential hypertension Paroxysmal atrial fibrillation Lumbar compression fracture Pulmonary nodule Orthostatic hypotension ? Surgical History: Status post cardiac pacemaker implantation (~03/2021) Status post transurethral resection of the prostate (TURP) Status post left partial knee replacement Status post circumferential ablation of pulmonary veins History of prior anesthesia exposure, no reported complications ? Family History: Father of kidney failure at 89. Mother of heart failure at 82. ? Social History: Smoked for four years in his 20s. Was a social drinker but quit alcohol in 1994. 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 Lives with Sophia and their cat Sarath. ? Medications: Carvedilol 25 mg PO BID Celecoxib 100 mg PO BID Cetirizine 10 mg PO daily Cholecalciferol (Vitamin D3) 25 mcg PO three times weekly Dabigatran etexilate (Pradaxa) 150 mg PO BID Empagliflozin (Jardiance) 10 mg PO daily Gabapentin 300 mg PO twice daily Ipratropium bromide nasal spray, 2 sprays BID Omeprazole 20 mg PO daily Rosuvastatin 40 mg PO daily Furosemide 20 mg PO daily ? Allergies: Amiodarone ? Exam: Vitals reviewed and notable for: Blood pressure 197/125 mmHg, oxygen saturation 97%, heart rate 81 bpm. ? General: No acute distress. Alert and oriented to person, place, and situation (not date). Mood and affect appropriate. Skin: Good turgor. No rashes, bruising, or lesions noted. Nails: Normal color and contour. No deformities. HEENT: ?Head: Normocephalic and atraumatic. No palpable masses, depressions, or scars. ?Eyes: Conjunctivae clear, pupils equal, round, and reactive to light. Extraocular movements intact. ?Ears: External ears normal. Hearing aids typically used but not in place during exam. ?Mouth: Mucous membranes moist. No mucosal lesions. ?Neck: Supple without lymphadenopathy, thyromegaly, or bruits. Thyroid non-enlarged and non-tender. Cardiovascular: Irregularly irregular rhythm. Tachycardic. No murmurs, rubs, or gallops. Respiratory: Lungs clear to auscultation bilaterally. No wheezes, rales, or rhonchi. Normal work of breathing. Abdomen: Soft, non-tender, non-distended. Bowel sounds normal. No hepatosplenomegaly. Extremities: 2+ pitting edema of lower extremities. Examination limited by compression stockings. No erythema or tenderness. Neurologic: Cranial nerves 2-12 grossly intact. Sensation and proprioception intact. Expressive aphasia and mild disorientation present. Coordination at baseline. Normal bvem-pc-edln, audumi-nk-xiwx, rapid alternating movement. 3/5 strength globally. Babinski down-going bilaterally. ? Labs reviewed and notable for: BUN 35 mg/dL (H), creatinine 1.28 mg/dL (H), eGFR 55 mL/min (L). Glucose 120 mg/dL (H) with urine glucose 2+, no ketones. CBC within normal limits except mild lymphopenia (22.9%) and low eosinophils (1.4%). Normal CK, troponin, coagulation panel. UA otherwise benign, no infection or hematuria. ? Imaging reviewed and notable for: CT head: No acute intracranial hemorrhage or mass effect; chronic small-vessel ischemic changes and carotid atherosclerosis. CTA head/neck: No significant intracranial or cervical arterial stenosis. (Intracranial ICA demonstrate mild atherosclerotic calcifications without significant stenosis.) Questionable filling defect in left pulmonary artery versus artifact. CTPA recommended if PE suspected. ? Assessment and Plan Clinical Impression: 85-year-old male with acute-onset expressive aphasia and transient binocular visual disturbance, history of atrial fibrillation on dabigatran, presenting with hypertensive emergency and possible TIA versus stroke mimic. ? # Acute Expressive Aphasia / Transient Cognitive Impairment Possible TIA versus small-vessel ischemia. CT negative for acute bleed with no large-vessel occlusion on CTA. -MRI brain contraindicated given pacemaker, repeat CT tomorrow. -Echocardiogram ordered. -Stop dabigatran and start apixaban for atrial fibrillation anticoagulation considering dabigatran potential for interaction with carvedilol ? # Hypertensive Emergency Blood pressure 197/125 mmHg with symptomatic neurological changes. -Considering possible CVA, maintain systolic BP under 185 but without overcorrection to continue perfusing potential traci-ischemic areas of the brain -Decrease carvedilol from 25mg BID to 12.5mg BID. -Repeat basic metabolic panel to assess renal function. -S/p ECG -Continuous telemetry ? # Chronic Atrial Fibrillation On dabigatran with rate control on carvedilol. Hypertension has the highest attributable risk for the development of AF. -Stop dabigatran and start apixaban for atrial fibrillation anticoagulation considering dabigatran potential for interaction with carvedilol ? # Chronic Kidney Disease Stage 3a eGFR 55 mL/min with stable mild elevation in BUN/creatinine. -Trend BMP to monitor function. -Maintain adequate hydration. ? # Heart Failure with Preserved Ejection Fraction On carvedilol, furosemide, empagliflozin with mild bilateral edema noted. Hypertension is a major risk factor for developing HFpEF. -Monitor daily weights and intake/output. -Continue current regimen with carvedilol and empagliflozin. SGLT2i are used frequently for HFpEF treatment to reduce risk of hospitalization and cardiovascular mortality. -Adjust diuretics if edema worsens. ? # Hyperlipidemia -Continue rosuvastatin 40 mg daily for secondary prevention. ? # Possible Pulmonary Artery Filling Defect -No further work-up unless respiratory symptoms develop given low clinical suspicion and therapeutic anticoagulation. [facility] Medical History Risk for falls Chronic kidney disease, stage 3b Deficient knowledge of open reduction and internal (ORIF) fixation of hip GERD without esophagitis Hammertoe of left foot Slow transit constipation Lumbar stenosis with neurogenic claudication Facet arthropathy, lumbar Compression fracture of L4 vertebra Compression fracture of L3 lumbar vertebra Actinic keratosis Primary osteoarthritis involving multiple joints Coronary artery disease Venous (peripheral) insufficiency Systolic CHF, chronic Obstructive sleep apnea Hearing loss Fractures (~2019) Measles (~195) Chicken pox (~1949) Anemia (~1974) Chronic anticoagulation History of TIA (transient ischemic attack) (~2018) Chronic low back pain without sciatica Idiopathic peripheral neuropathy BPH w urinary obs/LUTS Mixed hyperlipidemia Essential hypertension Paroxysmal atrial fibrillation Lumbar compression fracture Pulmonary nodule Orthostatic hypotension Surgical History Anesthesia Status post cardiac pacemaker procedure (~03/2021) Status post recent transurethral resection of prostate Status post left partial knee replacement Status post circumferential ablation of pulmonary vein Family History Father Kidney failure Mother Congestive heart failure Brother Stroke Sister Cancer Social History (Updated 05/25/25 @ 15:39 by Gloria Medina) marital status: household members: spouse pets and animals: Yes Smoking Status: Former smoker Tobacco: How many years used: 4 alcohol intake: former substance use type: does not use Meds Home Medications and Allergies Home Medications ?Medication ?Instructions ?Recorded ?Confirmed ?Type cetirizine 10 mg tablet 10 mg PO DAILY 01/30/19 05/25/25 History cholecalciferol (vitamin D3) 25 25 mcg PO 3XW 10/30/21 05/25/25 History mcg (1,000 unit) capsule Parking Permit... #1 ea 04/04/22 05/03/25 Rx carvedilol 25 mg tablet 25 mg PO BID 12/28/24 05/25/25 History celecoxib 100 mg capsule 100 mg PO BID #180 caps 01/28/25 05/25/25 Rx omeprazole 20 mg capsule,delayed 20 mg PO DAILY #90 caps 01/28/25 05/25/25 Rx release empagliflozin 10 mg tablet 10 mg PO DAILY #90 tabs 02/17/25 05/25/25 Rx (Jardiance) dabigatran etexilate 150 mg 150 mg PO BID #180 caps 03/08/25 05/25/25 Rx capsule (Pradaxa) ipratropium bromide 21 mcg (0.03 2 spray intranasal BID 04/14/25 05/25/25 History %) nasal spray rosuvastatin 40 mg tablet 40 mg PO DAILY #90 tabs 04/20/25 05/25/25 Rx gabapentin 300 mg capsule 300 mg PO 2XD 05/25/25 05/25/25 History Allergies Allergy/AdvReac Type Severity Reaction Status Date / Time amiodarone Allergy Verified 05/03/25 08:12 Exam Vital Signs (past 8 hours): - 05/25/25 08:54 05/25/25 09:34 05/25/25 10:00 Temperature 97.7 F Pulse Rate 66 68 Respiratory Rate 17 Blood Pressure 188/94 H 183/94 H Pulse Oximetry 95 98 Oxygen Delivery Method Room Air 05/25/25 10:00 05/25/25 10:23 05/25/25 10:23 Temperature Pulse Rate 68 71 Respiratory Rate Blood Pressure 181/125 H Pulse Oximetry 97 95 Oxygen Delivery Method 05/25/25 10:30 05/25/25 10:30 05/25/25 11:00 Temperature Pulse Rate 68 Respiratory Rate Blood Pressure 187/92 H 198/115 H Pulse Oximetry 98 Oxygen Delivery Method 05/25/25 11:00 05/25/25 11:20 05/25/25 14:00 Temperature 96.8 F L 96.6 F L Pulse Rate 60 81 72 Respiratory Rate 17 18 18 Blood Pressure 197/125 H 142/102 H Pulse Oximetry 98 97 99 Oxygen Delivery Method Oxygen Delivery Method Room Air Objective Labs 05/25/25 08:30 05/25/25 08:30 Labs: Laboratory Results - last 24 hr 05/25/25 05/25/25 05/25/25 08:30 10:20 10:20 WBC 8.2 RBC 4.85 Hgb 14.7 Hct 44.0 MCV 90.8 MCH 30.2 MCHC 33.3 RDW 13.9 Plt Count 182 Neut % (Auto) 66.6 Lymph % (Auto) 22.9 L [place] % (Auto) 8.7 Eos % (Auto) 1.4 L Baso % (Auto) 0.4 Neut # (Auto) 5400 Lymph # (Auto) 1900 Frontier # (Auto) 700 Eos # (Auto) 100 Baso # (Auto) 0 PT 11.5 INR 1.0 APTT 31 Sodium 138 Potassium 4.2 Chloride 106 Carbon Dioxide 23 BUN 35 H Creatinine 1.28 H Estimated GFR 55 L BUN/Creatinine Ratio 27.3 H Glucose 120 H Calcium 9.4 Total Bilirubin 0.9 AST 25 ALT 14 Alkaline Phosphatase 81 Total Creatine Kinase 55 Troponin I 0.017 Total Protein 7.3 Albumin 4.3 Globulin 3.0 Albumin/Globulin Ratio 1.4 Urine Color Yellow Urine Appearance Clear Urine pH 5.5 Normal Ur Specific [place] 1.015 Urine Protein Negative Urine Glucose (UA) 2+ H Urine Ketones Negative Urine Occult Blood Negative Urine Nitrate Negative Urine Bilirubin Negative Urine Urobilinogen 0.2 Ur Leukocyte Esterase Negative Urine RBC 0-1/hpf D Urine WBC 0-1/hpf Ur Squamous Epith Cells 1-5 /hpf Urine Bacteria None seen Ur Culture Indicated? Cult not indicated Vol Urine Centrifuged 10ml (spun) U Opiates 300ng/mL cut Negative Ur Oxycodone Screen Negative Urine Methadone Screen Negative Ur Barbiturates Screen Negative U Tricyclic Antidepress Negative Ur Phencyclidine Scrn Negative Ur Amphetamines Screen Negative U Methamphetamines Scrn Negative Ur MDMA Scrn (Ecstasy) Negative U Benzodiazepines Scrn Negative Urine Cocaine Screen Negative U Marijuana (THC) Screen Negative Urine Specific [place] Normal Ethyl Alcohol < 10 Ur Creatinine Normal Assessment & Plan Time-Based Coding :: [TOTAL MINUTES] spent with patient and on the chart (including review of chart, obtaining history, exam, reviewing outside data, placing orders, documenting exam and treatment plan, and counseling patient) on [DATE]. Quality VTE Deep Vein Thrombosis/Pulmonary Embolism Present on Admission: No
--- NOTE | 2025-05-25 16:15 | PT.IIE ---
Current Diagnoses Transient cerebral ischemic attack, unspecified (05/25/25) Surgical History (Last Reviewed 05/25/25 @ 08:58 by Kierra Bergeron DO) Anesthesia Status post cardiac pacemaker procedure (~03/2021) Status post circumferential ablation of pulmonary vein Status post left partial knee replacement Status post recent transurethral resection of prostate Medical History (Last Reviewed 05/25/25 @ 08:58 by Kierra Bergeron DO) Actinic keratosis Anemia (~1974) BPH w urinary obs/LUTS Chicken pox (~1948) Chronic anticoagulation Chronic kidney disease, stage 3b Chronic low back pain without sciatica Compression fracture of L3 lumbar vertebra Compression fracture of L4 vertebra Coronary artery disease Deficient knowledge of open reduction and internal (ORIF) fixation of hip Essential hypertension Facet arthropathy, lumbar Fractures (~2019) GERD without esophagitis Hammertoe of left foot Hearing loss History of TIA (transient ischemic attack) (~2018) Idiopathic peripheral neuropathy Lumbar compression fracture Lumbar stenosis with neurogenic claudication Measles (~1952) Mixed hyperlipidemia Obstructive sleep apnea Orthostatic hypotension Paroxysmal atrial fibrillation Primary osteoarthritis involving multiple joints Pulmonary nodule Risk for falls Slow transit constipation Systolic CHF, chronic Venous (peripheral) insufficiency Physical Therapy Inpatient Evaluation/Re-Eval M1 PT IP Prior Functional Status Start: 05/25/25 17:36 Freq: NEEDED Status: Active Protocol: Document 05/25/25 16:15 AB (Rec: 05/25/25 17:46 AB [id number]) Medical Review Prior Functional Status Medical History Yes Reviewed Communication able to make needs known Mobility and Gait pt stated that he was modified independent with all mobilities and ambulation using either a SPC or a hurrycane; able to occasionally ambulate without AD Social History Household Members spouse Living Arrangements House Number of Floors ( Two Floors Floors) Number of Stairs To 2 steps R rail to enter the house Enter/Railing? 4 steps L rail + 9 steps R rail to get to living room from bedroom level Home Environment High Toilet,Walk in Shower Home Equipment Front Wheel Walker,Four Wheel Walker,Straight Cane, Shower Seat with Backrest,Hand Held Shower,Grab Bars Near Toilet,Grab Bars In Shower M2 PT-IP Current Condition Start: 05/25/25 17:36 Freq: NEEDED Status: Active Protocol: Document 05/25/25 16:15 AB (Rec: 05/25/25 17:46 AB [id number]) Physical Therapy Current Condition Current Condition Evaluation Date 05/25/25 Treatment Diagnosis r/o CVA; difficulty in walking Onset Date 05/25/25 M3 PT-IP Subjective Start: 05/25/25 17:36 Freq: NEEDED Status: Active Protocol: Document 05/25/25 16:15 AB (Rec: 05/25/25 17:46 AB [id number]) Subjective Physical Therapy Visit Type Type Initial Evaluation Visit Start Time 16:15 Visit Stop Time 16:40 Number of [employer] Visits 0 Physical Therapy Visit Comments Patient Comments agreeable to do PT M4 PT-IP Mobility and Gait Start: 05/25/25 17:36 Freq: NEEDED Status: Active Protocol: Document 05/25/25 16:15 AB (Rec: 05/25/25 17:46 AB [id number]) PT-Bed Mobility Assessment Supine to Sit Supine to Sit Standby Assistance Sit to Supine Sit to Supine Standby Assistance PT-Transfer Assessment Sit to and From Stand Sit to and from Contact Guard Assistance,1 Person Assistance,Use of Stand Upper Extremities Equipment Transfer Assistive Gait Belt,Front Wheeled Walker Device Orthotic/Prosthetic No Devices or Brace: Transfers Transfer Destination Toilet Transfer Technique ambulated Comments Mobility Comments pt in bed and agreeable to do PT. obtained PLOF and home set up. BP: 164/97. completed supine to sit SBA., able to sit on EOB SBA. BP in sittin/91. completed sit to stand CGA and ambulated using FWW CGA and cues. pt sat on EOB. Assessed ambulation using SPC . completed sit to stand SBA and ambulated using SPC in room ~ 30 ft min A and cues. presents with unsteady gait with decrease BLE elevation and step length especially on LLE. pt sat on EOB. sit to supine SBA. BP: 165/95. pt then stated that he has to use the toilet. supine to sit SBA. ambulated to the toilet using FWW CGA and cues. call light next to pt and instructed to ask for assistance when ready. nurse informed. Gait Assessment Gait Gait Assistance Contact Guard Assist,Minimum Assistance Required: Distance (Feet) 30 Able to Maintain Yes Weight Bearing Status During Gait Assistive Devices Assistive Device Gait Belt,Straight Cane,Front Wheeled Walker Orthotic/Prosthetic No Devices or Brace: Gait Deviations General Gait Pattern Antalgic,Decreased Stride Length,Decreased Feet Clearance Factors Limiting Gait Function Factors Limiting Decreased Activity Tolerance,Decreased Strength, Gait Function Difficulty Following Directions,Limited Range of Motion ,Poor Balance,Poor Safety Awareness PT-Balance Assessment Sitting Balance and Reactions Static Sitting Normal Balance Ability Dynamic Sitting Good Balance Ability Standing Balance and Reactions Static Standing Fair Balance Ability Dynamic Standing Fair Balance Ability Device Used SPC M5 PT-IP Objective Assessments Start: 05/25/25 17:36 Freq: NEEDED Status: Active Protocol: Document 05/25/25 16:15 AB (Rec: 05/25/25 17:46 AB [id number]) Orientation Orientation/Cognition Level of Alertness Alert Orientation Name,Place,Situation Language Function Hard of Hearing Ability Safety Awareness Decreased Safety Awareness Memory Description No Deficits Noted Gross Range of Motion Lower Extremity ROM Assessment Within Functional Limits Strength Lower Extremity Strength Assessment Within Functional Limits Muscle Tone Muscle Tone WNL Yes M6 PT-IP Treatment Start: 05/25/25 17:36 Freq: NEEDED Status: Active Protocol: Document 05/25/25 16:15 AB (Rec: 05/25/25 17:46 AB [id number]) Physical Therapy Treatment Education Education Provided Safety M7 PT-IP Assessment and Plan Start: 05/25/25 17:36 Freq: NEEDED Status: Active Protocol: Document 05/25/25 16:15 AB (Rec: 05/25/25 17:46 AB [id number]) PT Summary Assessment and Plan Potential Rehabilitation Fair Potential Status of Condition Evolving at Evaluation Summary Impairments Pain,ROM,Strength,Balance,Coordination,Sensation,Tone, Cognition,Bed Mobility,Transfers,Gait,Activity Tolerance Assessment Summary pt is an 85 y/o M who is admitted for r/o CVA. pt requiring CGA with ambulation using FWW and min A for SPC. pt will require assistance at home and plans to go home with spouse to assist. pt will benefit from HHPT vs outpt PT. will continue to assess. Goals Bed Mobility Goal Independent Transfer Goal Independent,Cane,Front Wheeled Walker Gait Goal Independent,Cane,Front Wheel Walker Gait Distance 250 Other Goals up/down 9 steps R rail and 4 steps L rail ascending SBA Days to Meet Goals 10 Frequency of Treatment Frequency Of Once a Day Treatment Treatment Plan Physical Therapy Bed Mobility Training,Transfer Training,Gait Training, Treatment Plan Therapeutic Exercise,Balance Retraining,Discharge Planning,Hot or Cold Pack,Neuromuscular Re-ed, Coordination Retraining,Manual Therapy Precautions Other Precautions BP; falls Recommendations To Nursing Amount of Assist 1 Person Assist Needed Discharge Recommendations PT Discharge Home with Assistance,Home with 11/02 Assist Available, Recommendations Home Health,Outpatient PT Transportation Needs Private Vehicle,Wheelchair/Cabulance at Discharge - PT assist 1
[2025-05-25] MEDS: GABAPENTIN 300 MG CAPSULE PO (20:20)
[2025-05-25] MEDS: APIXABAN 5 MG TABLET PO (20:20)
[2025-05-25] MEDS: CELECOXIB 100 MG CAPSULE PO (20:20)
[2025-05-26 00:16] VITALS: BP 139/97; PULSE 60; RESP 17; TEMP 36.3; O2SAT 96
[2025-05-26 04:49] VITALS: BP 129/91; PULSE 60; RESP 16; TEMP 36.1; O2SAT 95
[2025-05-26 05:56] LABS: Blood Urea Nitrogen 31 mg/dL (9-20); Calcium 9.1 mg/dL (8.4-10.2); Carbon Dioxide 20 mmol/L (22-32); Chloride 108 mmol/L (98-107); Estimated Glomerular Filt Rate > 60 mL/min (>60); Glucose 100 mg/dL (70-99); HEMOLYSIS 19 (0-50); Potassium 4.3 mmol/L (3.4-5.1); Sodium 137 mmol/L (137-145)
[2025-05-26 07:57] VITALS: BP 152/92; PULSE 60; RESP 16; TEMP 36.2; O2SAT 97
--- NOTE | 2025-05-26 08:00 | DI.CT.S_ITS ---
PROCEDURE: CT HEAD/BRAIN WO CON
[2025-05-26] MEDS: ATORVASTATIN 20 MG TABLET 80 MG PO (08:43)
[2025-05-26] MEDS: CELECOXIB 100 MG CAPSULE PO (08:43)
[2025-05-26] MEDS: APIXABAN 5 MG TABLET PO (08:43)
[2025-05-26 08:44] VITALS: BP 152/92
[2025-05-26] MEDS: LORATADINE 10 MG TABLET PO (08:44)
[2025-05-26] MEDS: GABAPENTIN 300 MG CAPSULE PO (08:44)
[2025-05-26] MEDS: CHOLECALCIFEROL (VITAMIN D3) 1,000 UNIT TABLET 1000 UNIT PO (08:45)
[2025-05-26] MEDS: IPRATROPIUM 0.06% NASAL 15 ML 1 SPRAY NASAL (08:50)
--- NOTE | 2025-05-26 10:06 | PT.IPTN ---
Current Diagnoses Transient cerebral ischemic attack, unspecified (05/25/25) Physical Therapy Treatment Note M2 PT-IP Current Condition Start: 05/25/25 17:36 Freq: NEEDED Status: Active Protocol: Document 05/25/25 16:15 AB (Rec: 05/25/25 17:46 AB [id number]) Physical Therapy Current Condition Current Condition Evaluation Date 05/25/25 Treatment Diagnosis r/o CVA; difficulty in walking Onset Date 05/25/25 M3 PT-IP Subjective Start: 05/25/25 17:36 Freq: NEEDED Status: Active Protocol: Document 05/26/25 10:06 AB (Rec: 05/26/25 11:16 AB [id number]) Subjective Physical Therapy Visit Type Type Treatment Note Visit Start Time 10:06 Visit Stop Time 10:50 Number of TRANSPORT COORDINATOR Visits 0 Physical Therapy Visit Comments Patient Comments agreeable to do PT M4 PT-IP Mobility and Gait Start: 05/25/25 17:36 Freq: NEEDED Status: Active Protocol: Document 05/26/25 10:06 AB (Rec: 05/26/25 11:16 AB [id number]) PT-Bed Mobility Assessment Supine to Sit Supine to Sit Standby Assistance PT-Transfer Assessment Sit to and From Stand Sit to and from Standby Assistance,1 Person Assistance,Use of Upper Stand Extremities Equipment Transfer Assistive Gait Belt,Straight Cane Device Orthotic/Prosthetic No Devices or Brace: Transfers Transfer Destination Chair Transfer Technique ambulated Transfer Ability Level of Assist Standby Assistance,Contact Guard Assistance,1 Person Assistance,Use of Upper Extremities Comments Mobility Comments pt in bed. family in room. BP: 137/86. completes supine to sit SBA. c/o slight dizziness. BP: 133/66. sat on EOB for a few minutes and dizziness dissipated. sit to stand from EOB SBA and ambulated in room using SPC SBA to CGA. sat on chair. pt rested. agreed to do stairs. sit to stand from chair SBA and ambulated in the hallway using SPC SBA to CGA. presents with unsteady gait especially towards end of ambulation requiring CGA. pt completed up/down steps using B rail on first set SBA. completed again using R rail ascending and then L rail ascending. pt needing SBA for ascending but CGA to min A for descending steps. assisted pt back to his room. pt ambulated from w/c to chair using SPC CGA. pt agreed to stay on chair. positioned pt on the chair. call light and table placed within reach. informed pt and family to use FWW for long distance ambulation due to pt's decrease activity tolerance with increase unsteadiness with increase activities. pt and family agreed. pt and family also agreed on HHPT. Gait Assessment Gait Gait Assistance Standby Assistance,Contact Guard Assist Required: Distance (Feet) 125 Able to Maintain Yes Weight Bearing Status During Gait Assistive Devices Assistive Device Gait Belt,Straight Cane Orthotic/Prosthetic No Devices or Brace: Gait Deviations General Gait Pattern Ataxic,Decreased Stride Length,Decreased Feet Clearance Factors Limiting Gait Function Factors Limiting Decreased Activity Tolerance,Decreased Strength, Gait Function Difficulty Following Directions,Poor Balance,Poor Safety Awareness Stair Climbing Assessment Evaluation Level of Assist On Standby Assistance,Contact Guard Assistance,Minimal Stairs Assistance Technique/Endurance Stair Climbing Ascend and Descend Direction Stair Climbing Step Over Step Technique Number of Steps 3 Climbed Stair Climbing Set # 3 Repetitions (reps) M5 PT-IP Objective Assessments Start: 05/25/25 17:36 Freq: NEEDED Status: Active Protocol: Document 05/25/25 16:15 AB (Rec: 05/25/25 17:46 AB [id number]) Orientation Orientation/Cognition Level of Alertness Alert Orientation Name,Place,Situation Language Function Hard of Hearing Ability Safety Awareness Decreased Safety Awareness Memory Description No Deficits Noted Gross Range of Motion Lower Extremity ROM Assessment Within Functional Limits Strength Lower Extremity Strength Assessment Within Functional Limits Muscle Tone Muscle Tone WNL Yes M6 PT-IP Treatment Start: 05/25/25 17:36 Freq: NEEDED Status: Active Protocol: Document 05/26/25 10:06 AB (Rec: 05/26/25 11:16 AB [id number]) Physical Therapy Treatment Education Education Provided Safety M7 PT-IP Assessment and Plan Start: 05/25/25 17:36 Freq: NEEDED Status: Active Protocol: Document 05/26/25 10:06 AB (Rec: 05/26/25 11:16 AB [id number]) PT Summary Assessment and Plan Potential Rehabilitation Fair Potential Summary Impairments Pain,ROM,Strength,Balance,Coordination,Sensation,Tone, Cognition,Bed Mobility,Transfers,Gait,Activity Tolerance Progress Towards Slow Progress due to Medical Issues,Slow Progress due Goals to Activity Tolerance Assessment Summary pt requiring SBA to CGA with transfers and ambulation using SPC; requires SBA for ascending steps but required CGA to min A for descending steps. pt will need assistance at home and spouse stated that she will be able to assist pt. pt also will benefit from HHPT. Goals Bed Mobility Goal Independent Transfer Goal Independent,Cane,Front Wheeled Walker Gait Goal Independent,Cane,Front Wheel Walker Gait Distance 250 Other Goals up/down 9 steps R rail and 4 steps L rail ascending SBA Days to Meet Goals 10 Frequency of Treatment Frequency Of Once a Day Treatment Treatment Plan Physical Therapy Bed Mobility Training,Transfer Training,Gait Training, Treatment Plan Therapeutic Exercise,Balance Retraining,Discharge Planning,Hot or Cold Pack,Neuromuscular Re-ed, Coordination Retraining,Manual Therapy Precautions Other Precautions BP; falls Recommendations To Nursing Amount of Assist 1 Person Assist Needed Discharge Recommendations PT Discharge Home with 11/02 Assist Available,Home Health Recommendations Transportation Needs Private Vehicle at Discharge - PT assist 1
--- NOTE | 2025-05-26 10:32 | ST.IPIE ---
Visit Care Team Role Provider Type David Wyatt MD Primary Care Provider Physician Specialty: Internal Medicine Address: [address] [place] [address], [id number] Email: [email or web address] [email or web address] DO Emergency Provider Physician Referring Provider Specialty: Emergency Medicine Address: [address] [place] [address], [id number] Email: [email or web address] [email or web address] Provider Physician Attending Provider Specialty: Medical Address: [address] [place] [address], [id number] Email: [email or web address] [email or web address] Transient cerebral ischemic attack, unspecified (05/25/25) Past Medical History (Last Reviewed 05/25/25 @ 08:58 by Kierra Bergeron DO) Actinic keratosis (Medical) Anemia (Medical ~1974) BPH w urinary obs/LUTS (Medical) Chicken pox (Medical ~1948) Chronic anticoagulation (Medical) Chronic kidney disease, stage 3b (Medical) Chronic low back pain without sciatica (Medical) Compression fracture of L3 lumbar vertebra (Medical) Compression fracture of L4 vertebra (Medical) Coronary artery disease (Medical) Deficient knowledge of open reduction and internal (ORIF) fixation of hip (Medical) Essential hypertension (Medical) Facet arthropathy, lumbar (Medical) Fractures (Medical ~2019) GERD without esophagitis (Medical) Hammertoe of left foot (Medical) Hearing loss (Medical) History of TIA (transient ischemic attack) (Medical ~2018) Idiopathic peripheral neuropathy (Medical) Lumbar compression fracture (Medical) Lumbar stenosis with neurogenic claudication (Medical) Measles (Medical ~1952) Mixed hyperlipidemia (Medical) Obstructive sleep apnea (Medical) Orthostatic hypotension (Medical) Paroxysmal atrial fibrillation (Medical) Primary osteoarthritis involving multiple joints (Medical) Pulmonary nodule (Medical) Risk for falls (Medical) Slow transit constipation (Medical) Systolic CHF, chronic (Medical) Venous (peripheral) insufficiency (Medical) ST IP Initial Evaluation Report REINSURANCE ANALYST Adult Cognitive Linguistic Eval Start: 05/26/25 10:04 Freq: Status: Active Protocol: Document 05/26/25 10:05 SS (Rec: 05/26/25 10:32 SS [email or web address]) Adult Cognitive Linguistic Evaluation Session Time Visit Start Time 09:15 Visit Stop Time 09:58 Total Visit Minutes 43 Visit Information Visit Number [address] Rajat Lindo MD Reason for Referral Expressive aphasia, disorintation Setting Assessment Location Acute Care Visit Type Note Type Initial evaluation Next Note Type Next Note Type Treatment Note Patient Information Identification Type Name Patient History Per H&P: 85-year-old right-handed male with history of atrial fibrillation on Pradaxa, hypertension, dyslipidemia, CHF with prior cardiac ablation presents awoke this morning with a left frontal headache and difficulty responding to certain words. He described losing some cognitive abilities and experiencing visual disturbance where monocular vision was intact but binocular vision caused him to not see. He was able to dress himself and ambulate with his usual cane. No new weakness or numbness. His reports he was at baseline at 3 AM, speaking normally. No chest pain, dyspnea, or recent illness. Dr. Wyatt is his primary care physician. ED Course (Dr. Bergeron): Labs labs show white count, hemoglobin and platelets, coags are negative, creatinine is 1.28 was 1.38 and April of 2025, BUN 35 electrolytes are appropriate glucose is 120 LFTs are negative troponin 0.017. ETOH is negative EKG atrial paced rhythm with prolonged AV conduction left axis deviation rate of 62 [place] 1-24 QRS of 102 QTC of 475. No acute ST changes appreciated from 12/25/[address] shows no acute intracranial pathology CT head and neck angio no significant intracranial arterial abnormality no significant rebound or the arteries of the neck questionable filling defect personal included left pulmonary artery versus partial inner fact partially seen inferior margin of the exam feel the flu is a clinical concern for PE recommend CT pulmonary angiogram for further evaluation. Patient's NIH is 3, 1 for aphasia but just with the pictures he is able to read sentences. Had difficulty with heel-mckeon with the seemed to be more an issue with following commands he had good movement otherwise. Patient is outside the window for tPA he is on Pradaxa. On exam patient does not appear to have had a stroke he has significant difficulty with identifying objects. Did not ambulate him in the department but noticed some gait instability suspect he did have a stroke. REINSURANCE ANALYST completed assessment for expressive/receptive language and cognitive-communication to assess current function. 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 Not wearing hearing aids today. Vision Vision Status Impaired Comments s/p cataract surgery Previous Therapy Previous Speech- No Language Therapy Subjective Patient Report Chart reviewed and RN consulted. RN reported pt has passed nursing swallowing screen. His speech is intelligible. Word-finding and orientation seem to be resolving, though not yet fully. Pt sitting in bed upon REINSURANCE ANALYST arrival with spouse and adult children at bedside. Pt's spouse reported word-finding difficulty seems to be improving, though not yet back to baseline. When discussing baseline function at home, pt stated he occasionally forgets to take all of his medications at the correct time, only remembering the next day. His spouse also reported occasionally writing the wrong amount on checks. Since hospitalization, pt has had difficulty with orientation to date (specifically the year) and recalling events that occurred earlier in the day. Pt and family denied concerns re: swallowing and speech intelligibilty. He has a mildly hoarse vocal quality at baseline. Mental Status Alert,Responsive,Cooperative Assessment Oral Motor Yes Examination Completed Results CRANIAL NERVE EXAM CN V (Trigeminal): intact b/l CN VII (Facial): intact b/l CN IX/X (Glossopharyngeal/Vagus): Unable to exclude CN X branch involvement 2/2 dysphonia CN XII (Hypoglossal): intact b/l Lingual, labial, buccal, and jaw strength, range of motion, and coordination are WNL. Informal Assessment Receptive Language Yes Normal Expressive Language Yes Normal Pragmatic Language Yes Normal Speech Normal Yes Cognition Normal No Cognitive Impairment Orientation,Attention,Short-term memory,Executive (s) functioning Formal Assessment Administration Complete Results The Quick Aphasia Battery (QAB): The Quick Aphasia Battery (QAB) aims to provide a reliable and multidimensional assessment of language function. The QAB is made up of eight subtests, each comprising sets of items that probe different language domains, vary in difficulty, and are scored with a graded system to maximize the informativeness of each item. From the eight subtests, eight summary measures are derived, which constitute a multidimensional profile of language function, quantifying strengths and weaknesses across core language domains Word comprehension 10.00 Sentence comprehension 10.00 Word finding 9.25 Grammatical construction 10.00 Speech motor programming 10.00 Repetition 10.00 Reading 10.00 QAB overall 9.90 no aphasia The [facility] Mental Status (UMS) Examination was used to obtain information regarding the patient?s cognitive abilities. The SLUMS consists of ten questions that assess delayed recall, verbal fluency, comprehension, calculations, attention, working memory, and orientation. A scored is calculated from a possible 30 points. Scores fall in one of three ranges describing a patient?s level of impairment based upon level of education. Patients who have completed high school are expected to score slightly higher on this test than those who have not. For someone with a high school education, WNL is 27-30. The SLUMS was completed on this date. Subtest scores are as follows: Orientation: 1/3 Immediate Recall: 5/5 (not calculated in total score) Numeric Calculation: 3/3 Divergent Namin/3 (total of 10) Delayed Recall: 2/5 Attention/Registration with Digit Span: 0/2 Clock Drawing (Visuospatial & Executive Functionin/ 4 Geometric Figures: 2/2 Short Story (memory/recall): 6/8 With a college education, a total score of 18/30 falls within the ?dementia? range which is indicative of mild -moderate cognitive-communication impairment. Findings/Results Language Function Within normal limits Cognitive Function Mild-moderately impaired Findings Given informal assessment and results from CLQT, the pt presents with mild-moderate cognitive-communication impairment (R41.841) characterized by impaired orientation, short-term memory, word-finding, and executive functioning. Expressive aphasia appears to be fully resolved. Residual word-finding difficulties appear to be improving. Pt is at elevated risk of making critical errors with tasks such as medication management, personal financial advisor, and completion of windows vmware administrator, as well as everyday tasks that require adequate skills in the areas of attention, immediate and delayed memory, and executive functioning. Recommend 1:[address] with the goal of providing therapeutic education and training in use of beneficial cognitive-communication compensatory strategies, specifically targeting attention, immediate and delayed memory, and word-finding for improved safety and independence in the home. Prognosis Prognosis Good Based on Family support,Duration of symptoms/severity,Other ( comment) Comment Symptoms slowly resolving spontaneously Plan of Care Speech-Language Yes Treatment Frequency Daily Duration During current admission Patient/Caregiver Described results of evaluation,Patient expressed Education understanding of evaluation,Patient expressed agreement with goals and treatment plans Short Term Goals 1. Patient will explore external compensatory strategies through education and application, in order to select 1-2 that are a best fit for daily needs (ex: calendar and writing lists). 2. Patient will utilize compensatory word-finding strategies with 90% accuracy to increase word-finding skills during complex conversational tasks. 3. Patient will complete functional medication management tasks with 100% accuracy using internal and external compensatory strategies to improve medication management skills and increase safety and independence at home. Station Tender Goals Patient will complete cognitive communication tasks with independent use of strategies or tools as needed to complete baseline tasks without difficulty. Discharge Home with Home Health,Outpatient therapy Recommendations
--- NOTE | 2025-05-26 11:00 | DI.CT.S_ITS ---
PROCEDURE: CT HEAD/BRAIN W CON
[2025-05-26 11:16] VITALS: BP 105/66; PULSE 61; RESP 18; TEMP 36.6; O2SAT 96
--- NOTE | 2025-05-26 12:58 | P.DS_ITS ---
History of Present Illness
--- NOTE | 2025-05-26 12:58 | PM.DS.1 ---
History of Present Illness History of Present Illness Date Patient Seen: 05/26/25 Chief complaint: ROMO, dizziness, aphasia, gait instability Narrative: Chief complaint: Headache and cognitive difficulties beginning this morning. ? History of Present Illness: 85-year-old right-handed male with history of atrial fibrillation on Pradaxa, hypertension, dyslipidemia, CHF with prior cardiac ablation presents awoke this morning with a left frontal headache and difficulty responding to certain words. He described losing some cognitive abilities and experiencing visual disturbance where monocular vision was intact but binocular vision caused him to not see. He was able to dress himself and ambulate with his usual cane. No new weakness or numbness. His reports he was at baseline at 3 AM, speaking normally. No chest pain, dyspnea, or recent illness. Dr. Wyatt is his primary care physician. ? ED Course (Dr. Bergeron): Labs labs show white count, hemoglobin and platelets, coags are negative, creatinine is 1.28 was 1.38 and April of 2025, BUN 35 electrolytes are appropriate glucose is 120 LFTs are negative troponin 0.017. ETOH is negative EKG atrial paced rhythm with prolonged AV conduction left axis deviation rate of 62 [place] 1-24 QRS of 102 QTC of 475. No acute ST changes appreciated from 12/25/2024. Urine Head CT shows no acute intracranial pathology CT head and neck angio no significant intracranial arterial abnormality no significant rebound or the arteries of the neck questionable filling defect personal included left pulmonary artery versus partial inner fact partially seen inferior margin of the exam feel the flu is a clinical concern for PE recommend CT pulmonary angiogram for further evaluation. ? Patient's NIH is 3, 1 for aphasia but just with the pictures he is able to read sentences. Had difficulty with heel-mckeon with the seemed to be more an issue with following commands he had good movement otherwise. Patient is outside the window for tPA he is on Pradaxa. ? On exam patient does not appear to have had a stroke he has significant difficulty with identifying objects. Did not ambulate him in the department but noticed some gait instability suspect he did have a stroke. Save received aspirin 325 mg in the department Hospital course: Symptoms aphasia and visual disturbances resolved 05/26: No further symptoms slums score is 24/30 which is improved from previous of 18 there is no abnormalities of expression no focal neurologic findings CT of the head repeat shows no signs of stroke. Patient discharged to home Review of systems: No fever or chills rigors No chest pain palpitations shortness for breath No nausea vomiting diarrhea Paresthesia paresis Physical exam: Elderly male in no acute distress HEENT unremarkable No labored respiration Alert and oriented Cranial nerves intact Visual mcpherson intact Follows commands verbal expression intact Assessment and plan: TIA: Changed from Pradaxa to Eliquis in the setting of atrial fibrillation Otherwise no change Discharge to home Disposition: Discharge to home Follow up PCP Time based billin minutes were involved in the management this patient including [id number] evaluation discussion with patient and family review of imaging and laboratory objective findings and discussion with care management team Discharge Providers Provider Date of admission: 05/25/25 10:40 Discharge Date: 05/26/25 Primary care physician: David Wyatt MD Consults: 05/25/25 13:51 Consult to Physical Therapy Evaluate & Treat Comment: Physician Instructions: Evaluate and Treat Consult to Speech Therapy Evaluate & Treat Comment: Physician Instructions: Evaluate and treat 05/26/25 10:25 Consult to Pharmacy Routine Comment: if new meds. Discharge provider: Landon Jacobs MD Exam Vital Signs (past 8 hours): - 05/26/25 07:57 05/26/25 08:44 05/26/25 11:16 Temperature 97.1 F L 97.9 F Pulse Rate 60 61 Respiratory Rate 16 18 Blood Pressure 152/92 H 152/92 H 105/66 Pulse Oximetry 97 96 Oxygen Delivery Method Room Air Oxygen Flow Rate 0 Objective Labs 05/25/25 08:30 05/26/25 04:47 Labs: Laboratory Results - last 24 hr 05/26/25 04:47 Sodium 137 Potassium 4.3 Chloride 108 H Carbon Dioxide 20 L BUN 31 H Creatinine 0.96 Estimated GFR > 60 BUN/Creatinine Ratio 32.3 H Glucose 100 H Calcium 9.1 PFSH Medical History Risk for falls Chronic kidney disease, stage 3b Deficient knowledge of open reduction and internal (ORIF) fixation of hip GERD without esophagitis Hammertoe of left foot Slow transit constipation Lumbar stenosis with neurogenic claudication Facet arthropathy, lumbar Compression fracture of L4 vertebra Compression fracture of L3 lumbar vertebra Actinic keratosis Primary osteoarthritis involving multiple joints Coronary artery disease Venous (peripheral) insufficiency Systolic CHF, chronic Obstructive sleep apnea Hearing loss Fractures (~2019) Measles (~1953) Chicken pox (~1949) Anemia (~1975) Chronic anticoagulation History of TIA (transient ischemic attack) (~2019) Chronic low back pain without sciatica Idiopathic peripheral neuropathy BPH w urinary obs/LUTS Mixed hyperlipidemia Essential hypertension Paroxysmal atrial fibrillation Lumbar compression fracture Pulmonary nodule Orthostatic hypotension Surgical History Anesthesia Status post cardiac pacemaker procedure (~03/2021) Status post recent transurethral resection of prostate Status post left partial knee replacement Status post circumferential ablation of pulmonary vein Family History Father Kidney failure Mother Congestive heart failure Brother Stroke Sister Cancer Social History (Updated 05/25/25 @ 15:39 by Gloria Medina) marital status: household members: spouse pets and animals: Yes Smoking Status: Former smoker Tobacco: How many years used: 4 alcohol intake: former substance use type: does not use Discharge Plan Discharge Plan Patient Disposition: Home Discharge orders & Medications Prescriptions: New Eliquis 5 mg Tablet 5 mg PO BID Qty: 180 0RF Continued dabigatran etexilate [Pradaxa] 150 mg capsule 150 mg PO BID Qty: 180 3RF rosuvastatin 40 mg tablet 40 mg PO DAILY Qty: 90 3RF (DME) Parking Permit... See Rx Instructions .Route .MEDSUPPLY Qty: 1 0RF Rx Instructions: As directed omeprazole 20 mg capsule,delayed release(DR/EC) 20 mg PO DAILY Qty: 90 3RF celecoxib 100 mg capsule 100 mg PO BID Qty: 180 3RF carvedilol 25 mg tablet 25 mg PO BID Rx Instructions: must administer with a meal/food Jardiance 10 mg tablet 10 mg PO DAILY Qty: 90 3RF ipratropium bromide 21 mcg (0.03 %) spray,non-aerosol 2 spray intranasal BID cetirizine 10 mg Tablet 10 mg PO DAILY gabapentin 300 mg capsule 300 mg PO 2XD Discontinued cholecalciferol (vitamin D3) 25 mcg (1,000 unit) capsule 25 mcg PO 3XW Follow up/Referrals: David Wyatt MD [Primary Care Provider, Internal Medicine] Visit Report/Discharge Packet Stand Alone Forms: Patient Portal/API, Stroke Signs & Symptoms Discharge Data Primary Care Provider: David Wyatt VTE Deep Vein Thrombosis/Pulmonary Embolism Present on Admission: No
--- NOTE | 2025-05-26 13:02 | CM.DANOTE ---
DCP Assessment Note: Pt is a 85yo male, resident of [place], is admitted for Transient CVA, gait instability. Pt lives in a house with his . Pt's Primary Care Provider is Dr. David Wyatt and insurance is [facility]. Reviewed chart and discussed with multidisciplinary team pt's medical status and initial discharge needs. DCP met w/patient at bedside; introduced self and role. Pt spouse and adult children are in the room. Patient was found in bed, alert and oriented, cooperative with assessment. Pt confirmed living situation and good support in family. Pt expressed preference in discharge home with home health. Pt has a hx of home health but couldn't remember agency. Per PT/OT, recommending home with home health. SAMMY sent referral via secure email to [facility] for RN and PT, signed orders also sent. Plan: Anticipating discharge home with family to transport on 05/26, [facility] to follow with care. CM team will follow closely for coordination of discharge plans. Roseanne Blanton [facility] Discharge Planning/Care Management Advanced directive, confirm from FAMILY Start: 05/25/25 13:24 Freq: Q24H Status: Active Protocol: Document 05/25/25 13:24 SH (Rec: 05/25/25 22:48 SH [id number]) Advance Directive, confirm on record Time 21:00 Person contacted pt Copy received No CM Discharge Assessment Start: 05/25/25 10:53 Freq: Status: Active Protocol: Document 05/26/25 13:00 MW (Rec: 05/26/25 13:02 MW [id number]) Discharge Planning Assessment Assigned Discharge SAMMY Cronin Finish Repairer Provider Dr. David Wyatt Insurance [facility] DPOA/Assigned Ken Torres Designee Name Contact Information [phone] Advance Directives? Yes Advance Directives No on File History Provided By Patient,Medical Record Prior Living House Arrangements Household Members spouse Type of Drives own vehicle transporation used prior to admit Independent with ADL Yes 's Is patient alert and Yes oriented? DME Already Rented / Cane Owned Comment Spouse available to assist as needed. Patient/Family Home with Home Health Preference Discharge Plan Home with Home Health Transportation Spouse available to provide transport Arrangement Referrals Initiated Home Health If patient plan is Yes home with home health: Has signed face to face form been completed? Medicare Choice List Yes Provided SNF/HH Preference No preference Review Status In Process Please Provide Date 05/26/25 Initial DC Assessment Was Performed Next Review Type Continued Stay Review
--- NOTE | 2025-05-26 14:17 | PC.NURSE ---
Pt is dressed and ready for discharge home with Family. IV and tele have been removed. Went over d/c instructions with Pt and family-discussed d/c meds, time of last dose, reviewed stroke education, reviewed CHF guidelines sheet and recommended Pt post it on his fridge. Reminded Pt if he has stroke symptoms to come to the ER right away. Encourged Pt to exercise, eat healthy, watch his salt intake, and drink plenty of fluids to prevent constipation or dehydration. Reminded Pt that being on a blood thinner can caused increased bleeding and bruising and recommended Pt be aware of this and talk to his PCP if this increases. Pt and Family denied further questions and Pt was taken out via w/c by CLIENT MANAGER to POV with family and all belongings.
== END 2025-05-26 14:23 | disposition home health service (06) | DRG 69 ==
LOC: ED 10:22 → AC 10:41
PROVIDERS: Admitting Provider Family Medicine; Emergency Provider Emergency Medicine; PCP Internal Medicine; Referring Provider Emergency Medicine; Visit Provider Family Medicine
DX: G45.9 Transient cerebral ischemic attack, unspecified (principal); I48.20 Chronic atrial fibrillation, unspecified; R47.01 Aphasia; I13.0 Hypertensive heart and chronic kidney disease with heart failure and stage 1 through stage 4 chronic kidney disease, or unspecified chronic kidney disease; I50.30 Unspecified diastolic (congestive) heart failure; I16.0 Hypertensive urgency; H53.8 Other visual disturbances; N18.31 Chronic kidney disease, stage 3a; E78.5 Hyperlipidemia, unspecified; K21.9 Gastro-esophageal reflux disease without esophagitis; Z79.01 Long term (current) use of anticoagulants; Z87.891 Personal history of nicotine dependence
CPT/HCPCS: 36415; 70450; 70460; 70496; 70498; 80048; 80053; 80305; 80320; 81001; 82550; 84484; 85025; 85610; 85730; 92523; 93005; 93306; 97116; 97162; 97530; 99284; 99285; Q9967

== ENCOUNTER 2025-06-24 14:10 | Emergency (ER) | payer OTHER, SELFPAY ==
[2025-05-25 10:53] VITALS: BMI 24.0
[2025-06-24] VITALS (7 sets, daily range): BP systolic 120–146; BP diastolic 65–84; PULSE 59–60; RESP 14–18; TEMP 36.1; O2SAT 94–99; BMI 23.0
--- NOTE | 2025-06-24 14:34 | DI.RAD.S_ITS ---
PROCEDURE: XR CHEST 1V INDICATIONS: Chest Pain TECHNIQUE: One view of the chest was acquired. COMPARISON: [facility], CR, XR CHEST 1V, 12/25/2024, 15:55. FINDINGS: Surgical changes and devices: left-sided cardiac pacer device is in place. Lungs and pleura: Minimal streaky bibasilar opacities favored to represent atelectasis. No focal consolidations. No pleural effusions or pneumothorax. Mediastinum: Mediastinal contours appear normal. Heart size is normal. Bones and chest wall: No suspicious bony lesions. Overlying soft tissues appear unremarkable. IMPRESSION: No acute cardiopulmonary abnormalities or focal consolidation. Dictated by: Ajay Hampton M.D. on 06/24/2025 at 16:04 Approved by: Ajay Hampton M.D. on 06/24/2025 at 16:05
--- NOTE | 2025-06-24 14:36 | EKG_ITS ---
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
[2025-06-24 14:55] LABS: Add Manual Diff / Slide Review NO; Hematocrit 43.2 % (41-53); Hemoglobin 14.2 g/dL (13.5-17.5); Lymphocytes Absolute Auto 1800 /uL (1100-4500); Mean Corpuscular HGB Conc 32.8 % (30-36); Mean Corpuscular Hemoglobin 29.9 PG (26-34); Mean Corpuscular Volume 91.0 fL (80-100); Platelet Count 159 X10^3/uL (150-400)
[2025-06-24 15:08] LABS: Alanine Aminotransferase 18 IU/L (<50); Albumin 4.2 g/dL (3.5-5.0); Albumin Globulin Ratio 1.4 (1.0-2.8); Alkaline Phosphatase 84 U/L (38-126); Blood Urea Nitrogen 38 mg/dL (9-20); Calcium 9.2 mg/dL (8.4-10.2); Carbon Dioxide 23 mmol/L (22-32); Chloride 109 mmol/L (98-107); Creatine Kinase 82 U/L (55-170); Estimated Glomerular Filt Rate 45 mL/min (>60); Globulin 3.0 g/dL (1.7-4.1); Glucose 123 mg/dL (70-99); HEMOLYSIS < 15 (0-50); Lipase 72 U/L (23-300); Magnesium 2.2 mg/dL (1.6-2.3); Potassium 5.0 mmol/L (3.4-5.1); Sodium 141 mmol/L (137-145); Total Protein 7.2 g/dL (6.3-8.2)
[2025-06-24 15:11] LABS: INR 1.2 (0.9-1.3); Prothrombin Time 13.4 SECONDS (9.4-12.5)
[2025-06-24 15:14] LABS: PTT Partial Thromboplastin Tim 31 SECONDS (25.1-36.5)
[2025-06-24 15:21] LABS: NT-proBNP (BNP-Adult 18+) 1540 pg/mL (<450); Troponin I 0.013 ng/mL (0.01-0.034)
--- NOTE | 2025-06-24 16:51 | ED.RECABL ---
HPI - Recheck/Abnormal Lab/Rx General Chief Complaint: Recheck/Abnormal Lab/Rx Stated Complaint: BLood pressure extremely high & Edema 1day+ Time Seen by Provider: 06/24/25 16:24 Source: patient and family Mode of arrival: Wheelchair History of Present Illness HPI narrative: 85-year-old male with history of recent TIA, heart failure, is getting home health care for stroke rehab over the past month. Patient denies any acute complaint however home health nurse noted a ?high blood pressure reading at home. The son can not remember what it is. denies any worsening fevers, chills, nausea, vomiting, diarrhea, abdominal pain, chest pain, shortness of breath, dizziness, headache, or urinary symptoms. Related Data Home Medications ?Medication ?Instructions ?Recorded ?Confirmed cetirizine 10 mg tablet 10 mg PO DAILY 01/30/19 06/01/25 ipratropium bromide 21 mcg (0.03 2 spray intranasal BID 04/14/25 06/01/25 %) nasal spray gabapentin 300 mg capsule 300 mg PO 2XD 05/25/25 06/01/25 Previous Rx's ?Medication ?Instructions ?Recorded Parking Permit... #1 ea 04/04/22 celecoxib 100 mg capsule 100 mg PO BID #180 caps 01/28/25 omeprazole 20 mg capsule,delayed 20 mg PO DAILY #90 caps 01/28/25 release empagliflozin 10 mg tablet 10 mg PO DAILY #90 tabs 02/17/25 (Jardiance) rosuvastatin 40 mg tablet 40 mg PO DAILY #90 tabs 04/20/25 apixaban 5 mg tablet (Eliquis) 5 mg PO BID #180 tabs 06/01/25 carvedilol 12.5 mg tablet 12.5 mg PO BID #180 tabs 06/16/25 Allergies Allergy/AdvReac Type Severity Reaction Status Date / Time amiodarone Allergy Verified 06/24/25 14:33 Review of Systems Review of Systems ROS Unobtainable: All systems reviewed & are unremarkable except as noted in HPI and below Patient History Medical History (Updated 06/24/25 @ 16:56 by Sarthak Alejandro MD) Do not resuscitate History of vertebral compression fracture Cerebrovascular disease Risk for falls Chronic kidney disease, stage 3b Deficient knowledge of open reduction and internal (ORIF) fixation of hip GERD without esophagitis Hammertoe of left foot Slow transit constipation Lumbar stenosis with neurogenic claudication Facet arthropathy, lumbar Actinic keratosis Primary osteoarthritis involving multiple joints Coronary artery disease Venous (peripheral) insufficiency Systolic CHF, chronic Obstructive sleep apnea Hearing loss Fractures (~2019) Measles (~195) Chicken pox (~1949) Anemia (~1974) Chronic anticoagulation History of TIA (transient ischemic attack) (~2018) Chronic low back pain without sciatica Idiopathic peripheral neuropathy BPH w urinary obs/LUTS Mixed hyperlipidemia Essential hypertension Paroxysmal atrial fibrillation Pulmonary nodule Orthostatic hypotension Surgical History Anesthesia Status post cardiac pacemaker procedure (~03/2021) Status post recent transurethral resection of prostate Status post left partial knee replacement Status post circumferential ablation of pulmonary vein Family History Father Kidney failure Mother Congestive heart failure Brother Stroke Sister Cancer Social History (Updated 05/25/25 @ 15:39 by Gloria Medina) marital status: household members: spouse pets and animals: Yes Tobacco: How many years used: 4 alcohol intake: former substance use type: does not use alcohol intake frequency: holidays/special occasions only Exam Narrative Exam Narrative: Patient with 2+ pitting edema in bilateral lower extremities, steady per son and patient Initial Vital Signs Initial Vital Signs: Vital Signs Temperature 97.0 F L 06/24/25 14:27 Pulse Rate 59 L 06/24/25 14:27 Respiratory Rate 18 06/24/25 14:27 Blood Pressure 120/65 06/24/25 14:27 Pulse Oximetry 98 06/24/25 14:27 Oxygen Delivery Method Room Air 06/24/25 14:27 Const General: cooperative, healthy appearing, comfortable, well developed and well hydrated Nutritional Appearance: average body habitus [facility] Head: normal to inspection Ears: external ears normal Nose: external nose normal and nares normal Face and sinus: sinuses nontender, face symmetric, ecchymosis not on the right, not on the left and not bilaterally, erythema not on the right, not on the left and not bilaterally and edema not on the right, not on the left and not bilaterally Mouth: lip normal Eyes General: Yes appearance normal, both eyes and all related structures Eyelids: eyelids normal Sclera: sclerae normal Pupils: PERRL Neck Neck: normal visual inspection Resp Effort & Inspection: normal respiratory effort and able to speak in complete sentences Cardio Rate: regular rate Rhythm: regular rhythm Pulses: radial pulses present GI Inspection: normal to inspection and non-distended General: bimanual renal exam normal bilaterally Back/Spine/Pelvis Back: normal to inspection Skin General: no rashes or lesions noted Neuro General: patient alert, patient awake, patient oriented x3, gait normal, moves all extremities, normal light touch, pain and propioception, no focal motor deficits and CN's II-XI intact bilaterally Cognition: normal cognition Speech: speech normal Gait: normal gait Motor: muscle tone normal throughout Sensory Exam: no sensory deficits noted Extrem General: normal to inspection Psych Appearance: grossly normal Mental Status: mental status grossly normal Speech and Movement: speech and movement normal Mood: congruent mood Attitude: cooperative Thought Process: normal Thought Content: normal Judgment: judgment good Course Orders Ordered: ED Orders 06/24/25 14:34 XR chest 1V Stat EKG-12 Lead Stat 06/24/25 14:45 Complete Blood Count AUTO DIFF Stat Comprehensive Metabolic Panel Stat Lipase Stat Magnesium Stat NT-proBNP (BNP-Adult 18+) Stat PTT Partial Thromboplastin Edwin Stat Prothrombin Time INR Stat Troponin & CK Cardiac Panel Stat Vital Signs Vital signs: Vital Signs - 8 hr 06/24/25 14:27 Temperature 97.0 F L Pulse Rate 59 L Respiratory Rate 18 Blood Pressure 120/65 Pulse Oximetry 98 Oxygen Delivery Method Room Air MDM - Recheck/Abnormal Lab/Rx Lab Data 06/24/25 14:45 06/24/25 14:45 Labs: Lab Results 06/24/25 Range/Units 14:45 WBC 6.4 (4.5-11.0) X10^3/uL RBC 4.74 (4.5-5.9) X10^6/uL Hgb 14.2 (13.5-17.5) g/dL Hct 43.2 (41-53) % MCV 91.0 (80-100) fL MCH 29.9 (26-34) PG MCHC 32.8 (30-36) % RDW 13.9 (11.6-14.8) % Plt Count 159 (150-400) X10^3/uL Neut % (Auto) 59.9 (50-75) % Lymph % (Auto) 27.9 (25-40) % [place] % (Auto) 8.1 (3-14) % Eos % (Auto) 3.2 (2-4) % Baso % (Auto) 0.9 (0-2) % Neut # (Auto) 3900 (0680-7155) /uL Lymph # (Auto) 1800 (0628-5537) /uL [place] # (Auto) 500 (0-900) /uL Eos # (Auto) 200 (0-450) /uL Baso # (Auto) 100 (0-100) /uL PT 13.4 H (9.4-12.5) SECONDS INR 1.2 (0.9-1.3) APTT 31 (25.1-36.5) SECONDS Sodium 141 (137-145) mmol/L Potassium 5.0 (3.4-5.1) mmol/L Chloride 109 H (98-107) mmol/L Carbon Dioxide 23 (22-32) mmol/L BUN 38 H (9-20) mg/dL Creatinine 1.49 H (0.66-1.25) mg/dL Estimated GFR 45 L (>60) mL/min BUN/Creatinine Ratio 25.5 H (6-22) Glucose 123 H (70-99) mg/dL Calcium 9.2 (8.4-10.2) mg/dL Magnesium 2.2 (1.6-2.3) mg/dL Total Bilirubin 0.8 (0.2-1.3) mg/dL AST 28 (17-59) IU/L ALT 18 (<50) IU/L Alkaline Phosphatase 84 (38-126) U/L Total Creatine Kinase 82 (55-170) U/L Troponin I 0.013 (0.01-0.034) ng/mL NT-Pro-B Natriuret Pep 1540 H (<450) pg/mL Total Protein 7.2 (6.3-8.2) g/dL Albumin 4.2 (3.5-5.0) g/dL Globulin 3.0 (1.7-4.1) g/dL Albumin/Globulin Ratio 1.4 (1.0-2.8) Lipase 72 (23-300) U/L ECG Data Interpretation: EKG is normal sinus rhythm and free of any signs of ischemia or ectopy. No ST segmental elevation or depression. No T wave inversions MDM Narrative Medical decision making narrative: Pt presents w/reported single episode of hypertension at home. Chest x-ray for consideration of pneumonia, pneumothorax, or congestive heart failure. EKG, troponin in consideration of arrhythmia, Acute Coronary Syndrome, Acute Myocardial Infarction. Check labs due to consideration of anemia, electrolyte abnormalities, including hypokalemia, hyperkalemia, hyponatremia, hypernatremia, hyperglycemia, hypoglycemia. No CT chest indicated as I considered but do not clinically suspect aortic dissection/pulmonary embolism. Re-eval Patient normotensive in the ER during his stay without intervention. Patient is stable for discharge Discharge Plan Departure Patient Disposition: Home Clinical Impression: Labile hypertension Instructions: Hypertension (Alternative Therapy) Activity Restrictions/Additional Instructions: Please return to ED if you have worsening chest pain, shortness of breath, dizziness, nausea, passing out, or any other concern. Si el dolor de pecho sigue, pierde conocimiento, tiene problemas con respiraci?n o cualquier otra yesenia, por favor vuelve a urgencias. Prescriptions: No Action rosuvastatin 40 mg tablet 40 mg PO DAILY Qty: 90 3RF carvedilol 12.5 mg tablet 12.5 mg PO BID Qty: 180 3RF Rx Instructions: must administer with a meal/food (DME) Parking Permit... See Rx Instructions .Route .MEDSUPPLY Qty: 1 0RF Rx Instructions: As directed omeprazole 20 mg capsule,delayed release(DR/EC) 20 mg PO DAILY Qty: 90 3RF celecoxib 100 mg capsule 100 mg PO BID Qty: 180 3RF Eliquis 5 mg tablet 5 mg PO BID Qty: 180 3RF Jardiance 10 mg tablet 10 mg PO DAILY Qty: 90 3RF ipratropium bromide 21 mcg (0.03 %) spray,non-aerosol 2 spray intranasal BID cetirizine 10 mg Tablet 10 mg PO DAILY gabapentin 300 mg capsule 300 mg PO 2XD Referrals: David Wyatt MD [Primary Care Provider, Internal Medicine] Stand Alone Forms: Patient Portal/API
== END 2025-06-24 17:20 | disposition home or self-care (01) ==
PROVIDERS: Emergency Provider Emergency Medicine; PCP Internal Medicine
DX: I10 Essential (primary) hypertension (principal); Z86.73 Personal history of transient ischemic attack (TIA), and cerebral infarction without residual deficits; Z86.79 Personal history of other diseases of the circulatory system; Z87.891 Personal history of nicotine dependence
CPT/HCPCS: 36415; 71045; 80053; 82550; 83690; 83735; 83880; 84484; 85025; 85610; 85730; 93005; 99283; 99284

== ENCOUNTER 2025-07-11 21:48 | Inpatient (IN) | payer OTHER, SELFPAY ==
[2025-05-25 10:53] VITALS: BMI 24.0
[2025-07-11 22:24] VITALS: BP 172/95; PULSE 94; RESP 22; O2SAT 93; BMI 23.4
[2025-07-11 22:30] VITALS: BP 160/87; PULSE 82; RESP 19; O2SAT 93
--- NOTE | 2025-07-11 23:07 | ED.WEAKNESS ---
HPI - Weakness General Chief complaint: Weakness Stated complaint: weakness Source: patient and family Mode of arrival: EMS History of Present Illness HPI Narrative: 85-year-old male with a history of atrial fibrillation on Eliquis, hypertension, dyslipidemia, CHF with prior cardiac ablation is brought here due to having some weakness in the past day and a half. He is alert and oriented x3. He says that he is having more difficulty standing up in the last day and a half and is being evaluated in a wheelchair. He says that potentially both of his hips can be the issue. He denies any other symptoms. He denies any unilateral weakness in his fast exam is negative. Related Data Home Medications ?Medication ?Instructions ?Recorded ?Confirmed cetirizine 10 mg tablet 10 mg PO DAILY 01/30/19 07/12/25 ipratropium bromide 21 mcg (0.03 2 spray intranasal BID 04/14/25 07/12/25 %) nasal spray gabapentin 300 mg capsule 300 mg PO 2XD 05/25/25 07/12/25 Previous Rx's ?Medication ?Instructions ?Recorded Parking Permit... #1 ea 04/04/22 celecoxib 100 mg capsule 100 mg PO BID #180 caps 01/28/25 omeprazole 20 mg capsule,delayed 20 mg PO DAILY #90 caps 01/28/25 release empagliflozin 10 mg tablet 10 mg PO DAILY #90 tabs 02/17/25 (Jardiance) rosuvastatin 40 mg tablet 40 mg PO DAILY #90 tabs 04/20/25 apixaban 5 mg tablet (Eliquis) 5 mg PO BID #180 tabs 06/01/25 carvedilol 12.5 mg tablet 12.5 mg PO BID #180 tabs 06/16/25 Allergies Allergy/AdvReac Type Severity Reaction Status Date / Time amiodarone Allergy Verified 06/24/25 14:33 Review of Systems Review of Systems ROS Unobtainable: All systems reviewed & are unremarkable except as noted in HPI and below Patient History Medical History (Updated 07/12/25 @ 03:53 by Ray Lugo MD) Do not resuscitate History of vertebral compression fracture Cerebrovascular disease Risk for falls Chronic kidney disease, stage 3b Deficient knowledge of open reduction and internal (ORIF) fixation of hip GERD without esophagitis Hammertoe of left foot Slow transit constipation Lumbar stenosis with neurogenic claudication Facet arthropathy, lumbar Actinic keratosis Primary osteoarthritis involving multiple joints Coronary artery disease Venous (peripheral) insufficiency Systolic CHF, chronic Obstructive sleep apnea Hearing loss Fractures (~2019) Measles (~1952) Chicken pox (~1949) Anemia (~1974) Chronic anticoagulation History of TIA (transient ischemic attack) (~2018) Chronic low back pain without sciatica Idiopathic peripheral neuropathy BPH w urinary obs/LUTS Mixed hyperlipidemia Essential hypertension Paroxysmal atrial fibrillation Pulmonary nodule Orthostatic hypotension Surgical History Anesthesia Status post cardiac pacemaker procedure (~03/2021) Status post recent transurethral resection of prostate Status post left partial knee replacement Status post circumferential ablation of pulmonary vein Family History Father Kidney failure Mother Congestive heart failure Brother Stroke Sister Cancer Social History (Updated 05/25/25 @ 15:39 by Gloria Medina) marital status: household members: spouse pets and animals: Yes Smoking Status: Former smoker Tobacco: How many years used: 4 alcohol intake: former substance use type: does not use Smoking Status: Former smoker alcohol intake frequency: holidays/special occasions only Exam Initial Vital Signs Initial Vital Signs: Vital Signs Pulse Rate 94 H 07/11/25 22:24 Respiratory Rate 22 07/11/25 22:24 Blood Pressure 172/95 H 07/11/25 22:24 Pulse Oximetry 93 07/11/25 22:24 Oxygen Delivery Method Room Air 07/11/25 22:24 Course Orders Ordered: ED Orders 07/11/25 23:15 XR pelvis 1-2V Stat 07/11/25 23:17 CT head/brain wo con Stat 07/11/25 23:18 EKG-12 Lead Stat 07/11/25 23:37 Ammonia (NH3) Stat CBC Auto Diff [Complete Blood Count AUTO DIFF] Stat CMP [Comprehensive Metabolic Panel] Stat CRP [C-Reactive Protein Quant] Stat Lactate (Lactic Acid) Stat 07/12/25 01:06 UA dip [Urinalysis Screen (Dip Only)] Stat Urine Microscopic Stat 07/12/25 02:34 CT pelvis wo con Stat 07/13/25 06:00 Basic Metabolic Panel DAILY Complete Blood Count AUTO DIFF DAILY Acetaminophen (Acetaminophen 325 Mg Tablet) 650 mg PO Q6H PRN PRN Reason: Fever/Mild Pain (1-3) Hydrocodone Bitart/Acetaminophen (Hydrocodone/Acet 5/325 Tablet) 1 tab PO Q4H PRN PRN Reason: Pain, Moderate (4-6) Apixaban (Apixaban 5 Mg Tablet) 5 mg PO BID [facility] Carvedilol (Carvedilol 12.5 Mg Tablet) 12.5 mg PO BID [facility] Celecoxib (Celecoxib 100 Mg Capsule) 100 mg PO BID [facility] Gabapentin (Gabapentin 300 Mg Capsule) 300 mg PO 2XD [facility] Morphine Sulfate (Morphine 4 Mg/Ml Inj) 3 mg IV Q2HR PRN PRN Reason: Pain, Severe (7-10) Naloxone HCl (Naloxone 0.4 Mg/Ml Vial) 0.2 mg IV Q2MIN PRN PRN Reason: Opiate Reversal Non-Formulary Medication (Cetirizine) 10 mg PO DAILY [facility] Non-Formulary Medication (Empagliflozin [Jardiance]) 10 mg PO DAILY [facility] Non-Formulary Medication (Ipratropium [place]) 2 spray NASAL BID [facility] Non-Formulary Medication (Omeprazole) 20 mg PO DAILY [facility] Non-Formulary Medication (Rosuvastatin) 40 mg PO DAILY [facility] Ondansetron HCl (Ondansetron 4 Mg/2 Ml Inj) 4 mg IV Q8HR PRN PRN Reason: Nausea And Vomiting Vital Signs Vital signs: Vital Signs - 8 hr 07/11/25 22:24 07/11/25 22:30 07/11/25 23:31 Temperature Pulse Rate 94 H 82 78 Respiratory Rate 22 19 18 Blood Pressure 172/95 H 160/87 H 143/81 H Pulse Oximetry 93 93 92 Oxygen Delivery Method Room Air Room Air Room Air 07/12/25 02:17 07/12/25 02:32 Temperature 98.3 F 99.8 F H Pulse Rate 95 H 76 Respiratory Rate 16 Blood Pressure 163/82 H 165/78 H Pulse Oximetry 92 92 Oxygen Delivery Method Room Air MDM - Weakness Lab Data 07/11/25 23:37 07/11/25 23:37 Labs: Lab Results 07/11/25 07/12/25 Range/Units 23:37 01:06 WBC 9.6 (4.5-11.0) X10^3/uL RBC 4.84 (4.5-5.9) X10^6/uL Hgb 14.2 (13.5-17.5) g/dL Hct 43.5 (41-53) % MCV 89.9 (80-100) fL MCH 29.3 (26-34) PG MCHC 32.6 (30-36) % RDW 13.9 (11.6-14.8) % Plt Count 159 (150-400) X10^3/uL Neut % (Auto) 84.9 H (50-75) % Lymph % (Auto) 6.3 L (25-40) % [place] % (Auto) 7.6 (3-14) % Eos % (Auto) 0.9 L (2-4) % Baso % (Auto) 0.3 (0-2) % Neut # (Auto) 8100 H (6438-4420) /uL Lymph # (Auto) 600 L (7744-1003) /uL [place] # (Auto) 700 (0-900) /uL Eos # (Auto) 100 (0-450) /uL Baso # (Auto) 0 (0-100) /uL Sodium 143 (137-145) mmol/L Potassium 5.0 (3.4-5.1) mmol/L Chloride 111 H (98-107) mmol/L Carbon Dioxide 24 (22-32) mmol/L BUN 31 H (9-20) mg/dL Creatinine 1.30 H (0.66-1.25) mg/dL Estimated GFR 54 L (>60) mL/min BUN/Creatinine Ratio 23.8 H (6-22) Glucose 110 H (70-99) mg/dL Lactate 1.4 (0.7-2.1) mmol/L Calcium 9.3 (8.4-10.2) mg/dL Total Bilirubin 0.8 (0.2-1.3) mg/dL AST 24 (17-59) IU/L ALT 16 (<50) IU/L Alkaline Phosphatase 88 (38-126) U/L Ammonia < 9 L (9-30) umol/L C-Reactive Protein 1.1 H (<1.0) mg/dL Total Protein 7.1 (6.3-8.2) g/dL Albumin 4.2 (3.5-5.0) g/dL Globulin 2.9 (1.7-4.1) g/dL Albumin/Globulin Ratio 1.4 (1.0-2.8) Urine Color Yellow Urine Appearance Clear Urine pH 5.5 (4.5-8.0) Ur Specific [place] 1.020 (1.000-1.035) Urine Protein Trace H (Negative) Urine Glucose (UA) 3+ H (Negative) g/dL Urine Ketones Negative (NEGATIVE) Urine Occult Blood Negative (Negative) Urine Nitrate Negative (Negative) Urine Bilirubin Negative (NEGATIVE) Urine Urobilinogen 0.2 (0.2) E.U./dL Ur Leukocyte Esterase Negative (NEGATIVE) Urine RBC 0-1/hpf (0-5/HPF) Urine WBC None seen (0-5/HPF) Ur Squamous Epith Cells 1-5 /hpf (0-5/HPF) Ur Transition Epith Cell 0-1/hpf (0-5/HPF) Urine Bacteria Occasional (0-1) (None) Hyaline Casts 0-1/lpf (None) Granular Casts 0-1/lpf (None) Ur Culture Indicated? Cult not indicated Vol Urine Centrifuged 10ml (spun) Imaging Data CT scan - head: Radiologist Impression: No acute intracranial abnormality. If there is high concern for parenchymal pathology, consider further evaluation with MRI. Retro-orbital masslike lesions are seen, new from prior imaging. Differential includes true soft tissue mass lesions versus multiple varix Correlate with any symptoms. Consider orbit MRI to further evaluate. Extremity x-ray #1: Radiologist Impression: Moderate bilateral hip arthrosis, with joint space narrowing. No displaced acute fracture or dislocation. Left hip fixation construct again seen. Lumbosacral degenerative changes. Large colorectal fecal loading. If there is high concern for further derangement, consider MRI evaluation. pelvis ct: Radiologist Impression: No acute fracture some arthritis seen. ECG Data Interpretation: EKG shows atrial fibrillation picture with left axis deviation at 96 beats per minute. No changes from previous EKG. [facility] Narrative Medical decision making narrative: 85-year-old male with a history of atrial fibrillation on Eliquis, hypertension, dyslipidemia, congestive heart failure with prior cardiac ablation is brought in for some weakness in the past day. Patient is alert and oriented but it having much more difficulty ambulating. He could not pass a road test here in the ED. His imaging was negative for any acute fracture or other explanation for this weakness. His labs also could not explain a reason for the sudden weakness. More likely dealing with musculoskeletal issues. Patient will be admitted under observation for possible rehab care. Hospitalist Dr. Navarro graciously will admit the patient. Discharge Plan Departure Patient Disposition: Admitted as Observation Clinical Impression: Weakness Admit Date/Time: 07/12/25 02:34 Admit Provider: Brock Navarro
--- NOTE | 2025-07-11 23:15 | DI.RAD.S_ITS ---
PROCEDURE: XR PELVIS 1-2V INDICATIONS: bilateral pelvic pain/difficulty ambulating TECHNIQUE: 2 view(s) of the pelvis acquired. COMPARISON: [facility], CR, XR HIP 2 VIEWS BILATERAL, 12/13/2022, 9:30. [facility], CR, XR PELVIS 1-2V, 01/30/2019, 14:59. FINDINGS AND IMPRESSION: Moderate bilateral hip arthrosis, with joint space narrowing. No displaced acute fracture or dislocation. Left hip fixation construct again seen. Lumbosacral degenerative changes. Large colorectal fecal loading. If there is high concern for further derangement, consider MRI evaluation. Dictated by: Bull Rooj M.D. on 07/12/2025 at 0:07 Approved by: Bull Rojo M.D. on 07/12/2025 at 0:08
--- NOTE | 2025-07-11 23:17 | DI.CT.S_ITS ---
PROCEDURE: CT HEAD/BRAIN WO CON INDICATIONS: weakness TECHNIQUE: Noncontrast 4.5 mm thick angled axial sections acquired from the foramen magnum to the vertex, with coronal and sagittal reformats. For radiation dose reduction, the following was used: automated exposure control, adjustment of mA and/or kV according to patient size. COMPARISON: [facility], CT, CT HEAD/BRAIN WO CON, 05/26/2025, 6:54. FINDINGS: Image quality: Diagnostic CSF spaces: Basal cisterns are patent. Lateral ventricles are symmetric. Volume: Vascular calcifications. Periventricular white matter disease is commonly seen with chronic microangiopathy. Volume loss is present. These findings are moderate to severe Brain: No acute hemorrhage. No gross loss of jain-white differentiation Craniofacial structures: No significant paranasal sinus opacity. Retro-orbital masslike lesions are seen on the right measuring up to 1.3 cm. IMPRESSION: No acute intracranial abnormality. If there is high concern for parenchymal pathology, consider further evaluation with MRI. Retro-orbital masslike lesions are seen, new from prior imaging. Differential includes true soft tissue mass lesions versus multiple varix Correlate with any symptoms. Consider orbit MRI to further evaluate. Dictated by: Bull Rojo M.D. on 07/12/2025 at 0:27 Approved by: Bull Rojo M.D. on 07/12/2025 at 0:30
--- NOTE | 2025-07-11 23:18 | EKG_ITS ---
[place] [id number] [place] [id number] Test Date: 2025-07-11 Pat Name: Wicho Cao Department: [facility] Room: Gender: Male Flavorer: KARINE : 1940 Requested By: Order Number: [id number] Reading MD: Austin Doshi MD Measurements Intervals [place] Rate: 96 P: DC: QRS: -74 QRSD: 90 T: 85 QT: 388 QTc: 490 Interpretive Statements Poor data quality, interpretation may be adversely affected Atrial fibrillation Left axis deviation Inferior-posterior infarct , age undetermined Electronically Signed On 07-13-2025 7:40:05 PST by Austin Doshi MD
[2025-07-11 23:31] VITALS: BP 143/81; PULSE 78; RESP 18; O2SAT 92
[2025-07-11 23:48] LABS: Add Manual Diff / Slide Review NO; Hematocrit 43.5 % (41-53); Hemoglobin 14.2 g/dL (13.5-17.5); Lymphocytes Absolute Auto 600 /uL (1100-4500); Mean Corpuscular HGB Conc 32.6 % (30-36); Mean Corpuscular Hemoglobin 29.3 PG (26-34); Mean Corpuscular Volume 89.9 fL (80-100); Platelet Count 159 X10^3/uL (150-400)
[2025-07-11 23:57] LABS: Ammonia (NH3) < 9 umol/L (9-30); Lactate (Lactic Acid) 1.4 mmol/L (0.7-2.1)
[2025-07-11 23:58] LABS: Alanine Aminotransferase 16 IU/L (<50); Albumin 4.2 g/dL (3.5-5.0); Albumin Globulin Ratio 1.4 (1.0-2.8); Alkaline Phosphatase 88 U/L (38-126); Blood Urea Nitrogen 31 mg/dL (9-20); Calcium 9.3 mg/dL (8.4-10.2); Carbon Dioxide 24 mmol/L (22-32); Chloride 111 mmol/L (98-107); Estimated Glomerular Filt Rate 54 mL/min (>60); Globulin 2.9 g/dL (1.7-4.1); Glucose 110 mg/dL (70-99); HEMOLYSIS 28 (0-50); Potassium 5.0 mmol/L (3.4-5.1); Sodium 143 mmol/L (137-145); Total Protein 7.1 g/dL (6.3-8.2)
[2025-07-12] VITALS (7 sets, daily range): BP systolic 114–165; BP diastolic 77–97; PULSE 61–95; RESP 16–22; TEMP 36.2–37.7; O2SAT 92–97; BMI 23.4
[2025-07-12 01:15] LABS: Appearance Urine UA CLEAR; Bilirubin Urine UA NEGATIVE (NEGATIVE); Color Urine UA YELLOW; Glucose Urine UA 3+ g/dL (Negative); Ketones Urine UA NEGATIVE (NEGATIVE); Leukocyte Esterase Urine UA NEGATIVE (NEGATIVE); Nitrite Urine UA NEGATIVE (Negative); Occult Blood Urine UA NEGATIVE (Negative); Protein Urine UA TRACE (Negative); Specific Gravity Urine UA 1.020 (1.000-1.035); Urobilinogen Urine UA 0.2 E.U./dL (0.2); pH Urine UA 5.5 (4.5-8.0)
[2025-07-12 01:23] LABS: Culture Indicated Urine Cult Not Indicated
--- NOTE | 2025-07-12 02:34 | DI.CT.S_ITS ---
PROCEDURE: CT PEL WO CON INDICATIONS: diffuculty ambulating TECHNIQUE: Noncontrast 3 mm axial sections acquired through the bony pelvis, with coronal and sagittal reformatting. For radiation dose reduction, the following was used: automated exposure control, adjustment of mA and/or kV according to patient size. COMPARISON: [facility], CR, XR PELVIS 1-2V, 07/11/2025, 23:15. [facility], CT, CT PEL WO CON, 01/30/2019, 15:10. FINDINGS: Image quality: Excellent. Bones: Postsurgical changes from left proximal femoral fracture fixation with mild associated metal streak artifact. No acute osseous fracture or dislocation. There is generalized bony demineralization. At least moderate joint space narrowing in the hips bilaterally with small marginal osteophytes. Degenerative changes are seen in the sacroiliac joints and included spine. Soft tissues: No significant soft tissue hematoma is seen or significant joint effusion. There is mild generalized loss of muscle bulk. Bilateral fat containing inguinal hernias are present. A loop of small bowel abuts the mouth of the inguinal hernia on the left without irma herniation or obstruction. The bladder is decompressed by [place] catheter and contains air. A few diverticula are seen in the included colon without acute inflammatory changes. Aortic atherosclerotic calcifications are present. IMPRESSION: 1. No acute osseous abnormality. 2. Postsurgical changes from prior left proximal femoral fracture fixation. 3. Degenerative changes is seen in the hips and spine. There is no significant discrepancy when compared to the overnight preliminary report. Approved by: Bj Gerard M.D. on 07/12/2025 at 7:59
--- NOTE | 2025-07-12 04:07 | PM.HP.1 ---
History of Present Illness History of Present Illness Date Patient Seen: 07/12/25 Time Patient Seen: 04:07 Chief complaint: weakness Narrative: 85-year-old male with past medical history of atrial fibrillation on Eliquis, hypertension, CHF, dyslipidemia and arrhythmias status post cardiac ablation presents with generalized weakness and right hip pain. Per the patient's report, the patient has had increased weakness over the past day and a half. The patient states his weakness is just generalized but he also has some right hip pain. The patient denies any falling or injury directly to his hip. The patient does note that he has osteoarthritis in the past. Orthopedic denies any fever, chills, nausea, vomit, diarrhea, chest or shortness of breath. The patient states that he is at home. In the emergency room, patient was hemodynamically stable and saturating well on room air. Labs shows a creatinine of 1.3 but otherwise benign. UA was negative for any sign of UTI. X-ray of the hip shows no acute finding. CT hip is pending. Due to ongoing pain management consult ER physician request admission for pain control with PT OT. Possible placement. [facility] Medical History (Updated 07/12/25 @ 03:53 by Ray Lugo MD) Do not resuscitate History of vertebral compression fracture Cerebrovascular disease Risk for falls Chronic kidney disease, stage 3b Deficient knowledge of open reduction and internal (ORIF) fixation of hip GERD without esophagitis Hammertoe of left foot Slow transit constipation Lumbar stenosis with neurogenic claudication Facet arthropathy, lumbar Actinic keratosis Primary osteoarthritis involving multiple joints Coronary artery disease Venous (peripheral) insufficiency Systolic CHF, chronic Obstructive sleep apnea Hearing loss Fractures (~2019) Measles (~195) Chicken pox (~1949) Anemia (~1974) Chronic anticoagulation History of TIA (transient ischemic attack) (~2018) Chronic low back pain without sciatica Idiopathic peripheral neuropathy BPH w urinary obs/LUTS Mixed hyperlipidemia Essential hypertension Paroxysmal atrial fibrillation Pulmonary nodule Orthostatic hypotension Surgical History Anesthesia Status post cardiac pacemaker procedure (~03/2021) Status post recent transurethral resection of prostate Status post left partial knee replacement Status post circumferential ablation of pulmonary vein Family History Father Kidney failure Mother Congestive heart failure Brother Stroke Sister Cancer Social History (Updated 05/25/25 @ 15:39 by Gloria Medina) marital status: household members: spouse pets and animals: Yes Smoking Status: Former smoker Tobacco: How many years used: 4 alcohol intake: former substance use type: does not use Meds Home Medications and Allergies Home Medications ?Medication ?Instructions ?Recorded ?Confirmed ?Type cetirizine 10 mg tablet 10 mg PO DAILY 01/30/19 07/12/25 History Parking Permit... #1 ea 04/04/22 06/01/25 Rx celecoxib 100 mg capsule 100 mg PO BID #180 caps 01/28/25 07/12/25 Rx omeprazole 20 mg capsule,delayed 20 mg PO DAILY #90 caps 01/28/25 07/12/25 Rx release empagliflozin 10 mg tablet 10 mg PO DAILY #90 tabs 02/17/25 07/12/25 Rx (Jardiance) ipratropium bromide 21 mcg (0.03 2 spray intranasal BID 04/14/25 07/12/25 History %) nasal spray rosuvastatin 40 mg tablet 40 mg PO DAILY #90 tabs 04/20/25 07/12/25 Rx gabapentin 300 mg capsule 300 mg PO 2XD 05/25/25 07/12/25 History apixaban 5 mg tablet (Eliquis) 5 mg PO BID #180 tabs 06/01/25 07/12/25 Rx carvedilol 12.5 mg tablet 12.5 mg PO BID #180 tabs 06/16/25 07/12/25 Rx Allergies Allergy/AdvReac Type Severity Reaction Status Date / Time amiodarone Allergy Verified 06/24/25 14:33 Review of Systems Review of Systems ROS: Yes All systems reviewed with the patient and are negative except as otherwise documented Exam Vital Signs (past 8 hours): - 07/11/25 22:24 07/11/25 22:30 07/11/25 23:31 Temperature Pulse Rate 94 H 82 78 Respiratory Rate 22 19 18 Blood Pressure 172/95 H 160/87 H 143/81 H Pulse Oximetry 93 93 92 Oxygen Delivery Method Room Air Room Air Room Air Oxygen Flow Rate 07/12/25 02:17 07/12/25 02:32 07/12/25 03:00 Temperature 98.3 F 99.8 F H 98.2 F Pulse Rate 95 H 76 74 Respiratory Rate 16 22 Blood Pressure 163/82 H 165/78 H 161/97 H Pulse Oximetry 92 92 96 Oxygen Delivery Method Room Air Room Air Oxygen Flow Rate 07/12/25 03:25 Temperature Pulse Rate 76 Respiratory Rate 16 Blood Pressure 165/87 H Pulse Oximetry 92 Oxygen Delivery Method Oxygen Flow Rate 0 Oxygen Delivery Method Room Air Oxygen Flow Rate 0 Narrative Exam Narrative: Physical Exam: GENERAL: The patient is not in any acute distressed. Awake and alert. HEENT: Nonicteric sclerae, PERRLA, EOMI. Oropharynx clear. Moist mucous membranes. Conjunctivae appear well perfused. HEART: Regular rate and rhythm without murmurs. No lower extremities edema. LUNGS: Clear to auscultation bilaterally. No wheezing, crackles or rhonchi ABDOMEN: Soft, positive bowel sounds, nontender. SKIN: No rash, no excessive bruising, petechiae, or purpura. NEUROLOGIC: AxO x 3. Cranial nerves II-XII intact without motor/sensory deficit. Objective Labs 07/11/25 23:37 07/11/25 23:37 Labs: Laboratory Results - last 24 hr 07/11/25 07/12/25 23:37 01:06 WBC 9.6 RBC 4.84 Hgb 14.2 Hct 43.5 MCV 89.9 MCH 29.3 MCHC 32.6 RDW 13.9 Plt Count 159 Neut % (Auto) 84.9 H Lymph % (Auto) 6.3 L [place] % (Auto) 7.6 Eos % (Auto) 0.9 L Baso % (Auto) 0.3 Neut # (Auto) 8100 H Lymph # (Auto) 600 L [place] # (Auto) 700 Eos # (Auto) 100 Baso # (Auto) 0 Sodium 143 Potassium 5.0 Chloride 111 H Carbon Dioxide 24 BUN 31 H Creatinine 1.30 H Estimated GFR 54 L BUN/Creatinine Ratio 23.8 H Glucose 110 H Lactate 1.4 Calcium 9.3 Total Bilirubin 0.8 AST 24 ALT 16 Alkaline Phosphatase 88 Ammonia < 9 L C-Reactive Protein 1.1 H Total Protein 7.1 Albumin 4.2 Globulin 2.9 Albumin/Globulin Ratio 1.4 Urine Color Yellow Urine Appearance Clear Urine pH 5.5 Ur Specific [place] 1.020 Urine Protein Trace H Urine Glucose (UA) 3+ H Urine Ketones Negative Urine Occult Blood Negative Urine Nitrate Negative Urine Bilirubin Negative Urine Urobilinogen 0.2 Ur Leukocyte Esterase Negative Urine RBC 0-1/hpf Urine WBC None seen Ur Squamous Epith Cells 1-5 /hpf Ur Transition Epith Cell 0-1/hpf Urine Bacteria Occasional (0-1) Hyaline Casts 0-1/lpf Granular Casts 0-1/lpf Ur Culture Indicated? Cult not indicated Vol Urine Centrifuged 10ml (spun) Assessment & Plan Assessment & Plan narrative: Generalized weakness with right hip pain admit the patient to medical observation. Again x-ray of the hip shows no acute finding though will obtain a CT scan to ensure there is no small fracture that is missed on x-ray. Will continue pain control with PT OT. Patient may proceed lives alone and is a high fall risk. CKD stage IV. Patient's creatinine is close to baseline. Today is 1.3. Monitor for now. Hypertension monitor blood pressure resume home medication accordingly. Atrial fibrillation resume home Eliquis and rate control agent. Diabetes. Monitor glucose resume medication. DVT prophylax Eliquis CODE STATUS DNR/DNI. Disposition likely home versus rehab in 1 to 2 days - As the provider of this telehealth evaluation, requested by the patient's evaluating physician, I attest that I introduced myself to the patient, provided my credentials and determined that telemedicine via a real-time, 2 way interactive audio and video platform is an appropriate and effective means of providing this service. - I reviewed the patient's chart and had a discussion with the member of the patient's treatment team. - The patient and I mutually agreed with continuation of this evaluation via telemedicine. The patient consented for the telemedicine evaluation. - This virtual encounter was taken place from [place] by Dr. Brock Navarro. The patient was evaluated at [facility]. The encounter was approximately 35 minutes. The nurse was present during the entire time of the encounter and was able assists with the stethoscope to listen to the patients. Time-Based Coding :: [TOTAL MINUTES] spent with patient and on the chart (including review of chart, obtaining history, exam, reviewing outside data, placing orders, documenting exam and treatment plan, and counseling patient) on [DATE].
[2025-07-12] MEDS: GABAPENTIN 300 MG CAPSULE PO ×2 (08:33→20:33)
[2025-07-12] MEDS: CELECOXIB 100 MG CAPSULE PO ×2 (08:33→20:33)
[2025-07-12] MEDS: LORATADINE 10 MG TABLET PO (08:33)
[2025-07-12] MEDS: ATORVASTATIN 20 MG TABLET 80 MG PO (08:33)
[2025-07-12] MEDS: PANTOPRAZOLE DR 20 MG TABLET PO (08:33)
[2025-07-12] MEDS: APIXABAN 5 MG TABLET PO ×2 (08:33→20:33)
--- NOTE | 2025-07-12 09:10 | PC.NURSE ---
Patient is pleasant, he is alert and oriented x2, somewhat forgetful. His heart rate is regular, and he does have a pacemaker. Denies pain and is eating breakfast now.
--- NOTE | 2025-07-12 12:56 | PC.NURSE ---
Pt stable and pleasant this shift. VSS. Family present at the bedside and curious what the plan is, PT/OT has been working with pt. Pt's expressed concern about caring for pt in his current state as he is intermittently very weak. Will continue to monitor.
--- NOTE | 2025-07-12 13:51 | PT.IIE ---
Surgical History (Last Reviewed 06/01/25 @ 09:38 by David Wyatt MD) Anesthesia Status post cardiac pacemaker procedure (~03/2021) Status post circumferential ablation of pulmonary vein Status post left partial knee replacement Status post recent transurethral resection of prostate Medical History (Last Updated 06/01/25 @ 10:17 by David Wyatt MD) Actinic keratosis Anemia (~1974) BPH w urinary obs/LUTS Cerebrovascular disease Chicken pox (~194) Chronic anticoagulation Chronic kidney disease, stage 3b Chronic low back pain without sciatica Coronary artery disease Deficient knowledge of open reduction and internal (ORIF) fixation of hip Do not resuscitate Essential hypertension Facet arthropathy, lumbar Fractures (~2019) GERD without esophagitis Hammertoe of left foot Hearing loss History of TIA (transient ischemic attack) (~2018) History of vertebral compression fracture Idiopathic peripheral neuropathy Lumbar stenosis with neurogenic claudication Measles (~1952) Mixed hyperlipidemia Obstructive sleep apnea Orthostatic hypotension Paroxysmal atrial fibrillation Primary osteoarthritis involving multiple joints Pulmonary nodule Risk for falls Slow transit constipation Systolic CHF, chronic Venous (peripheral) insufficiency Physical Therapy Inpatient Evaluation/Re-Eval M1 PT IP Prior Functional Status Start: 07/12/25 16:25 Freq: Status: Active Protocol: Document 07/12/25 16:25 NW (Rec: 07/12/25 16:44 NW [id number]) Medical Review Prior Functional Status Medical History Yes Reviewed Communication Pt is able to make needs known. Spouse and family present. Mobility and Gait Pt amb with QC and FWW. He also has a 4WW. Activities of Daily Pt was able to care for his BADLs, made his breakfast, Living and IADL's and drove 1 week ago. Pts spouse does most of the cooking and medication mgmt. They have a latex caster 2x /month. Social History Household Members spouse Living Arrangements House Number of Floors ( Two Floors Floors) Number of Stairs To Spouse reports 3 steps from garage with R rail that Enter/Railing? brings them to the downstairs level where their bedroom and bathroom is. Upstairs has the main living space and has a split stair case with a platform. There are ~14 steps to get to the second floor with a railing to hold on the R with a landing after first 4 steps. Home Environment High Toilet,Walk in Shower Home Equipment Front Wheel Walker,Four Wheel Walker,Quad Cane,Grab Bars In Shower Additional Social Pt has an adjustable bed. They used to have a shower History Comment chair, but are unsure if they have loaned it out or if it is in the attic. M2 PT-IP Current Condition Start: 07/12/25 16:25 Freq: Status: Active Protocol: Document 07/12/25 16:25 NW (Rec: 07/12/25 16:44 NW [id number]) Physical Therapy Current Condition Current Condition Evaluation Date 07/12/25 Treatment Diagnosis Weakness, R and L hip pain Onset Date 07/11/25 M3 PT-IP Subjective Start: 07/12/25 16:25 Freq: Status: Active Protocol: Document 07/12/25 16:25 NW (Rec: 07/12/25 16:44 NW [id number]) Subjective Physical Therapy Visit Type Type Initial Evaluation Visit Start Time 12:59 Visit Stop Time 13:51 Notes , daughter and son present for evaluation Number of LIBRARY CIRCULATION DEPARTMENT CHIEF Visits 0 Physical Therapy Visit Comments Patient Comments Pt is found seated in bed side chair visiting with family. Pt states he has been doing HH after a TIA within the last 6 weeks and was working towards the number of times he could stand from a seated position up to 10 in a row the day before he was admitted. He states pain in thighs is muscular in nature and both hips are achy, R increases with WBing. Additionally he has been riding his stationary bike frequently and was able to get off the ground prior to admittance. Patient Goals Go home. Therapy Pain Assessment Pain When Pain Assessed During Mobility Location Left Hip Intensity 6 Scale Used Numeric (0 - 10) Description Aching,Sharp Pain Management Modification of Treatment,Timing of Activity with Techniques Medications M4 PT-IP Mobility and Gait Start: 07/12/25 16:25 Freq: Status: Active Protocol: Document 07/12/25 16:25 NW (Rec: 07/12/25 16:44 NW [id number]) PT-Transfer Assessment Sit to and From Stand Sit to and from Contact Guard Assistance,1 Person Assistance,Use of Stand Upper Extremities Equipment Transfer Assistive Gait Belt,Front Wheeled Walker Device Transfers Transfer Destination Chair,Wheelchair Transfer Technique Stand Step Pivot Transfer Ability Level of Assist Contact Guard Assistance Comments Mobility Comments Cues for AD management and safety awareness with UE placement and to feel for surface prior to sitting while staying in the walker. Variable power production and eccentric control, with fatigue pt requires Kem to stand with posterior support from edge of bed and chair. cues for anterior weight shift with variable carryover. Gait Assessment Gait Gait Assistance Contact Guard Assist Required: Distance (Feet) 40 Assistive Devices Assistive Device Gait Belt,Front Wheeled Walker Gait Deviations General Gait Pattern Decreased Stride Length,Decreased Feet Clearance,Wide Based Gait Factors Limiting Gait Function Factors Limiting Decreased Strength,Poor Balance,Poor Safety Awareness Gait Function Comments Gait Comments Ambulated over 3 unequal trials with cues to maintain within the walker and to push the walker with each step . Stair Climbing Assessment Evaluation Level of Assist On Contact Guard Assistance,1 Person Assistance Stairs Devices Stair Climbing Right Railing Assistive Devices Technique/Endurance Stair Climbing Ascend and Descend Direction Stair Climbing Step Over Step Technique Number of Steps 3 Climbed Query Text: Stair Climbing Set # 2 Repetitions (reps) Comments Stair Climbing Performed with bilateral UE support on R railing upon Comments ascent and L upon descent. Variable eccentric control with dynamic knee valgus. No notable signs of fatigue. PT-Balance Assessment Sitting Balance and Reactions Static Sitting Normal Balance Ability Dynamic Sitting Good Balance Ability Standing Balance and Reactions Static Standing Fair Balance Ability Dynamic Standing Poor Balance Ability Device Used FWW Comments Other Balance Tests/ fair ankle strategy with posterior lean Deviations/Treatment : Functional Assessments Functional Tests 5 Times Sit to Stand 68 seconds M5 PT-IP Objective Assessments Start: 07/12/25 16:25 Freq: Status: Active Protocol: Document 07/12/25 16:25 NW (Rec: 07/12/25 16:44 NW [id number]) Orientation Orientation/Cognition Level of Alertness Alert Orientation Name,Age,Birthday,Month,Date,Year,Day of Week,Place, Situation Safety Awareness Decreased Safety Awareness Gross Range of Motion Lower Extremity ROM Assessment Within Functional Limits Strength Lower Extremity Strength Assessment Within Functional Limits Comments Strength Comments isolated strength testing WFL, pain with R hip flexion resistance Sensation Assessment Sensation Gross Sensation WNL M6 PT-IP Treatment Start: 07/12/25 16:25 Freq: Status: Active Protocol: Document 07/12/25 16:25 NW (Rec: 07/12/25 16:44 NW [id number]) Physical Therapy Treatment Education Education Provided Safety Other Treatments Other Treatment Education given on concerns for pt being a falls risk Performed and with the number of stairs at home with current level of activity tolerance. M7 PT-IP Assessment and Plan Start: 07/12/25 16:25 Freq: Status: Active Protocol: Document 07/12/25 16:25 NW (Rec: 07/12/25 16:44 NW [id number]) PT Summary Assessment and Plan Potential Rehabilitation Good Potential Status of Condition Stable at Evaluation Summary Impairments Strength,Transfers,Gait,Activity Tolerance Progress Towards Progressing Toward Goals Goals Assessment Summary Wicho is an 85 yr old male admitted for weakness and R hip pain with no structural integrity found on x-ray nor CT scan of pelvis. Pt at baseline has transitioned to utilizing FWW for within home ambulation and a can for stair navigation with unilateral hand rail as he lives with spouse in a multi-level home with family > 1 hour away. Pt and MD states that he has episodes of weakness in bilateral LE without a cause found. Pt tests WFL for isolated strength testing, but with increased repetitions during modified 5 x STS requires Kem to complete last 2 reps from bed height. Pt completed > 1 minute and is deemed a falls risk as a result. Pt is able to navigate 6 steps in single bout at [facility] with a step to gait pattern and unilateral hand railing, but often times needs cues for safety awareness. Pt and family are motivated to return home and continue with home health upon discharge. Educated family on concerns for being a high falls risk and possibly needing more help, spouse says she is able and family is able to assist for the next few weeks if necessary. Recommending HH upon discharge. Goals Bed Mobility Goal Independent Transfer Goal Independent Gait Goal Independent Gait Distance 50 Other Goals Pt will be able to navigate 14 steps with unilateral railing on R upon ascent. Frequency of Treatment Frequency Of Once a Day Treatment Treatment Plan Physical Therapy Bed Mobility Training,Transfer Training,Gait Training, Treatment Plan Therapeutic Exercise,Balance Retraining,Discharge Planning,Neuromuscular Re-ed Other Progress single bout ambulation distance and continue Recommendations and practice on stairs. Next Treatment Focus Precautions Other Precautions falls risk Weight Bearing Status Weight Bearing Weight Bear as Tolerated Status Recommendations To Nursing Amount of Assist 1 Person Assist Needed Discharge Recommendations PT Discharge Home with 11/02 Assist Available,Home Health Recommendations Other Discharge Continue to use FWW Recommendations Transportation Needs Private Vehicle at Discharge - PT assist 1
--- NOTE | 2025-07-12 13:57 | OT.IP.EVAL ---
Past Medical History (Last Updated 06/01/25 @ 10:17 by David Wyatt MD) Actinic keratosis Anemia (~1974) BPH w urinary obs/LUTS Cerebrovascular disease Chicken pox (~194) Chronic anticoagulation Chronic kidney disease, stage 3b Chronic low back pain without sciatica Coronary artery disease Deficient knowledge of open reduction and internal (ORIF) fixation of hip Do not resuscitate Essential hypertension Facet arthropathy, lumbar Fractures (~2019) GERD without esophagitis Hammertoe of left foot Hearing loss History of TIA (transient ischemic attack) (~2018) History of vertebral compression fracture Idiopathic peripheral neuropathy Lumbar stenosis with neurogenic claudication Measles (~1952) Mixed hyperlipidemia Obstructive sleep apnea Orthostatic hypotension Paroxysmal atrial fibrillation Primary osteoarthritis involving multiple joints Pulmonary nodule Risk for falls Slow transit constipation Systolic CHF, chronic Venous (peripheral) insufficiency Surgical History (Last Reviewed 06/01/25 @ 09:38 by David Wyatt MD) Anesthesia Status post cardiac pacemaker procedure (~03/2021) Status post circumferential ablation of pulmonary vein Status post left partial knee replacement Status post recent transurethral resection of prostate Occupational Therapy Inpatient Evaluation/Re-Eval M1 OT IP Prior Functional Status Start: 07/12/25 13:39 Freq: Status: Active Protocol: Document 07/12/25 12:00 [facility] (Rec: 07/12/25 13:57 [facility] Desktop) Medical Review Prior Functional Status Medical History Yes Reviewed Communication Pt is able to make needs known. Spouse and family present. Mobility and Gait Pt amb with QC and FWW. He also has a 4WW. Activities of Daily Pt was able to care for his BADLs, made his breakfast, Living and IADL's and drove 1 week ago. Pts spouse does most of the cooking and medication mgmt. They have a kiln charger 2x /month. Social History Household Members spouse Living Arrangements House Number of Floors ( Two Floors Floors) Number of Stairs To Spouse reports 2 steps from garage with R rail that Enter/Railing? brings them to the downstairs level where their bedroom is. Upstairs has the main living space and has a split stair case with a platform. There are ~14 steps to get to the second floor with a railing to hold on the R. Home Environment High Toilet,Walk in Shower Home Equipment Front Wheel Walker,Four Wheel Walker,Quad Cane,Grab Bars In Shower Additional Social Pt has an adjustable bed. They used to have a shower History Comment chair, but are unsure if they have loaned it out or if it is in the attic. M2 OT-IP Current Condition Start: 07/12/25 13:39 Freq: Status: Active Protocol: Document 07/12/25 12:[facility] (Rec: 07/12/25 13:57 [facility] Desktop) Occupational Therapy Current Condition Current Condition Evaluation Date 07/12/25 Treatment Diagnosis weakness, decreased self care Diagnosis Onset Date 07/11/25 M3 OT- IP Subjective and Pain Start: 07/12/25 13:39 Freq: Status: Active Protocol: Document 07/12/25 12:00 [facility]12[facility]- Subjective Occupational Therapy Visit Type Type Initial Evaluation Visit Start Time 12:00 Visit Stop Time 12:29 Occupational Therapy Visit Comments Patient Comments Pt resting in room with family present. Pt agreeable to OT eval. Patient/Caregiver To move around without pain. Goals OT Pain Assessment Pain When Pain Assessed At Rest Location Left Hip Scale Used does not rate Description Sharp M4 OT- IP ADL's Start: 07/12/25 13:39 Freq: Status: Active Protocol: Document 07/12/25 12:00 [facility] (Rec: 07/12/25 13:57 [facility] Desktop) OT QJN-[id number]-Nhaehbc General Evaluation Self-Feeding Ability Independent OT ADL-Grooming General Evaluation Grooming Ability Standby Assistance Comments OT Grooming Comments Pt performs hand hygiene with a washcloth while up in chair before his meal on setup. OT ADL-Oral Care Comments Oral Care Comments Not observed. OT ADL-Dressing General Eval Upper Body Dressing Minimal Assistance Ability Lower Body Dressing Standby Assistance Ability Areas Needing Socks Assistance Comments OT Dressing Comments Pt needed min A to tie his gown. Pt leaned fwd and donned his socks slowly with S while EOB. OT ADL-Toileting General Evaluation Toileting Ability Total Assistance Areas Needing Empty Catheter or Colostomy Assistance Comments OT Toileting Pt is currently dependent on catheter. Comments OT ADL-Bathing Comments OT Bathing Comments Not observed. M5 OT- IP IADL's Start: 07/12/25 13:39 Freq: Status: Active Protocol: Document 07/12/25 12:00 [facility] (Rec: 07/12/25 13:57 [facility] Desktop) OT-Instrumental Activities of Daily Living Deficits IADL Deficits No Deficits Identified Home Safety Awareness Awareness of Need Good Awareness for Assistance at Home Home Safety Comments Pt is aware of needing assistance. Medication Management Medication Caregiver Administers Management Money Management Money Management No Deficits Identified Meal Preparation Meal Preparation Caregiver Provides Assist Spiral Weaver Spiral Weaver Caregiver Provides Assist Driving Driving Caregiver Provides Assist M6 OT- IP Functional Cognition Start: 07/12/25 13:39 Freq: Status: Active Protocol: Document 07/12/25 12:[address] [facility] (Rec: 07/12/25 13:57 [facility] Desktop) Cognitive Factors Limiting Selfcare Function Cognitive Ability Level of Alertness Alert Patient Orientation Name,Year,Place,Situation Attention Span Capable of Focused Attention,Capable of Sustained Ability Attention Ability to Follow Able to Follow One Step Commands,Able to Follow Multi- Commands Step Commands Memory Description No Deficits Noted Cognitive Comments Cognitive Assessment Pt needed vcs for safety during functional tfs, Comments especially for pushing up from a surface and reaching back from a surface rather than keeping B UE on the FWW . OT- Vision and Hearing OT- Hearing Assessment OT- Hearing Hearing Impaired,Use of Hearing Aids Assessment OT- Vision Assessment Visual Acuity WFL M7 OT- IP Mobility and Balance Start: 07/12/25 13:39 Freq: Status: Active Protocol: Document 07/12/25 12:00 [facility] (Rec: 07/12/25 13:57 [facility] Desktop) OT- Bed Mobility Assessment Supine to Sit Supine to Sit Assist Contact Guard Assistance Scooting Scooting to Edge of Contact Guard Assistance Bed OT-Transfer Assessment Sit to and From Stand Sit to and from Contact Guard Assistance Stand Transfers Transfer Ability Contact Guard Assistance Technique Transfer Destination Chair Transfer Technique Stand Step Pivot Devices Transfer Assistive Gait Belt,Front Wheeled Walker Devices Comments Mobility Comments Pt BP in supine 111/72, oxygen sat on RA 94%. Pt performs bed mobility with CGA and increased time. Pt requires vcs for hand placement during sit<>stands for safety awareness. OT- Balance Assessment Sitting Balance and Reactions Static Sitting Normal Balance Ability Dynamic Sitting Good Balance Ability Standing Balance and Reactions Static Standing Good Balance Ability Dynamic Standing Fair Balance Ability M8 OT- IP Objective Assessments Start: 07/12/25 13:39 Freq: Status: Active Protocol: Document 07/12/25 12:00 [facility] (Rec: 07/12/25 13:57 [facility] Desktop) OT Gross Range of Motion Upper Extremity Range of Motion Assessment Within Functional Limits OT Strength Upper Extremity Strength Assessment Within Functional Limits Hand Churn Tender Strength Hand Dominance Right Comments Strength Comments Pt has 5/5 UE strength. OT- Coordination Assessment Comments Coordination Thumb to fingertips intact. Comments OT-Muscle Tone Assessment Muscle Tone WNL Yes OT Sensation Assessment Comments Summary Comments Pt denies any sensory deficits in UE. Edema Edema Absent Edema Comments No noted edema in LE, although family reports pt usually wears compression socks. M9 OT- IP Assessment and Plan Start: 07/12/25 13:39 Freq: Status: Active Protocol: Document 07/12/25 12:00 [facility] (Rec: 07/12/25 13:57 [facility] Desktop) OT Summary Assessment and Plan Potential Rehabilitation Excellent Potential Analytic Complexity Low at Evaluation Summary OT Impairments Pain,Balance,Functional Mobility,Grooming,Dressing, Toileting,Bathing,Toilet Transfers,Shower Transfers, Activity Tolerance Progress Towards Progressing Toward Goals Goals Assessment Summary Pt is an 85 yo M who had sudden onset hip pain and weakness. Xray and CT scan are negative. Pt c/o L hip p ! during eval, but family and chart documentation report a previous complaint of R hip p!. Pt does not rate hip p! but describes L hip as sharp and localized. Pt requires increased time for functional mobility and vcs for safety during tfs, presents with decreased BADLs, decreased activity tolerance, and impaired balance. Skilled OT services are appropriate to address these deficits and to promote return towards PLOF. If pt is able to manage stairs with PT, recommend, dc home with assistance and services. Pt left up in chair with all needs met, meal present, family present, and nsg notified. Goals Grooming Goal Independent Dressing Goal Independent Toileting Goal Independent Bathing Goal Independent Toilet Transfer Goal Independent Shower Transfer Goal Independent Days to Meet Goals 5 Frequency of Treatment Other frequency 5x/wk Treatment Plan OT Treatment Plan ADL Training,Functional Mobility,Therapeutic Exercises, Patient/Family Education,Discharge Planning Other Treatment sink side ADLs, shower if able Recommendations and Next Treatment Focus Discharge Recommendations OT Discharge Home with Assistance,Home Health Recommendations Home Equipment Needs shower chair, grab bar near commode or toilet safety frame Transportation Needs Private Vehicle at Discharge
--- NOTE | 2025-07-12 14:23 | DI.CT.S_ITS ---
PROCEDURE: CT ORBIT BI W CON INDICATIONS: retro-orbital mass vs varix on noncon CT TECHNIQUE: After the administration of intravenous contrast, 2.5 mm axial images acquired through the orbits, with coronal and sagittal reformats. For radiation dose reduction, the following was used: automated exposure control, adjustment of mA and/or kV according to patient size. COMPARISON: [facility], CT, CT HEAD/BRAIN WO CON, 05/26/2025, 6:54. [facility], CT, CT HEAD/BRAIN W CON, 05/26/2025, 11:07. [facility], CT, CT HEAD WITHOUT CONTRAST ANTICOAGULATED TRAUMA, 08/22/2023, 23:09. [facility], CT, CT HEAD/BRAIN WO CON, 07/11/2025, 23:17. FINDINGS: Image quality: Excellent. Orbits: Within the superior medial aspect of the right orbit, there is enhancing lesion seen measuring 15 x 13 mm in greatest axial dimension, with a craniocaudal extent of 12 mm. This is connected to the superior ophthalmic vein. There is also a similar enhancing lesion inferiorly, as on series 3, image 18 and on series 4, image 27, measuring 16 x 9 mm in greatest axial dimension with a craniocaudal extent of 10 mm. These lesions are clearly increased in size compared to the recent prior contrast enhanced CT dated 05/26/2025. Globes are symmetrical. The optic nerves are normal in size and enhancement. The extra-ocular muscles are normal and symmetrical in appearance. Lacrimal glands are normal. Optic chiasm is normal. Periorbital soft tissues are normal. Intracranial: The pituitary gland is normal, without sellar or suprasellar masses. Visualized cerebral hemispheres, brainstem, and spinal cord appear normal. Bones and sinuses: Visualized calvarium and facial bones appear intact. Visualized sinuses and mastoids are clear. IMPRESSION: On the right, there are 2 enlarging venous lesions seen (1 superiorly and 1 inferiorly) that are clearly increased in size compared to the 05/26/2025 the examination. These are attributed to venous varices. Ophthalmology consultation is recommended. Dictated by: Kalen Gardner M.D. on 07/12/2025 at 15:52 Approved by: Kalen Gardner M.D. on 07/12/2025 at 15:58
[2025-07-12 15:01] LABS: Creatine Kinase 49 U/L (55-170)
--- NOTE | 2025-07-12 17:40 | PM.DS.1 ---
History of Present Illness History of Present Illness Date Patient Seen: 07/12/25 Time Patient Seen: 17:41 Chief complaint: weakness Narrative: opened in error, discharge delayed Discharge Providers Provider Date of admission: 07/12/25 02:34 Discharge Date: 07/13/25 Primary care physician: David Wyatt MD Consults: 07/12/25 10:31 Consult to Occupational Therapy Evaluate & Treat Comment: Physician Instructions: Evaluate and treat Consult to Physical Therapy Evaluate & Treat Comment: Physician Instructions: Evaluate and Treat Discharge provider: Monae Yates MD Summary Hospital Course Discharge Diagnosis: Weakness Right hip pain Retro-orbital venous varices CKD stage 4 Hypertension Atrial fibrillation Diabetes Exam Vital Signs (past 8 hours): Oxygen Delivery Method Room Air Oxygen Flow Rate 0 Objective Labs 07/13/25 11:00 07/13/25 05:15 Labs: Laboratory Results - last 24 hr 07/11/25 07/12/25 07/12/25 23:37 01:06 14:42 WBC 9.6 RBC 4.84 Hgb 14.2 Hct 43.5 MCV 89.9 MCH 29.3 MCHC 32.6 RDW 13.9 Plt Count 159 Neut % (Auto) 84.9 H Lymph % (Auto) 6.3 L [place] % (Auto) 7.6 Eos % (Auto) 0.9 L Baso % (Auto) 0.3 Neut # (Auto) 8100 H Lymph # (Auto) 600 L [place] # (Auto) 700 Eos # (Auto) 100 Baso # (Auto) 0 Sodium 143 Potassium 5.0 Chloride 111 H Carbon Dioxide 24 BUN 31 H Creatinine 1.30 H Estimated GFR 54 L BUN/Creatinine Ratio 23.8 H Glucose 110 H Lactate 1.4 Calcium 9.3 Total Bilirubin 0.8 AST 24 ALT 16 Alkaline Phosphatase 88 Ammonia < 9 L Total Creatine Kinase 49 L C-Reactive Protein 1.1 H Total Protein 7.1 Albumin 4.2 Globulin 2.9 Albumin/Globulin Ratio 1.4 Urine Color Yellow Urine Appearance Clear Urine pH 5.5 Ur Specific [place] 1.020 Urine Protein Trace H Urine Glucose (UA) 3+ H Urine Ketones Negative Urine Occult Blood Negative Urine Nitrate Negative Urine Bilirubin Negative Urine Urobilinogen 0.2 Ur Leukocyte Esterase Negative Urine RBC 0-1/hpf Urine WBC None seen Ur Squamous Epith Cells 1-5 /hpf Ur Transition Epith Cell 0-1/hpf Urine Bacteria Occasional (0-1) Hyaline Casts 0-1/lpf Granular Casts 0-1/lpf Ur Culture Indicated? Cult not indicated Vol Urine Centrifuged 10ml (spun) [facility] Medical History (Updated 07/12/25 @ 03:53 by Ray Lugo MD) Do not resuscitate History of vertebral compression fracture Cerebrovascular disease Risk for falls Chronic kidney disease, stage 3b Deficient knowledge of open reduction and internal (ORIF) fixation of hip GERD without esophagitis Hammertoe of left foot Slow transit constipation Lumbar stenosis with neurogenic claudication Facet arthropathy, lumbar Actinic keratosis Primary osteoarthritis involving multiple joints Coronary artery disease Venous (peripheral) insufficiency Systolic CHF, chronic Obstructive sleep apnea Hearing loss Fractures (~2019) Measles (~1952) Chicken pox (~1948) Anemia (~1974) Chronic anticoagulation History of TIA (transient ischemic attack) (~2018) Chronic low back pain without sciatica Idiopathic peripheral neuropathy BPH w urinary obs/LUTS Mixed hyperlipidemia Essential hypertension Paroxysmal atrial fibrillation Pulmonary nodule Orthostatic hypotension Surgical History Anesthesia Status post cardiac pacemaker procedure (~03/2021) Status post recent transurethral resection of prostate Status post left partial knee replacement Status post circumferential ablation of pulmonary vein Family History Father Kidney failure Mother Congestive heart failure Brother Stroke Sister Cancer Social History (Updated 05/25/25 @ 15:39 by Gloria Medina) marital status: household members: spouse pets and animals: Yes Smoking Status: Former smoker Tobacco: How many years used: 4 alcohol intake: former substance use type: does not use Discharge Plan Discharge orders & Medications Prescriptions: No Action rosuvastatin 40 mg tablet 40 mg PO DAILY Qty: 90 3RF carvedilol 12.5 mg tablet 12.5 mg PO BID Qty: 180 3RF Rx Instructions: must administer with a meal/food (DME) Parking Permit... See Rx Instructions .Route .MEDSUPPLY Qty: 1 0RF Rx Instructions: As directed omeprazole 20 mg capsule,delayed release(DR/EC) 20 mg PO DAILY Qty: 90 3RF celecoxib 100 mg capsule 100 mg PO BID Qty: 180 3RF Eliquis 5 mg tablet 5 mg PO BID Qty: 180 3RF Jardiance 10 mg tablet 10 mg PO DAILY Qty: 90 3RF ipratropium bromide 21 mcg (0.03 %) spray,non-aerosol 2 spray intranasal BID cetirizine 10 mg Tablet 10 mg PO DAILY gabapentin 300 mg capsule 300 mg PO 2XD Follow up/Referrals: David Wyatt MD [Primary Care Provider, Internal Medicine] Visit Report/Discharge Packet Stand Alone Forms: [employer], Patient Portal/API, Stroke Signs & Symptoms, Influenza Vaccine Info, Notice of Privacy Practices, Inpatient vs Outpatient, Pneumococcal Vaccine Info, Pt. Rights & Responsibilities Discharge Data Primary Care Provider: David Wyatt V
--- NOTE | 2025-07-12 17:49 | PM.HP.1 ---
History of Present Illness History of Present Illness Chief complaint: weakness Narrative: opened in error [facility] Medical History (Updated 07/12/25 @ 03:53 by Ray Lugo MD) Do not resuscitate History of vertebral compression fracture Cerebrovascular disease Risk for falls Chronic kidney disease, stage 3b Deficient knowledge of open reduction and internal (ORIF) fixation of hip GERD without esophagitis Hammertoe of left foot Slow transit constipation Lumbar stenosis with neurogenic claudication Facet arthropathy, lumbar Actinic keratosis Primary osteoarthritis involving multiple joints Coronary artery disease Venous (peripheral) insufficiency Systolic CHF, chronic Obstructive sleep apnea Hearing loss Fractures (~2019) Measles (~1952) Chicken pox (~1948) Anemia (~1974) Chronic anticoagulation History of TIA (transient ischemic attack) (~2018) Chronic low back pain without sciatica Idiopathic peripheral neuropathy BPH w urinary obs/LUTS Mixed hyperlipidemia Essential hypertension Paroxysmal atrial fibrillation Pulmonary nodule Orthostatic hypotension Surgical History Anesthesia Status post cardiac pacemaker procedure (~03/2021) Status post recent transurethral resection of prostate Status post left partial knee replacement Status post circumferential ablation of pulmonary vein Family History Father Kidney failure Mother Congestive heart failure Brother Stroke Sister Cancer Social History (Updated 05/25/25 @ 15:39 by Gloria Medina) marital status: household members: spouse pets and animals: Yes Smoking Status: Former smoker Tobacco: How many years used: 4 alcohol intake: former substance use type: does not use Meds Home Medications and Allergies Home Medications ?Medication ?Instructions ?Recorded ?Confirmed ?Type cetirizine 10 mg tablet 10 mg PO DAILY 01/30/19 07/12/25 History Parking Permit... #1 ea 04/04/22 07/12/25 Rx celecoxib 100 mg capsule 100 mg PO BID #180 caps 01/28/25 07/12/25 Rx omeprazole 20 mg capsule,delayed 20 mg PO DAILY #90 caps 01/28/25 07/12/25 Rx release empagliflozin 10 mg tablet 10 mg PO DAILY #90 tabs 02/17/25 07/12/25 Rx (Jardiance) ipratropium bromide 21 mcg (0.03 2 spray intranasal BID 09/24/25 12/22/25 History %) nasal spray rosuvastatin 40 mg tablet 40 mg PO DAILY #90 tabs 04/20/25 07/12/25 Rx gabapentin 300 mg capsule 300 mg PO 2XD 05/25/25 07/12/25 History apixaban 5 mg tablet (Eliquis) 5 mg PO BID #180 tabs 06/01/25 07/12/25 Rx carvedilol 12.5 mg tablet 12.5 mg PO BID #180 tabs 06/16/25 07/12/25 Rx Allergies Allergy/AdvReac Type Severity Reaction Status Date / Time amiodarone Allergy Verified 06/24/25 14:33 Exam Vital Signs (past 8 hours): Oxygen Delivery Method Room Air Oxygen Flow Rate 0 Objective Labs 07/11/25 23:37 07/11/25 23:37 Labs: Laboratory Results - last 24 hr 07/11/25 07/12/25 07/12/25 23:37 01:06 14:42 WBC 9.6 RBC 4.84 Hgb 14.2 Hct 43.5 MCV 89.9 MCH 29.3 MCHC 32.6 RDW 13.9 Plt Count 159 Neut % (Auto) 84.9 H Lymph % (Auto) 6.3 L [place] % (Auto) 7.6 Eos % (Auto) 0.9 L Baso % (Auto) 0.3 Neut # (Auto) 8100 H Lymph # (Auto) 600 L [place] # (Auto) 700 Eos # (Auto) 100 Baso # (Auto) 0 Sodium 143 Potassium 5.0 Chloride 111 H Carbon Dioxide 24 BUN 31 H Creatinine 1.30 H Estimated GFR 54 L BUN/Creatinine Ratio 23.8 H Glucose 110 H Lactate 1.4 Calcium 9.3 Total Bilirubin 0.8 AST 24 ALT 16 Alkaline Phosphatase 88 Ammonia < 9 L Total Creatine Kinase 49 L C-Reactive Protein 1.1 H Total Protein 7.1 Albumin 4.2 Globulin 2.9 Albumin/Globulin Ratio 1.4 Urine Color Yellow Urine Appearance Clear Urine pH 5.5 Ur Specific [place] 1.020 Urine Protein Trace H Urine Glucose (UA) 3+ H Urine Ketones Negative Urine Occult Blood Negative Urine Nitrate Negative Urine Bilirubin Negative Urine Urobilinogen 0.2 Ur Leukocyte Esterase Negative Urine RBC 0-1/hpf Urine WBC None seen Ur Squamous Epith Cells 1-5 /hpf Ur Transition Epith Cell 0-1/hpf Urine Bacteria Occasional (0-1) Hyaline Casts 0-1/lpf Granular Casts 0-1/lpf Ur Culture Indicated? Cult not indicated Vol Urine Centrifuged 10ml (spun) Assessment & Plan Time-Based Coding :: [TOTAL MINUTES] spent with patient and on the chart (including review of chart, obtaining history, exam, reviewing outside data, placing orders, documenting exam and treatment plan, and counseling patient) on [DATE].
--- NOTE | 2025-07-12 17:50 | PM.HP.1 ---
History of Present Illness History of Present Illness Date Patient Seen: 07/12/25 Time Patient Seen: 13:00 Chief complaint: weakness Narrative: 85-year-old male with past medical history of atrial fibrillation on Eliquis, hypertension, CHF, dyslipidemia and arrhythmias status post cardiac ablation presents with generalized weakness and right hip pain. Per the patient's report, the patient has had increased weakness over the past day and a half. The patient states his weakness is just generalized but he also has some right hip pain. The patient denies any falling or injury directly to his hip. The patient does note that he has osteoarthritis in the past. Orthopedic denies any fever, chills, nausea, vomit, diarrhea, chest or shortness of breath. The patient states that he is at home. In the emergency room, patient was hemodynamically stable and saturating well on room air. Labs shows a creatinine of 1.3 but otherwise benign. UA was negative for any sign of UTI. X-ray of the hip shows no acute finding. CT hip is pending. Due to ongoing pain management consult ER physician request admission for pain control with PT OT. [facility] [place] Medical History (Updated 07/12/25 @ 03:53 by Ray Lugo MD) Do not resuscitate History of vertebral compression fracture Cerebrovascular disease Risk for falls Chronic kidney disease, stage 3b Deficient knowledge of open reduction and internal (ORIF) fixation of hip GERD without esophagitis Hammertoe of left foot Slow transit constipation Lumbar stenosis with neurogenic claudication Facet arthropathy, lumbar Actinic keratosis Primary osteoarthritis involving multiple joints Coronary artery disease Venous (peripheral) insufficiency Systolic CHF, chronic Obstructive sleep apnea Hearing loss Fractures (~2019) Measles (~195) Chicken pox (~1949) Anemia (~1974) Chronic anticoagulation History of TIA (transient ischemic attack) (~2018) Chronic low back pain without sciatica Idiopathic peripheral neuropathy BPH w urinary obs/LUTS Mixed hyperlipidemia Essential hypertension Paroxysmal atrial fibrillation Pulmonary nodule Orthostatic hypotension Surgical History Anesthesia Status post cardiac pacemaker procedure (~03/2021) Status post recent transurethral resection of prostate Status post left partial knee replacement Status post circumferential ablation of pulmonary vein Family History Father Kidney failure Mother Congestive heart failure Brother Stroke Sister Cancer Social History (Updated 05/25/25 @ 15:39 by Gloria Medina) marital status: household members: spouse pets and animals: Yes Smoking Status: Former smoker Tobacco: How many years used: 4 alcohol intake: former substance use type: does not use Meds Home Medications and Allergies Home Medications ?Medication ?Instructions ?Recorded ?Confirmed ?Type cetirizine 10 mg tablet 10 mg PO DAILY 01/30/19 07/12/25 History Parking Permit... #1 ea 04/04/22 07/12/25 Rx celecoxib 100 mg capsule 100 mg PO BID #180 caps 01/28/25 07/12/25 Rx omeprazole 20 mg capsule,delayed 20 mg PO DAILY #90 caps 01/28/25 07/12/25 Rx release empagliflozin 10 mg tablet 10 mg PO DAILY #90 tabs 02/17/25 07/12/25 Rx (Jardiance) ipratropium bromide 21 mcg (0.03 2 spray intranasal BID 04/14/25 07/12/25 History %) nasal spray rosuvastatin 40 mg tablet 40 mg PO DAILY #90 tabs 04/20/25 07/12/25 Rx gabapentin 300 mg capsule 300 mg PO 2XD 05/25/25 07/12/25 History apixaban 5 mg tablet (Eliquis) 5 mg PO BID #180 tabs 06/01/25 07/12/25 Rx carvedilol 12.5 mg tablet 12.5 mg PO BID #180 tabs 06/16/25 07/12/25 Rx Allergies Allergy/AdvReac Type Severity Reaction Status Date / Time amiodarone Allergy Verified 06/24/25 14:33 Review of Systems Review of Systems Narrative: Fourteen system review of systems performed and pertinent positives and negatives are noted in the HPI. Otherwise review of systems negative. Exam Vital Signs (past 8 hours): Oxygen Delivery Method Room Air Oxygen Flow Rate 0 Narrative Exam Narrative: Vitals reviewed, Alert and oriented, well-nourished, well-developed, no acute distress Normocephalic atraumatic Regular rate and rhythm, normal S1 and S2 without murmurs Clear to auscultation bilaterally Soft, nontender, nondistended, positive bowel sounds Pleasant and cooperative Decreased strength right lower extremity but limited by pain in right hip, otherwise strength is within normal limits Objective ECG Impression: Atrial fibrillation at 96 beats per minute no acute ST or T-wave change Imaging CT scan - head: Radiologist's impression: CT scan of the head without acute intracranial pathology. There are retro-orbital masslike lesions new from prior imaging. Unclear if true soft tissue mass lesions versus multiple varices. Pelvic x-ray without acute bony abnormality, there is postsurgical changes from prior left proximal femoral fat fracture fixation and degenerative changes in the hip and spine. Orbital CT with contrast shows 2 enlarging venous lesion seen (1 superiorly and 1 inferiorly) that are clearly increased in size compared to 05/2025. These are likely venous varices. Labs 07/11/25 23:37 07/11/25 23:37 Labs: Laboratory Results - last 24 hr 07/11/25 07/12/25 07/12/25 23:37 01:06 14:42 WBC 9.6 RBC 4.84 Hgb 14.2 Hct 43.5 MCV 89.9 MCH 29.3 MCHC 32.6 RDW 13.9 Plt Count 159 Neut % (Auto) 84.9 H Lymph % (Auto) 6.3 L [place] % (Auto) 7.6 Eos % (Auto) 0.9 L Baso % (Auto) 0.3 Neut # (Auto) 8100 H Lymph # (Auto) 600 L [place] # (Auto) 700 Eos # (Auto) 100 Baso # (Auto) 0 Sodium 143 Potassium 5.0 Chloride 111 H Carbon Dioxide 24 BUN 31 H Creatinine 1.30 H Estimated GFR 54 L BUN/Creatinine Ratio 23.8 H Glucose 110 H Lactate 1.4 Calcium 9.3 Total Bilirubin 0.8 AST 24 ALT 16 Alkaline Phosphatase 88 Ammonia < 9 L Total Creatine Kinase 49 L C-Reactive Protein 1.1 H Total Protein 7.1 Albumin 4.2 Globulin 2.9 Albumin/Globulin Ratio 1.4 Urine Color Yellow Urine Appearance Clear Urine pH 5.5 Ur Specific Baldwin 1.020 Urine Protein Trace H Urine Glucose (UA) 3+ H Urine Ketones Negative Urine Occult Blood Negative Urine Nitrate Negative Urine Bilirubin Negative Urine Urobilinogen 0.2 Ur Leukocyte Esterase Negative Urine RBC 0-1/hpf Urine WBC None seen Ur Squamous Epith Cells 1-5 /hpf Ur Transition Epith Cell 0-1/hpf Urine Bacteria Occasional (0-1) Hyaline Casts 0-1/lpf Granular Casts 0-1/lpf Ur Culture Indicated? Cult not indicated Vol Urine Centrifuged 10ml (spun) Assessment & Plan Assessment & Plan narrative: Weakness Right hip pain Retro-orbital venous varices CKD stage 4 Hypertension Atrial fibrillation Diabetes Patient too weak to discharge home tonight even though PT/OT thought he was cleared for home health. However, when we are ready to discharge him, he was unable to push himself up in bed. PT/OT reassessment tomorrow Care management for home health versus [facility] facility As needed medications for management of right hip pain Continue general diet Continue usual outpatient medications for hypertension and atrial fibrillation-carvedilol, Eliquis, and atorvastatin Continue to monitor blood glucose and treat as needed Discontinue [place], monitor for urine retention Time-Based Coding :: 55 minutes spent with patient and on the chart (including review of chart, obtaining history, exam, reviewing outside data, placing orders, documenting exam and treatment plan, and counseling patient) on [DATE].
[2025-07-12] MEDS: SODIUM CHLORIDE 0.9% FLUSH 10 ML IV (20:35)
[2025-07-12] MEDS: DOCUSATE 100 MG CAPSULE PO (20:35)
[2025-07-13] VITALS (8 sets, daily range): BP systolic 85–95; BP diastolic 50–75; PULSE 64–77; RESP 16–18; TEMP 36.2–37.9; O2SAT 92–94
[2025-07-13 05:45] LABS: Blood Urea Nitrogen 27 mg/dL (9-20); Calcium 9.0 mg/dL (8.4-10.2); Carbon Dioxide 18 mmol/L (22-32); Chloride 108 mmol/L (98-107); Estimated Glomerular Filt Rate 56 mL/min (>60); Glucose 117 mg/dL (70-99); HEMOLYSIS 16 (0-50); Potassium 4.5 mmol/L (3.4-5.1); Sodium 136 mmol/L (137-145)
[2025-07-13 06:03] LABS: Add Manual Diff / Slide Review NO; Hematocrit 41.3 % (41-53); Hemoglobin 13.5 g/dL (13.5-17.5); Lymphocytes Absolute Auto 500 /uL (1100-4500); Mean Corpuscular HGB Conc 32.7 % (30-36); Mean Corpuscular Hemoglobin 29.1 PG (26-34); Mean Corpuscular Volume 89.0 fL (80-100); Platelet Count 108 X10^3/uL (150-400)
--- NOTE | 2025-07-13 06:17 | PC.NURSE ---
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
--- NOTE | 2025-07-13 08:07 | DI.RAD.S_ITS ---
PROCEDURE: XR CHEST 1V INDICATIONS: new cough TECHNIQUE: One view of the chest was acquired. COMPARISON: [facility], CR, XR CHEST 1V, 06/24/2025, 14:54. FINDINGS: Surgical changes and devices: Left-sided cardiac pacer device is in place. . Lungs and pleura: Increased patchy left basilar opacity compared to the most recent exam. No pneumothorax or pleural effusion. Right lung is clear. Mediastinum: Mediastinal contours appear normal. Heart size is normal. Bones and chest wall: No suspicious bony lesions. Overlying soft tissues appear unremarkable. IMPRESSION: Increased patchy left basilar opacity which may represent atelectasis and/or developing pneumonia. Recommend follow up chest radiograph 4-6 weeks after treatment to document resolution of findings and/or return to baseline examination. Dictated by: Ajay Hampton M.D. on 07/13/2025 at 9:33 Approved by: Ajay Hampton M.D. on 07/13/2025 at 9:35
[2025-07-13] MEDS: ACETAMINOPHEN 325 MG TABLET 650 MG PO (08:28)
[2025-07-13] MEDS: APIXABAN 5 MG TABLET PO ×2 (08:28→20:41)
[2025-07-13] MEDS: DOCUSATE 100 MG CAPSULE PO ×2 (08:28→20:41)
[2025-07-13] MEDS: PANTOPRAZOLE DR 20 MG TABLET PO (08:28)
[2025-07-13] MEDS: LORATADINE 10 MG TABLET PO (08:28)
[2025-07-13] MEDS: GABAPENTIN 300 MG CAPSULE PO ×2 (08:29→20:41)
[2025-07-13] MEDS: ATORVASTATIN 20 MG TABLET 80 MG PO (08:29)
[2025-07-13] MEDS: CELECOXIB 100 MG CAPSULE PO ×2 (08:33→20:41)
--- NOTE | 2025-07-13 08:36 | PT.IPTN ---
Physical Therapy Treatment Note M2 PT-IP Current Condition Start: 07/12/25 16:25 Freq: Status: Active Protocol: Document 07/13/25 08:13 SP (Rec: 07/13/25 09:03 sherrie Nagel) Physical Therapy Current Condition Current Condition Evaluation Date 07/12/25 Treatment Diagnosis Weakness, R and L hip pain Onset Date 07/11/25 M3 PT-IP Subjective Start: 07/12/25 16:25 Freq: Status: Active Protocol: Document 07/13/25 08:13 SP (Rec: 07/13/25 09:03 sherrie Nagel) Subjective Physical Therapy Visit Type Type Treatment Note Visit Start Time 08:13 Visit Stop Time 08:36 Notes 23 min Number of TELEPHONE EXCHANGE OPERATOR Visits 1 Physical Therapy Visit Comments Patient Comments Pt agreeable to working with TELEPHONE EXCHANGE OPERATOR, states can't move much and feeling really warm. Pt demonstrates challenging keeping eyes open. Therapy Pain Assessment Pain When Pain Assessed During Mobility Pain Present Pain Present Pain Reported Location Chronic low back Intensity 2 Scale Used high Description With Movement Pain Behaviors Calling Out,Facial Grimacing Pain Management Distraction,Elevation,Modification of Treatment,Re- Techniques positioning M4 PT-IP Mobility and Gait Start: 07/12/25 16:25 Freq: Status: Active Protocol: Document 07/13/25 08:13 SP (Rec: 07/13/25 09:03 sherrie Nagel) PT-Bed Mobility Assessment Supine to Sit Supine to Sit Maximum Assistance,2 Person Assistance,Head of Bed Elevated Sit to Supine Sit to Supine Maximum Assistance,2 Person Assistance Scooting Scooting to Edge of Maximum Assistance Bed Scooting Up and Down Maximum Assistance,Dependent in Bed PT-Transfer Assessment Comments Mobility Comments TELEPHONE EXCHANGE OPERATOR instructed BLE exercises: ankle pumps independent small motions, heel slides 75%A of TELEPHONE EXCHANGE OPERATOR to complete x5 each. Pt challenging reaching for TELEPHONE EXCHANGE OPERATOR when instructed to trial sitting up in bed and no strength to pull from TELEPHONE EXCHANGE OPERATOR's hand. Pt required Max 2 to support trunk righting to sit and scoot to EOB, noted heavy trunk lean to L, hand over hand directional cues for BUE WB on bed to support midline Min-Max A during vital assessment, brief seconds self unsupported. Pt flush cheeks and nose, nursing states has a fever and vitals orthostatic 90/75 HR 89 SaO2 93% on RA. BP slightly improved sitting EOB, Max A x2 to support sit>supine and scoot up EOB, encouraged BUE on head board and assisted knee flexion to self push with BLEs, not sure pt was able to assist. Pt positioned upright in bed and provided call light and breakfast tray in front, pt needed pillow under L shoulder and arm due to continued lateral L lean. Discussed with nursing pt may need assist to eat at thistime. Notified hospitalist and care mgt of increased support needed at this time. Recommending SNF for safe DC at this time. Gait Assessment Comments Gait Comments Unable to assess at this time due to Max A x2 bed mobility and assist needed sitting EOB. Stair Climbing Assessment Comments Stair Climbing Unable to reassess at this time. Comments PT-Balance Assessment Sitting Balance and Reactions Static Sitting Poor Balance Ability Dynamic Sitting Poor Balance Ability Comments Other Balance Tests/ Pt L lean trunk, brief unsupported but mostly required Deviations/Treatment Max A x1 sit EOB. : M5 PT-IP Objective Assessments Start: 07/12/25 16:25 Freq: Status: Active Protocol: Document 07/12/25 16:25 NW (Rec: 07/12/25 16:44 NW [id number]) Orientation Orientation/Cognition Level of Alertness Alert Orientation Name,Age,Birthday,Month,Date,Year,Day of Week,Place, Situation Safety Awareness Decreased Safety Awareness Gross Range of Motion Lower Extremity ROM Assessment Within Functional Limits Strength Lower Extremity Strength Assessment Within Functional Limits Comments Strength Comments isolated strength testing WFL, pain with R hip flexion resistance Sensation Assessment Sensation Gross Sensation WNL M6 PT-IP Treatment Start: 07/12/25 16:25 Freq: Status: Active Protocol: Document 07/13/25 08:13 SP (Rec: 07/13/25 09:03 sherrie Nagel) Physical Therapy Treatment Exercises Exercises Ankle Pumps,Heel Slides Education Education Provided Safety M7 PT-IP Assessment and Plan Start: 07/12/25 16:25 Freq: Status: Active Protocol: Document 07/13/25 08:13 SP (Rec: 07/13/25 09:03 sherrie Nagel) PT Summary Assessment and Plan Potential Rehabilitation Good Potential Status of Condition Stable at Evaluation Summary Impairments Pain,ROM,Strength,Balance,Coordination,Cognition,Bed Mobility,Transfers,Gait,Activity Tolerance Progress Towards Slow Progress due to Pain,Slow Progress due to Medical Goals Issues,Slow Progress due to Activity Tolerance Assessment Summary Pt is very lethargic, face flushed, orthostatic this am . Required Max A x2 for bed mobility with heavy assist for trunk stability, demonstrating L trunk lean seated at EOB and upright in bed, provided pillows for trunk alignment inclined in bed. Pt hard time supporting head up and holding cup to drink water. Discussed with nursing may need to assist eating breakfast at this time. Notified hospitalist, care mgt, nursing assisted with tx today. Currently recommending SNF for progression strength unless pt substantially improves. Will continue assess progress. Goals Bed Mobility Goal Independent Transfer Goal Independent Gait Goal Independent Gait Distance 50 Other Goals Pt will be able to navigate 14 steps with unilateral railing on R upon ascent. Frequency of Treatment Frequency Of Once a Day Treatment Treatment Plan Physical Therapy Bed Mobility Training,Transfer Training,Gait Training, Treatment Plan Therapeutic Exercise,Balance Retraining,Discharge Planning,Neuromuscular Re-ed Other Bed mobility, sitting endurance, stand if able. Recommendations and Next Treatment Focus Precautions Other Precautions falls risk Weight Bearing Status Weight Bearing Weight Bear as Tolerated Status Recommendations To Nursing Amount of Assist 2 Person Assist,Mechanical Lift Needed Discharge Recommendations PT Discharge SNF Rehab Recommendations Transportation Needs Wheelchair/Cabulance at Discharge - PT assist 2
--- NOTE | 2025-07-13 10:12 | PC.NURSE ---
Pt's BP soft (90/75) and he has a low grade fever (100.3F) this AM and he is quite weak. Carvedilol held. Yesterday morning pt was doing much better per PT/OT and family but shortly before shift change last night he became very weak and struggled significantly just to get to the edge of the bed and required max assistance. Today pt is doing similarly to last night. , Sophia, updated by phone and plans to come in shortly. Will continue to monitor.
--- NOTE | 2025-07-13 11:05 | OT.IPNOTE ---
Checked on pt for OT treatment and pt sound asleep. Pt's requesting pt be allowed to sleep and check in PM if able or appropriate.
[2025-07-13 11:17] LABS: Add Manual Diff / Slide Review NO; Hematocrit 40.3 % (41-53); Hemoglobin 13.2 g/dL (13.5-17.5); Lymphocytes Absolute Auto 400 /uL (1100-4500); Mean Corpuscular HGB Conc 32.8 % (30-36); Mean Corpuscular Hemoglobin 29.4 PG (26-34); Mean Corpuscular Volume 89.4 fL (80-100); Platelet Count 124 X10^3/uL (150-400)
--- NOTE | 2025-07-13 11:27 | P.PN_ITS ---
Subjective Subjective Interval history: A&P Weakness Right hip pain Unclear etiology of right hip pain. X-ray and CT scan were unremarkable for acute pathology. CK negative for rhabdomyolysis. Patient was doing well yesterday and anticipated discharge yesterday afternoon but by the time of discharge he was requiring 2 person assist again and could not go home. * PT and OT evaluation * Care management for possible SNF Low-grade fever Possible developing PNA The patient had a low-grade fever to 100.3 early this morning. He denies any localizing signs or symptoms. However he seems more lethargic than yesterday and is having trouble staying awake. * Urinalysis with culture if indicated (urine on 07/12 was negative). * Blood cultures x2 * CBC and BMP stat * Chest x-ray * Start ceftriaxone and azithromycin * Avoid contrast imaging today as patient received contrast in the last 24 hours. Retro-orbital venous varices Initial noncontrast head CT in the ER showed retro-orbital masslike lesions which were new from prior imaging. MRI could not be done due to a non-MRI compatible pacemaker. Orbital CT with contrast was performed which shows 2 enlarging venous lesions 1 superiorly and 1 inferiorly, that are clearly increased in size compared to 05/2025. These are likely venous varices. * Outpatient ophthalmology evaluation. Discussed with patient and his . Encouraged his to arrange an appointment with their usual supervisor kennel. CKD, stage IV Clinically stable * Continue to monitor especially in the setting of contrast on 07/12 * Avoid nephrotoxins and renally dose meds as necessary Urine retention The patient had urine retention at presentation and a Mcnulty catheter was placed. Mcnulty was discontinued on 07/12. * CTM for urine retention s/p mcnulty removal Hypertension History of hypertension but blood pressure soft this morning in the setting of fever. * Monitor closely * Gentle IV fluids x500 mL * If BP remains soft, we will hold carvedilol tonight Atrial fibrillation Currently rate controlled and anticoagulated. * Continue carvedilol and Eliquis Diabetes mellitus Adequate blood glucose control. * Continue fingerstick blood sugars a.c. and HS * Continue lispro SSI Discharge planning: Initially anticipated discharge to home with home health services. However the patient appears weaker and will likely need a halfway facility for short-term rehab. Pending PT OT evaluations and care management assessment. Code status: DNR Diet: Heart healthy Lines/tubes: Peripheral IV DVT prophylaxis: Chronically on Eliquis Subjective: The patient complains of weakness and fatigue. Overnight events notable for low-grade temperature this morning. Objective Vitals reviewed, temperature 100.3?, 90/75, 64, 18, 93% on room air Alert and oriented, well-nourished, well-developed, no acute distress Normocephalic atraumatic Regular rate and irregular rhythm, no murmurs Clear to auscultation bilaterally Soft, nontender, nondistended, positive bowel sounds Pleasant and cooperative Strength globally decreased, neuro exam otherwise nonfocal Labs: WBC 12.1, platelets 124, creatinine 1.26, UA pending Imaging: CT is notable for retro-orbital venous masses as detailed above. Chest x-ray with patchy left basilar opacity, atelectasis versus developing pneumonia Time spent: 55 minutes spent in chart review, patient evaluation, diagnostic evaluation, coordination of care, and documentation. Exam Vital Signs (past 8 hours): - 07/13/25 07:49 07/13/25 08:25 07/13/25 08:27 Temperature 100.3 F H Pulse Rate Respiratory Rate Blood Pressure 90/75 95/63 Pulse Oximetry 07/13/25 08:28 07/13/25 08:29 07/13/25 08:37 Temperature 100.3 F H 99.9 F H Pulse Rate 64 Respiratory Rate 18 Blood Pressure 90/75 Pulse Oximetry 93 Oxygen Delivery Method Room Air Oxygen Flow Rate 0 Objective Labs 07/13/25 11:00 07/13/25 05:15 Labs: Laboratory Results - last 24 hr 07/12/25 07/13/25 07/13/25 14:42 05:15 11:00 WBC 12.3 H 12.1 H RBC 4.64 4.51 Hgb 13.5 13.2 L Hct 41.3 40.3 L MCV 89.0 89.4 MCH 29.1 29.4 MCHC 32.7 32.8 RDW 14.2 14.1 Plt Count 108 L 124 L Neut % (Auto) 89.7 H 92.3 H Lymph % (Auto) 4.0 L 3.7 L [place] % (Auto) 6.0 3.6 Eos % (Auto) 0.0 L 0.0 L Baso % (Auto) 0.3 0.4 Neut # (Auto) 45759 H 08030 H Lymph # (Auto) 500 L 400 L [place] # (Auto) 700 400 Eos # (Auto) 0 0 Baso # (Auto) 0 100 Sodium 136 L Potassium 4.5 Chloride 108 H Carbon Dioxide 18 L BUN 27 H Creatinine 1.26 H Estimated GFR 56 L BUN/Creatinine Ratio 21.4 Glucose 117 H Calcium 9.0 Total Creatine Kinase 49 L PFSH Medical History (Updated 07/12/25 @ 03:53 by Ray Lugo MD) Do not resuscitate History of vertebral compression fracture Cerebrovascular disease Risk for falls Chronic kidney disease, stage 3b Deficient knowledge of open reduction and internal (ORIF) fixation of hip GERD without esophagitis Hammertoe of left foot Slow transit constipation Lumbar stenosis with neurogenic claudication Facet arthropathy, lumbar Actinic keratosis Primary osteoarthritis involving multiple joints Coronary artery disease Venous (peripheral) insufficiency Systolic CHF, chronic Obstructive sleep apnea Hearing loss Fractures (~2019) Measles (~1952) Chicken pox (~194) Anemia (~1974) Chronic anticoagulation History of TIA (transient ischemic attack) (~2018) Chronic low back pain without sciatica Idiopathic peripheral neuropathy BPH w urinary obs/LUTS Mixed hyperlipidemia Essential hypertension Paroxysmal atrial fibrillation Pulmonary nodule Orthostatic hypotension Surgical History Anesthesia Status post cardiac pacemaker procedure (~03/2021) Status post recent transurethral resection of prostate Status post left partial knee replacement Status post circumferential ablation of pulmonary vein Family History Father Kidney failure Mother Congestive heart failure Brother Stroke Sister Cancer Social History (Updated 05/25/25 @ 15:39 by Gloria Medina) marital status: household members: spouse pets and animals: Yes Smoking Status: Former smoker Tobacco: How many years used: 4 alcohol intake: former substance use type: does not use Assessment & Plan Time-Based Coding :: [TOTAL MINUTES] spent with patient and on the chart (including review of chart, obtaining history, exam, reviewing outside data, placing orders, documenting exam and treatment plan, and counseling patient) on [DATE].
[2025-07-13 14:03] LABS: Coronavirus NL 63 Not Detected (Not Detect); SARS- CoV-2 Not Detected (Not Detecte)
[2025-07-13] MEDS: AZITHROMYCIN 500 MG in DEXTROSE 5% IN WATER 250 ML 250 MG IV (14:33)
[2025-07-13] MEDS: SODIUM CHLORIDE 0.9% 250 ML 500 ML IV (15:30)
--- NOTE | 2025-07-13 16:25 | PC.NURSE ---
Patients blood pressure down to 85/50. Given a 500ml bolus and up to 90s/50s. He has been sleeping for most of the day, given oxycodone last night and may have contributed to sleepiness. Chest xray states possible atelectisis or the start of some pneumonia. His lung sounds were clear this morning, he has recently started to have a productive cough.
[2025-07-13] MEDS: SODIUM CHLORIDE 0.9% 1,000 ML 100 ML IV (16:57)
--- NOTE | 2025-07-13 16:58 | CM.DANOTE ---
DCP Assessment note pt is a 85yo M here with weakness, found to have pneumonia. TOP SCREW reviewed EMR per chart lives at home with spouse in [facility]. open with [facility]. PT/OT=SNF. TOP SCREW met with spouse and dtr in room. pt sleeping heavily. reviewed recs/DCP options. preference is SNF at [facility], 2nd choice [facility]. current with [facility]. if pt progresses would like to go home with [facility] instead. CC Geraldine KINDLY emailed ref to Daniella at [facility] per [facility] have beds available maybe saturday? TOP SCREW emailed [facility] therapy notes for SNF auth request. auth pending. PASRR needed. P: dc to [facility] pending acceptance. [facility] auth needed. will continue to follow closely for DCP Coordination SAMMY Santamaria Discharge Planning/Care Management Advanced directive, confirm from FAMILY Start: 07/12/25 03:39 Freq: Q24H Status: Active Protocol: Document 07/12/25 03:39 (Rec: 07/12/25 03:40 [id number]) Advance Directive, confirm on record Time 03:30 Person contacted em bring in am Copy received No CM Discharge Assessment Start: 07/12/25 03:24 Freq: Status: Active Protocol: Document 07/13/25 16:57 SL (Rec: 07/13/25 16:58 SL [id number]) Discharge Planning Assessment Assigned Discharge SAMMY Perez Indirect Sales Representative Provider [employer] [facility] DPOA/Assigned spouse Melissa Designee Name Contact Information [phone] Advance Directives? Yes Advance Directives No on File History Provided By Patient,Medical Record Prior Living House Arrangements Household Members spouse Type of Relies on Others transporation used prior to admit Comment Spouse available to assist as needed. Patient/Family Custodial Facility Preference Discharge Plan Custodial Facility Transportation Spouse available to provide transport vs facility van Arrangement Referrals Initiated Custodial Review Status In Process Please Provide Date 07/13/25 Initial DC Assessment Was Performed Next Review Type Continued Stay Review
[2025-07-13 18:19] LABS: Appearance Urine UA CLEAR; Bilirubin Urine UA 1+ (NEGATIVE); Color Urine UA YELLOW; Glucose Urine UA 3+ g/dL (Negative); Ketones Urine UA TRACE (NEGATIVE); Leukocyte Esterase Urine UA NEGATIVE (NEGATIVE); Nitrite Urine UA NEGATIVE (Negative); Occult Blood Urine UA 3+ (Negative); Protein Urine UA 1+ (Negative); Specific Gravity Urine UA >=1.030 (1.000-1.035); Urobilinogen Urine UA 1.0 E.U./dL (0.2); pH Urine UA 5.0 (4.5-8.0)
[2025-07-13 18:51] LABS: Culture Indicated Urine Cult Not Indicated; Ictotest Urine Negative (Negative)
[2025-07-13] MEDS: VANCOMYCIN 2,000 MG/400 ML PIGGYBACK 200 MG IV (20:41)
[2025-07-13] MEDS: SODIUM CHLORIDE 0.9% FLUSH 10 ML IV (20:41)
[2025-07-13 20:56] LABS: Acinetobacter calcoa-baumannii Not Detected (Not Detect); Bacteroides fragilis Not Detected (Not Detect); Candida auris Not Detected (Not Detect); Candida glabrata Not Detected (Not Detect); Cryptococcus neoformans/gatti Not Detected (Not Detect); Enterobacterales Not Detected (Not Detect); Enterococcus faecalis Not Detected (Not Detect); Enterococcus faecium Not Detected (Not Detect); Klebsiella aerogenes Not Detected (Not Detect); Proteus species Not Detected (Not Detect); Serratia marcescens Not Detected (Not Detect); Staphylococcus epidermidis Not Detected (Not Detect); Staphylococcus lugdunensis Not Detected (Not Detect); Staphylococcus species Not Detected (Not Detect); Stenotrophomonas maltophilia Not Detected (Not Detect); Streptococcus agalactiae (Gr B Detected (Not Detect); Streptococcus pneumonia Not Detected (Not Detect); Streptococcus pyogenes (Gr A) Not Detected (Not Detect); Streptococcus species Detected (Not Detect)
[2025-07-14 04:17] VITALS: BP 103/55; PULSE 74; RESP 20; TEMP 36.6; O2SAT 92
[2025-07-14 08:00] VITALS: BP 108/74; PULSE 92; RESP 16; TEMP 36.7; O2SAT 94
--- NOTE | 2025-07-14 08:16 | PC.NURSE ---
0700 assumed pt care and met pt with face to face bedside report. Pt is alert; is denying pain; does report a cough; none noted yet; pt does state that although he does not feel winded or SOB, he does feel strange in his lungs. WIll continue to follow- suspect early pneumonia as noted by MD in chart. attempted to assist pt with calling home to spouse; hospital phone did not dial out, deferred this to PCT. Pt watching TV
[2025-07-14 09:02] VITALS: BP 119/75; PULSE 85
[2025-07-14] MEDS: ATORVASTATIN 20 MG TABLET 80 MG PO (09:02)
[2025-07-14] MEDS: PANTOPRAZOLE DR 20 MG TABLET PO (09:06)
[2025-07-14] MEDS: GABAPENTIN 300 MG CAPSULE PO ×2 (09:06→22:09)
[2025-07-14] MEDS: LORATADINE 10 MG TABLET PO (09:06)
[2025-07-14] MEDS: DOCUSATE 100 MG CAPSULE PO ×2 (09:06→22:09)
[2025-07-14] MEDS: APIXABAN 5 MG TABLET PO ×2 (09:06→22:09)
[2025-07-14] MEDS: CELECOXIB 100 MG CAPSULE PO ×2 (09:06→22:09)
[2025-07-14] MEDS: ACETAMINOPHEN 325 MG TABLET 650 MG PO (10:55)
--- NOTE | 2025-07-14 11:55 | PT.IPTN ---
Current Diagnoses Weakness (07/13/25) Physical Therapy Treatment Note M2 PT-IP Current Condition Start: 07/12/25 16:25 Freq: Status: Active Protocol: Document 07/13/25 08:13 SP (Rec: 07/13/25 09:03 SP sherrie jon) Physical Therapy Current Condition Current Condition Evaluation Date 07/12/25 Treatment Diagnosis Weakness, R and L hip pain Onset Date 07/11/25 M3 PT-IP Subjective Start: 07/12/25 16:25 Freq: Status: Active Protocol: Document 07/14/25 13:37 NW (Rec: 07/14/25 13:50 NW [id number]) Subjective Physical Therapy Visit Type Type Treatment Note Visit Start Time 11:07 Visit Stop Time 11:55 Notes 47 Number of METALLURGY LABORATORY TECHNICIAN Visits 0 Physical Therapy Visit Comments Patient Comments Pt is found resting supine visiting with family. States he feels ok to try and participate. Patient Goals To get stronger. M4 PT-IP Mobility and Gait Start: 07/12/25 16:25 Freq: Status: Active Protocol: Document 07/14/25 13:37 NW (Rec: 07/14/25 13:50 NW [id number]) PT-Bed Mobility Assessment Rolling Type of Rolling Roll to Left Level of Assist Moderate Assistance,1 Person Assistance Supine to Sit Supine to Sit Moderate Assistance,2 Person Assistance,Head of Bed Elevated Scooting Scooting to Edge of Maximum Assistance Bed PT-Transfer Assessment Sit to and From Stand Sit to and from Minimal Assistance,2 Person Assistance,Use of Upper Stand Extremities Equipment Transfer Assistive Gait Belt,Standard Walker Device Transfers Transfer Destination Chair Transfer Technique Stand Step Pivot Transfer Ability Level of Assist Moderate Assistance,2 Person Assistance Comments Mobility Comments Kem to achieve stance, with increased time modA x 1 to maintain upright with heavy cues to stand tall with hip extension and find midline. Pt has notable L lean both seated edge of bed and standing. TC can facilitate midline control. Performed neuro screen with no + CN testing, symmetrical sensation and strength in bilateral LE, notable L UE drift/inattention. Pt has variable participation with vision screen. + finger to nose on L. Symmetrical facial sensation. PT-Balance Assessment Sitting Balance and Reactions Static Sitting Poor Balance Ability Dynamic Sitting Poor Balance Ability Standing Balance and Reactions Static Standing Fair Balance Ability Dynamic Standing Poor Balance Ability Device Used FWW M5 PT-IP Objective Assessments Start: 07/12/25 16:25 Freq: Status: Active Protocol: Document 07/12/25 16:25 NW (Rec: 07/12/25 16:44 NW [id number]) Orientation Orientation/Cognition Level of Alertness Alert Orientation Name,Age,Birthday,Month,Date,Year,Day of Week,Place, Situation Safety Awareness Decreased Safety Awareness Gross Range of Motion Lower Extremity ROM Assessment Within Functional Limits Strength Lower Extremity Strength Assessment Within Functional Limits Comments Strength Comments isolated strength testing WFL, pain with R hip flexion resistance Sensation Assessment Sensation Gross Sensation WNL M6 PT-IP Treatment Start: 07/12/25 16:25 Freq: Status: Active Protocol: Document 07/14/25 13:37 NW (Rec: 07/14/25 13:50 NW [id number]) Physical Therapy Treatment Education Education Provided Safety Other Treatments Other Treatment Self righting sitting edge of bed x 4-5 minutes with Performed tactile cues. Reaching outside of CHRISSIE to R to increase weight shift towards that side. Standing tolerance with TC to facilitate back and hip extensors for 1-2 minutes x 2. M7 PT-IP Assessment and Plan Start: 07/12/25 16:25 Freq: Status: Active Protocol: Document 07/14/25 13:37 NW (Rec: 07/14/25 13:50 NW [id number]) PT Summary Assessment and Plan Potential Rehabilitation Fair Potential Status of Condition Evolving at Evaluation Summary Impairments Pain,ROM,Strength,Balance,Coordination,Sensation,Tone, Cognition,Bed Mobility,Transfers,Gait,Activity Tolerance Progress Towards Slow Progress due to Activity Tolerance,Slow Progress - Goals Other Assessment Summary Wicho continues to be lethargic within functional vitals. Required less assistance for bed mobility and edge of bed balance compared to yesterday, but notable decline from evaluation. Pt demonstrates L inattention with coordination difficulties and poor trunk stability in seated position. Able to right self with verbal and tactile cues, but only maintain for 30 seconds prior to decompensation. Pt is able to perform stand pivot transfer and side step edge of bed with FWW at Kem of 1 with second person for support if needed. Performed neuro screen with only notable L inattention and coordination challenges on L. Family did mention pt had TIA 6 weeks prior, potential for infections to bring out deficits. Pt continues to test strong with strength and sensation with minimal discrepancies. RN notified as pt was left sitting in bed side chair with pillow for support on L. Continuing to recommend SNF as pt is unsafe to return home. Goals Bed Mobility Goal Independent Transfer Goal Independent Gait Goal Independent Gait Distance 50 Other Goals Pt will be able to navigate 14 steps with unilateral railing on R upon ascent. Frequency of Treatment Frequency Of Once a Day Treatment Treatment Plan Physical Therapy Bed Mobility Training,Transfer Training,Gait Training, Treatment Plan Therapeutic Exercise,Balance Retraining,Discharge Planning,Neuromuscular Re-ed Other Bed mobility, sitting endurance, stand if able. Recommendations and Next Treatment Focus Precautions Other Precautions falls risk Weight Bearing Status Weight Bearing Weight Bear as Tolerated Status Recommendations To Nursing Amount of Assist 2 Person Assist,Mechanical Lift Needed Discharge Recommendations PT Discharge SNF Rehab Recommendations Transportation Needs Wheelchair/Cabulance at Discharge - PT assist 2
--- NOTE | 2025-07-14 11:57 | OT.IP.TRT ---
Current Diagnoses Weakness (07/13/25) Occupational Therapy Treatment Note M2 OT-IP Current Condition Start: 07/12/25 13:39 Freq: Status: Active Protocol: Document 07/12/25 12:00 SORAYA (Rec: 07/12/25 13:57 [id number] Desktop) Occupational Therapy Current Condition Current Condition Evaluation Date 07/12/25 Treatment Diagnosis weakness, decreased self care Diagnosis Onset Date 07/11/25 M3 OT- IP Subjective and Pain Start: 07/12/25 13:39 Freq: Status: Active Protocol: Document 07/14/25 12:02 [facility] (Rec: 07/14/25 12:17 [facility] Desktop) OT- Subjective Occupational Therapy Visit Type Type Treatment Note Visit Start Time 11:08 Visit Stop Time 11:57 Occupational Therapy Visit Comments Patient Comments Pt seen with PT for mobility needs. OT Pain Assessment Pain When Pain Assessed At Rest Location Chronic low back Pain Behaviors Facial Grimacing M4 OT- IP ADL's Start: 07/12/25 13:39 Freq: Status: Active Protocol: Document 07/14/25 12:02 [facility] (Rec: 07/14/25 12:17 [facility] Desktop) OT [id number] Comments OT Self-Feeding Pt too tired this time and having difficulty to stay Comments awake. Pt will benefit from 1:1 assist and beneficial to have CHEMIST BIOLOGICAL eval for swallowing needs. OT ADL-Grooming Comments OT Grooming Comments Pt able to wash his face after set-up of wash cloth. OT ADL-Dressing General Eval Lower Body Dressing Maximum Assistance Ability Areas Needing Underpants/Brief Assistance OT ADL-Toileting General Evaluation Toileting Ability Maximum Assistance,Total Assistance Comments OT Toileting Use of catheter. MAXA A for brief management needs. Comments OT ADL-Bathing Comments OT Bathing Comments Sponge bath more appropriate at this time. M5 OT- IP IADL's Start: 07/12/25 13:39 Freq: Status: Active Protocol: Document 07/12/25 12:00 SORAYA (Rec: 07/12/25 13:57 SORAYA Desktop) OT-Instrumental Activities of Daily Living Deficits IADL Deficits No Deficits Identified Home Safety Awareness Awareness of Need Good Awareness for Assistance at Home Home Safety Comments Pt is aware of needing assistance. Medication Management Medication Caregiver Administers Management Money Management Money Management No Deficits Identified Meal Preparation Meal Preparation Caregiver Provides Assist Pari Mutuel Clerk Pari Mutuel Clerk Caregiver Provides Assist Driving Driving Caregiver Provides Assist M6 OT- IP Functional Cognition Start: 07/12/25 13:39 Freq: Status: Active Protocol: Document 07/14/25 12:02 [facility] (Rec: 07/14/25 12:17 [facility] Desktop) Cognitive Factors Limiting Selfcare Function Cognitive Comments Cognitive Assessment Pt very sleepy and having his eyes closes but states he Comments is awake. Pt neglectful of his left side UE> LE and vc to look for his left hand positioning needs. M7 OT- IP Mobility and Balance Start: 07/12/25 13:39 Freq: Status: Active Protocol: Document 07/14/25 12:02 [facility] (Rec: 07/14/25 12:17 [facility] Desktop) OT- Bed Mobility Assessment Supine to Sit Supine to Sit Assist Moderate Assistance,1 Person Assistance,2 Person Assistance OT-Transfer Assessment Sit to and From Stand Sit to and from Moderate Assistance,1 Person Assistance Stand Transfers Transfer Ability Moderate Assistance,1 Person Assistance,2 Person Assistance Technique Transfer Destination Chair Transfer Technique Stand Step Pivot Devices Transfer Assistive Gait Belt,Front Wheeled Walker Devices Comments Mobility Comments Pt needing assist to help initiate movements to get his LEs to the edge of the bed. IN addition to get his trunk upright. Pt heavily leans to the left and needing assist for midline and balance. OT- Balance Assessment Sitting Balance and Reactions Static Sitting Poor Balance Ability Dynamic Sitting Poor Balance Ability Standing Balance and Reactions Static Standing Poor Balance Ability Dynamic Standing Poor Balance Ability M8 OT- IP Objective Assessments Start: 07/12/25 13:39 LUE 4/5 to 5/5, RUE 4/5 to 5/5 LUE swollen at hand and elbow , but intact for light touch Impaired finger to nose left hand but able to correct with increased time. M9 OT- IP Assessment and Plan Start: 07/12/25 13:39 Freq: Status: Active Protocol: Document 07/14/25 12:02 [facility] (Rec: 07/14/25 12:17 [facility] Desktop) OT Summary Assessment and Plan Potential Rehabilitation Good Potential Analytic Complexity Moderate at Evaluation Summary OT Impairments Pain,Balance,Functional Mobility,Grooming,Dressing, Toileting,Bathing,Toilet Transfers,Shower Transfers, Activity Tolerance Progress Towards Slow Progress due to Pain,Slow Progress due to Medical Goals Issues,Slow Progress due to Activity Tolerance,Slow Progress due to Cognition Assessment Summary Pt now diagnosed with possible PNA. Pt needing much more assistance from OT eval and now 2 person assist for ADL and mobility needs. Pt noted to have neglect of left side LUE> LLE and needing cues to look to the left. Pt needing more cues for initiation of movement and physical assist for balance and midline needs. Pt would benefit from CHEMIST BIOLOGICAL to assess swallowing needs. Pt to go to skilled rehab when medically stable. Goals Grooming Goal Independent Dressing Goal Independent Toileting Goal Minimal Assistance Bathing Goal Minimal Assistance Toilet Transfer Goal Contact Guard Assistance Shower Transfer Goal Minimal Assistance Days to Meet Goals 20 Frequency of Treatment Other frequency 5x/week Treatment Plan OT Treatment Plan ADL Training,Functional Mobility,Therapeutic Exercises, Patient/Family Education,Discharge Planning Other Treatment Grooming at EOB with SBA and with good sitting balance. Recommendations and Next Treatment Focus Discharge Recommendations OT Discharge SNF Rehab Recommendations Home Equipment Needs shower chair, grab bar near commode or toilet safety frame Transportation Needs Wheelchair/Cabulance at Discharge
[2025-07-14] MEDS: INSULIN LISPRO 100 UNIT/ML 3ML VIAL SUBCUT ×2 (12:52→17:23)
--- NOTE | 2025-07-14 13:05 | CM.DPC ---
Positive Blood Cultures. Not medically stable for discharge. Plan: Repeat Blood Cultures. Continue IV Abx, and speech eval.
[2025-07-14] MEDS: PIPERACILLIN/TAZO 3.375 GM in SODIUM CHLORIDE 0.9% 100 ML IV ×2 (14:28→22:09)
[2025-07-14 16:59] VITALS: BP 101/62; PULSE 66; RESP 18; TEMP 36.4; O2SAT 95
[2025-07-14 18:43] VITALS: BP 96/54; PULSE 64
--- NOTE | 2025-07-14 18:44 | PC.NURSE ---
[id number] shift - pt has been slow at eating, but likes to eat and feed himself; POC blood sugars have been treated per scale; pt is able to state his needs for pain; took tylenol x1 time today- this helped his shoulder pain; PT attended and pt was able to get OOB to chair; tolerated this about 2.5 hours; once pt tired, he was able to pivot from chair back to bed with using walker and x2 assists; pt is stating that he does feel better today than yesterday. male ext pure [place] cath has worked very well; urine remains areyl; output adequate. pt has some edema to extremities. non pitting. Pt has decreased lung sounds, slightly coarse at bases, but stable sats. on room air. pt has loose, non productive cough and states that it has not bothered him too much. Using pillows to float legs and buttocks; assisting pt with positioning; did photo of buttock cheek with Coordinator Elma Woodson RN taking chart photo; RN placed mepilex type padded dressing over this site- slightly purple/red color, but skin intact. see photo. IV site remains intact; following antibx care with pharmacy; meds were changed today; pt has tolerated the initial zosyn well. call light in reach; pt states that he is comfortable at this time, after his dinner. family in most of day- son and spouse; both will come again tomorrow for visiting. pt remains in bed at 1900; HOB is elevated; this RN held 1700 dose of Carvedilol due to lower BP and heart rate; discussed this with ALEXX Berry, Lead RN in ICU today. will update mold shifter and continue to follow pt's BP.
[2025-07-14 19:30] VITALS: BP 97/52; PULSE 60; RESP 24; TEMP 36.5; O2SAT 93
[2025-07-14] MEDS: SODIUM CHLORIDE 0.9% FLUSH 10 ML IV (22:09)
[2025-07-15 03:00] VITALS: BP 126/80; PULSE 62; RESP 22; TEMP 36.6; O2SAT 95
[2025-07-15] MEDS: PIPERACILLIN/TAZO 3.375 GM in SODIUM CHLORIDE 0.9% 100 ML IV ×2 (06:21→13:55)
[2025-07-15 09:10] VITALS: BP 126/74; PULSE 75
[2025-07-15] MEDS: ATORVASTATIN 20 MG TABLET 80 MG PO (09:10)
[2025-07-15] MEDS: GABAPENTIN 300 MG CAPSULE PO (09:10)
[2025-07-15] MEDS: PANTOPRAZOLE DR 20 MG TABLET PO (09:10)
[2025-07-15] MEDS: DOCUSATE 100 MG CAPSULE PO (09:11)
[2025-07-15] MEDS: LORATADINE 10 MG TABLET PO (09:11)
[2025-07-15] MEDS: CELECOXIB 100 MG CAPSULE PO (09:11)
[2025-07-15] MEDS: APIXABAN 5 MG TABLET PO (09:11)
--- NOTE | 2025-07-15 10:32 | PT.IPTN ---
Current Diagnoses Weakness (07/13/25) Physical Therapy Treatment Note M2 PT-IP Current Condition Start: 07/12/25 16:25 Freq: Status: Active Protocol: Document 07/13/25 08:13 SP (Rec: 07/13/25 09:03 sherrie Nagel) Physical Therapy Current Condition Current Condition Evaluation Date 07/12/25 Treatment Diagnosis Weakness, R and L hip pain Onset Date 07/11/25 M3 PT-IP Subjective Start: 07/12/25 16:25 Freq: Status: Active Protocol: Document 07/15/25 13:29 NW (Rec: 07/15/25 13:38 NW [id number]) Subjective Physical Therapy Visit Type Type Treatment Note Visit Start Time 10:12 Visit Stop Time 10:32 Notes Pt is found trying to get out of bed to use the restroom. Physical Therapy Visit Comments Patient Comments Pt is visiting with family and states he needs to use the restroom. Patient Goals Unable to state M4 PT-IP Mobility and Gait Start: 07/12/25 16:25 Freq: Status: Active Protocol: Document 07/15/25 13:29 NW (Rec: 07/15/25 13:38 NW [id number]) PT-Bed Mobility Assessment Supine to Sit Supine to Sit Maximum Assistance,2 Person Assistance,Head of Bed Elevated Sit to Supine Sit to Supine Maximum Assistance,2 Person Assistance Scooting Scooting to Edge of Maximum Assistance Bed Scooting Up and Down Dependent in Bed PT-Transfer Assessment Sit to and From Stand Sit to and from Maximum Assistance,2 Person Assistance,Use of Upper Stand Extremities Equipment Transfer Assistive Gait Belt,Front Wheeled Walker Device Comments Mobility Comments Decreased trunk control with lateral flexion to R upon sitting upright today with max A. Pt unable to be cued to sit independently with bilateral UE support. Upon sit to stand pt has retropulsion and is lowered slowly back into bed. Unable to maintain upright with maxA and bilateral UE support with FWW. PT-Balance Assessment Sitting Balance and Reactions Static Sitting Poor Balance Ability Dynamic Sitting Poor Balance Ability Standing Balance and Reactions Static Standing Poor Balance Ability Dynamic Standing Poor Balance Ability Device Used FWW M5 PT-IP Objective Assessments Start: 07/12/25 16:25 Freq: Status: Active Protocol: Document 07/12/25 16:25 NW (Rec: 07/12/25 16:44 NW [id number]) Orientation Orientation/Cognition Level of Alertness Alert Orientation Name,Age,Birthday,Month,Date,Year,Day of Week,Place, Situation Safety Awareness Decreased Safety Awareness Gross Range of Motion Lower Extremity ROM Assessment Within Functional Limits Strength Lower Extremity Strength Assessment Within Functional Limits Comments Strength Comments isolated strength testing WFL, pain with R hip flexion resistance Sensation Assessment Sensation Gross Sensation WNL M6 PT-IP Treatment Start: 07/12/25 16:25 Freq: Status: Active Protocol: Document 07/15/25 13:29 NW (Rec: 07/15/25 13:38 NW [id number]) Physical Therapy Treatment Education Education Provided Safety Other Treatments Other Treatment Rational for why not transferring pt to bed side chair Performed nor commode today secondary to decreased trunk control. Switched to frankie lift for RN. M7 PT-IP Assessment and Plan Start: 07/12/25 16:25 Freq: Status: Active Protocol: Document 07/15/25 13:29 NW (Rec: 07/15/25 13:38 NW [id number]) PT Summary Assessment and Plan Potential Rehabilitation Fair Potential Status of Condition Evolving at Evaluation Summary Impairments Pain,ROM,Strength,Balance,Coordination,Sensation,Tone, Cognition,Bed Mobility,Transfers,Gait,Activity Tolerance Progress Towards Slow Progress due to Activity Tolerance,Slow Progress - Goals Other Assessment Summary Wicho continues to decompensate from prior session requiring maxA x 2 to go from supine to sit and sit edge of bed with reduced ability to right with tactile and verbal cues. Today pt leans to the R with increased L sided awareness. Altered to frankie lift with set staff fitter . Pt left on bedpan with LINING CEMENTER. Goals Bed Mobility Goal Contact Guard Assistance Transfer Goal Minimal Assistance,Front Wheeled Walker Gait Goal Minimal Assistance Gait Distance 10 Other Goals Pt will be able to navigate 14 steps with unilateral railing on R upon ascent. Frequency of Treatment Frequency Of Once a Day Treatment Treatment Plan Physical Therapy Bed Mobility Training,Transfer Training,Gait Training, Treatment Plan Therapeutic Exercise,Balance Retraining,Discharge Planning,Neuromuscular Re-ed Other Bed mobility, sitting endurance, stand if able. Recommendations and Next Treatment Focus Precautions Other Precautions falls risk Weight Bearing Status Weight Bearing Weight Bear as Tolerated Status Recommendations To Nursing Amount of Assist Mechanical Lift Needed Discharge Recommendations PT Discharge SNF Rehab Recommendations Transportation Needs Wheelchair/Cabulance at Discharge - PT assist 2
--- NOTE | 2025-07-15 10:33 | OT.IP.TRT ---
Current Diagnoses Weakness (07/13/25) Occupational Therapy Treatment Note M2 OT-IP Current Condition Start: 07/12/25 13:39 Freq: Status: Active Protocol: Document 07/12/25 12:00 SORAYA (Rec: 07/12/25 13:57 [facility] Desktop) Occupational Therapy Current Condition Current Condition Evaluation Date 07/12/25 Treatment Diagnosis weakness, decreased self care Diagnosis Onset Date 07/11/25 M3 OT- IP Subjective and Pain Start: 07/12/25 13:39 Freq: Status: Active Protocol: Document 07/15/25 10:39 [facility] (Rec: 07/15/25 10:50 [facility] Desktop) OT- Subjective Occupational Therapy Visit Type Visit Start Time 10:13 Visit Stop Time 10:33 Occupational Therapy Visit Comments Patient Comments Pt's legs partially out of the bed when OT/PT arrived to see him for treatment. OT Pain Assessment Pain When Pain Assessed At Rest Location Chronic low back Pain Behaviors Facial Grimacing M4 OT- IP ADL's Start: 07/12/25 13:39 Freq: Status: Active Protocol: Document 07/14/25 12:02 [facility] (Rec: 07/14/25 12:17 [facility] Desktop) OT XPS-[id number] Comments OT Self-Feeding Pt too tired this time and having difficulty to stay Comments awake. Pt will benefit from 1:1 assist and beneficial to have [employer] eval for swallowing needs. OT ADL-Grooming Comments OT Grooming Comments Pt able to wash his face after set-up of wash cloth. OT ADL-Dressing General Eval Lower Body Dressing Maximum Assistance Ability Areas Needing Underpants/Brief Assistance OT ADL-Toileting General Evaluation Toileting Ability Maximum Assistance,Total Assistance Comments OT Toileting Use of catheter. MAXA A for brief management needs. Comments OT ADL-Bathing Comments OT Bathing Comments Sponge bath more appropriate at this time. M5 OT- IP IADL's Start: 07/12/25 13:39 Freq: Status: Active Protocol: Document 07/12/25 12:00 S[facility]AYA (Rec: 07/12/25 13:57 [email or web address] Desktop) OT-Instrumental Activities of Daily Living Deficits IADL Deficits No Deficits Identified Home Safety Awareness Awareness of Need Good Awareness for Assistance at Home Home Safety Comments Pt is aware of needing assistance. Medication Management Medication Caregiver Administers Management Money Management Money Management No Deficits Identified Meal Preparation Meal Preparation Caregiver Provides Assist Swimmer Swimmer Caregiver Provides Assist Driving Driving Caregiver Provides Assist M6 OT- IP Functional Cognition Start: 07/12/25 13:39 Freq: Status: Active Protocol: Document 07/14/25 12:02 [facility] (Rec: 07/14/25 12:17 [facility] Desktop) Cognitive Factors Limiting Selfcare Function Cognitive Comments Cognitive Assessment Pt very sleepy and having his eyes closes but states he Comments is awake. Pt neglectful of his left side UE> LE and vc to look for his left hand positioning needs. M7 OT- IP Mobility and Balance Start: 07/12/25 13:39 Freq: Status: Active Protocol: Document 07/15/25 10:39 [facility] (Rec: 07/15/25 10:50 [facility] Desktop) OT- Bed Mobility Assessment Supine to Sit Supine to Sit Assist Maximum Assistance,2 Person Assistance OT-Transfer Assessment Sit to and From Stand Sit to and from Maximum Assistance,2 Person Assistance Stand Comments Mobility Comments Pt MAX A x2 from supine to sit today. Pt MAXA x2 to stand to the FWW and another to hold the FWW in place. Pt to unsteady and heavily leaning to the right today and not safe to transfer. Therefore best to use the Enedelia lift for pt at this time. OT- Balance Assessment Sitting Balance and Reactions Static Sitting Poor Balance Ability Dynamic Sitting Poor Balance Ability Standing Balance and Reactions Static Standing Poor Balance Ability Dynamic Standing Poor Balance Ability Comments Other Balance Tests/ Pt not heavily leaning to the right today. NO awareness Deviations/Treatment of midline. : M8 OT- IP Objective Assessments Start: 07/12/25 13:39 Freq: Status: Active Protocol: Document 07/12/25 12:00 [facility] (Rec: 07/12/25 13:57 [email or web address] Desktop) OT Gross Range of Motion Upper Extremity Range of Motion Assessment Within Functional Limits OT Strength Upper Extremity Strength Assessment Within Functional Limits Hand Mortgage Underwriter Strength Hand Dominance Right Comments Strength Comments Pt has 5/5 UE strength. OT- Coordination Assessment Comments Coordination Thumb to fingertips intact. Comments OT-Muscle Tone Assessment Muscle Tone WNL Yes OT Sensation Assessment Comments Summary Comments Pt denies any sensory deficits in UE. Edema Edema Absent Edema Comments No noted edema in LE, although family reports pt usually wears compression socks. M9 OT- IP Assessment and Plan Start: 07/12/25 13:39 Freq: Status: Active Protocol: Document 07/15/25 10:39 [facility] (Rec: 07/15/25 10:50 [facility] Desktop) OT Summary Assessment and Plan Potential Rehabilitation Fair Potential Analytic Complexity Moderate at Evaluation Summary OT Impairments Pain,Balance,Functional Mobility,Grooming,Dressing, Toileting,Bathing,Toilet Transfers,Shower Transfers, Activity Tolerance Progress Towards Slow Progress due to Pain,Slow Progress due to Medical Goals Issues,Slow Progress due to Activity Tolerance,Slow Progress due to Cognition Assessment Summary Pt today needing more assist for bed mobility needs MAX AX 2 and MAX AX 2 to stand to the FWW and another to hold the FWW in place. Pt not safe to use the BSC and had pt lie back down and nursing aid came in to help set-up bed martinez for pt. Pt to go skilled rehab. Goals Grooming Goal Minimal Assistance Dressing Goal Moderate Assistance Toileting Goal Moderate Assistance Bathing Goal Moderate Assistance Toilet Transfer Goal Minimal Assistance Shower Transfer Goal Moderate Assistance Days to Meet Goals 20 Frequency of Treatment Other frequency 5x/week Treatment Plan OT Treatment Plan ADL Training,Functional Mobility,Therapeutic Exercises, Patient/Family Education,Discharge Planning Discharge Recommendations OT Discharge SNF Rehab Recommendations Transportation Needs Stretcher/Ambulance at Discharge
--- NOTE | 2025-07-15 12:03 | P.PN_ITS ---
Subjective Subjective Date Patient Seen: 07/14/25 Interval history: Chief complaint: Generalized weakness progressive over 10 days with findings of dysphagia and aspiration pneumonia History of present illness: 07/12: (per nocturnal hospital note) 85-year-old male with past medical history of atrial fibrillation on Eliquis, hypertension, CHF, dyslipidemia and arrhythmias status post cardiac ablation presents with generalized weakness and right hip pain. Per the patient's report, the patient has had increased weakness over the past day and a half. The patient states his weakness is just generalized but he also has some right hip pain. The patient denies any falling or injury directly to his hip. The patient does note that he has osteoarthritis in the past. Orthopedic denies any fever, chills, nausea, vomit, diarrhea, chest or shortness of breath. The patient states that he is at home. In the emergency room, patient was hemodynamically stable and saturating well on room air. Labs shows a creatinine of 1.3 but otherwise benign. UA was negative for any sign of UTI. X-ray of the hip shows no acute finding. CT hip is pending. Due to ongoing pain management consult ER physician request admission for pain control with PT OT. Hospital course: 07/13: Received call that BCx with [facility]. ID and sensi pending. On CTX and Azithro for probably pna. May have streptococcal Pneumonia bacteremia vs staph. Will cover with Vanco for now to cover for MRSA. May need an echo depending on final ID of [facility]. 07/14: Patient quite although lethargic minimally responsive confused and blood there is PCR positive for group agalactiae Streptococcus, however patient has bilateral lower lobe infiltrates suggesting aspiration discussed with pharmacy and switch to Zosyn for coverage of enteral Gram-negative and Gram-positive discontinue the vancomycin ordering a speech evaluation patient has a lot of rhonchi and secretions according to family patient has also undergone speech therapy and has dysphagia raising the suspicion of ongoing aspiration Review of systems: Unable to participate due to confusion Physical exam: Confused bed-bound morbidly ill Not handling secretions well Rhonchi throughout the chest basilar rales bilaterally at bases Abdomen is nondistended 2+ pedal edema Does move all extremities but does not follow commands well Assessment and plan: Highly suspected aspiration pneumonia of bilateral lower lobes on chest x-ray with dysphagia acute encephalopathy with PCR in the blood positive for Streptococcus agalactiae * Imaging abdomen and pelvis for possible malignancy as a source * Recheck the urinalysis for urine culture as possible source * Typically not mouth leti however patient appears to be aspirate Suspected chronic aspiration: * Speech therapy evaluation Retro-orbital venous varices Initial noncontrast head CT in the ER showed retro-orbital masslike lesions which were new from prior imaging. MRI could not be done due to a non-MRI compatible pacemaker. Orbital CT with contrast was performed which shows 2 enlarging venous lesions 1 superiorly and 1 inferiorly, that are clearly increased in size compared to 05/2025. These are likely venous varices. * Outpatient ophthalmology evaluation. Discussed with patient and his . Encouraged his to arrange an appointment with their usual acid regenerator. CKD, stage IV Clinically stable * Continue to monitor especially in the setting of contrast on 07/12 * Avoid nephrotoxins and renally dose meds as necessary Urine retention The patient had urine retention at presentation and a Mcnulty catheter was placed. Mcnulty was discontinued on 07/12. * CTM for urine retention s/p mcnulty removal * Maybe source of bacteremia Hypertension * Continue antihypertensives Atrial fibrillation Currently rate controlled and anticoagulated. * Continue carvedilol and Eliquis Diabetes mellitus Adequate blood glucose control. * Continue fingerstick blood sugars a.c. and HS * Continue lispro SSI Discharge planning: Initially anticipated discharge to home with home health services. However the patient appears weaker and will likely need a custodial facility for short-term rehab. Pending PT OT evaluations and care management assessment. Code status: DNR Diet: Heart healthy Lines/tubes: Peripheral IV DVT prophylaxis: Chronically on Eliquis Time based billing: * 55 minutes were involved evaluation of the patient [id number] evaluation extensive review of medical literature objective laboratory and imaging findings including direct visualization of imaging discussion with care team Exam Vital Signs (past 8 hours): - 07/15/25 09:10 Pulse Rate 75 Blood Pressure 126/74 Oxygen Delivery Method Room Air Oxygen Flow Rate 0 Objective Labs 07/13/25 11:00 07/13/25 05:15 Labs: Laboratory Results - last 24 hr 07/14/25 07/14/25 07/14/25 12:10 16:53 20:14 POC Whole Bld Glucose 141 H 130 H 152 H 07/15/25 08:06 POC Whole Bld Glucose 126 H [facility] Medical History (Updated 07/12/25 @ 03:53 by Ray Lugo MD) Do not resuscitate History of vertebral compression fracture Cerebrovascular disease Risk for falls Chronic kidney disease, stage 3b Deficient knowledge of open reduction and internal (ORIF) fixation of hip GERD without esophagitis Hammertoe of left foot Slow transit constipation Lumbar stenosis with neurogenic claudication Facet arthropathy, lumbar Actinic keratosis Primary osteoarthritis involving multiple joints Coronary artery disease Venous (peripheral) insufficiency Systolic CHF, chronic Obstructive sleep apnea Hearing loss Fractures (~2019) Measles (~1952) Chicken pox (~194) Anemia (~1974) Chronic anticoagulation History of TIA (transient ischemic attack) (~2018) Chronic low back pain without sciatica Idiopathic peripheral neuropathy BPH w urinary obs/LUTS Mixed hyperlipidemia Essential hypertension Paroxysmal atrial fibrillation Pulmonary nodule Orthostatic hypotension Surgical History Anesthesia Status post cardiac pacemaker procedure (~03/2021) Status post recent transurethral resection of prostate Status post left partial knee replacement Status post circumferential ablation of pulmonary vein Family History Father Kidney failure Mother Congestive heart failure Brother Stroke Sister Cancer Social History (Updated 05/25/25 @ 15:39 by Gloria Medina) marital status: household members: spouse pets and animals: Yes Smoking Status: Former smoker Tobacco: How many years used: 4 alcohol intake: former substance use type: does not use Assessment & Plan Time-Based Coding :: [TOTAL MINUTES] spent with patient and on the chart (including review of chart, obtaining history, exam, reviewing outside data, placing orders, documenting exam and treatment plan, and counseling patient) on [DATE].
--- NOTE | 2025-07-15 14:10 | P.PN_ITS ---
Subjective Subjective Date Patient Seen: 07/15/25 Interval history: Chief complaint: Generalized weakness progressive over 10 days with findings of dysphagia and aspiration pneumonia History of present illness: 07/12: (per nocturnal hospital note) 85-year-old male with past medical history of atrial fibrillation on Eliquis, hypertension, CHF, dyslipidemia and arrhythmias status post cardiac ablation presents with generalized weakness and right hip pain. Per the patient's report, the patient has had increased weakness over the past day and a half. The patient states his weakness is just generalized but he also has some right hip pain. The patient denies any falling or injury directly to his hip. The patient does note that he has osteoarthritis in the past. Orthopedic denies any fever, chills, nausea, vomit, diarrhea, chest or shortness of breath. The patient states that he is at home. In the emergency room, patient was hemodynamically stable and saturating well on room air. Labs shows a creatinine of 1.3 but otherwise benign. UA was negative for any sign of UTI. X-ray of the hip shows no acute finding. CT hip is pending. Due to ongoing pain management consult ER physician request admission for pain control with PT OT. Hospital course: 07/13: Received call that BCx with [facility]. ID and sensi pending. On CTX and Azithro for probably pna. May have streptococcal Pneumonia bacteremia vs staph. Will cover with Vanco for now to cover for MRSA. May need an echo depending on final ID of [facility]. 07/14: Patient quite although lethargic minimally responsive confused and blood there is PCR positive for group agalactiae Streptococcus, however patient has bilateral lower lobe infiltrates suggesting aspiration discussed with pharmacy and switch to Zosyn for coverage of enteral Gram-negative and Gram-positive discontinue the vancomycin ordering a speech evaluation patient has a lot of rhonchi and secretions according to family patient has also undergone speech therapy and has dysphagia raising the suspicion of ongoing aspiration 07/15: Was alert and interactive but not cogent when his family was here for [place] since then he is become less interactive and seems to have ragged breathing he is not responsive at this time. Had long discussion with family who are leaning toward comfort measures he is DNR. If he is not having clinical response or improvement tomorrow we will probably go to full comfort measures Review of systems: Unable to participate due to confusion Physical exam: Confused bed-bound morbidly ill Not handling secretions well Rhonchi throughout the chest basilar rales bilaterally at bases Abdomen is nondistended 2+ pedal edema Does move all extremities but does not follow commands well Assessment and plan: Highly suspected aspiration pneumonia of bilateral lower lobes on chest x-ray with dysphagia acute encephalopathy with PCR in the blood positive for Streptococcus agalactiae * Imaging abdomen and pelvis for possible malignancy as a source * Recheck the urinalysis for urine culture as possible source * Typically not mouth leti however patient appears to be aspirate Suspected chronic aspiration: * Speech therapy evaluation Retro-orbital venous varices Initial noncontrast head CT in the ER showed retro-orbital masslike lesions which were new from prior imaging. MRI could not be done due to a non-MRI compatible pacemaker. Orbital CT with contrast was performed which shows 2 enlarging venous lesions 1 superiorly and 1 inferiorly, that are clearly increased in size compared to 05/2025. These are likely venous varices. * Outpatient ophthalmology evaluation. Discussed with patient and his . Encouraged his to arrange an appointment with their usual structural rigger. CKD, stage IV Clinically stable * Continue to monitor especially in the setting of contrast on 07/12 * Avoid nephrotoxins and renally dose meds as necessary Urine retention The patient had urine retention at presentation and a Mcnulty catheter was placed. Mcnulty was discontinued on 07/12. * CTM for urine retention s/p mcnulty removal * Maybe source of bacteremia Hypertension * Continue antihypertensives Atrial fibrillation Currently rate controlled and anticoagulated. * Continue carvedilol and Eliquis Diabetes mellitus Adequate blood glucose control. * Continue fingerstick blood sugars a.c. and HS * Continue lispro SSI Discharge planning: Initially anticipated discharge to home with home health services. However the patient appears weaker and will likely need a nursing home facility for short-term rehab. Pending PT OT evaluations and care management assessment. Code status: DNR Diet: Heart healthy Lines/tubes: Peripheral IV DVT prophylaxis: Chronically on Eliquis Time based billing: * 35 minutes were involved evaluation of the patient [id number] evaluation extensive review of medical literature objective laboratory and imaging findings including direct visualization of imaging discussion with care team Exam Vital Signs (past 8 hours): - 07/15/25 09:10 Pulse Rate 75 Blood Pressure 126/74 Oxygen Delivery Method Room Air Oxygen Flow Rate 0 Objective Labs 07/13/25 11:00 12/23/25 05:15 Labs: Laboratory Results - last 24 hr 07/14/25 07/14/25 07/15/25 16:53 20:14 08:06 POC Whole Bld Glucose 130 H 152 H 126 H PFSH Medical History (Updated 07/12/25 @ 03:53 by Ray Lugo MD) Do not resuscitate History of vertebral compression fracture Cerebrovascular disease Risk for falls Chronic kidney disease, stage 3b Deficient knowledge of open reduction and internal (ORIF) fixation of hip GERD without esophagitis Hammertoe of left foot Slow transit constipation Lumbar stenosis with neurogenic claudication Facet arthropathy, lumbar Actinic keratosis Primary osteoarthritis involving multiple joints Coronary artery disease Venous (peripheral) insufficiency Systolic CHF, chronic Obstructive sleep apnea Hearing loss Fractures (~2019) Measles (~1952) Chicken pox (~194) Anemia (~1974) Chronic anticoagulation History of TIA (transient ischemic attack) (~2018) Chronic low back pain without sciatica Idiopathic peripheral neuropathy BPH w urinary obs/LUTS Mixed hyperlipidemia Essential hypertension Paroxysmal atrial fibrillation Pulmonary nodule Orthostatic hypotension Surgical History Anesthesia Status post cardiac pacemaker procedure (~03/2021) Status post recent transurethral resection of prostate Status post left partial knee replacement Status post circumferential ablation of pulmonary vein Family History Father Kidney failure Mother Congestive heart failure Brother Stroke Sister Cancer Social History (Updated 05/25/25 @ 15:39 by Gloria Medina) marital status: household members: spouse pets and animals: Yes Smoking Status: Former smoker Tobacco: How many years used: 4 alcohol intake: former substance use type: does not use Assessment & Plan Time-Based Coding :: [TOTAL MINUTES] spent with patient and on the chart (including review of chart, obtaining history, exam, reviewing outside data, placing orders, documenting exam and treatment plan, and counseling patient) on [DATE].
[2025-07-15] MEDS: MORPHINE 10 MG/ML INJ IV (14:43)
[2025-07-15] MEDS: SCOPOLAMINE 1 PATCH TOP (16:15)
--- NOTE | 2025-07-15 20:02 | PC.NURSE ---
[id number] family continue to sit with pt; mcnulty will be reviewed at another time; night RN is aware; pt is resting well and family are comfortable with pt's status for comfort care needs; IV remains patent; morphine IV continues at 5 mg/hr; pt is on RA by family and pt's choices. pt has depends in place at this time. ext. cath and mcnulty options have been discussed; family will ask for these interventions if family desire. pt report to oncoming RN.
--- NOTE | 2025-07-16 00:57 | PC.NURSE ---
Patient was Comfort Care, unresponsive on morphine gtt at 5mg/hr upon beginning of shift. Family requested minimal stimulation except light oral sx, no gag reflex. At 2330, family notified staff of absent breath sounds since . Verified no heart or breath sounds, absent pulses. Pollock picked body up at 0055. Family took all of patients belongings except thin gold ring on left ring finger.
--- NOTE | 2025-07-16 15:31 | PM.DDS.1 ---
Discharge Summary Hospital Course Date of Admission: 07/13/25 13:28 Date of : 07/15/25 (Time of : 12:55 p.m.) Primary care provider: David Wyatt MD Consults: 07/12/25 10:31 Consult to Occupational Therapy Evaluate & Treat Comment: Physician Instructions: Evaluate and treat Consult to Physical Therapy Evaluate & Treat Comment: Physician Instructions: Evaluate and Treat 07/15/25 14:35 Consult to Discharge Planning Routine Comment: Hospital Course: Cause of : Aspiration pneumonia Chief complaint: Generalized weakness progressive over 10 days with findings of dysphagia and aspiration pneumonia History of present illness: 07/12: (per nocturnal hospital note) 85-year-old male with past medical history of atrial fibrillation on Eliquis, hypertension, CHF, dyslipidemia and arrhythmias status post cardiac ablation presents with generalized weakness and right hip pain. Per the patient's report, the patient has had increased weakness over the past day and a half. The patient states his weakness is just generalized but he also has some right hip pain. The patient denies any falling or injury directly to his hip. The patient does note that he has osteoarthritis in the past. Orthopedic denies any fever, chills, nausea, vomit, diarrhea, chest or shortness of breath. The patient states that he is at home. In the emergency room, patient was hemodynamically stable and saturating well on room air. Labs shows a creatinine of 1.3 but otherwise benign. UA was negative for any sign of UTI. X-ray of the hip shows no acute finding. CT hip is pending. Due to ongoing pain management consult ER physician request admission for pain control with PT OT. Hospital course: 07/13: Received call that BCx with [facility]. ID and sensi pending. On CTX and Azithro for probably pna. May have streptococcal Pneumonia bacteremia vs staph. Will cover with Vanco for now to cover for MRSA. May need an echo depending on final ID of [facility]. 07/14: Patient quite although lethargic minimally responsive confused and blood there is PCR positive for group agalactiae Streptococcus, however patient has bilateral lower lobe infiltrates suggesting aspiration discussed with pharmacy and switch to Zosyn for coverage of enteral Gram-negative and Gram-positive discontinue the vancomycin ordering a speech evaluation patient has a lot of rhonchi and secretions according to family patient has also undergone speech therapy and has dysphagia raising the suspicion of ongoing aspiration 07/15: Was alert and interactive but not cogent when his family was here for [place] since then he is become less interactive and seems to have ragged breathing he is not responsive at this time. Had long discussion with family who are leaning toward comfort measures he is DNR. If he is not having clinical response or improvement tomorrow we will probably go to full comfort measures Patient at 11:55 p.m. Objective Labs 07/13/25 11:00 07/13/25 05:15
== END 2025-07-15 23:25 | disposition expired | DRG 178 ==
LOC: ED 22:04 → AC 07-12 02:35
PROVIDERS: Internal Medicine Infectious Disease; Admitting Provider Internal Medicine; Emergency Provider Family Medicine; PCP Internal Medicine; Visit Provider Internal Medicine
DX: J69.0 Pneumonitis due to inhalation of food and vomit (principal); G93.40 Encephalopathy, unspecified; N18.4 Chronic kidney disease, stage 4 (severe); R53.1 Weakness; I48.91 Unspecified atrial fibrillation; M25.551 Pain in right hip; I12.9 Hypertensive chronic kidney disease with stage 1 through stage 4 chronic kidney disease, or unspecified chronic kidney disease; E11.22 Type 2 diabetes mellitus with diabetic chronic kidney disease; I86.8 Varicose veins of other specified sites; R33.9 Retention of urine, unspecified; R13.10 Dysphagia, unspecified; B95.1 Streptococcus, group B, as the cause of diseases classified elsewhere; Z79.01 Long term (current) use of anticoagulants; Z51.5 Encounter for palliative care; Z66 Do not resuscitate; Z87.891 Personal history of nicotine dependence
CPT/HCPCS: 36415; 51798; 70450; 70481; 71045; 72170; 72192; 80048; 80053; 81001; 81003; 81015; 82140; 82550; 82962; 83605; 85025; 86140; 87040; 87077; 87147; 87154; 87186; 87633; 93005; 93010; 97112; 97161; 97165; 97530; 97535; 99284; G0378; J0696; J1815; J2270; J2543; J3375; J7030; J7050; J7060; Q9967